=== PATIENT | female | born 1950 | race Caucasian/White ===

== ENCOUNTER 2016-08-09 12:10 | Inpatient (IN) | payer OTHER ==
[~2016-08-09] VITALS: Ht 165.1 cm; Wt 92.5 kg
[~2016-08-09 12:10] MED LIST: ACET-461 PO; GLIP5TAB13 PO; HYDR-3816 PO; LISI10TA2 PO; LISI20TA PO; LOVA10TA PO; METF-380 PO; Rivaroxaban PO; TRZ100T PO
[2016-08-09] MEDS ORDERED: ENOXAPARIN 40 MG/0.4 ML (LOVENOX) SYR SC SCH (13:30)
[2016-08-09 14:00] VITALS: BP 120/76
[2016-08-09] MEDS ORDERED: GLIP10TA13 PO (14:49)
[2016-08-09] MEDS ORDERED: LISI1TAB8 PO (14:49)
[2016-08-09 16:03] VITALS: BP 121/76
[2016-08-09] MEDS: inSUlin (REGULAR) HUMAN 1 UNIT/0.01 ML (CHARGE PER UNIT) SC SCH ×2 (16:27→21:09)
[2016-08-09] MEDS ORDERED: NS IV 1000 ML 1,000 ML IV SCH (16:30)
[2016-08-09] MEDS ORDERED: ASPIRIN E.C. 325 MG (ECOTRIN) TABLET PO NR (16:30)
--- NOTE | 2016-08-09 16:40 | Consultation-Cardiology ---
HPI-Cardiology Cardiology Consultation Date of Consultation 08/09/16 Date of Admission Indication: elevated troponin HPI 66 years old lady with history of hypertension, diabetes mellitus, patient had history of DVT 2 years ago, has been off Xarelto, was traveling with her son to the [place], drove for about 5 hours yesterday, had diarrhea, while she was walking she felt weak and fell and bumped the side of her eye. Did not have any bruising or bleeding. Patient was admitted to [facility] monitored and noted to have mildly elevated troponin, she was noted to have sinus tachycardia, she denied any chest pain or shortness of breath, no palpitation, no lower extremity edema or pain. Home Medications & Allergies Allergies: Coded Allergies: No Known Drug Allergies (Unverified , 05/16/14) Home Medication List Reviewed: Yes MWK-Uhtxyn-Hhjypr Hx Patient Social History Alcohol Use: Denies Use Recreational Drug Use: No Smoking Status: Former Smoker Recent Foreign Travel: No Recent Infectious Disease Expo: No Physical Abuse Screen: No Sexual Abuse: No Immunizations Up To Date Tetanus Booster (TDap): Unknown Past Medical History past medical history as discussed below Family Medical History Family History: 19 FATHER Respiratory disorder 19 MOTHER Cardiovascular disease Diabetes mellitus Myocardial infarction G8 BROTHER FH: COPD (chronic obstructive pulmonary disease) Hypertension G8 SISTER FH: COPD (chronic obstructive pulmonary disease) Hypertension Stroke or transient ischemic attack in sister Constitutional: see HPI, No chills, No diaphoresis, dizziness, No fever, No malaise, weakness, No weight gain, No weight loss, No other EENTM: no symptoms reported, see HPI Respiratory: see HPI, No cough, No dyspnea on exertion, No hemoptysis, No orthopnea, No phlegm, No short of breath, No stridor, No wheezing, No other Cardiovascular: no symptoms reported, see HPI, No chest pain, No edema, No Hx of Intervention, No palpitations, syncope ( as described above), No vascular heart diseas, No other Gastrointestinal: no symptoms reported, see HPI Genitourinary: no symptoms reported, see HPI Musculoskeletal: no symptoms reported, see HPI Skin: no symptoms reported, see HPI Psychiatric/Neurological: No Symptoms Reported, See HPI Reviewed Test Results Reviewed Test Results Lab Laboratory Tests Test 08/09/16 14:40 08/09/16 16:01 Range/Units Troponin I 0.35 *H <0.30 NG/ML Glucometer 287 H 70-110 MG/DL Physical Exam Vital Signs Vital Sign - Last 12Hours 08/09/16 14:00 Temp 97.8 Pulse 107 Resp 20 B/P (MAP) 120/76 Pulse Ox 96 O2 Delivery Nasal Cannula O2 Flow Rate 2.00 Capillary Refill : General Appearance: No Apparent Distress, WD/WN Eyes: Bilateral Eye EOMI, Bilateral Eye Normal Inspection, Bilateral Eye PERRL HEENT: PERRL/EOMI, TMs Normal, Normal ENT Inspection, Pharynx Normal Neck: Full Range of Motion, Normal Inspection, Non Tender, Supple, Carotid Bruit Respiratory: Chest Non Tender, Lungs Clear, Normal Breath Sounds, No Accessory Muscle Use, No Respiratory Distress Cardiovascular: Regular Rate, Rhythm, No Edema, No Gallop, No JVD, No Murmur, Normal Peripheral Pulses Gastrointestinal: Normal Bowel Sounds, No Organomegaly, No Pulsatile Mass, Non Tender, Soft Back: Normal Inspection, No CVA Tenderness, No Vertebral Tenderness Extremity: Normal Capillary Refill, Normal Inspection, Normal Range of Motion, Non Tender, No Calf Tenderness, No Pedal Edema Neurologic/Psychiatric: Alert, Oriented x3, No Motor/Sensory Deficits, Normal Mood/Affect Skin: Normal Color, Warm/Dry Lymphatic: No Adenopathy A/P-Cardiology Admission Diagnosis Near syncope Hypertension Diabetes mellitus DVT Assessment/Plan Near syncope, status post fall and generalized weakness, reporting improvement at this time, continue on IV fluid and monitor, I will evaluate 2-D echocardiogram. Mildly elevated troponin level, could be secondary to sinus tachycardia, continue to monitor trend, meanwhile I will start the patient on Lovenox and aspirin, monitor EKG closely, evaluate 2-D echocardiogram History of DVT in 2014 unprovoked, recent travel in the car for about 5 hours. Patient is started on Lovenox, I will evaluate venous Doppler study Sinus tachycardia, could be secondary to dehydration and/or pulmonary embolism, planning to evaluate venous Doppler study. Hypertension, monitor blood pressure and restart medication Diabetes mellitus, followed and managed by primary care physician Questionable hyperlipidemia, I will evaluate lipid profile Clinical Quality Measures DVT/VTE Risk/Contraindication: Risk Factor Score Per Nursin RFS Level Per Nursing on Admit: 4+=Very High THUY MATTHEWS MD Aug 09, 2016 16:40
[2016-08-09] MEDS: NS IV 1000 ML 1,000 ML IV SCH (17:10)
--- NOTE | 2016-08-09 17:21 | Diagnostic Imaging Report ---
INDICATION: Leg pain. FINDINGS: Bilateral lower extremity venous Doppler study performed in routine fashion with color Doppler and waveform analysis. On the right side, there is nonocclusive thrombus in the common femoral vein as well as in the popliteal vein. The SFV and visualized portions of tibial veins are patent On the left side, there is occlusive thrombus in the popliteal vein. The common femoral vein, SFV and profunda are patent. The visualized portions of the tibial veins are patent. IMPRESSION: Occlusive thrombus in the left popliteal vein. There is nonocclusive thrombus in the right common femoral vein and popliteal vein. Dictated by: Dictated on workstation # [id number]
[2016-08-09 17:47] LABS: CALCIUM 8.8 MG/DL (8.5-10.1); CREATININE SERUM 0.96 MG/DL (0.60-1.30); POTASSIUM 3.6 MMOL/L (3.6-5.0)
[2016-08-09] MEDS ORDERED: IOHEXOL 350 MG/ML 100 ML (OMNIPAQUE 350) VIAL IV ONE (18:00)
[2016-08-09] MEDS ORDERED: NS 100 ML (IVPB) BAG IV ONE (18:00)
--- NOTE | 2016-08-09 18:48 | Diagnostic Imaging Report ---
PROCEDURE: CT angiography of the chest with contrast. TECHNIQUE: Multiple contiguous axial images were obtained through the chest after uneventful bolus administration of intravenous contrast. Reconstructed CTA MIP acquisitions were also performed. INDICATION: Known DVT with syncope and shortness of breath. COMPARISON: None available. FINDINGS: Vasculature: There is a large volume of central pulmonary emboli, which includes a nonocclusive saddle type embolus within the right and left main pulmonary arteries. The most confluent thrombus burden is within the right interlobar pulmonary artery which is near occlusive. On the left, thrombus extends into the segmental arteries of the upper lobe, lingula and lower lobe. No evidence of pulmonary hypertension or right ventricular strain by CT. Thoracic aorta is normal in caliber. No aortic dissection or pseudoaneurysm. Heart and mediastinum: Visualized thyroid is normal. No supraclavicular, axillary, or intra-thoracic lymphadenopathy. The heart is normal in size without pericardial effusion. Pleura: No pleural effusion or pneumothorax. Lungs and airway: No endoluminal lesion in the trachea or central bronchi. Groundglass attenuation in the superior and lateral basilar segments of the right lower lobe could relate to early pulmonary infarcts. No suspicious pulmonary mass or nodule. Upper abdomen: Cholecystectomy. No acute abnormality upper abdomen. Musculoskeletal: No concerning osseous lesion. IMPRESSION: 1. Large volume of central pulmonary emboli, which includes a nonocclusive saddle embolus involving the right and left main pulmonary arteries. The most confluent focus of clot burden is in the right interlobar pulmonary artery. 2. No CT findings of pulmonary hypertension or right ventricular strain. 3. Groundglass opacities in the periphery of the right lower lobe may relate to early foci of pulmonary infarct. The findings of acute pulmonary emboli were called by Dr. Alban Palma to patient's nurse Oxana at 6:44 PM on 08/09/2016. Dictated by: Dictated on workstation # [id number]
[2016-08-09 20:00] VITALS: BP 112/63
[2016-08-09] MEDS: ENOXAPARIN 100 MG/1 ML (LOVENOX) SYR SC SCH (20:18)
[2016-08-10 00:37] VITALS: BP 111/71
[2016-08-10] MEDS: NS IV 1000 ML 1,000 ML IV SCH ×2 (03:00→03:10)
[2016-08-10 04:00] LABS: MEAN PLATELET VOLUME 10.7 FL (7.4-10.4); RED BLOOD COUNT 4.52 10^6/uL (4.35-5.85); RED CELL DISTRIBUTION WIDTH 12.5 % (10.0-14.5); WHITE BLOOD COUNT 11.6 10^3/uL (4.3-11.0)
[2016-08-10 04:20] VITALS: BP 111/60
[2016-08-10 04:27] LABS: ALANINE AMINOTRANSFERASE 21 U/L (0-55); ALBUMIN 2.7 G/DL (3.2-4.5); ANION GAP 9 MMOL/L (5-14); ASPARTATE AMINO TRANSFERASE 23 U/L (5-34); BILIRUBIN,TOTAL 0.4 MG/DL (0.1-1.0); BLOOD UREA NITROGEN 18 MG/DL (7-18); BUN/CREATININE RATIO 24; CARBON DIOXIDE 25 MMOL/L (21-32); CHLORIDE 106 MMOL/L (98-107); CHOLESTEROL 193 MG/DL (< 200); CREATININE SERUM 0.76 MG/DL (0.60-1.30); DIRECT LDL 137 MG/DL (1-129); GFR ESTIMATED > 60; GLUCOSE 163 MG/DL (70-105); POTASSIUM 3.2 MMOL/L (3.6-5.0); SODIUM 140 MMOL/L (135-145); TOTAL PROTEIN 5.4 G/DL (6.4-8.2); TRIGLYCERIDES 137 MG/DL (<150); VLDL CHOLESTEROL 27 MG/DL (5-40)
[2016-08-10 04:46] LABS: TROPONIN I < 0.30 NG/ML (<0.30)
[2016-08-10] MEDS: inSUlin (REGULAR) HUMAN 1 UNIT/0.01 ML (CHARGE PER UNIT) SC SCH ×4 (06:24→22:06)
[2016-08-10 07:36] VITALS: BP 101/57
[2016-08-10] MEDS: ASPIRIN E.C. 81 MG (ECOTRIN) TAB PO SCH (07:41)
[2016-08-10] MEDS: ENOXAPARIN 100 MG/1 ML (LOVENOX) SYR SC SCH (07:41)
[2016-08-10] MEDS: PANTOPRAZOLE 40 MG (PROTONIX) TAB PO SCH (07:41)
[2016-08-10] MEDS ORDERED: ENOXAPARIN 40 MG/0.4 ML (LOVENOX) SYR SC SCH (09:00)
--- NOTE | 2016-08-10 09:43 | Cardiology Progress Note ---
Subjective Subjective/Events-last exam patient is laying down in bed, comfortable, denied any chest pain or shortness of breath. No palpitation. Review of Systems General: No Chills, No Night Sweats, No Fatigue, No Malaise, No Appetite, No Other HEENT: No Head Aches, No Visual Changes, No Eye Pain, No Ear Pain, No Dysphasia , No Sinus Congestion, No Post Nasal Drip, No Sore Throat, No Other Pulmonary: Dyspnea, No Cough, No Pleuritic Chest Pain, No Other Cardiovascular: No: Chest Pain, Edema, Lt Headedness, Orthopnea, Other, Palpitations, Paroxysmal Noc. Dyspnea Objective-Cardiology Exam Last Set of Vital Signs Vital Signs 08/10/16 08/10/16 07:36 08:41 Temp 98.8 Pulse 83 Resp 20 B/P (MAP) 101/57 Pulse Ox 100 O2 Delivery Room Air O2 Flow Rate 2.00 Capillary Refill : I&O Bad tableGeneral: Alert, Oriented X3, Cooperative HEENT: Atraumatic, PERRLA Neck: Supple, No JVD, No Thyromegaly Lungs: Clear to Auscultation, Normal Air Movement Heart: Regular Rate, Normal S1, Normal S2, No Murmurs Abdomen: Normal Bowel Sounds, Soft, No Tenderness, No Hepatosplenomegaly, No Masses Extremities: No Clubbing, No Cyanosis, No Edema, Normal Pulses, No Tenderness/ Swelling Skin: No Rashes, No Breakdown, No Significant Lesion Neuro: Normal Gait, Normal Speech, Strength at 5/5 X4 Ext, Normal Tone, Sensation Intact Psych/Mental Status: Mental Status NL, Mood NL Results Lab Laboratory Tests 08/09/16 17:03 08/10/16 03:15 A/P-Cardiology Admission Diagnosis Near syncope Hypertension Diabetes mellitus DVT Assessment/Plan Massive pulmonary embolism, multiple PE, saddle embolus in the right and left main pulmonary artery, hemodynamically stable, occlusive DVT in the left popliteal artery, nonocclusive DVT in the right popliteal and femoral artery, status post recent travel. This is the second event of DVT, patient will to be on oral anticoagulation indefinitely, evaluate hypercoagulable state. Near syncope, status post fall and generalized weakness, reporting improvement at this time, continue to monitor, continue IV fluid Mildly elevated troponin level, probably secondary to right ventricular strain pattern from her massive pulmonary embolism Hypertension, currently borderline hypotensive, continue to monitor Diabetes mellitus, followed and managed by primary care physician Clinical Quality Measures DVT/VTE Risk/Contraindication: Risk Factor Score Per Nursin RFS Level Per Nursing on Admit: 4+=Very High THUY MATTHEWS MD Aug 10, 2016 09:43
--- NOTE | 2016-08-10 10:16 | History & Physicial (CHS) ---
HPI History of Present Illness: Patient transferred to [facility] hospitalist from [facility] due to elevated troponin, found to be a [facility] patient (Dr. Watson). Overnight was managed by hospitalist. Per patient, she drove with her son to the [facility] on Monday night about 2 hours at a time with stopping to eat around 9:30 pm. When they arrived home around midnight, she tried to walk into the house and fell. She denies palpitations, chest pain, shortness of breath, but felt unable to get up and asked her son to bring her walker that she has due to a previous episode of blood clot in her right leg. He brought her the walker and she again tried to walk, but fell flat on her face and was unable to get up, so the called the ambulance. She was found at [facility] to have possible UTI and given rocephin x 1 and also had elevated troponin and they recommended transfer, which she initially declined, but eventually agreed to when troponin apparently continued to climb. Dr. Sequeira was consulted and ordered lower extremity dopplers due to her history and she was found to have new occlusive DVT in left leg as well as the old non-occlusive DVT in right leg. Given this along with the fall, a CTA was done which showed large volume central pulmonary embolism including non-occlusive saddle pulmonary embolism. Dr. Sequeira discussed with [facility] last night who stated they would not intervene at this time as it is stable, so she remained here. She was placed on therapeutic lovenox. She is refusing to have an ABG this morning. Date seen by provider: Aug 10, 2016 Time seen by provider: 09:30 Attending Physician John Soares MD PCP Sam Watson MD Consult Date of Admission Aug 09, 2016 at 8:06 pm Home Medications Home Medications Reviewed patient Home Medication Reconciliation Form Allergies Coded Allergies: No Known Drug Allergies (Unverified , 05/16/14) OKM-Gtfjmd-Ccbqvh Hx Patient Social History Alcohol Use: Denies Use Recreational Drug Use: No Smoking Status: Former Smoker Recent Foreign Travel: No Contact w/other who traveled: No Recent Infectious Disease Expo: No Physical Abuse Screen: No Sexual Abuse: No Immunizations Up To Date Tetanus Booster (TDap): Unknown Past Medical History PMHx: Diabetes mellitus II HTN PSurgHx: Cholecystectomy, tubal ligation, bunionectomy, right knee surgery Family Medical History Significant Family History: COPD, CVA, Diabetes, Vascular Disease Review of Systems (CHC) Constitutional: No dizziness, No fever EENTM: No nose congestion, No throat pain Respiratory: No cough, No short of breath Cardiovascular: No chest pain Gastrointestinal: No abdominal pain, No constipation, No diarrhea, No nausea, No vomiting Genitourinary: no symptoms reported Musculoskeletal: joint pain Skin: No rash Psychiatric/Neurological: Denies Anxiety, Denies Depressed Reviewed Test Results Reviewed Test Results Lab Laboratory Tests Test 08/09/16 14:40 08/09/16 16:01 08/09/16 17:03 08/09/16 20:17 Range/Units Troponin I 0.35 *H <0.30 NG/ML Glucometer 287 H 298 H 70-110 MG/DL Sodium Level 138 135-145 MMOL/L Potassium Level 3.6 3.6-5.0 MMOL/L Chloride Level 100 98-107 MMOL/L Carbon Dioxide Level 25 21-32 MMOL/L Anion Gap 13 5-14 MMOL/L Blood Urea Nitrogen 20 H 7-18 MG/DL Creatinine 0.96 0.60-1.30 MG/DL Estimat Glomerular Filtration Rate 59 BUN/Creatinine Ratio 21 Glucose Level 280 H 70-105 MG/DL Calcium Level 8.8 8.5-10.1 MG/DL Test 08/10/16 03:15 Range/Units White Blood Count 11.6 H 4.3-11.0 10^3/uL Red Blood Count 4.52 4.35-5.85 10^6/uL Hemoglobin 13.0 11.5-16.0 G/DL Hematocrit 38 35-52 % Mean Corpuscular Volume 83 80-99 FL Mean Corpuscular Hemoglobin 29 25-34 PG Mean Corpuscular Hemoglobin Concent 35 32-36 G/DL Red Cell Distribution Width 12.5 10.0-14.5 % Platelet Count 157 130-400 10^3/uL Mean Platelet Volume 10.7 H 7.4-10.4 FL Sodium Level 140 135-145 MMOL/L Potassium Level 3.2 L 3.6-5.0 MMOL/L Chloride Level 106 98-107 MMOL/L Carbon Dioxide Level 25 21-32 MMOL/L Anion Gap 9 5-14 MMOL/L Blood Urea Nitrogen 18 7-18 MG/DL Creatinine 0.76 0.60-1.30 MG/DL Estimat Glomerular Filtration Rate > 60 BUN/Creatinine Ratio 24 Glucose Level 163 H 70-105 MG/DL Calcium Level 8.0 L 8.5-10.1 MG/DL Total Bilirubin 0.4 0.1-1.0 MG/DL Aspartate Amino Transf (AST/SGOT) 23 5-34 U/L Alanine Aminotransferase (ALT/SGPT) 21 0-55 U/L Alkaline Phosphatase 81 40-136 U/L Troponin I < 0.30 <0.30 NG/ML Total Protein 5.4 L 6.4-8.2 G/DL Albumin 2.7 L 3.2-4.5 G/DL Triglycerides Level 137 <150 MG/DL Cholesterol Level 193 < 200 MG/DL LDL Cholesterol Direct 137 H 1-129 MG/DL VLDL Cholesterol 27 5-40 MG/DL HDL Cholesterol 37 L 40-60 MG/DL Thyroid Stimulating Hormone (TSH) 0.30 L 0.35-4.94 UIU/ML Radiology CTA chest 08/09/16: IMPRESSION: 1. Large volume of central pulmonary emboli, which includes a nonocclusive saddle embolus involving the right and left main pulmonary arteries. The most confluent focus of clot burden is in the right interlobar pulmonary artery. 2. No CT findings of pulmonary hypertension or right ventricular strain. 3. Groundglass opacities in the periphery of the right lower lobe may relate to early foci of pulmonary infarct. Venous doppler bilateral LE: IMPRESSION: Occlusive thrombus in the left popliteal vein. There is nonocclusive thrombus in the right common femoral vein and popliteal vein. Physical Exam-(CHC) Physical Exam Vital Signs VS - Last 72 Hours, by Label 08/09/16 08/09/16 08/09/16 08/09/16 14:00 14:00 16:00 16:03 Temp 97.8 96.7 Pulse 107 102 Resp 20 20 B/P (MAP) 120/76 121/76 Pulse Ox 95 96 96 95 O2 Delivery Nasal Cannula Nasal Cannula O2 Flow Rate 2.00 2.00 2.00 2.00 08/09/16 08/09/16 08/09/16 08/09/16 19:00 20:00 20:00 21:00 Temp 99.8 Pulse 105 84 Resp 20 B/P (MAP) 112/63 Pulse Ox 96 O2 Delivery Nasal Cannula Nasal Cannula O2 Flow Rate 2.00 2.00 2.00 08/10/16 08/10/16 08/10/16 08/10/16 00:37 00:46 01:00 04:20 Temp 97.1 97.5 Pulse 82 78 80 Resp 22 22 B/P (MAP) 111/71 111/60 Pulse Ox 98 97 O2 Delivery Nasal Cannula Nasal Cannula O2 Flow Rate 2.00 2.00 2.00 08/10/16 08/10/16 08/10/16 08/10/16 04:21 07:00 07:35 07:36 Temp 98.8 Pulse 76 83 Resp 20 B/P (MAP) 101/57 Pulse Ox 100 100 O2 Delivery Room Air O2 Flow Rate 2.00 08/10/16 08:41 O2 Flow Rate 2.00 Capillary Refill : General Appearance: no apparent distress Respiratory: lungs clear, normal breath sounds, no respiratory distress Cardiovascular: regular rate, rhythm, no murmur Gastrointestinal: normal bowel sounds, non tender, soft Extremities: no pedal edema Neurologic/Psychiatric: alert, normal mood/affect Skin: normal color, warm/dry Assessment/Plan Assessment/Plan Admission Dx 1. Elevated troponin 2. Bilateral DVT and large central PE with non-occlusive saddle embolism 3. DMII 4. HTN 5. Possible UTI Plan 1. Elevated troponin- Cardiology consulted -Likely secondary to strain from PE, normalized this am -Echo per Cardiology recommendations 2. Bilateral DVT and large central PE with non-occlusive saddle embolism, no hypoxia currently, she refuses ABG, echo pending -No intervention at that time per [facility] -Enoxaparin 1 mg/kg BID, start Eliquis for long-term, discussed with her that she will need to be on lifelong anticoagulation and it is critical that she never miss doses or stop the medication -Unclear etiology- h/o DVT 2 years ago and she did have relatively long car ride Monday, but would also consider hypercoagulability, consider Hematology referral 3. DMII- resume home medications -Diabetic diet 4. HTN- hold home lisinopril/HCTZ with low BP this am 5. Possible UTI- obtain culture from [facility] DVT ppx- DVT/PE present on admission, on therapeutic enoxaparin Diagnosis/Problems: Clinical Quality Measures DVT/VTE Risk/Contraindication: Risk Factor Score Per Nursin RFS Level Per Nursing on Admit: 4+=Very High Copy Copies To 1: SAM WATSON MD, BETHANY N MD Aug 10, 2016 10:16 am
[2016-08-10] MEDS ORDERED: KCL 20 MEQ TAB (K-DUR) PO NR (10:45)
[2016-08-10] MEDS: APIXABAN 5 MG (ELIQUIS) TABLET PO SCH ×2 (11:05→22:05)
[2016-08-10 11:17] VITALS: BP 115/72
[2016-08-10 16:47] VITALS: BP 129/91
[2016-08-10 20:00] VITALS: BP 104/91
[2016-08-10] MEDS ORDERED: ATORVASTATIN 40 MG (LIPITOR) TABLET PO SCH (21:00)
[2016-08-11] VITALS: BP 140/80
[2016-08-11 04:00] VITALS: BP 135/77
[2016-08-11 04:11] LABS: MEAN PLATELET VOLUME 10.6 FL (7.4-10.4); RED BLOOD COUNT 4.42 10^6/uL (4.35-5.85); RED CELL DISTRIBUTION WIDTH 12.6 % (10.0-14.5); WHITE BLOOD COUNT 7.9 10^3/uL (4.3-11.0)
[2016-08-11 04:35] LABS: ANION GAP 10 MMOL/L (5-14); BLOOD UREA NITROGEN 14 MG/DL (7-18); BUN/CREATININE RATIO 19; CARBON DIOXIDE 23 MMOL/L (21-32); CHLORIDE 109 MMOL/L (98-107); CREATININE SERUM 0.74 MG/DL (0.60-1.30); GFR ESTIMATED > 60; GLUCOSE 115 MG/DL (70-105); POTASSIUM 3.7 MMOL/L (3.6-5.0); SODIUM 142 MMOL/L (135-145)
[2016-08-11] MEDS: inSUlin (REGULAR) HUMAN 1 UNIT/0.01 ML (CHARGE PER UNIT) SC SCH ×2 (06:00→12:12)
[2016-08-11] MEDS: PANTOPRAZOLE 40 MG (PROTONIX) TAB PO SCH (06:11)
[2016-08-11 08:15] VITALS: BP 146/87
--- NOTE | 2016-08-11 08:27 | Cardiology Progress Note ---
Subjective Subjective/Events-last exam patient is sitting in a chair, having mild pedal edema, denied any chest pain or shortness of breath. Denied any palpitation. Was concerned about the use of oral anticoagulation due to the cost and her having no insurance, we discussed the possibility of using Coumadin versus NOAC, will try to get the patient in an assistance program Review of Systems General: No Chills, No Night Sweats, No Fatigue, No Malaise, No Appetite, No Other HEENT: No Head Aches, No Visual Changes, No Eye Pain, No Ear Pain, No Dysphasia , No Sinus Congestion, No Post Nasal Drip, No Sore Throat, No Other Pulmonary: No Dyspnea, No Cough, No Pleuritic Chest Pain, No Other Cardiovascular: No: Chest Pain, Edema, Lt Headedness, Orthopnea, Other, Palpitations, Paroxysmal Noc. Dyspnea Objective-Cardiology Exam Last Set of Vital Signs Vital Signs 08/10/16 08/11/16 08:41 04:00 Temp 96.5 Pulse 74 Resp 17 B/P (MAP) 135/77 Pulse Ox 94 O2 Delivery Room Air O2 Flow Rate 2.00 Capillary Refill : I&O Intake and Output 08/11/16 00:00 Intake Total 2800 ml Output Total 1050 ml Balance 1750 ml Intake Oral 800 ml IV Total 2000 ml Output Urine Total 1050 ml General: Alert, Oriented X3, Cooperative HEENT: Atraumatic, PERRLA Neck: Supple, No JVD, No Thyromegaly Lungs: Clear to Auscultation, Normal Air Movement Heart: Regular Rate, Normal S1, Normal S2, No Murmurs Abdomen: Normal Bowel Sounds, Soft, No Tenderness, No Hepatosplenomegaly, No Masses Extremities: No Clubbing, No Cyanosis, No Edema, Normal Pulses, No Tenderness/ Swelling Skin: No Rashes, No Breakdown, No Significant Lesion Neuro: Normal Gait, Normal Speech, Strength at 5/5 X4 Ext, Normal Tone, Sensation Intact Psych/Mental Status: Mental Status NL, Mood NL Results Lab Laboratory Tests 08/11/16 03:53 A/P-Cardiology Admission Diagnosis Near syncope Hypertension Diabetes mellitus DVT Assessment/Plan Massive pulmonary embolism, multiple PE, saddle embolus in the right and left main pulmonary artery, hemodynamically stable, occlusive DVT in the left popliteal artery, nonocclusive DVT in the right popliteal and femoral artery, status post recent travel. This is the second event of DVT, patient will to be on oral anticoagulation indefinitely, I'll start by evaluating factor V Leiden. We had a long discussion regarding the use of Eliquis and the cost of the medication versus Coumadin, we discussed all pros and cons for both medications , patient was on Xarelto in the past for about a year and she received it as part of assistance program, it was stopped by her primary care physician. 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 Echocardiogram showed normal left ventricular size and systolic function ejection fraction 60 percent, slightly prominent right ventricle. Near syncope, status post fall and generalized weakness, reporting improvement at this time, continue to monitor Mildly elevated troponin level, probably secondary to right ventricular strain pattern from her massive pulmonary embolism Hypertension, currently borderline hypotensive, continue to monitor Diabetes mellitus, followed and managed by primary care physician Clinical Quality Measures DVT/VTE Risk/Contraindication: Risk Factor Score Per Nursin RFS Level Per Nursing on Admit: 4+=Very High THUY MATTHEWS MD Aug 11, 2016 08:27
[2016-08-11] MEDS: APIXABAN 5 MG (ELIQUIS) TABLET PO SCH (08:41)
[2016-08-11] MEDS: ASPIRIN E.C. 81 MG (ECOTRIN) TAB PO SCH (08:41)
[2016-08-11] MEDS ORDERED: glipiZIDE 5 MG (GLUCOTROL) TAB PO SCH (09:00)
--- NOTE | 2016-08-11 09:19 | ECHOCARDIOGRAPHY REPORT ---
PROCEDURE PHYSICIAN: VICENTA ZHU DATE OF PROCEDURE: 08/09/2016 TWO DIMENSIONAL ECHOCARDIOGRAM REPORT PRIMARY PHYSICIAN: OTHER PHYSICIAN: REFERRING PHYSICIAN: ORDERING PHYSICIAN: Dr. Sequeira ATTENDING PHYSICIAN: Dr. Soares FAMILY PHYSICIAN: READING PHYSICIAN: Dr. Celi Zhu INDICATION FOR THE PROCEDURE: 1. Pulmonary embolism. 2. Elevated troponin. MEASUREMENTS DERIVED VALUES LV DIAMETER (LAX) NORMALS NORMALS Diastolic (3.6-5.2) Eject. Fract. (60%+/-6%) Systolic (2.3-3.9) Diastolic Vol. % Shortening (0.22-0.42) Systolic Vol. Aortic Root IVS THICKNESS Diastolic (0.6-1.1) LVPW THICKNESS Diastolic (0.6-1.1) LA DIAMETER Systolic (2.1-3.7) FINDINGS: 1. Sinus rhythm. 2. Left atrial dimensions are normal. 3. Aortic root dimensions are normal. 4. Left ventricular systolic function is hyperdynamic. Left ventricular ejection fraction is 75%. Mild concentric LVH is present with diastolic intraventricular septal diameter of 1.3 cm. 5. There is a mild inferior hypokinesis. 6. Right heart function is normal; however, there is mild right ventricular enlargement. 7. There is no evidence of pericardial effusion. 8. There is mild diastolic dysfunction. 9. IVC is dilated with a diameter of 2 cm which suggest increased right atrial pressure. VALVULAR STRUCTURE OF THE HEART: There is mild tricuspid regurgitation and mild mitral regurgitation. RVSP is 17 mmHg. There is no significant aortic valve or pulmonic valve pathology. CONCLUSION: 1. LVEF is hyperdynamic with EF of 75%. This may suggest height hypovolemia. 2. Mild RV enlargement is noted with normal RV function. 3. There is mild inferior hypokinesis. 4. The PA pressure is normal and with RVSP of 17 mmHg. There is no significant valvular heart disease. 5. IVC is dilated with a diameter of 2 cm, which may suggest increased right atrial pressure. Job ID: [id number] Dictated Date: 08/10/2016 17:28:35 [employer] Sales Consultant Date: 08/11/2016 09:13:51 / keaton
[2016-08-11] MEDS ORDERED: APIX5TAB PO (10:37)
[2016-08-11] MEDS ORDERED: METF1000 PO (10:37)
[2016-08-11] MEDS ORDERED: ATOR40TA PO (10:38)
--- NOTE | 2016-08-11 10:42 | Discharge Instructions ---
Discharge Inst-[facility] Discharge Medications New, Converted or Re-Newed RX: Transmitted to Pharmacy New Medications: Metformin HCl (Metformin HCl) 1,000 Mg Tablet 1000 MG PO BID, #60 TAB 0 Refills Apixaban (Eliquis) 5 Mg Tablet 10 MG PO BID, #90 TAB 1 Refill Take 2 tabs twice daily for 5 days, then change to 1 tab twice daily. Atorvastatin Calcium (Lipitor) 40 Mg Tablet 40 MG PO HS, #30 TAB 0 Refills Continued Medications: Glipizide (Glipizide) 10 Mg Tablet 10 MG PO DAILY, TAB Lisinopril/Hydrochlorothiazide (Lisinopril-Hctz 20-12.5 mg Tab) 1 Each Tablet 1 TAB PO DAILY, TAB Trazodone Hcl (Desyrel) 100 Mg Tablet 100 MG PO HS PRN for SLEEP, TAB Patient Instructions Goal/Follow Up Appt: Follow up with Dr. Watson on August 15 at 10:40 am. Follow up with Dr. Sequeira as instructed. Patient Instructions: Your cholesterol medicine (atorvastatin) and your new diabetes medicine (metformin) will be at the [facility] pharmacy to pick pack worker, but your blood thinner (apixaban) will be at the nurse's station for you to pick pack worker because we have arranged free medication. Return to The Hospital For: Shortness of breath, chest pain, dizziness Activity & Diet Discharge Diet: ADA Diet Activity as Tolerated: Yes Orders-Post D/C & Referrals Pneu Vac Indicated: Yes Copy Copies To 1: MATHEUS WATSON MD,KINJAL Hannon MD Aug 11, 2016 10:42 am
--- NOTE | 2016-08-11 10:43 | Discharge Summary ---
Diagnosis/Chief Complaint Date of Admission Aug 09, 2016 at 8:06 pm Date of Discharge August 11, 2016 Admission Diagnosis Admission Diagnosis 1. Elevated troponin 2. Bilateral DVT and large central PE with non-occlusive saddle embolism 3. DMII 4. HTN 5. Possible UTI Discharge Diagnosis 1. Elevated troponin- Cardiology consulted -Likely secondary to strain from PE, normalized after arrival -Echo showed EF 60% and mild right ventricular enlargement 2. Bilateral DVT and large central PE with non-occlusive saddle embolism, no hypoxia currently, she refuses ABG, echo pending -No intervention at that time per [facility] -Enoxaparin 1 mg/kg BID, start Eliquis for long-term, discussed with her that she will need to be on lifelong anticoagulation and it is critical that she never miss doses or stop the medication -Unclear etiology- h/o DVT 2 years ago and she did have relatively long car ride Monday, but would also consider hypercoagulability, consider Hematology referral -Factor V Leiden mutation lab pending on d/, will need followed up, given Eliquis from repository at [facility] on discharge 3. DMII- resume home medications -Diabetic diet -Sent new script for metformin which she had stopped due to cost, discussed importance of taking and that she will likely need to get assistance program to get on insulin and assistance with obtaining a glucometer, will address at hospital follow-up visit on Monday. 4. HTN- hold home lisinopril/HCTZ with low BP this am -Resumed on d/c with normal to high BP 5. Possible UTI- obtain culture from [facility] -Showed multiple bacteria, no clear infection 6. Low TSH- will need recheck along with free T4 to determine if significant Chief Complaint/HPI Chief Complaint/HPI Patient transferred to [facility] hospitalist from [facility] due to elevated troponin, found to be a [facility] patient (Dr. Watson). Overnight was managed by hospitalist. Per patient, she drove with her son to the [employer] on Monday night about 2 hours at a time with stopping to eat around 9:30 pm. When they arrived home around midnight, she tried to walk into the house and fell. She denies palpitations, chest pain, shortness of breath, but felt unable to get up and asked her son to bring her walker that she has due to a previous episode of blood clot in her right leg. He brought her the walker and she again tried to walk, but fell flat on her face and was unable to get up, so the called the ambulance. She was found at [facility] to have possible UTI and given rocephin x 1 and also had elevated troponin and they recommended transfer, which she initially declined, but eventually agreed to when troponin apparently continued to climb. Dr. Sequeira was consulted and ordered lower extremity dopplers due to her history and she was found to have new occlusive DVT in left leg as well as the old non-occlusive DVT in right leg. Given this along with the fall, a CTA was done which showed large volume central pulmonary embolism including non-occlusive saddle pulmonary embolism. Dr. Sequeira discussed with [facility] last night who stated they would not intervene at this time as it is stable, so she remained here. She was placed on therapeutic lovenox. She is refusing to have an ABG this morning. Discharge Summary-Simple/Stand Consultations Discharge Physical Examination Allergies: Coded Allergies: No Known Drug Allergies (Unverified , 05/16/14) Vitals & I&Os Vital Sign - Last 12Hours Date Time Temp Pulse Resp B/P (MAP) Pulse Ox O2 Delivery O2 Flow Rate FiO2 08/11/16 04:00 96.5 74 17 135/77 94 Room Air 08/10/16 08:41 2.00 Intake and Output 08/11/16 00:00 Intake Total 1800 ml Output Total 900 ml Balance 900 ml General Appearance: Alert, No Acute Distress Respiratory: Clear to Auscultation, Normal Air Movement Cardiovascular: Regular Rate, No Murmurs Abdominal: Normal Bowel Sounds, Soft Extremities: Other (non-pitting edema in both legs) Neuro: Normal Speech Psych/Mental Status: Mental Status NL Hospital Course See final discharge diagnosis. Labs Laboratory Tests Test 08/09/16 14:40 08/09/16 16:01 08/09/16 17:03 08/09/16 20:17 Range/Units Troponin I 0.35 *H <0.30 NG/ML Glucometer 287 H 298 H 70-110 MG/DL Sodium Level 138 135-145 MMOL/L Potassium Level 3.6 3.6-5.0 MMOL/L Chloride Level 100 98-107 MMOL/L Carbon Dioxide Level 25 21-32 MMOL/L Anion Gap 13 5-14 MMOL/L Blood Urea Nitrogen 20 H 7-18 MG/DL Creatinine 0.96 0.60-1.30 MG/DL Estimat Glomerular Filtration Rate 59 BUN/Creatinine Ratio 21 Glucose Level 280 H 70-105 MG/DL Calcium Level 8.8 8.5-10.1 MG/DL Test 08/10/16 03:15 08/10/16 11:07 08/10/16 16:46 08/10/16 22:00 Range/Units White Blood Count 11.6 H 4.3-11.0 10^3/uL Red Blood Count 4.52 4.35-5.85 10^6/uL Hemoglobin 13.0 11.5-16.0 G/DL Hematocrit 38 35-52 % Mean Corpuscular Volume 83 80-99 FL Mean Corpuscular Hemoglobin 29 25-34 PG Mean Corpuscular Hemoglobin Concent 35 32-36 G/DL Red Cell Distribution Width 12.5 10.0-14.5 % Platelet Count 157 130-400 10^3/uL Mean Platelet Volume 10.7 H 7.4-10.4 FL Sodium Level 140 135-145 MMOL/L Potassium Level 3.2 L 3.6-5.0 MMOL/L Chloride Level 106 98-107 MMOL/L Carbon Dioxide Level 25 21-32 MMOL/L Anion Gap 9 5-14 MMOL/L Blood Urea Nitrogen 18 7-18 MG/DL Creatinine 0.76 0.60-1.30 MG/DL Estimat Glomerular Filtration Rate > 60 BUN/Creatinine Ratio 24 Glucose Level 163 H 70-105 MG/DL Calcium Level 8.0 L 8.5-10.1 MG/DL Total Bilirubin 0.4 0.1-1.0 MG/DL Aspartate Amino Transf (AST/SGOT) 23 5-34 U/L Alanine Aminotransferase (ALT/SGPT) 21 0-55 U/L Alkaline Phosphatase 81 40-136 U/L Troponin I < 0.30 <0.30 NG/ML Total Protein 5.4 L 6.4-8.2 G/DL Albumin 2.7 L 3.2-4.5 G/DL Triglycerides Level 137 <150 MG/DL Cholesterol Level 193 < 200 MG/DL LDL Cholesterol Direct 137 H 1-129 MG/DL VLDL Cholesterol 27 5-40 MG/DL HDL Cholesterol 37 L 40-60 MG/DL Thyroid Stimulating Hormone (TSH) 0.30 L 0.35-4.94 UIU/ML Glucometer 208 H 308 H 222 H 70-110 MG/DL Test 08/11/16 03:53 08/11/16 08:42 Range/Units White Blood Count 7.9 4.3-11.0 10^3/uL Red Blood Count 4.42 4.35-5.85 10^6/uL Hemoglobin 12.8 11.5-16.0 G/DL Hematocrit 37 35-52 % Mean Corpuscular Volume 84 80-99 FL Mean Corpuscular Hemoglobin 29 25-34 PG Mean Corpuscular Hemoglobin Concent 35 32-36 G/DL Red Cell Distribution Width 12.6 10.0-14.5 % Platelet Count 171 130-400 10^3/uL Mean Platelet Volume 10.6 H 7.4-10.4 FL Sodium Level 142 135-145 MMOL/L Potassium Level 3.7 3.6-5.0 MMOL/L Chloride Level 109 H 98-107 MMOL/L Carbon Dioxide Level 23 21-32 MMOL/L Anion Gap 10 5-14 MMOL/L Blood Urea Nitrogen 14 7-18 MG/DL Creatinine 0.74 0.60-1.30 MG/DL Estimat Glomerular Filtration Rate > 60 BUN/Creatinine Ratio 19 Glucose Level 115 H 70-105 MG/DL Calcium Level 8.0 L 8.5-10.1 MG/DL Radiology Reviewed CTA chest 08/09/16: IMPRESSION: 1. Large volume of central pulmonary emboli, which includes a nonocclusive saddle embolus involving the right and left main pulmonary arteries. The most confluent focus of clot burden is in the right interlobar pulmonary artery. 2. No CT findings of pulmonary hypertension or right ventricular strain. 3. Groundglass opacities in the periphery of the right lower lobe may relate to early foci of pulmonary infarct. Venous doppler bilateral LE: IMPRESSION: Occlusive thrombus in the left popliteal vein. There is nonocclusive thrombus in the right common femoral vein and popliteal vein. Discharge Instructions to patient/family Please see electonic discharge instructions given to patient. Discharge Medications Reviewed and agree with Discharge Medication list on patient's Discharge Instruction sheet Clinical Quality Measures DVT/VTE Risk/Contraindication: Risk Factor Score Per Nursin RFS Level Per Nursing on Admit: 4+=Very High Copy Copies To 1: MATHEUS WATSON MD, BETHANY N MD Aug 11, 2016 10:43 am
[2016-08-11 11:59] VITALS: BP 146/92
[2016-08-11 13:10] VITALS: BP 146/92
[2016-08-12 14:09] LABS: FACTOR 5 (LEIDEN) MUTATION Negative (Negative)
[2016-08-12 15:51] LABS: FACTOR 5 LEIDEN INTERP See Footnote
== END 2016-08-11 13:10 | disposition home or self-care (01) | DRG 299 ==
LOC: ICU 14:00 → UNDOADMOB 14:11 → ICU 14:11 → INTOOBSV 20:06 → OBSVTOIN 20:06 → UNDODISIN 08-11 13:10
PROVIDERS: ADMIT Internal Medicine; ATTEND Internal Medicine
DX: I82.433 Acute embolism and thrombosis of popliteal vein, bilateral (principal); I82.411 Acute embolism and thrombosis of right femoral vein; I26.92 Saddle embolus of pulmonary artery without acute cor pulmonale; E11.9 Type 2 diabetes mellitus without complications; I10 Essential (primary) hypertension; E78.5 Hyperlipidemia, unspecified; Z87.891 Personal history of nicotine dependence; R00.0 Tachycardia, unspecified; R55 Syncope and collapse; R53.1 Weakness; R94.6 Abnormal results of thyroid function studies; Z79.01 Long term (current) use of anticoagulants; Z91.81 History of falling
CPT/HCPCS: 36415; 71275; 80048; 80053; 80061; 81241; 82962; 84443; 84484; 85027; 93005; 93306; 93970; G0378

== ENCOUNTER → 2016-09-07 | Outpatient (CLI) | payer OTHER ==
[~2016-09-07] MED LIST changes: +APIX5TAB PO; +ATOR40TA PO; +CATHETER FLUSH 10 ML SYR IV PRN; +GLIP10TA13 PO; +LISI1TAB8 PO; +METF1000 PO; +REGADENOSON 0.4 MG/5 ML SYR (LEXISCAN) IV ONE
[2016-09-07 09:17] VITALS: BP 130/82
--- NOTE | 2016-09-08 06:38 | STRESS TEST ---
DATE OF SERVICE: 09/07/2016 LEXISCAN MYOVIEW STRESS TEST REFERRING PHYSICIAN: Dr. Sousa. Baseline heart rate is 90, baseline blood pressure 130/82. Baseline EKG is sinus rhythm with no ischemic changes. SUMMARY: The patient was injected with 10.92 mCi of technetium-99 Myoview and the resting images were obtained. Then the patient received 0.4 mg of Lexiscan followed by 32.2 mCi of technetium-99 Myoview. Throughout the test, there were no EKG changes. The resting and stress images were reviewed and compared in the short axis, horizontal long axis and vertical long axis views. Review of the images showed good radiotracer uptake with small left ventricle. No significant ischemia or infarction were seen. SSS is 2, SDS 2, TID value is 0.98. On the gated images, the left ventricle appeared to be normal size with normal contractility, calculated ejection fraction 89%. CONCLUSION: 1. The patient tolerated Lexiscan well. 2. Extracardiac attenuation with no significant ischemia or infarction on SPECT images. 3. Normal left ventricular size with normal contractility, calculated ejection fraction 89%. I believe it is an overestimation. Job ID: [id number] DocumentID: [id number] Dictated Date: 09/07/2016 15:53:02 Physical Damage Appraiser Date: 09/07/2016 18:25:45 Dictated By: THUY MATTHEWS MD
== END ==
LOC: CARD 07:22
PROVIDERS: ATTEND Internal Medicine Cardiovascular Disease
DX: E78.2 Mixed hyperlipidemia (principal); E11.9 Type 2 diabetes mellitus without complications
CPT/HCPCS: 78452; 93017

== ENCOUNTER → 2016-10-11 | Outpatient (CLI) | payer OTHER ==
[~2016-10-11] MED LIST changes: +BARIUM SUSPENSION 2.1% (VANILLA SILQ) 450 ML PO ONE; +IOHEXOL 350 MG/ML 100 ML (OMNIPAQUE 350) VIAL IV ONE; +NS 100 ML (IVPB) BAG IV ONE; -REGADENOSON 0.4 MG/5 ML SYR (LEXISCAN) IV ONE
--- NOTE | 2016-10-11 17:09 | Diagnostic Imaging Report ---
PROCEDURE: CT abdomen and pelvis with contrast. TECHNIQUE: Multiple contiguous axial images were obtained through the abdomen and pelvis after administration of intravenous contrast. INDICATION: Left-sided abdominal pain. 100 mL of Omnipaque 350 is administered intravenously. FINDINGS: The lung bases demonstrate no significant consolidation. Cholecystectomy clips are seen. The liver, the spleen, the adrenal glands, and the pancreas appear unremarkable. A 1.2 cm peripancreatic lymph node along the common hepatic artery is seen with no other prominent lymph nodes, of questionable clinical significance. The kidneys have symmetric enhancement and contrast excretion. A simple-appearing cyst measuring 1 cm in the mid right kidney posteriorly is seen. No hydronephrosis. The abdominal aorta is normal in caliber. No para-aortic significantly enlarged lymph node is seen. There is diverticulosis in the sigmoid colon. No diverticulitis. The uterus and adnexa appear grossly unremarkable. The osseous structures demonstrate mild degenerative changes in the lower lumbar spine. IMPRESSION: Diverticulosis. No diverticulitis. Dictated by: Dictated on workstation # [id number]
== END ==
LOC: RAD 12:42
PROVIDERS: ATTEND Internal Medicine Hematology & Oncology
DX: I26.99 Other pulmonary embolism without acute cor pulmonale (principal); I82.409 Acute embolism and thrombosis of unspecified deep veins of unspecified lower extremity; R10.32 Left lower quadrant pain; K57.30 Diverticulosis of large intestine without perforation or abscess without bleeding
CPT/HCPCS: 74177

== ENCOUNTER 2016-10-24 08:42 | Outpatient (RCR) | payer OTHER ==
[2016-09-19 15:28] LABS: BASOPHILS % (AUTO) 0 % (0-10); EOSINOPHILS # (AUTO) 0.1 10^3/uL (0.0-0.3); EOSINOPHILS % (AUTO) 1 % (0-10); LYMPHOCYTES # (AUTO) 2.8 X 10^3 (1.0-4.0); LYMPHOCYTES % (AUTO) 29 % (12-44); MEAN CORPUSCULAR HEMOGLOBIN 29 PG (25-34); MEAN CORPUSCULAR HGB CONC 35 G/DL (32-36); MEAN CORPUSCULAR VOLUME 83 FL (80-99); MONOCYTES # (AUTO) 0.6 X 10^3 (0.0-1.0); MONOCYTES % (AUTO) 6 % (0-12); NEUTROPHILS # (AUTO) 6.2 X 10^3 (1.8-7.8); NEUTROPHILS % (AUTO) 64 % (42-75); PLATELET COUNT 291 10^3/uL (130-400); RED BLOOD COUNT 5.53 10^6/uL (4.35-5.85); RED CELL DISTRIBUTION WIDTH 12.9 % (10.0-14.5); WHITE BLOOD COUNT 9.8 10^3/uL (4.3-11.0)
[2016-09-19 15:46] LABS: ALBUMIN 3.7 G/DL (3.2-4.5); BILIRUBIN,TOTAL 0.7 MG/DL (0.1-1.0); CALCIUM 9.6 MG/DL (8.5-10.1); CREATININE SERUM 1.09 MG/DL (0.60-1.30); POTASSIUM 4.1 MMOL/L (3.6-5.0)
[2016-09-20 07:59] LABS: HOMOCYSTEINE 15.9 umol/L (<=10.3)
[2016-09-21 07:54] LABS: FACTOR II 20210 MUTATIONC Negative (NEG)
[~2016-10-24 08:42] MED LIST changes: -BARIUM SUSPENSION 2.1% (VANILLA SILQ) 450 ML PO ONE; -CATHETER FLUSH 10 ML SYR IV PRN; -IOHEXOL 350 MG/ML 100 ML (OMNIPAQUE 350) VIAL IV ONE; -NS 100 ML (IVPB) BAG IV ONE
== END 2016-12-18 | disposition home or self-care (01) ==
LOC: ONC 08:42
PROVIDERS: ATTEND Internal Medicine Hematology & Oncology
DX: I82.433 Acute embolism and thrombosis of popliteal vein, bilateral (principal); I82.411 Acute embolism and thrombosis of right femoral vein
CPT/HCPCS: 80053; 81240; 83090; 85025; 99213; 99214

== ENCOUNTER 2017-06-07 18:42 | Emergency (ER) | payer MEDICARE, OTHER ==
[~2017-06-07] VITALS: Ht 165.1 cm; Wt 66.2 kg
[2017-06-07] MEDS ORDERED: NS IV 1000 ML 1,000 ML IV ONE (19:06)
[2017-06-07 19:14] LABS: BASOPHILS % (AUTO) 0 % (0-10); EOSINOPHILS % (AUTO) 0 % (0-10); HEMATOCRIT 44 % (35-52); HEMOGLOBIN 16.4 G/DL (11.5-16.0); LYMPHOCYTES # (AUTO) 2.1 X 10^3 (1.0-4.0); LYMPHOCYTES % (AUTO) 29 % (12-44); MEAN CORPUSCULAR HEMOGLOBIN 29 PG (25-34); MEAN CORPUSCULAR HGB CONC 37 G/DL (32-36); MEAN CORPUSCULAR VOLUME 79 FL (80-99); MEAN PLATELET VOLUME 10.6 FL (7.4-10.4); MONOCYTES # (AUTO) 0.6 X 10^3 (0.0-1.0); MONOCYTES % (AUTO) 9 % (0-12); NEUTROPHILS # (AUTO) 4.4 X 10^3 (1.8-7.8); NEUTROPHILS % (AUTO) 61 % (42-75); PLATELET COUNT 172 10^3/uL (130-400); RED BLOOD COUNT 5.62 10^6/uL (4.35-5.85); RED CELL DISTRIBUTION WIDTH 12.2 % (10.0-14.5); WHITE BLOOD COUNT 7.1 10^3/uL (4.3-11.0)
--- NOTE | 2017-06-07 19:27 | Diagnostic Imaging Report ---
INDICATION: Severe cough PA and lateral views of the chest are obtained. Heart size and pulmonary vascularity are within normal limits. No pneumothorax or consolidation is identified. There is no evidence of significant pleural fluid. IMPRESSION: No acute abnormality is identified. Dictated by: Dictated on workstation # [id number]
[2017-06-07 19:34] LABS: ALBUMIN 3.4 GM/DL (3.2-4.5); BILIRUBIN,TOTAL 0.6 MG/DL (0.1-1.0); CALCIUM 8.9 MG/DL (8.5-10.1); CREATININE SERUM 0.98 MG/DL (0.60-1.30); TOTAL PROTEIN 7.3 GM/DL (6.4-8.2)
[2017-06-07 19:34] LABS: BILIRUBIN,URINE NEGATIVE (NEGATIVE); CLARITY,URINE CLEAR; COLOR,URINE YELLOW; GLUCOSE, URINE (UA) 4+ (NEGATIVE); KETONES,URINE 3+ (NEGATIVE); LEUKOCYTE ESTERASE ,URINE 1+ (NEGATIVE); NITRITE,URINE NEGATIVE (NEGATIVE); PH,URINE 5 (5-9); PROTEIN,URINE 2+ (NEGATIVE); UROBILINOGEN,URINE NORMAL (NORMAL)
--- NOTE | 2017-06-07 19:36 | ED General ---
General Chief Complaint: Cough/Cold/Flu Symptoms Stated Complaint: FLU LIKE SYMPTOMS Nursing Triage Note: pt reports cough/body aches x 4 days. Nursing Sepsis Screen: No Definite Risk Source of Information: Patient Exam Limitations: No Limitations History of Present Illness Date Seen by Provider: Jun 07, 2017 Time Seen by Provider: 18:51 Initial Comments This 67-year-old woman presents to the emergency room with complaints of cough, incontinence, chest discomfort with cough, sore throat, and diarrhea 1 month. She denies any fever, nausea, or vomiting. She reports household exposures to flulike symptoms. Patient notes that she is a diabetic but has not been taking her metformin due to cost. She is on Eliquis for prior DVT/PE. Allergies and Home Medications Allergies Coded Allergies: No Known Drug Allergies (Unverified , 05/16/14) Home Medications Apixaban 5 Mg Tablet, 10 MG PO BID, #90 Ref 1 Take 2 tabs twice daily for 5 days, then change to 1 tab twice daily. Prescribed by: KINJAL CONWAY on 08/11/16 1037 Atorvastatin Calcium 40 Mg Tablet, 40 MG PO HS, #30 Ref 0 Prescribed by: KINJAL CONWAY on 08/11/16 1038 Glipizide 10 Mg Tablet, 10 MG PO DAILY, (Reported) Lisinopril/Hydrochlorothiazide 1 Each Tablet, 1 TAB PO DAILY, (Reported) Metformin HCl 1,000 Mg Tablet, 1,000 MG PO BID, #60 Ref 0 Prescribed by: KINJAL CONWAY on 08/11/16 1037 Metformin HCl 500 Mg Tablet, 500 MG PO TID, #30 Prescribed by: ROBYN PARKER on 06/07/17 2042 Trazodone Hcl 100 Mg Tablet, 100 MG PO HS PRN for SLEEP, (Reported) Constitutional: no symptoms reported EENTM: see HPI Respiratory: see HPI Cardiovascular: no symptoms reported Gastrointestinal: see HPI Genitourinary: see HPI Musculoskeletal: no symptoms reported Skin: no symptoms reported Psychiatric/Neurological: No Symptoms Reported Hematologic/Lymphatic: No Symptoms Reported Immunological/Allergic: no symptoms reported Past Soilozv-Hjuirl-Uhkifm Hx Patient Social History Alcohol Use: Denies Use Recreational Drug Use: No Smoking Status: Former Smoker Former Smoker, Quit: May 01, 1985 Recent Foreign Travel: No Contact w/Someone Who Travel: No Recent Infectious Disease Expo: No Physical Abuse: No Sexual Abuse: No Mistreated: No Fear: No Immunizations Up To Date Tetanus Booster (TDap): Unknown PED Vaccines UTD: Yes Surgeries History of Surgeries: Yes Surgeries: Gallbladder, Tubal Ligation Respiratory History of Respiratory Disorde: Yes Respiratory Disorders: Pulmonary Embolism Currently Using CPAP: No Currently Using BIPAP: No Cardiovascular History of Cardiac Disorders: Yes (enlarged heart) Cardiac Disorders: Deep Vein Thrombosis, Hypertension, Peripheral Vascular Neurological History of Neurological Disord: No Reproductive System Hx Reproductive Disorders: No Sexually Transmitted Disease: No HIV/AIDS: No Genitourinary History of Genitourinary Disor: No Gastrointestinal History of Gastrointestinal Di: Yes Gastrointestinal Disorders: Gastroesophageal Reflux, Chronic Constipation, Hemorrhoids, Gall Bladder Disease Musculoskeletal History of Musculoskeletal Dis: Yes Musculoskeletal Disorders: Arthritis Endocrine History of Endocrine Disorders: Yes (can't affort insulin) Endocrine Disorders: Diabetes, Non-Insulin dep HEENT History of HEENT Disorders: No Loss of Vision: Denies Hearing Impairment: Hard of Hearing Cancer History of Cancer: No Psychosocial History of Psychiatric Problem: No Suicide Risk Score: 0 Integumentary History of Skin or Integumenta: No Blood Transfusions History of Blood Disorders: No Family Medical History Significant Family History: COPD, CVA, Diabetes, Vascular Disease Family Medial History: Cardiovascular disease 19 MOTHER Diabetes mellitus 19 MOTHER FH: COPD (chronic obstructive pulmonary disease) G8 BROTHER G8 SISTER Hypertension G8 BROTHER G8 SISTER Myocardial infarction 19 MOTHER Respiratory disorder 19 FATHER Stroke or transient ischemic attack in sister G8 SISTER Physical Exam Vital Signs Vital Signs - First Documented 06/07/17 19:10 Temp 98.2 Pulse 111 Resp 20 B/P (MAP) 144/99 (114) Pulse Ox 95 O2 Delivery Room Air Capillary Refill : Less Than 3 Seconds General Appearance: WD/WN, Mild Distress HEENT: PERRL/EOMI, TMs Normal, Normal ENT Inspection, Other (oropharynx somewhat dry) Neck: Normal Inspection Respiratory: Lungs Clear, Normal Breath Sounds, No Accessory Muscle Use, No Respiratory Distress Cardiovascular: Regular Rate, Rhythm, No Edema, No Murmur Gastrointestinal: Normal Bowel Sounds, Non Tender, Soft Extremity: Normal Inspection, No Pedal Edema Neurologic/Psychiatric: Alert, Oriented x3, No Motor/Sensory Deficits, Normal Mood/Affect, analyst microbiology lab II-XII Norm as Tested Skin: Normal Color, Warm/Dry Progress/Results/Core Measures Suspected Sepsis Recent Fever Within 48 Hours: No Infection Criteria Present: Suspected New Infection New/Unexplained Altered Menta: No Sepsis Screen: No Definite Risk Sepsis Diagnosis: SIRS Temperature:98.2 Pulse: 111 Respiratory Rate: 20 Laboratory Tests 06/07/17 19:06: White Blood Count 7.1 Blood Pressure 144 /99 Mean: 114 Laboratory Tests 06/07/17 19:06: Creatinine 0.98, Platelet Count 172, Total Bilirubin 0.6 Results/Orders Lab Results Laboratory Tests Test 06/07/17 19:06 06/07/17 19:25 06/07/17 20:34 Range/Units White Blood Count 7.1 4.3-11.0 10^3/uL Red Blood Count 5.62 4.35-5.85 10^6/uL Hemoglobin 16.4 H 11.5-16.0 G/DL Hematocrit 44 35-52 % Mean Corpuscular Volume 79 L 80-99 FL Mean Corpuscular Hemoglobin 29 25-34 PG Mean Corpuscular Hemoglobin Concent 37 H 32-36 G/DL Red Cell Distribution Width 12.2 10.0-14.5 % Platelet Count 172 130-400 10^3/uL Mean Platelet Volume 10.6 H 7.4-10.4 FL Neutrophils (%) (Auto) 61 42-75 % Lymphocytes (%) (Auto) 29 12-44 % Monocytes (%) (Auto) 9 0-12 % Eosinophils (%) (Auto) 0 0-10 % Basophils (%) (Auto) 0 0-10 % Neutrophils # (Auto) 4.4 1.8-7.8 X 10^3 Lymphocytes # (Auto) 2.1 1.0-4.0 X 10^3 Monocytes # (Auto) 0.6 0.0-1.0 X 10^3 Eosinophils # (Auto) 0.0 0.0-0.3 10^3/uL Basophils # (Auto) 0.0 0.0-0.1 10^3/uL Sodium Level 131 L 135-145 MMOL/L Potassium Level 4.0 3.6-5.0 MMOL/L Chloride Level 95 L 98-107 MMOL/L Carbon Dioxide Level 17 L 21-32 MMOL/L Anion Gap 19 H 5-14 MMOL/L Blood Urea Nitrogen 8 7-18 MG/DL Creatinine 0.98 0.60-1.30 MG/DL Estimat Glomerular Filtration Rate 57 BUN/Creatinine Ratio 8 Glucose Level 473 *H 70-105 MG/DL Calcium Level 8.9 8.5-10.1 MG/DL Total Bilirubin 0.6 0.1-1.0 MG/DL Aspartate Amino Transf (AST/SGOT) 36 H 5-34 U/L Alanine Aminotransferase (ALT/SGPT) 32 0-55 U/L Alkaline Phosphatase 108 40-136 U/L C-Reactive Protein High Sensitivity 1.47 H 0.00-0.50 MG/DL Total Protein 7.3 6.4-8.2 GM/DL Albumin 3.4 3.2-4.5 GM/DL Urine Color YELLOW Urine Clarity CLEAR Urine pH 5 5-9 Urine Specific [place] 1.015 L 1.016-1.022 Urine Protein 2+ H NEGATIVE Urine Glucose (UA) 4+ H NEGATIVE Urine Ketones 3+ H NEGATIVE Urine Nitrite NEGATIVE NEGATIVE Urine Bilirubin NEGATIVE NEGATIVE Urine Urobilinogen NORMAL NORMAL MG/DL Urine Leukocyte Esterase 1+ H NEGATIVE Urine RBC (Auto) NEGATIVE NEGATIVE Urine RBC NONE /HPF Urine WBC 0-2 /HPF Urine Squamous Epithelial Cells 5-10 /HPF Urine Crystals NONE /LPF Urine Bacteria TRACE /HPF Urine Casts NONE /LPF Urine Mucus NEGATIVE /LPF Urine Yeast FEW H /HPF Urine Culture Indicated NO Glucometer 310 H 70-110 MG/DL Micro Results Microbiology 06/07/17 Influenza Types A,B Antigen (ODETTE) - Final, Complete My Orders Orders - ROBYN GREEN MD Cbc With Automated Diff (06/07/17 19:06) Comprehensive Metabolic Panel (06/07/17 19:06) Hs C Reactive Protein (06/07/17 19:06) Ua Culture If Indicated (06/07/17 19:06) Influenza A And B Antigens (06/07/17 19:06) Saline Lock/Iv-Start (06/07/17 19:06) Ns Iv 1000 Ml (Sodium Chloride 0.9%) (06/07/17 19:06) Chest Pa/Lat (2 View) (06/07/17 19:06) Insulin (Regular) Human (Humulin R (Per (06/07/17 19:45) Ns Iv 500 Ml (Sodium Chloride 0.9%) (06/07/17 19:49) Accucheck Stat ONCE (06/07/17 19:56) Metformin Tablet (Glucophage Tablet) (06/07/17 20:45) Medications Given in ED Current Medications Medications Dose Ordered Sig/Mahnaz Route Start Time Stop Time Status Last Admin Dose Admin Insulin Human Regular 5 unit ONCE ONCE IV 06/07/17 19:45 06/07/17 19:46 DC 06/07/17 19:49 5 UNIT Metformin HCl 500 mg ONCE ONCE PO 06/07/17 20:45 06/07/17 20:46 DC 06/07/17 20:59 500 MG Sodium Chloride 500 ml @ 0 mls/hr Q0M ONCE IV 06/07/17 19:49 06/07/17 19:50 DC 06/07/17 20:15 0 MLS/HR Sodium Chloride 1,000 ml @ 0 mls/hr Q0M ONCE IV 06/07/17 19:06 06/07/17 19:08 DC 06/07/17 19:40 0 MLS/HR Vital Signs/I&O Vital Sign - Last 12Hours 06/07/17 06/07/17 06/07/17 19:10 19:10 21:10 Temp 98.2 98.2 Pulse 111 100 Resp 20 20 B/P (MAP) 144/99 (114) Pulse Ox 95 98 O2 Delivery Room Air Room Air Capillary Refill : Less Than 3 Seconds Blood Pressure Mean: 114 Progress Note : Time: 20:36 Progress Note Fingerstick blood sugar is now 310 after 5 units of insulin and 1 L of IV fluids. She is finishing another 500 mL of normal saline. We will get her started on some metformin for outpatient treatment. Diagnostic Imaging Diagonstic Imaging: Xray Plain Films/CT/US/NM/MRI: chest Comments Chest x-ray viewed by me and report reviewed. See report below: NAME: ROLAND COHEN [facility] REC#: [id number] PT STATUS: REG ER : 1950 PHYSICIAN: ROBYN GREEN MD ADMIT DATE: 06/07/17/ER Draft Date of Exam:06/07/17 CHEST PA/LAT (2 VIEW) INDICATION: Severe cough PA and lateral views of the chest are obtained. Heart size and pulmonary vascularity are within normal limits. No pneumothorax or consolidation is identified. There is no evidence of significant pleural fluid. IMPRESSION: No acute abnormality is identified. Dictated on workstation # [id number] Dict: 06/07/171922 Trans: 06/07/171925 COUNTS INCLUDE 234 BEDS AT THE [facility] [id number] Interpreted by: CRISTOPHER GUY MD Departure Impression Impression: Primary Impression: Flu-like symptoms Additional Impressions: Hyperglycemia Diabetes type 2, uncontrolled Qualified Codes: E11.8 - Type 2 diabetes mellitus with unspecified complications; E11.65 - Type 2 diabetes mellitus with hyperglycemia Urinary incontinence Qualified Codes: R32 - Unspecified urinary incontinence Disposition: HOME, SELF-CARE Condition: Improved Departure-Patient Inst. Referrals: MATHEUS WATSON MD (PCP/Family) Primary Care Physician Patient Instructions: Diabetes Diet , Diabetes Type 2 (DC) Add. Discharge Instructions: Drink plenty of clear liquids. Eat a diet extremely low in sugars and carbohydrates. Eat plenty of vegetables and lean meats. Start metformin as prescribed. Check your blood sugar fasting in the morning and 2 hours after each meals. Record these blood sugars and present them to your doctor. Follow-up with your doctor as soon as possible, preferably in the next 48 hours. Return to the emergency room if symptoms worsen. All discharge instructions reviewed with patient and/or family. Voiced understanding. Scripts Metformin HCl (Metformin HCl) 500 Mg Tablet 500 MG PO TID, #30 TAB Prov: ROBYN GREEN MD 06/07/17 Copy Copies To 1: MATHEUS WATSON MD, JOSHUA T MD Jun 07, 2017 19:36
[2017-06-07 19:41] LABS: BACTERIA,URINE TRACE /HPF; WBC,URINE 0-2 /HPF; YEAST,URINE FEW /HPF
[2017-06-07] MEDS ORDERED: inSUlin (REGULAR) HUMAN 1 UNIT/0.01 ML (CHARGE PER UNIT) IV ONE (19:45)
[2017-06-07] MEDS ORDERED: NS IV 500 ML 500 ML IV ONE (19:49)
[2017-06-07] MEDS ORDERED: METF500T4 PO (20:42)
[2017-06-07] MEDS ORDERED: metFORMIN 500 MG (GLUCOPHAGE) TAB PO ONE (20:45)
[2017-06-07 21:10] VITALS: BP 136/98
== END 2017-06-07 21:10 | disposition home or self-care (01) ==
LOC: EDUNIT# 18:42 → ER 18:44
DX: J11.1 Influenza due to unidentified influenza virus with other respiratory manifestations (principal); E11.65 Type 2 diabetes mellitus with hyperglycemia; R32 Unspecified urinary incontinence; I10 Essential (primary) hypertension; I73.9 Peripheral vascular disease, unspecified; K21.9 Gastro-esophageal reflux disease without esophagitis; Z87.19 Personal history of other diseases of the digestive system; Z79.01 Long term (current) use of anticoagulants; Z82.49 Family history of ischemic heart disease and other diseases of the circulatory system; Z79.84 Long term (current) use of oral hypoglycemic drugs; Z87.891 Personal history of nicotine dependence; Z98.51 Tubal ligation status; Z86.718 Personal history of other venous thrombosis and embolism
CPT/HCPCS: 36415; 71046; 80053; 81000; 82962; 85025; 86141; 87804; 96361; 96374

== ENCOUNTER 2017-06-12 07:08 | Inpatient (IN) | payer MEDICARE, OTHER ==
[~2017-06-12] VITALS: Ht 165.1 cm; Wt 80.4 kg
[2017-06-12] VITALS (16 sets, daily range): BP systolic 92–145; BP diastolic 68–90
[~2017-06-12 07:08] MED LIST changes: +METF500T4 PO
[2017-06-12] MEDS ORDERED: NS IV 1000 ML 1,000 ML IV ONE ×3 (07:12→09:26)
[2017-06-12] MEDS ORDERED: ONDANSETRON 4 MG/2 ML (SDV) Z0FRAN IVP PRN ×2 (07:15→15:45)
[2017-06-12] MEDS ORDERED: CEFEPIME INJECTION 2,000 MG in NS (IVPB) 50 ML IV ONE (07:15)
[2017-06-12] MEDS ORDERED: RT-ALBUTEROL/IPRATROPIUM 3 ML (DUONEB) VIAL INH ONE (07:15)
[2017-06-12 07:21] LABS: BASOPHILS # (AUTO) 0.1 10^3/uL (0.0-0.1); BASOPHILS % (AUTO) 1 % (0-10); EOSINOPHILS % (AUTO) 0 % (0-10); HEMATOCRIT 47 % (35-52); LYMPHOCYTES # (AUTO) 1.3 X 10^3 (1.0-4.0); LYMPHOCYTES % (AUTO) 7 % (12-44); MEAN CORPUSCULAR HEMOGLOBIN 29 PG (25-34); MEAN CORPUSCULAR HGB CONC 34 G/DL (32-36); MEAN CORPUSCULAR VOLUME 84 FL (80-99); MEAN PLATELET VOLUME 11.5 FL (7.4-10.4); MONOCYTES # (AUTO) 2.3 X 10^3 (0.0-1.0); MONOCYTES % (AUTO) 13 % (0-12); NEUTROPHILS # (AUTO) 14.1 X 10^3 (1.8-7.8); NEUTROPHILS % (AUTO) 79 % (42-75); PLATELET COUNT 505 10^3/uL (130-400); RED BLOOD COUNT 5.62 10^6/uL (4.35-5.85); RED CELL DISTRIBUTION WIDTH 12.5 % (10.0-14.5); WHITE BLOOD COUNT 17.9 10^3/uL (4.3-11.0)
[2017-06-12 07:25] LABS: INR 1.4 (0.8-1.4)
--- NOTE | 2017-06-12 07:30 | ED GI ---
General Chief Complaint: Glucose Problems Stated Complaint: FLU LIKE SYMPTOMS Source of Information: Patient, EMS Exam Limitations: Physical Impairments (hoarse) History of Present Illness Date Seen by Provider: Jun 12, 2017 Time Seen by Provider: 06:56 Initial Comments Patient presents to ER by EMS with a chief complaint that for the last several days she's had nausea vomiting diarrhea and mild abdominal pain. She has a history of diabetes but says she does not take any insulin. EMS reports that her blood glucose was too high to read. She had a liter of fluids started an IV but has not been given any nausea medicines by EMS yet. Patient is hoarse and unable to speak however she is able to shake her head yes and no and mouth words appropriately. She reports for the past couple days she's been so weak and tired with vomiting that she's not been able to get up and move, eat, drink. She states she has been taking her medications not today. She is on L acquits for history of clots in her legs and lungs. She is not having any chest pain but she does feel short of breath. EMS reports that difficulty hearing any breath sounds left lower lobe. Patient denies any fevers, chills or sweats. The patient denies a history of COPD, asthma or oxygen use. Allergies and Home Medications Allergies Coded Allergies: No Known Drug Allergies (Unverified , 05/16/14) Home Medications Apixaban 5 Mg Tablet, 5 MG PO BID, (Reported) Review of Systems Constitutional: No chills, No diaphoresis, No fever, malaise EENTM: No Blurred Vision, No Double Vision Respiratory: Denies Cough, Shortness of Air, Denies Wheezing Cardiovascular: Denies Chest Pain, Denies Edema, Denies Lightheadedness Gastrointestinal: Denies Abdomen Distended, Abdominal Pain, Diarrhea, Nausea, Vomiting Genitourinary: Denies Burning, Denies Discharge Musculoskeletal: No back pain, No joint pain Skin: No pruritus, No rash Psychiatric/Neurological: Denies Headache, Denies Numbness, Denies Paresthesia Past Qbiigal-[id number]-[id number] Hx Patient Social History Alcohol Use: Denies Use Recreational Drug Use: No Smoking Status: Never a Smoker Former Smoker, Quit: May 01, 1985 Immunizations Up To Date Tetanus Booster (TDap): Unknown PED Vaccines UTD: Yes Surgeries History of Surgeries: Yes Surgeries: Gallbladder, Tubal Ligation Respiratory History of Respiratory Disorde: Yes Respiratory Disorders: Pulmonary Embolism Currently Using CPAP: No Currently Using BIPAP: No Cardiovascular History of Cardiac Disorders: Yes (enlarged heart) Cardiac Disorders: Deep Vein Thrombosis, Hypertension, Peripheral Vascular Neurological History of Neurological Disord: No Reproductive System Hx Reproductive Disorders: No Sexually Transmitted Disease: No HIV/AIDS: No Genitourinary History of Genitourinary Disor: No Gastrointestinal History of Gastrointestinal Di: Yes Gastrointestinal Disorders: Gastroesophageal Reflux, Chronic Constipation, Hemorrhoids, Gall Bladder Disease Musculoskeletal History of Musculoskeletal Dis: Yes Musculoskeletal Disorders: Arthritis Endocrine History of Endocrine Disorders: Yes (can't affort insulin) Endocrine Disorders: Diabetes, Non-Insulin dep HEENT History of HEENT Disorders: No Loss of Vision: Denies Hearing Impairment: Hard of Hearing Cancer History of Cancer: No Psychosocial History of Psychiatric Problem: No Integumentary History of Skin or Integumenta: No Blood Transfusions History of Blood Disorders: No Family Medical History Significant Family History: COPD, CVA, Diabetes, Vascular Disease Family Medial History: Cardiovascular disease 19 MOTHER Diabetes mellitus 19 MOTHER FH: COPD (chronic obstructive pulmonary disease) G8 BROTHER G8 SISTER Hypertension G8 BROTHER G8 SISTER Myocardial infarction 19 MOTHER Respiratory disorder 19 FATHER Stroke or transient ischemic attack in sister G8 SISTER Physical Exam Vital Signs VS - Last 72 Hours, by Label 06/12/17 06/12/17 07:10 08:01 Temp 98.0 Pulse 143 Resp 26 B/P (MAP) 160/81 (107) Pulse Ox 100 99 O2 Delivery Nasal Cannula O2 Flow Rate 3.00 Capillary Refill : General Appearance: moderate distress HEENT: PERRL/EOMI, TMs normal, pharynx normal Neck: non-tender, full range of motion, supple, normal inspection Respiratory: chest non-tender, respiratory distress (mild to moderate), decreased breath sounds, accessory muscle use (Increased work of breathing), wheezing (scattered bibasilar) Cardiovascular: normal peripheral pulses, regular rate, rhythm Peripheral Pulses: 1+ Dorsalis Pedis (R), 1+ Left Dors-Pedis (L), 2+ Radial Pulses (R), 2+ Radial Pulses (L) Gastrointestinal: normal bowel sounds, non tender, soft 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, no motor/sensory deficits, alert, normal mood/affect, oriented x 3 Skin: normal color, warm/dry Focused Exam Evaluation Lactate Level Laboratory Tests 06/12/17 07:41: Lactic Acid Level 3.45*H Time of Focused Exam: 08:30 Respiratory: Chest Non Tender, No Accessory Muscle Use, No Respiratory Distress , Decreased Breath Sounds Cardiovascular: No Edema, Normal Peripheral Pulses, Tachycardia Capillary Refill: Less Than 3 Seconds Peripheral Pulses: 2+ Radial Pulses (R), 2+ Radial Pulses (L) Skin: normal color, warm/dry Lactic Acid Level Laboratory Tests Test 06/12/17 07:41 Lactic Acid Level 3.45 MMOL/L (0.50-2.00) *H Progress/Results/Core Measures Results/Orders Lab Results Laboratory Tests Test 06/12/17 07:07 06/12/17 07:36 06/12/17 07:41 06/12/17 07:57 Range/Units White Blood Count 17.9 H 4.3-11.0 10^3/uL Red Blood Count 5.62 4.35-5.85 10^6/uL Hemoglobin 16.0 11.5-16.0 G/DL Hematocrit 47 35-52 % Mean Corpuscular Volume 84 80-99 FL Mean Corpuscular Hemoglobin 29 25-34 PG Mean Corpuscular Hemoglobin Concent 34 32-36 G/DL Red Cell Distribution Width 12.5 10.0-14.5 % Platelet Count 505 H 130-400 10^3/uL Mean Platelet Volume 11.5 H 7.4-10.4 FL Neutrophils (%) (Auto) 79 H 42-75 % Lymphocytes (%) (Auto) 7 L 12-44 % Monocytes (%) (Auto) 13 H 0-12 % Eosinophils (%) (Auto) 0 0-10 % Basophils (%) (Auto) 1 0-10 % Neutrophils # (Auto) 14.1 H 1.8-7.8 X 10^3 Lymphocytes # (Auto) 1.3 1.0-4.0 X 10^3 Monocytes # (Auto) 2.3 H 0.0-1.0 X 10^3 Eosinophils # (Auto) 0.0 0.0-0.3 10^3/uL Basophils # (Auto) 0.1 0.0-0.1 10^3/uL Neutrophils % (Manual) 71 % Lymphocytes % (Manual) 4 % Monocytes % (Manual) 17 % Eosinophils % (Manual) 0 % Basophils % (Manual) 0 % Band Neutrophils 8 % Blood Morphology Comment NORMAL Prothrombin Time 17.0 H 12.2-14.7 SEC INR Comment 1.4 0.8-1.4 Activated Partial Thromboplast Time 32 24-35 SEC Sodium Level 136 135-145 MMOL/L Potassium Level 3.9 3.6-5.0 MMOL/L Chloride Level 97 L 98-107 MMOL/L Carbon Dioxide Level 6 *L 21-32 MMOL/L Anion Gap 33 H 5-14 MMOL/L Blood Urea Nitrogen 21 H 7-18 MG/DL Creatinine 2.10 H 0.60-1.30 MG/DL Estimat Glomerular Filtration Rate 24 BUN/Creatinine Ratio 10 Glucose Level 739 *H 70-105 MG/DL Calcium Level 11.0 H 8.5-10.1 MG/DL Phosphorus Level 5.6 H 2.3-4.7 MG/DL Magnesium Level 2.3 1.8-2.4 MG/DL Total Bilirubin 0.4 0.1-1.0 MG/DL Aspartate Amino Transf (AST/SGOT) 18 5-34 U/L Alanine Aminotransferase (ALT/SGPT) 20 0-55 U/L Alkaline Phosphatase 150 H 40-136 U/L Troponin I < 0.30 <0.30 NG/ML C-Reactive Protein High Sensitivity 33.88 H 0.00-0.50 MG/DL Total Protein 8.9 H 6.4-8.2 GM/DL Albumin 3.4 3.2-4.5 GM/DL Glucometer > 600 *H 70-110 MG/DL Lactic Acid Level 3.45 *H 0.50-2.00 MMOL/L Blood Gas Puncture Site LEFT BRACHIAL Blood Gas Patient Temperature 98.2 Arterial Blood pH 6.98 *L 7.37-7.43 Arterial Blood Partial Pressure CO2 16 *L 35-45 MMHG Arterial Blood Partial Pressure O2 106 H 79-93 MMHG Arterial Blood HCO3 4 *L 23-27 MMOL/L Arterial Blood Total CO2 4.0 L 21.0-31.0 MMOL/L Arterial Blood Oxygen Saturation 97 94-100 % Arterial Blood Base Excess -25.9 L -2.5-2.5 MMOL/L Shadi Test YES-POS Blood Gas Ventilator Setting NO Blood Gas Inspired Oxygen ROOM AIR Micro Results Microbiology 06/12/17 Influenza Types A,B Antigen (ODETTE) - Final, Complete My Orders Orders - EVETTEJOHN Phyllis Cbc With Automated Diff (06/12/17 07:12) Comprehensive Metabolic Panel (06/12/17 07:12) Hs C Reactive Protein (06/12/17 07:12) Magnesium (06/12/17 07:12) Troponin I (06/12/17 07:12) Ua Culture If Indicated (06/12/17 07:12) Blood Culture (06/12/17 07:12) Influenza A And B Antigens (06/12/17 07:12) Sputum Culture (06/12/17 07:12) Phosphorus (06/12/17 07:12) Chest 1 View, Ap/Pa Only (06/12/17 07:12) Albuterol/Ipra Inhalation Soln (Duoneb I (06/12/17 07:15) Saline Lock/Iv-Start (06/12/17 07:12) Ns Iv 1000 Ml (Sodium Chloride 0.9%) (06/12/17 07:12) Protime With Inr (06/12/17 07:12) Partial Thromboplastin Time (06/12/17 07:12) O2 (06/12/17 07:12) Ondansetron Injection (Zofran Injectio (06/12/17 07:15) Cefepime Injection (Maxipime Injection) (06/12/17 07:15) Vital Signs Adult Sepsis Patie Q1H (06/12/17 07:12) Remove Rings In Anticipation O (06/12/17 07:12) Lactic Acid Analyzer (06/12/17 07:12) Svn Sm Volume Nebulizer Rt-Rfs (06/12/17 07:12) Ekg Tracing (06/12/17 07:12) Manual Differential (06/12/17 07:07) Rt Request For Service (06/12/17 07:31) Arterial Blood Gas (06/12/17 07:58) Potassium Cl 10meq/50ml Ivpb (Kcl 10 Meq (06/12/17 08:00) Insulin (Regular) Human (Humulin R (Per (06/12/17 08:15) Medications Given in ED Current Medications Medications Dose Ordered Sig/Mahnaz Route Start Time Stop Time Status Last Admin Dose Admin Albuterol/ Ipratropium 3 ml ONCE ONCE INH 06/12/17 07:15 06/12/17 07:16 DC 06/12/17 08:01 3 ML Cefepime HCl 2000 mg/Sodium Chloride 50 ml @ 100 mls/hr ONCE ONCE IV 06/12/17 07:15 06/12/17 07:44 DC 06/12/17 08:10 100 MLS/HR Ondansetron HCl 4 mg ONCE PRN IVP 06/12/17 07:15 06/12/17 07:36 DC 06/12/17 07:36 4 MG Sodium Chloride 1,000 ml @ 0 mls/hr Q0M ONCE IV 06/12/17 07:12 06/12/17 07:16 DC 06/12/17 07:15 1,000 MLS/HR Vital Signs/I&O Vital Sign - Last 12Hours 06/12/17 06/12/17 07:10 08:01 Temp 98.0 Pulse 143 Resp 26 B/P (MAP) 160/81 (107) Pulse Ox 100 99 O2 Delivery Nasal Cannula O2 Flow Rate 3.00 Progress Note #1: Time: 07:30 Progress Note Concern for DKA given her high sugars and her respiratory rate may be secondary to infection it may also be secondary to metabolic acidosis. We'll give her some CPAP since she's having increased work of breathing well to get this sorted out. Return to start with 2 more liters of fluid in addition to the EMS is 1 L of fluids. We'll get ABG Progress Note #2: Time: 08:12 Progress Note Initial labs and the ABG shows severe metabolic acidosis with very high sugars and this is likely DKA. The rapid respiratory rate is likely Kussmaul more than a respiratory origin process. We are going to give her some insulin and potassium in anticipation she will need more potassium later and start DKA process and get her admitted to the ICU. ECG Initial ECG Impression Date: Jun 12, 2017 Initial ECG Impression Time: 07:40 Initial ECG Rate: 133 Initial ECG Rhythm: S.Tach Initial ECG Intervals: Normal Initial ECG Impression: Normal Initial ECG Comparisson: No Previous ECG Available Comment Sinus tachycardia without T-wave elevation or depression. Diagnostic Imaging Diagonstic Imaging: Xray Plain Films/CT/US/NM/MRI: chest (1v) Reviewed: Reviewed by Me Departure Communication (Admissions) Time/Spoke to Admitting Phy: 08:[address] Rendon: Discussed case lab imaging findings and choice of antibiotics and treatment and she agrees and will see the patient shortly she is wants to make sure that the 9:00 labs are drawn. We will order them here in the ER the patient probably still be down here. Impression Impression: Primary Impression: DKA, type 2 Qualified Codes: E11.10 - Type 2 diabetes mellitus with ketoacidosis without coma Disposition: ADMITTED INPATIENT Condition: Critical Admissions Decision to Admit Reason: Admit from ER (General) Decision to Admit/Date: Jun 12, 2017 Time/Decision to Admit Time: 08:19 Departure-Patient Inst. Referrals: MATHEUS WATSON MD (PCP/Family) Primary Care Physician Copy Copies To 1: SAMPSON GREEN TITUS J Jun 12, 2017 07:30
[2017-06-12 07:36] LABS: ALANINE AMINOTRANSFERASE 20 U/L (0-55); ALBUMIN 3.4 GM/DL (3.2-4.5); ALKALINE PHOSPHATASE 150 U/L (40-136); BILIRUBIN,TOTAL 0.4 MG/DL (0.1-1.0); BUN/CREATININE RATIO 10; CHLORIDE 97 MMOL/L (98-107); GFR ESTIMATED 24; MAGNESIUM 2.3 MG/DL (1.8-2.4); PHOSPHORUS 5.6 MG/DL (2.3-4.7); POTASSIUM 3.9 MMOL/L (3.6-5.0); SODIUM 136 MMOL/L (135-145); TOTAL PROTEIN 8.9 GM/DL (6.4-8.2)
[2017-06-12 07:45] LABS: CARBON DIOXIDE 6 MMOL/L (21-32); GLUCOSE 739 MG/DL (70-105); NEUTROPHILS % (MANUAL) 71 %
[2017-06-12 07:46] LABS: BAND NEUTROPHILS 8 %; BASOPHILS % (MANUAL) 0 %; EOSINOPHILS % (MANUAL) 0 %; LYMPHOCYTES % (MANUAL) 4 %; MONOCYTES % (MANUAL) 17 %; RBC MORPH NORMAL
[2017-06-12 08:05] LABS: ABG BASE EXCESS -25.9 MMOL/L (-2.5-2.5); ABG OXYGEN SATURATION 97 % (94-100); ABG PO2 106 MMHG (79-93)
[2017-06-12 08:10] LABS: ABG PCO2 16 MMHG (35-45); ABG PH 6.98 (7.37-7.43)
[2017-06-12] MEDS: POTASSIUM CL 10MEQ/50ML IVPB 50 ML IV SCH ×4 (08:10→11:42)
[2017-06-12 08:11] LABS: ALLENS TEST YES-POS; INSPIRED O2 ROOM AIR; PATIENT TEMP 98.2; VENTILATOR NO
[2017-06-12] MEDS ORDERED: inSUlin (REGULAR) HUMAN 1 UNIT/0.01 ML (CHARGE PER UNIT) IV ONE (08:15)
--- NOTE | 2017-06-12 08:58 | Diagnostic Imaging Report ---
INDICATION: Shortness of air and weakness. COMPARISON: 06/07/2017. FINDINGS: There is patchy parenchymal opacity in the suprahilar right upper lobe and infrahilar medial left lower lobes suspicious for developing infiltrates. There is some thickening of the central airways bilaterally and reactive airway disease or bronchitis suggested. No effusion or pneumothorax. IMPRESSION: Perihilar infiltrates suspicious for developing pneumonia. There is some thickening of the central airways. Radiographic followup suggested. No pleural pathology. Dictated by: Dictated on workstation # [id number]
[2017-06-12] MEDS ORDERED: 1/2 NS IV SOLUTION 1,000 ML IV SCH (09:26)
[2017-06-12] MEDS ORDERED: D5 1/2 NS 1000 ML IV SOLUTION 1,000 ML IV SCH (09:30)
[2017-06-12] MEDS ORDERED: ONDANSETRON 4 MG/2 ML (SDV) Z0FRAN IV PRN (09:30)
[2017-06-12] MEDS ORDERED: CATHETER FLUSH 10 ML SYR IV PRN (09:45)
[2017-06-12] MEDS: inSUlin REGULAR TPN/DRIP ONLY 250 UNITS in NORMAL SALINE 250 ML IV SCH (09:54)
[2017-06-12] MEDS ORDERED: VANCOMYCIN 1,750 MG/NS 500 ML IVPB IV NR ×2 (10:00)
[2017-06-12] MEDS ORDERED: APIX5TAB PO (10:12)
[2017-06-12 10:15] LABS: CALCIUM 9.7 MG/DL (8.5-10.1); CREATININE SERUM 1.61 MG/DL (0.60-1.30); POTASSIUM 3.2 MMOL/L (3.6-5.0)
[2017-06-12 10:16] LABS: BILIRUBIN,URINE NEGATIVE (NEGATIVE); CLARITY,URINE SLIGHTLY CLOUDY; COLOR,URINE YELLOW; GLUCOSE, URINE (UA) 4+ (NEGATIVE); KETONES,URINE 4+ (NEGATIVE); LEUKOCYTE ESTERASE ,URINE NEGATIVE (NEGATIVE); NITRITE,URINE NEGATIVE (NEGATIVE); PH,URINE 5 (5-9); PROTEIN,URINE 2+ (NEGATIVE); UROBILINOGEN,URINE NORMAL (NORMAL)
[2017-06-12] MEDS: DEXTROSE 10% IV SOLUTION 1,000 ML IV SCH ×3 (10:27→23:30)
[2017-06-12] MEDS: 1/2 NS W/KCL 20 MEQ/L 1,000 ML IV SCH ×3 (10:36→18:38)
[2017-06-12] MEDS: D5 1/2 NS W/KCL 20 MEQ/L 1,000 ML IV SCH ×4 (10:36→21:33)
[2017-06-12 10:38] LABS: AMORPHOUS SEDIMENT,UR LARGE AMOR URATES /LPF; BACTERIA,URINE TRACE /HPF; GRANULAR CASTS,URINE RARE /LPF; SQUAMOUS EPITHELIAL CELL,UR 0-2 /HPF
[2017-06-12 10:57] LABS: ABG BASE EXCESS -23.9 MMOL/L (-2.5-2.5); ABG OXYGEN SATURATION 95 % (94-100); ABG PO2 71 MMHG (79-93); ABG TCO2 5.2 MMOL/L (21.0-31.0)
[2017-06-12 10:59] LABS: ABG PCO2 17 MMHG (35-45); ABG PH 7.06 (7.37-7.43); ALLENS TEST YES-POS
[2017-06-12 11:00] LABS: INSPIRED O2 ROOM AIR; PATIENT TEMP 96.5; VENTILATOR NO
[2017-06-12] MEDS ORDERED: PIPERACILLIN SODIUM/TAZOBACTAM 4.5 GM in NS (IVPB) 100 ML IV NR (11:00)
[2017-06-12] MEDS ORDERED: INFLUENZA TRIvalent 2017-2018 0.5 ML/45 MCG SYR IM ONE (15:00)
--- NOTE | 2017-06-12 15:39 | History & Physicial ([facility]) ---
HPI History of Present Illness: 67 yo F with known DM that presented to ER with altered mental status. Patient was brought in by family. Family states that there have been several people in her family that have been sick with the flu. Bushra started complaining of cough 2 days ago. In ICU bushra states that her sister gave her the flu. She is unable to tell me if she has taken her medications. Denies any pain at this time. + cough. No fever or chills. Source: patient, family, RN/MD Exam Limitations: clinical condition (altered) Date seen by provider: Jun 12, 2017 Time Seen by Provider: 09:15 Attending Physician Dixie Rendon MD PCP Matheus Watson MD Consult Date of Admission Jun 12, 2017 at 08:05 Home Medications Home Medications Reviewed patient Home Medication Reconciliation Form Allergies Coded Allergies: No Known Drug Allergies (Unverified , 05/16/14) [id number]-[id number] Hx Patient Social History Alcohol Use: Denies Use Recreational Drug Use: No Smoking Status: Never a Smoker Recent Foreign Travel: No Contact w/other who traveled: No Recent Hopitalizations: No Recent Infectious Disease Expo: No Physical Abuse Screen: No Sexual Abuse: No Immunizations Up To Date Tetanus Booster (TDap): Unknown Past Medical History PMHx: Diabetes mellitus II HTN PSurgHx: Cholecystectomy, tubal ligation, bunionectomy, right knee surgery Family Medical History Significant Family History: COPD, CVA, Diabetes, Vascular Disease Family History: Cardiovascular disease 19 MOTHER Diabetes mellitus 19 MOTHER FH: COPD (chronic obstructive pulmonary disease) G8 BROTHER G8 SISTER Hypertension G8 BROTHER G8 SISTER Myocardial infarction 19 MOTHER Respiratory disorder 19 FATHER Stroke or transient ischemic attack in sister G8 SISTER Review of Systems ([facility]) Constitutional: malaise EENTM: nose congestion Respiratory: cough, dyspnea on exertion, short of breath Cardiovascular: no symptoms reported, No chest pain, No edema Gastrointestinal: No abdominal pain, No constipation, No diarrhea, loss of appetite, nausea Genitourinary: No dysuria, frequency, No hematuria Musculoskeletal: no symptoms reported, No back pain, No joint pain, No muscle pain Skin: no symptoms reported, No lesions, No rash Psychiatric/Neurological: No Symptoms Reported Reviewed Test Results Reviewed Test Results Lab Laboratory Tests Test 06/12/17 07:07 06/12/17 07:36 06/12/17 07:41 06/12/17 07:57 Range/Units White Blood Count 17.9 H 4.3-11.0 10^3/uL Red Blood Count 5.62 4.35-5.85 10^6/uL Hemoglobin 16.0 11.5-16.0 G/DL Hematocrit 47 35-52 % Mean Corpuscular Volume 84 80-99 FL Mean Corpuscular Hemoglobin 29 25-34 PG Mean Corpuscular Hemoglobin Concent 34 32-36 G/DL Red Cell Distribution Width 12.5 10.0-14.5 % Platelet Count 505 H 130-400 10^3/uL Mean Platelet Volume 11.5 H 7.4-10.4 FL Neutrophils (%) (Auto) 79 H 42-75 % Lymphocytes (%) (Auto) 7 L 12-44 % Monocytes (%) (Auto) 13 H 0-12 % Eosinophils (%) (Auto) 0 0-10 % Basophils (%) (Auto) 1 0-10 % Neutrophils # (Auto) 14.1 H 1.8-7.8 X 10^3 Lymphocytes # (Auto) 1.3 1.0-4.0 X 10^3 Monocytes # (Auto) 2.3 H 0.0-1.0 X 10^3 Eosinophils # (Auto) 0.0 0.0-0.3 10^3/uL Basophils # (Auto) 0.1 0.0-0.1 10^3/uL Neutrophils % (Manual) 71 % Lymphocytes % (Manual) 4 % Monocytes % (Manual) 17 % Eosinophils % (Manual) 0 % Basophils % (Manual) 0 % Band Neutrophils 8 % Blood Morphology Comment NORMAL Prothrombin Time 17.0 H 12.2-14.7 SEC INR Comment 1.4 0.8-1.4 Activated Partial Thromboplast Time 32 24-35 SEC Sodium Level 136 135-145 MMOL/L Potassium Level 3.9 3.6-5.0 MMOL/L Chloride Level 97 L 98-107 MMOL/L Carbon Dioxide Level 6 *L 21-32 MMOL/L Anion Gap 33 H 5-14 MMOL/L Blood Urea Nitrogen 21 H 7-18 MG/DL Creatinine 2.10 H 0.60-1.30 MG/DL Estimat Glomerular Filtration Rate 24 BUN/Creatinine Ratio 10 Glucose Level 739 *H 70-105 MG/DL Calcium Level 11.0 H 8.5-10.1 MG/DL Phosphorus Level 5.6 H 2.3-4.7 MG/DL Magnesium Level 2.3 1.8-2.4 MG/DL Total Bilirubin 0.4 0.1-1.0 MG/DL Aspartate Amino Transf (AST/SGOT) 18 5-34 U/L Alanine Aminotransferase (ALT/SGPT) 20 0-55 U/L Alkaline Phosphatase 150 H 40-136 U/L Troponin I < 0.30 <0.30 NG/ML C-Reactive Protein High Sensitivity 33.88 H 0.00-0.50 MG/DL Total Protein 8.9 H 6.4-8.2 GM/DL Albumin 3.4 3.2-4.5 GM/DL Glucometer > 600 *H 70-110 MG/DL Lactic Acid Level 3.45 *H 0.50-2.00 MMOL/L Blood Gas Puncture Site LEFT BRACHIAL Blood Gas Patient Temperature 98.2 Arterial Blood pH 6.98 *L 7.37-7.43 Arterial Blood Partial Pressure CO2 16 *L 35-45 MMHG Arterial Blood Partial Pressure O2 106 H 79-93 MMHG Arterial Blood HCO3 4 *L 23-27 MMOL/L Arterial Blood Total CO2 4.0 L 21.0-31.0 MMOL/L Arterial Blood Oxygen Saturation 97 94-100 % Arterial Blood Base Excess -25.9 L -2.5-2.5 MMOL/L Shadi Test YES-POS Blood Gas Ventilator Setting NO Blood Gas Inspired Oxygen ROOM AIR Test 06/12/17 08:53 06/12/17 09:02 06/12/17 09:35 06/12/17 10:06 Range/Units Glucometer 589 *H 70-110 MG/DL Lactic Acid Level 1.62 0.50-2.00 MMOL/L Sodium Level 138 135-145 MMOL/L Potassium Level 3.2 L 3.6-5.0 MMOL/L Chloride Level 106 98-107 MMOL/L Carbon Dioxide Level 5 *L 21-32 MMOL/L Anion Gap 27 H 5-14 MMOL/L Blood Urea Nitrogen 22 H 7-18 MG/DL Creatinine 1.61 H 0.60-1.30 MG/DL Estimat Glomerular Filtration Rate 32 BUN/Creatinine Ratio 14 Glucose Level 523 *H 70-105 MG/DL Calcium Level 9.7 8.5-10.1 MG/DL Magnesium Level 2.0 1.8-2.4 MG/DL Urine Color YELLOW Urine Clarity SLIGHTLY CLOUDY Urine pH 5 5-9 Urine Specific [place] 1.020 1.016-1.022 Urine Protein 2+ H NEGATIVE Urine Glucose (UA) 4+ H NEGATIVE Urine Ketones 4+ H NEGATIVE Urine Nitrite NEGATIVE NEGATIVE Urine Bilirubin NEGATIVE NEGATIVE Urine Urobilinogen NORMAL NORMAL MG/DL Urine Leukocyte Esterase NEGATIVE NEGATIVE Urine RBC (Auto) 5+ H NEGATIVE Urine RBC 2-5 H /HPF Urine WBC NONE /HPF Urine Squamous Epithelial Cells 0-2 /HPF Urine Crystals PRESENT H /LPF Urine Amorphous Sediment LARGE BANG URATES H /LPF Urine Bacteria TRACE /HPF Urine Casts PRESENT /LPF Urine Granular Casts RARE /LPF Urine Mucus NEGATIVE /LPF Urine Culture Indicated NO Test 06/12/17 10:50 06/12/17 11:01 06/12/17 12:09 06/12/17 13:06 Range/Units Blood Gas Puncture Site LT BRACH Blood Gas Patient Temperature 96.5 Arterial Blood pH 7.06 *L 7.37-7.43 Arterial Blood Partial Pressure CO2 17 *L 35-45 MMHG Arterial Blood Partial Pressure O2 71 L 79-93 MMHG Arterial Blood HCO3 5 *L 23-27 MMOL/L Arterial Blood Total CO2 5.2 L 21.0-31.0 MMOL/L Arterial Blood Oxygen Saturation 95 94-100 % Arterial Blood Base Excess -23.9 L -2.5-2.5 MMOL/L Shadi Test YES-POS Blood Gas Ventilator Setting NO Blood Gas Inspired Oxygen ROOM AIR Glucometer 533 *H 429 *H 367 H 70-110 MG/DL Test 06/12/17 14:07 06/12/17 15:13 06/12/17 16:01 06/12/17 17:00 Range/Units Glucometer 351 H 315 H 248 H 70-110 MG/DL Sodium Level 138 135-145 MMOL/L Potassium Level 3.8 3.6-5.0 MMOL/L Chloride Level 113 H 98-107 MMOL/L Carbon Dioxide Level 10 L 21-32 MMOL/L Anion Gap 15 H 5-14 MMOL/L Blood Urea Nitrogen 20 H 7-18 MG/DL Creatinine 1.12 0.60-1.30 MG/DL Estimat Glomerular Filtration Rate 49 BUN/Creatinine Ratio 18 Glucose Level 210 H 70-105 MG/DL Calcium Level 9.3 8.5-10.1 MG/DL Test 06/12/17 17:03 06/12/17 18:01 06/12/17 18:58 06/12/17 19:31 Range/Units Glucometer 240 H 246 H 220 H 223 H 70-110 MG/DL Test 06/12/17 20:57 Range/Units Glucometer 184 H 70-110 MG/DL Radiology Date of Exam: 06/12/17 CHEST 1 VIEW, AP/PA ONLY INDICATION: Shortness of air and weakness. COMPARISON: 06/07/2017. FINDINGS: There is patchy parenchymal opacity in the suprahilar right upper lobe and infrahilar medial left lower lobes suspicious for developing infiltrates. There is some thickening of the central airways bilaterally and reactive airway disease or bronchitis suggested. No effusion or pneumothorax. IMPRESSION: Perihilar infiltrates suspicious for developing pneumonia. There is some thickening of the central airways. Radiographic followup suggested. No pleural pathology. Physical Exam-([facility]) Physical Exam Vital Signs VS - Last 72 Hours, by Label 06/12/17 06/12/17 06/12/17 06/12/17 07:10 08:01 09:20 09:25 Temp 98.0 96.6 Pulse 143 141 140 Resp 26 24 20 B/P (MAP) 160/81 (107) 145/77 (99) Pulse Ox 100 99 99 6 O2 Delivery Nasal Cannula Room Air Room Air O2 Flow Rate 3.00 06/12/17 06/12/17 06/12/17 06/12/17 09:25 10:00 11:00 12:00 Pulse 137 130 125 Resp 34 34 34 B/P (MAP) 92/80 (84) 122/76 (91) 135/69 (91) Pulse Ox 98 97 97 O2 Delivery Room Air Room Air Room Air Room Air 06/12/17 06/12/17 06/12/17 06/12/17 12:00 12:30 13:00 13:00 Temp 97.4 Pulse 114 114 Resp 37 B/P (MAP) 128/68 (88) Pulse Ox 97 O2 Delivery Room Air Room Air 06/12/17 06/12/17 06/12/17 06/12/17 14:00 15:00 16:00 16:00 Pulse 115 111 Resp 29 39 B/P (MAP) 122/73 (89) 130/79 (96) 128/74 (92) Pulse Ox 96 94 O2 Delivery Room Air Room Air Room Air Room Air 06/12/17 06/12/17 06/12/17 06/12/17 17:00 18:00 19:00 20:00 Temp 98.2 Pulse 109 109 106 Resp 32 25 17 B/P (MAP) 129/71 (90) 127/89 (102) 131/69 (89) Pulse Ox 91 91 93 93 O2 Delivery Room Air Room Air Nasal Cannula Nasal Cannula O2 Flow Rate 2.00 3.00 06/12/17 06/12/17 06/12/17 20:27 20:27 21:03 Pulse 109 Pulse Ox 94 93 O2 Delivery Nasal Cannula Nasal Cannula O2 Flow Rate 3.00 3.00 Capillary Refill : Less Than 3 Seconds General Appearance: mild distress (confused), thin HEENT: PERRL/EOMI, pale conjunctivae (R), pale conjunctivae (L) Respiratory: chest non-tender, no accessory muscle use, crackles, wheezing Cardiovascular: normal peripheral pulses, regular rate, rhythm, no edema, no murmur Gastrointestinal: normal bowel sounds, non tender, soft, no organomegaly, No distended, No guarding, No rebound Extremities: normal range of motion, non-tender, normal inspection, no pedal edema, no calf tenderness Neurologic/Psychiatric: no motor/sensory deficits, alert, other (Oriented to person, follows commands) Skin: cool Lymphatic: no adenopathy Clinical Quality Measures DVT/VTE Risk/Contraindication: Risk Factor Score Per Nursin RFS Level Per Nursing on Admit: 3=High Copy Copies To 1: MATHEUS WATSON MD Assessment/Plan Assessment/Plan (1) DKA, type 2 Status: Acute Assessment & Plan: - BMP q4hrs until gap is closed - Continue insulin drip Qualifiers: Qualified Codes: E11.10 - Type 2 diabetes mellitus with ketoacidosis without coma; Z79.4 - residential (current) use of insulin (2) Altered mental state Status: Acute Assessment & Plan: DKA vs Sepsis vs Hypoxia - continue to monitor, improving (3) Acute renal failure (ARF) Status: Acute Assessment & Plan: - 2/2 to dehydration due to DKA, Cr trending down (4) Acute respiratory distress Status: Acute Assessment & Plan: PNA vs fluid overload - Will give 1 dose of IV lasix and decrease fluids since gap is almost closed - Continue Zosyn and Vanc (5) DVT prophylaxis Status: Acute Assessment & Plan: DIXIE Walker MD Jun 12, 2017 15:39
[2017-06-12] MEDS ORDERED: PROMETHAZINE INJ 25 MG/ML (PHENERGAN) AMP IVP PRN (15:45)
[2017-06-12 17:26] LABS: CALCIUM 9.3 MG/DL (8.5-10.1); CREATININE SERUM 1.12 MG/DL (0.60-1.30); POTASSIUM 3.8 MMOL/L (3.6-5.0)
[2017-06-12] MEDS: PIPERACILLIN SODIUM/TAZOBACTAM 4.5 GM in NS (IVPB) 100 ML IV SCH (17:39)
[2017-06-12] MEDS: MICONAZOLE 2% POWDER (DESENEX AF) 90 GM TOP SCH (20:24)
[2017-06-12] MEDS: APIXABAN 5 MG (ELIQUIS) TABLET PO SCH (20:24)
[2017-06-12] MEDS: BENZONATATE 100 MG (TESSALON) CAPSULE PO SCH (20:24)
[2017-06-12] MEDS ORDERED: RT-ALBUTEROL/IPRATROPIUM 3 ML (DUONEB) VIAL INH PRN (21:00)
[2017-06-12] MEDS: RT-ALBUTEROL/IPRATROPIUM 3 ML (DUONEB) VIAL INH SCH (21:03)
[2017-06-12] MEDS ORDERED: FUROSEMIDE 40 MG/4 ML INJ (LASIX) IVP ONE (21:45)
[2017-06-13] VITALS (19 sets, daily range): BP systolic 101–137; BP diastolic 48–95
[2017-06-13] MEDS: 1/2 NS W/KCL 20 MEQ/L 1,000 ML IV SCH ×3 (00:05→12:51)
[2017-06-13] MEDS: PIPERACILLIN SODIUM/TAZOBACTAM 4.5 GM in NS (IVPB) 100 ML IV SCH ×3 (00:08→17:31)
[2017-06-13 01:28] LABS: POTASSIUM 2.5 MMOL/L (3.6-5.0)
[2017-06-13] MEDS: POTASSIUM CL 10MEQ/50ML IVPB 50 ML IV SCH ×6 (01:42→06:58)
[2017-06-13] MEDS: RT-ALBUTEROL/IPRATROPIUM 3 ML (DUONEB) VIAL INH SCH ×4 (03:01→18:14)
[2017-06-13 04:58] LABS: BASOPHILS % (AUTO) 0 % (0-10); EOSINOPHILS % (AUTO) 0 % (0-10); HEMATOCRIT 37 % (35-52); HEMOGLOBIN 13.5 G/DL (11.5-16.0); LYMPHOCYTES % (AUTO) 11 % (12-44); MEAN CORPUSCULAR HEMOGLOBIN 29 PG (25-34); MEAN CORPUSCULAR HGB CONC 36 G/DL (32-36); MEAN CORPUSCULAR VOLUME 78 FL (80-99); MEAN PLATELET VOLUME 10.5 FL (7.4-10.4); MONOCYTES # (AUTO) 1.2 X 10^3 (0.0-1.0); MONOCYTES % (AUTO) 14 % (0-12); NEUTROPHILS # (AUTO) 6.7 X 10^3 (1.8-7.8); NEUTROPHILS % (AUTO) 75 % (42-75); PLATELET COUNT 297 10^3/uL (130-400); RED BLOOD COUNT 4.73 10^6/uL (4.35-5.85); RED CELL DISTRIBUTION WIDTH 12.2 % (10.0-14.5)
[2017-06-13 05:10] LABS: BUN/CREATININE RATIO 12; CALCIUM 9.1 MG/DL (8.5-10.1); CARBON DIOXIDE 14 MMOL/L (21-32); CHLORIDE 109 MMOL/L (98-107); CREATININE SERUM 0.97 MG/DL (0.60-1.30); GFR ESTIMATED 58; GLUCOSE 166 MG/DL (70-105); MAGNESIUM 1.1 MG/DL (1.8-2.4); SODIUM 136 MMOL/L (135-145)
[2017-06-13 05:12] LABS: PHOSPHORUS < 0.7 MG/DL (2.3-4.7)
[2017-06-13] MEDS: MAGNESIUM 1 GM/100 ML IVPB 100 ML IV SCH ×4 (05:21→08:34)
[2017-06-13] MEDS ORDERED: POTASSIUM CL 10MEQ/50ML IVPB 50 ML IV SCH (06:00)
[2017-06-13] MEDS ORDERED: MAGNESIUM 1 GM/100 ML IVPB 100 ML IV SCH (06:00)
[2017-06-13] MEDS ORDERED: KCL 20 MEQ TAB (K-DUR) PO SCH (06:00)
[2017-06-13] MEDS ORDERED: SODIUM PHOSPHATE INJ 30 MM in NS (IVPB) 250 ML IV NR ×2 (07:15→13:00)
--- NOTE | 2017-06-13 07:34 | Diagnostic Imaging Report ---
INDICATION: Sepsis. Comparison made with prior examination 06/12/2017. FINDINGS: Heart size is normal. There are bilateral perihilar infiltrates. No pleural effusion or pneumothorax. Mediastinum is unremarkable. IMPRESSION: Slightly increasing bilateral perihilar infiltrates, suspect for pneumonia although some degree of underlying Central pulmonary venous congestion cannot be excluded. Dictated by: Dictated on workstation # [id number]
[2017-06-13] MEDS: BENZONATATE 100 MG (TESSALON) CAPSULE PO SCH ×3 (08:09→21:13)
[2017-06-13] MEDS: VANCOMYCIN 1250 MG/NS 250 ML IVPB IV SCH ×4 (08:28→22:13)
[2017-06-13] MEDS ORDERED: inSUlin DETERMIR 1 UNIT/0.01 ML (LEVEMIR) CHARGE PER UNIT SQ NR (09:45)
[2017-06-13] MEDS: inSUlin REGULAR TPN/DRIP ONLY 250 UNITS in NORMAL SALINE 250 ML IV SCH (09:57)
[2017-06-13] MEDS: MICONAZOLE 2% POWDER (DESENEX AF) 90 GM TOP SCH ×2 (09:59→21:13)
[2017-06-13] MEDS: D5 1/2 NS W/KCL 20 MEQ/L 1,000 ML IV SCH (09:59)
[2017-06-13] MEDS: APIXABAN 5 MG (ELIQUIS) TABLET PO SCH ×2 (10:00→21:13)
[2017-06-13] MEDS ORDERED: VANCOMYCIN 1250 MG/NS 250 ML IVPB IV SCH ×2 (10:00)
[2017-06-13 10:39] LABS: BUN/CREATININE RATIO 12; CARBON DIOXIDE 15 MMOL/L (21-32); CHLORIDE 110 MMOL/L (98-107); CREATININE SERUM 0.83 MG/DL (0.60-1.30); GFR ESTIMATED > 60; GLUCOSE 117 MG/DL (70-105); POTASSIUM 2.7 MMOL/L (3.6-5.0); SODIUM 137 MMOL/L (135-145)
[2017-06-13 10:41] LABS: PHOSPHORUS 0.9 MG/DL (2.3-4.7)
[2017-06-13] MEDS: inSUlin (REGULAR) HUMAN 1 UNIT/0.01 ML (CHARGE PER UNIT) SC SCH ×3 (14:40→21:13)
--- NOTE | 2017-06-13 16:36 | Progress Note (SOAP) ---
Subjective Subjective/Events-last exam Patient feels much better this AM. Breathing improved on RA this AM after dose of lasix last night. Denies any pain. Cough improved. Denies any pain. Requesting diet. Review of Systems Date Seen by Provider: Jun 13, 2017 Time Seen by Provider: 09:35 General: No Chills Pulmonary: Dyspnea, Cough Cardiovascular: No: Chest Pain, Palpitations, Edema Gastrointestinal: Nausea, No: Vomiting, Abdominal Pain, Diarrhea, Constipation Genitourinary: No Dysuria Objective Exam Last Set of Vital Signs Vital Signs Date Time Temp Pulse Resp B/P (MAP) Pulse Ox O2 Delivery O2 Flow Rate FiO2 06/13/17 16:00 96 Room Air 06/13/17 12:59 107 06/13/17 12:11 22 06/13/17 12:00 101/95 (97) 06/13/17 07:56 99.4 06/13/17 03:02 3.00 Capillary Refill : Less Than 3 Seconds I&O Intake and Output 06/13/17 00:00 Intake Total 6042.5 ml Output Total 1785 ml Balance 4257.5 ml Intake Oral 75 ml IV Total 5967.5 ml Output Urine Total 1785 ml Daily Weight Change Unsure General: Alert, Oriented X3, Cooperative, No Acute Distress HEENT: Mucous Memb Moist/[place] Lungs: Other (+ wheezing and some occassional crackles, increase work of breathing with talking) Heart: Regular Rate, No Murmurs Abdomen: Normal Bowel Sounds, Soft, No Tenderness, No Hepatosplenomegaly Extremities: No Edema, No Tenderness/Swelling Neuro: Normal Speech, Sensation Intact, Cranial Nerves 3-12 NL Results/Procedures Lab Laboratory Tests 06/12/17 17:00: Sodium Level 138, Potassium Level 3.8, Chloride Level 113H, Carbon Dioxide Level 10L, Anion Gap 15H, Blood Urea Nitrogen 20H, Creatinine 1.12, Estimat Glomerular Filtration Rate 49, BUN/Creatinine Ratio 18, Glucose Level 210H, Calcium Level 9.3 06/12/17 17:03: Glucometer 240H 06/12/17 18:01: Glucometer 246H 06/12/17 18:58: Glucometer 220H 06/12/17 19:31: Glucometer 223H 06/12/17 20:57: Glucometer 184H 06/12/17 22:04: Glucometer 177H 06/12/17 22:59: Glucometer 132H 06/12/17 23:27: Glucometer 135H 06/13/17 00:00: Glucometer 153H 06/13/17 00:55: Sodium Level 137, Potassium Level 2.5#*L, Chloride Level 112H, Carbon Dioxide Level 12L, Anion Gap 13, Blood Urea Nitrogen 14, Creatinine 1.00, Estimat Glomerular Filtration Rate 56, BUN/Creatinine Ratio 14, Glucose Level 166H, Calcium Level 9.0 06/13/17 00:58: Glucometer 153H 06/13/17 02:06: Glucometer 169H 06/13/17 03:21: Glucometer 159H 06/13/17 04:01: Glucometer 147H 06/13/17 04:30: Glucometer 148H, White Blood Count 9.0, Red Blood Count 4.73, Hemoglobin 13.5, Hematocrit 37, Mean Corpuscular Volume 78L, Mean Corpuscular Hemoglobin 29, Mean Corpuscular Hemoglobin Concent 36, Red Cell Distribution Width 12.2, Platelet Count 297, Mean Platelet Volume 10.5H, Neutrophils (%) (Auto) 75, Lymphocytes (%) (Auto) 11L, Monocytes (%) (Auto) 14H, Eosinophils (%) (Auto) 0, Basophils (%) (Auto) 0, Neutrophils # (Auto) 6.7, Lymphocytes # (Auto) 1.0, Monocytes # (Auto) 1.2H, Eosinophils # (Auto) 0.0, Basophils # (Auto) 0.0, Sodium Level 136, Potassium Level 3.0L, Chloride Level 109H, Carbon Dioxide Level 14L, Anion Gap 13, Blood Urea Nitrogen 12, Creatinine 0.97, Estimat Glomerular Filtration Rate 58, BUN/Creatinine Ratio 12, Glucose Level 166H, Calcium Level 9.1, Phosphorus Level < 0.7#*L, Magnesium Level 1.1L 06/13/17 05:06: Glucometer 189H 06/13/17 06:01: Glucometer 203H 06/13/17 06:56: Glucometer 201H 06/13/17 08:05: Glucometer 185H 06/13/17 08:59: Glucometer 167H 06/13/17 10:03: Glucometer 140H 06/13/17 10:05: Sodium Level 137, Potassium Level 2.7L, Chloride Level 110H, Carbon Dioxide Level 15L, Anion Gap 12, Blood Urea Nitrogen 10, Creatinine 0.83, Estimat Glomerular Filtration Rate > 60, BUN/Creatinine Ratio 12, Glucose Level 117H, Calcium Level 9.0, Phosphorus Level 0.9*L 06/13/17 11:05: Glucometer 115H 06/13/17 14:34: Glucometer 241H Microbiology 06/12/17 Blood Culture - Preliminary, Resulted No growth 06/12/17 Influenza Types A,B Antigen (ODETTE) - Final, Complete Radiology Date of Exam: 06/12/17 CHEST 1 VIEW, AP/PA ONLY INDICATION: Shortness of air and weakness. COMPARISON: 06/07/2017. FINDINGS: There is patchy parenchymal opacity in the suprahilar right upper lobe and infrahilar medial left lower lobes suspicious for developing infiltrates. There is some thickening of the central airways bilaterally and reactive airway disease or bronchitis suggested. No effusion or pneumothorax. IMPRESSION: Perihilar infiltrates suspicious for developing pneumonia. There is some thickening of the central airways. Radiographic followup suggested. No pleural pathology. Assessment/Plan Assessment/Plan (1) DKA, type 2 Status: Acute Assessment & Plan: - Subcutaneous insulin given and drip d/c 1 hr after - Start DM diet - SSI A started Qualifiers: Qualified Codes: E11.10 - Type 2 diabetes mellitus with ketoacidosis without coma; Z79.4 - [facility] (current) use of insulin (2) Altered mental state Status: Resolved (3) Acute renal failure (ARF) Status: Resolved (4) Acute respiratory distress Status: Acute Assessment & Plan: PNA vs fluid overload - MAT protocol started - Will d/c Vanc tomorrow if patient improving (5) DVT prophylaxis Status: Acute (6) Hypokalemia Status: Acute Assessment & Plan: - Replaced and repeat BMP (7) Hypophosphatemia Status: Acute Assessment & Plan: - Replaced x2 repeat in AM Clinical Quality Measures DVT/VTE Risk/Contraindication: Risk Factor Score Per Nursin RFS Level Per Nursing on Admit: 3=High DIXIE RUBIO MD Jun 13, 2017 16:36
[2017-06-14] VITALS: BP 138/90
[2017-06-14] MEDS: ZOLPIDEM 5 MG (AMBIEN) TAB PO PRN ×2 (00:54→20:43)
[2017-06-14] MEDS: PIPERACILLIN SODIUM/TAZOBACTAM 4.5 GM in NS (IVPB) 100 ML IV SCH ×3 (00:55→17:11)
[2017-06-14] MEDS: 1/2 NS W/KCL 20 MEQ/L 1,000 ML IV SCH ×3 (01:14→17:13)
[2017-06-14] MEDS: RT-ALBUTEROL/IPRATROPIUM 3 ML (DUONEB) VIAL INH SCH ×4 (02:37→19:57)
[2017-06-14 04:00] VITALS: BP 136/63
[2017-06-14] MEDS: inSUlin (REGULAR) HUMAN 1 UNIT/0.01 ML (CHARGE PER UNIT) SC SCH ×4 (05:54→20:44)
[2017-06-14 08:00] VITALS: BP 138/64
[2017-06-14] MEDS ORDERED: TROUGH ORDER-PHARMACY XX NR (09:00)
[2017-06-14] MEDS: BENZONATATE 100 MG (TESSALON) CAPSULE PO SCH ×3 (09:43→20:43)
[2017-06-14] MEDS: MICONAZOLE 2% POWDER (DESENEX AF) 90 GM TOP SCH ×2 (09:43→20:46)
[2017-06-14] MEDS: APIXABAN 5 MG (ELIQUIS) TABLET PO SCH ×2 (09:43→20:43)
--- NOTE | 2017-06-14 10:02 | Diagnostic Imaging Report ---
INDICATION: Diabetic ketoacidosis, sepsis, cough. TECHNIQUE: Single view chest at 8:34 AM. CORRELATION STUDY: 06/13/2017. FINDINGS: The heart size and mediastinum are generally stable. The vasculature is improved and overall less congested from the prior study. There are continued patchy areas of infiltrate, most noticeable about the left lung base which appears slightly more consolidated from the prior study. An additional more focal area of density about the right mid lung is noted. IMPRESSION: Increasing consolidation about the left lung base likely reflecting pneumonia as well as in the right mid lung field. The vasculature has improved and is near normal on followup. Dictated by: Dictated on workstation # [id number]
[2017-06-14 10:03] LABS: HEMOGLOBIN 11.9 G/DL (11.5-16.0); RED BLOOD COUNT 4.12 10^6/uL (4.35-5.85); WHITE BLOOD COUNT 11.4 10^3/uL (4.3-11.0)
[2017-06-14 10:04] LABS: BASOPHILS % (AUTO) 0 % (0-10); EOSINOPHILS % (AUTO) 0 % (0-10); HEMATOCRIT 33 % (35-52); LYMPHOCYTES # (AUTO) 0.8 X 10^3 (1.0-4.0); LYMPHOCYTES % (AUTO) 7 % (12-44); MEAN CORPUSCULAR HEMOGLOBIN 29 PG (25-34); MEAN CORPUSCULAR HGB CONC 37 G/DL (32-36); MEAN CORPUSCULAR VOLUME 79 FL (80-99); MEAN PLATELET VOLUME 10.7 FL (7.4-10.4); MONOCYTES # (AUTO) 1.1 X 10^3 (0.0-1.0); MONOCYTES % (AUTO) 10 % (0-12); NEUTROPHILS # (AUTO) 9.4 X 10^3 (1.8-7.8); NEUTROPHILS % (AUTO) 83 % (42-75); PLATELET COUNT 316 10^3/uL (130-400); RED CELL DISTRIBUTION WIDTH 12.3 % (10.0-14.5)
[2017-06-14 10:13] LABS: BUN/CREATININE RATIO 13; CALCIUM 8.6 MG/DL (8.5-10.1); CARBON DIOXIDE 17 MMOL/L (21-32); CHLORIDE 110 MMOL/L (98-107); CREATININE SERUM 0.68 MG/DL (0.60-1.30); GFR ESTIMATED > 60; GLUCOSE 214 MG/DL (70-105); POTASSIUM 2.8 MMOL/L (3.6-5.0); SODIUM 136 MMOL/L (135-145)
[2017-06-14] MEDS ORDERED: KCL 20 MEQ TAB (K-DUR) PO NR ×2 (11:15→16:30)
[2017-06-14 12:00] VITALS: BP 128/72
--- NOTE | 2017-06-14 12:07 | Physical Therapy Evaluation ---
PT Evaluation-General Medical Diagnosis Admission Date Jun 12, 2017 at 08:05 Medical Diagnosis: Altered mental status Onset Date: Jun 12, 2017 Therapy Diagnosis Therapy Diagnosis: Impaired balance, poor activity tolerance and strength Height/Weight Height (Feet): 5 Height (Inches): 5.00 Weight (Pounds): 174 Weight (Ounces): 8.0 Precautions Precautions/Isolations: Fall Prevention, Standard Precautions Weight Bear Status Right Lower Extremity: Right Weight Bearing/Tolerated Left Lower Extremity: Left Weight Bearing/Tolerated Referral Physician: Isabel Rendon MD Reason for Referral: Evaluation/Treatment Medical History Pertinent Medical History: DM, HTN Additional Medical History Surgical: cholecystectomy, tubal ligation, bunionectomy, R knee surgery Current History Pt presented to ER with altered mental status and cough lasting two days and is scared that she got the flu from her sister. Reviewed History: Yes Social History Home: Single Level Current Living Status: Children (2) Entry Into Home: Stairs With Railing PT Steps Into Home: 5 PT Steps Inside Home: 0 Large threshold into shower Prior/Core FIM Prior Level of Function Functional Burt Measure 0=Not Assessed/NA 4=Minimal Assistance 1=Total Assistance 5=Supervision or Setup 2=Maximal Assistance 6=Modified Burt 3=Moderate Assistance 7=Complete Burt Bed Mobility: 7 Transfers (B,C,W/C) (FIM): 7 Gait: 7 Locomotion: 7 Pt has FWW and cane at home but does not use them. PT Evaluation-Current Subjective Pt is laying in bed in room pre eval and agrees to PT. Pt has dry cough every few minutes. Pain Numeric Pain Scale: 0-No Pain Location: No Pain Reported Pt/Family Goals Burt at home Objective Patient Orientation: Normal For Age Attachments: IV ROM/Strength ROM Lower Extremities WFL chiqui Strength Lower Extremities Grossly 4/5 chiqui Neuromuscular (Tone, Coordination, Reflexes) NT Sensory Vision: Functional Hearing: Functional Sensation Right Lower Extremit: Intact Sensation Left Lower Extremity: Intact Transfers Functional Burt Measure 0=Not Assessed/NA 4=Minimal Assistance 1=Total Assistance 5=Supervision or Setup 2=Maximal Assistance 6=Modified Burt 3=Moderate Assistance 7=Complete Burt Transfers (B, C, W/C) (FIM): 4 Scootin Rollin Supine to/from Sit: 5 Sit to/from Stand: 4 SBA needed for bed mobility and CGA needed for sit to stand. Gait Mode of Locomotion: Walk Anticipated Mode of Locomotion: Walk Gait (FIM): 2 Distance (FIM): 1=794-22 ft Distance: 100 feet Gait Level of Assist: 4 Gait Persons Needed: 1 Gait Assistive Device: FWW Comments/Gait Description Pt required standing breaks frequently and reported feeling off-balance during turning. Balance Sitting Static: Normal Sitting Dynamic: Normal Standing Static: Good Standing Dynamic: Good Treatment Patient was toileted once with SBA. Assessment/Needs Pt demonstrates weakness in MMT chiqui, which has the potential to impact activity tolerance during ambulation in the home independently. Pt would benefit from PT services to improve strength, activity tolerance, and balance. Rehab Potential: Fair PT Short Term Goals Short Term Goals Time Frame: Jun 21, 2017 Transfers (B,C,W/C) (FIM): 7 Gait (FIM): 6 Gait Distance Comment: 200 feet Gait Assistive Device: FWW Stairs (FIM): 2 # of Steps: 5 Stairs Level of Assist: 6 PT Plan Problem List Problem List: Activity Tolerance, Functional Strength, Safety, Balance, Gait, Transfer, Bed Mobility Treatment/Plan Treatment Plan: Continue Plan of Care Treatment Plan: Bed Mobility, Education, Functional Activity Bimal, Functional Strength, Gait, Safety, Therapeutic Exercise, Transfers Treatment Duration: Jun 21, 2017 Frequency: 6 times per week Estimated Hrs Per Day: .25 hour per day (15-30') Patient and/or Family Agrees t: Yes Safety Risks/Education Patient Education: Gait Training, Transfer Techniques, Correct Positioning, Safety Issues Teaching Recipient: Patient Teaching Methods: Demonstration, Discussion Response to Teaching: Reinforcement Needed Discharge Recommendations Plan Pt will perform bed mobility and transfer training, gait training and activity tolerance training, as well as balance training and education to promote independence at home. Therapy D/C Recommendations: Home w/ Family Support Equpiment Recommendations-D/C: Front Wheeled Walker Time/GCodes Time In: 1120 Time Out: 1140 Total Billed Treatment Time: 20 Total Billed Treatment 1 visit 20 min GRIFFIN MCFADDEN PT Jun 14, 2017 12:07
[2017-06-14 15:52] VITALS: BP 144/70
[2017-06-14 16:11] LABS: MAGNESIUM 1.6 MG/DL (1.8-2.4); POTASSIUM 3.2 MMOL/L (3.6-5.0)
[2017-06-14 19:39] VITALS: BP 120/56
[2017-06-14] MEDS ORDERED: inSUlin DETERMIR 1 UNIT/0.01 ML (LEVEMIR) CHARGE PER UNIT SQ SCH (21:00)
--- NOTE | 2017-06-14 21:26 | Progress Note (SOAP) ---
Subjective Subjective/Events-last exam Patient states that she is feeling almost at her baseline. Tolerating PO diet. Denies any pain, shortness of breath, N/V Review of Systems Date Seen by Provider: Jun 14, 2017 Time Seen by Provider: 13:30 Pulmonary: Cough Cardiovascular: No: Chest Pain, Palpitations Gastrointestinal: No: Nausea, Vomiting Objective Exam Last Set of Vital Signs Vital Signs Date Time Temp Pulse Resp B/P (MAP) Pulse Ox O2 Delivery O2 Flow Rate FiO2 06/14/17 19:57 93 Room Air 06/14/17 19:39 100.6 103 16 120/56 (77) 06/13/17 03:02 3.00 Capillary Refill : Less Than 3 Seconds I&O Intake and Output 06/14/17 00:00 Intake Total 1650 ml Output Total 4200 ml Balance -2550 ml Intake Oral 1000 ml IV Total 650 ml Output Urine Total 4200 ml # Voids 1 General: Alert, Oriented X3, Cooperative, No Acute Distress HEENT: Mucous Memb Moist/[place] Lungs: Clear to Auscultation, Normal Air Movement Heart: Regular Rate, No Murmurs Abdomen: Normal Bowel Sounds, Soft, No Tenderness, No Hepatosplenomegaly Extremities: Other (+ swelling RLE>LLE, 1+ pitting edema in RLE) Results/Procedures Lab Laboratory Tests 06/14/17 05:10: Glucometer 242H 06/14/17 05:40: White Blood Count 11.4H, Red Blood Count 4.12L, Hemoglobin 11.9, Hematocrit 33L , Mean Corpuscular Volume 79L, Mean Corpuscular Hemoglobin 29, Mean Corpuscular Hemoglobin Concent 37H, Red Cell Distribution Width 12.3, Platelet Count 316, Mean Platelet Volume 10.7H, Neutrophils (%) (Auto) 83H, Lymphocytes (%) (Auto) 7L, Monocytes (%) (Auto) 10, Eosinophils (%) (Auto) 0, Basophils (%) (Auto) 0, Neutrophils # (Auto) 9.4H, Lymphocytes # (Auto) 0.8L, Monocytes # (Auto) 1.1H, Eosinophils # (Auto) 0.0, Basophils # (Auto) 0.0, Sodium Level 136, Potassium Level 2.8L, Chloride Level 110H, Carbon Dioxide Level 17L, Anion Gap 9, Blood Urea Nitrogen 9, Creatinine 0.68, Estimat Glomerular Filtration Rate > 60, BUN/ Creatinine Ratio 13, Glucose Level 214H, Calcium Level 8.6, Phosphorus Level 1.6L 06/14/17 09:10: Vancomycin Level Trough 15.7 06/14/17 11:07: Glucometer 270H 06/14/17 15:33: Glucometer 248H 06/14/17 15:50: Potassium Level 3.2L, Magnesium Level 1.6L 06/14/17 20:38: Glucometer 326H Microbiology 06/12/17 Blood Culture - Preliminary, Resulted No growth 06/12/17 MRSA Screen - Final, Complete MRSA not isolated Radiology Date of Exam: 06/12/17 CHEST 1 VIEW, AP/PA ONLY INDICATION: Shortness of air and weakness. COMPARISON: 06/07/2017. FINDINGS: There is patchy parenchymal opacity in the suprahilar right upper lobe and infrahilar medial left lower lobes suspicious for developing infiltrates. There is some thickening of the central airways bilaterally and reactive airway disease or bronchitis suggested. No effusion or pneumothorax. IMPRESSION: Perihilar infiltrates suspicious for developing pneumonia. There is some thickening of the central airways. Radiographic followup suggested. No pleural pathology. 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
[2017-06-15] VITALS: BP 139/82
[2017-06-15] MEDS: PIPERACILLIN SODIUM/TAZOBACTAM 4.5 GM in NS (IVPB) 100 ML IV SCH ×3 (00:11→16:56)
[2017-06-15] MEDS: RT-ALBUTEROL/IPRATROPIUM 3 ML (DUONEB) VIAL INH SCH ×4 (02:22→20:10)
[2017-06-15] MEDS: inSUlin (REGULAR) HUMAN 1 UNIT/0.01 ML (CHARGE PER UNIT) SC SCH ×4 (05:53→20:55)
[2017-06-15 06:25] LABS: BASOPHILS % (AUTO) 0 % (0-10); EOSINOPHILS % (AUTO) 0 % (0-10); HEMATOCRIT 31 % (35-52); HEMOGLOBIN 11.4 G/DL (11.5-16.0); LYMPHOCYTES # (AUTO) 1.1 X 10^3 (1.0-4.0); LYMPHOCYTES % (AUTO) 7 % (12-44); MEAN CORPUSCULAR HEMOGLOBIN 29 PG (25-34); MEAN CORPUSCULAR HGB CONC 37 G/DL (32-36); MEAN CORPUSCULAR VOLUME 79 FL (80-99); MEAN PLATELET VOLUME 10.3 FL (7.4-10.4); MONOCYTES # (AUTO) 1.5 X 10^3 (0.0-1.0); MONOCYTES % (AUTO) 9 % (0-12); NEUTROPHILS # (AUTO) 13.5 X 10^3 (1.8-7.8); NEUTROPHILS % (AUTO) 84 % (42-75); PLATELET COUNT 302 10^3/uL (130-400); RED BLOOD COUNT 3.95 10^6/uL (4.35-5.85); RED CELL DISTRIBUTION WIDTH 12.2 % (10.0-14.5); WHITE BLOOD COUNT 16.1 10^3/uL (4.3-11.0)
[2017-06-15 06:40] LABS: BAND NEUTROPHILS 0 %; BASOPHILS % (MANUAL) 0 %; EOSINOPHILS % (MANUAL) 0 %; LYMPHOCYTES % (MANUAL) 8 %; MONOCYTES % (MANUAL) 5 %; NEUTROPHILS % (MANUAL) 87 %; RBC MORPH NORMAL
[2017-06-15 07:05] LABS: BUN/CREATININE RATIO 10; CALCIUM 8.5 MG/DL (8.5-10.1); CARBON DIOXIDE 19 MMOL/L (21-32); CHLORIDE 108 MMOL/L (98-107); CREATININE SERUM 0.68 MG/DL (0.60-1.30); GFR ESTIMATED > 60; GLUCOSE 330 MG/DL (70-105); MAGNESIUM 1.5 MG/DL (1.8-2.4); POTASSIUM 3.4 MMOL/L (3.6-5.0); SODIUM 138 MMOL/L (135-145)
[2017-06-15] MEDS ORDERED: SODIUM PHOSPHATE INJ 30 MM in NS (IVPB) 250 ML IV NR ×2 (07:15→11:15)
[2017-06-15] MEDS ORDERED: KCL 20 MEQ TAB (K-DUR) PO NR (07:15)
[2017-06-15] MEDS: BENZONATATE 100 MG (TESSALON) CAPSULE PO SCH ×3 (07:59→20:54)
[2017-06-15] MEDS: APIXABAN 5 MG (ELIQUIS) TABLET PO SCH ×2 (07:59→20:54)
[2017-06-15 08:00] VITALS: BP 128/57
[2017-06-15] MEDS: MICONAZOLE 2% POWDER (DESENEX AF) 90 GM TOP SCH ×2 (08:00→20:55)
[2017-06-15] MEDS: inSUlin DETERMIR 1 UNIT/0.01 ML (LEVEMIR) CHARGE PER UNIT SQ SCH ×2 (08:00→20:55)
--- NOTE | 2017-06-15 08:14 | Diagnostic Imaging Report ---
PROCEDURE: US right lower extremity venous. TECHNIQUE: Multiple real-time grayscale images were obtained over the right lower extremity in various projections. Additional duplex Doppler and color Doppler images were also obtained. INDICATION: Increased swelling in the right lower extremity. COMPARISON STUDY: Bilateral lower extremity venous Doppler for 08/09/2016. FINDINGS: Exam demonstrates some nonocclusive thrombus in the right common femoral and superficial femoral vein. This appears to be old. The previous ultrasound demonstrated previous nonocclusive thrombus in the common femoral and superficial femoral vein. IMPRESSION: There is chronic nonocclusive thrombus in the right common femoral and superficial femoral vein. Dictated by: Dictated on workstation # [id number]
--- NOTE | 2017-06-15 09:50 | Diagnostic Imaging Report ---
INDICATION: Diabetic ketoacidosis Portable chest 3:23 AM Heart size and pulmonary vascularity are normal. There is some faint infiltrate at the left lung base. There is no effusion or pneumothorax. IMPRESSION: Left basilar infiltrate has shown some interval improvement since the previous day. Dictated by: Dictated on workstation # [id number]
--- NOTE | 2017-06-15 10:52 | Progress Note (SOAP) ---
Subjective Subjective/Events-last exam Patient sleeping comfortably. Tolerating PO diet. Has not had BM for the last 5 days. Fever overnight. Review of Systems Date Seen by Provider: Jun 15, 2017 Time Seen by Provider: 10:35 Pulmonary: No Dyspnea, Cough Cardiovascular: Palpitations, No: Chest Pain Gastrointestinal: Constipation, No: Nausea, Vomiting Objective Exam Last Set of Vital Signs Vital Signs Date Time Temp Pulse Resp B/P (MAP) Pulse Ox O2 Delivery O2 Flow Rate FiO2 06/15/17 08:00 Room Air 06/15/17 08:00 99.4 103 18 128/57 (80) 91 06/13/17 03:02 3.00 Capillary Refill : Less Than 3 Seconds I&O Intake and Output 06/15/17 00:00 Intake Total 5912.5 ml Output Total 1150 ml Balance 4762.5 ml Intake Oral 1450 ml IV Total 4462.5 ml Output Urine Total 1150 ml # Voids 2 General: Alert, Oriented X3, Cooperative, No Acute Distress HEENT: Mucous Memb Moist/[place] Neck: No Thyromegaly Lungs: Clear to Auscultation, Normal Air Movement Heart: No Murmurs, Other (tachycardic rate) Abdomen: Normal Bowel Sounds, Soft, No Tenderness, No Hepatosplenomegaly, No Masses Extremities: Other (RLE swelling) Results/Procedures Lab Laboratory Tests 06/14/17 11:07: Glucometer 270H 06/14/17 15:33: Glucometer 248H 06/14/17 15:50: Potassium Level 3.2L, Magnesium Level 1.6L 06/14/17 20:38: Glucometer 326H 06/15/17 05:38: Glucometer 339H 06/15/17 06:15: White Blood Count 16.1H, Red Blood Count 3.95L, Hemoglobin 11.4L, Hematocrit 31L , Mean Corpuscular Volume 79L, Mean Corpuscular Hemoglobin 29, Mean Corpuscular Hemoglobin Concent 37H, Red Cell Distribution Width 12.2, Platelet Count 302, Mean Platelet Volume 10.3, Neutrophils (%) (Auto) 84H, Lymphocytes (%) (Auto) 7L , Monocytes (%) (Auto) 9, Eosinophils (%) (Auto) 0, Basophils (%) (Auto) 0, Neutrophils # (Auto) 13.5H, Lymphocytes # (Auto) 1.1, Monocytes # (Auto) 1.5H, Eosinophils # (Auto) 0.0, Basophils # (Auto) 0.0, Neutrophils % (Manual) 87, Lymphocytes % (Manual) 8, Monocytes % (Manual) 5, Eosinophils % (Manual) 0, Basophils % (Manual) 0, Band Neutrophils 0, Blood Morphology Comment NORMAL, Sodium Level 138, Potassium Level 3.4L, Chloride Level 108H, Carbon Dioxide Level 19L, Anion Gap 11, Blood Urea Nitrogen 7, Creatinine 0.68, Estimat Glomerular Filtration Rate > 60, BUN/Creatinine Ratio 10, Glucose Level 330H, Calcium Level 8.5, Phosphorus Level 1.0*L, Magnesium Level 1.5L, Thyroid Stimulating Hormone (TSH) 0.14L Microbiology 06/12/17 Blood Culture - Preliminary, Resulted No growth 06/12/17 MRSA Screen - Final, Complete MRSA not isolated Radiology Date of Exam: 06/12/17 CHEST 1 VIEW, AP/PA ONLY INDICATION: Shortness of air and weakness. COMPARISON: 06/07/2017. FINDINGS: There is patchy parenchymal opacity in the suprahilar right upper lobe and infrahilar medial left lower lobes suspicious for developing infiltrates. There is some thickening of the central airways bilaterally and reactive airway disease or bronchitis suggested. No effusion or pneumothorax. IMPRESSION: Perihilar infiltrates suspicious for developing pneumonia. There is some thickening of the central airways. Radiographic followup suggested. No pleural pathology. Assessment/Plan Assessment/Plan (1) DKA, type 2 Status: Resolved Qualifiers: Qualified Codes: E11.10 - Type 2 diabetes mellitus with ketoacidosis without coma; Z79.4 - [facility] (current) use of insulin (2) Altered mental state Status: Resolved (3) Acute renal failure (ARF) Status: Resolved (4) Acute respiratory distress Status: Resolved (5) DVT prophylaxis Status: Acute (6) Hypokalemia Status: Acute Assessment & Plan: Replaced and repeat BMP in am (7) Hypophosphatemia Status: Acute Assessment & Plan: Replaced and repeat BMP (8) Right leg swelling Status: Acute Assessment & Plan: - Doppler show chronic DVT no acute findings - Continue anticoagulation and ambulation (9) Tachycardia Status: Acute Assessment & Plan: - TSH low, T3 and T4 levels pending (10) Low TSH level Status: Acute Assessment & Plan: - T3/T4 levels pending (11) Insulin dependent diabetes mellitus Status: Chronic Assessment & Plan: - Started on insulin during this admission, levemir 15 BID - Will need appt with DM nurse at [facility] - Needs Glucometer at D/c Clinical Quality Measures DVT/VTE Risk/Contraindication: Risk Factor Score Per Nursin RFS Level Per Nursing on Admit: 3=High DIXIE RUBIO MD Jun 15, 2017 10:52
--- OUTSIDE RECORDS SUMMARY | 2017-06-15 11:57 | XMS REPORT ---
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 Role Phone MATHEUS WATSON Unavailable PROBLEMS Type Condition ICD9-CM Code [id number] Code Onset Dates Condition Status SNOMED Code Problem Mixed hyperlipidemia E78.2 Active 445649254 Problem Hypertension I10 Active 44766492 Problem Diabetes mellitus E11.9 Active 15320443 Problem Major depressive disorder, recurrent episode, moderate 296.32 Active 12273001 ALLERGIES No Known Allergies SOCIAL HISTORY Never Assessed PLAN OF CARE Activity Details Follow Up 3 Months Reason: VITAL SIGNS Height 64 in 2016-06-09 Weight 197 lbs 2016-06-09 Temperature 98.9 degrees Fahrenheit 2016-06-09 Heart Rate 88 bpm 2016-06-09 Respiratory Rate 20 2016-06-09 BMI 33.81 kg/m2 2016-06-09 Blood pressure systolic 90 mmHg 2016-06-09 Blood pressure diastolic 60 mmHg 2016-06-09 MEDICATIONS Medication Instructions Dosage Frequency Start Date End Date Duration Status Trazodone HCl 100 MG TAKE ONE TABLET BY MOUTH AT BEDTIME 30 Active Lisinopril-Hydrochlorothiazide 20-12.5 MG Orally Once a day 1 tablet 24h Jan, 90 Active Metformin HCl 1000 MG Orally Twice a day 1 tablet with meals 12h Active RESULTS Name Result Date Reference Range A1C (IN HOUSE) 2016-06-09 A1C IN HOUSE 13.1 4.3 - 5.6 % Previous A1c 14.0 Lot [id number] Exp date 03/2018 PROCEDURES Procedure Date Ordered Result Body Site GLYCATED HEMOGLOBIN TEST Jun 09, 2016 IMMUNIZATIONS No Known Immunizations MEDICAL (GENERAL) HISTORY Type Description Date Medical History hypertension Medical History hyperlipidemia Medical History type II diabetes Medical History chronic pain-back fracture (coccyx) Medical History depression Medical History blood clot right leg Surgical History tubal ligation 1976 Surgical History gallbladder removed 2005 Hospitalization History Hospitalization for surgery only Hospitalization History blood clot right leg 09/2014 Hospitalization History Elevated troponin, Bilateral DVT and large central PE with non-occlusive saddle embolism-[facility] 08/09/16
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
[2017-06-15] MEDS: POLYETHYLENE GLYCOL 17 GM (MIRALAX) PACK PO SCH ×2 (12:05→20:55)
[2017-06-15 12:24] LABS: BILIRUBIN,URINE NEGATIVE (NEGATIVE); CLARITY,URINE CLEAR; COLOR,URINE YELLOW; GLUCOSE, URINE (UA) 4+ (NEGATIVE); KETONES,URINE 1+ (NEGATIVE); LEUKOCYTE ESTERASE ,URINE NEGATIVE (NEGATIVE); NITRITE,URINE NEGATIVE (NEGATIVE); PH,URINE 5 (5-9); PROTEIN,URINE 2+ (NEGATIVE); UROBILINOGEN,URINE 4 MG/DL (NORMAL)
[2017-06-15 12:32] LABS: BACTERIA,URINE NEGATIVE /HPF; RBC,URINE 0-2 /HPF; YEAST,URINE LARGE /HPF
[2017-06-15] MEDS ORDERED: POLYETHYLENE GLYCOL 17 GM (MIRALAX) PACK PO ONE (13:00)
[2017-06-15] MEDS ORDERED: MAGNESIUM 1 GM/100 ML IVPB 200 ML IV ONE (13:26)
[2017-06-15] MEDS: MAGNESIUM 1 GM/100 ML IVPB 100 ML IV SCH ×2 (14:28→16:26)
--- NOTE | 2017-06-15 14:45 | Physical Therapy Progress Note ---
Therapy Progress Note Pt is sitting on BSC upon arrival with Nurse present. Pt wants AUTOMOTIVE VEHICLE INSPECTOR to wait outside of room. After a couple of minutes & Nurse has left elza, AUTOMOTIVE VEHICLE INSPECTOR hears pt coughing and reenters pt's room. Pt has put herself back to bed after having BM. Pt is L sidelying and refuses both Exercises and ambulation with AUTOMOTIVE VEHICLE INSPECTOR. AUTOMOTIVE VEHICLE INSPECTOR gives pt ed over therapy benefits and what will help improve pt's condition, pt again refuses. Nurse notified. PT will attempt again tomorrow. 1, FA (8m) [phone] RODRIGO BLACK AUTOMOTIVE VEHICLE INSPECTOR Jun 15, 2017 14:45
[2017-06-15 15:48] VITALS: BP 130/70
[2017-06-15] MEDS ORDERED: ACETAMINOPHEN 325 MG TABLET/CAPLET (TYLENOL) PO PRN (16:30)
[2017-06-16 00:44] VITALS: BP 127/59
[2017-06-16] MEDS: PIPERACILLIN SODIUM/TAZOBACTAM 4.5 GM in NS (IVPB) 100 ML IV SCH ×2 (01:25→08:47)
[2017-06-16] MEDS: RT-ALBUTEROL/IPRATROPIUM 3 ML (DUONEB) VIAL INH SCH ×2 (01:43→07:15)
[2017-06-16] MEDS: inSUlin (REGULAR) HUMAN 1 UNIT/0.01 ML (CHARGE PER UNIT) SC SCH ×2 (05:21→11:14)
[2017-06-16 06:52] LABS: BASOPHILS % (AUTO) 0 % (0-10); EOSINOPHILS % (AUTO) 0 % (0-10); HEMATOCRIT 32 % (35-52); HEMOGLOBIN 11.6 G/DL (11.5-16.0); LYMPHOCYTES # (AUTO) 1.4 X 10^3 (1.0-4.0); LYMPHOCYTES % (AUTO) 10 % (12-44); MEAN CORPUSCULAR HEMOGLOBIN 29 PG (25-34); MEAN CORPUSCULAR HGB CONC 36 G/DL (32-36); MEAN CORPUSCULAR VOLUME 80 FL (80-99); MEAN PLATELET VOLUME 10.1 FL (7.4-10.4); MONOCYTES # (AUTO) 1.9 X 10^3 (0.0-1.0); MONOCYTES % (AUTO) 13 % (0-12); NEUTROPHILS # (AUTO) 11.1 X 10^3 (1.8-7.8); NEUTROPHILS % (AUTO) 77 % (42-75); PLATELET COUNT 309 10^3/uL (130-400); RED BLOOD COUNT 4.01 10^6/uL (4.35-5.85); RED CELL DISTRIBUTION WIDTH 12.5 % (10.0-14.5); WHITE BLOOD COUNT 14.5 10^3/uL (4.3-11.0)
[2017-06-16 07:17] LABS: ALANINE AMINOTRANSFERASE 13 U/L (0-55); ALBUMIN 2.1 GM/DL (3.2-4.5); ALKALINE PHOSPHATASE 142 U/L (40-136); BILIRUBIN,TOTAL 0.9 MG/DL (0.1-1.0); BUN/CREATININE RATIO 8; CALCIUM 8.5 MG/DL (8.5-10.1); CARBON DIOXIDE 24 MMOL/L (21-32); CHLORIDE 106 MMOL/L (98-107); CREATININE SERUM 0.63 MG/DL (0.60-1.30); GFR ESTIMATED > 60; GLUCOSE 178 MG/DL (70-105); MAGNESIUM 1.6 MG/DL (1.8-2.4); PHOSPHORUS 1.9 MG/DL (2.3-4.7); SODIUM 140 MMOL/L (135-145); TOTAL PROTEIN 5.6 GM/DL (6.4-8.2)
[2017-06-16 07:28] VITALS: BP 115/56
[2017-06-16 07:36] LABS: SMEAR SCAN COMMENT YES
[2017-06-16 07:37] LABS: POTASSIUM 2.5 MMOL/L (3.6-5.0)
[2017-06-16] MEDS: APIXABAN 5 MG (ELIQUIS) TABLET PO SCH (08:43)
[2017-06-16] MEDS: BENZONATATE 100 MG (TESSALON) CAPSULE PO SCH ×2 (08:43→14:06)
[2017-06-16] MEDS: POLYETHYLENE GLYCOL 17 GM (MIRALAX) PACK PO SCH ×2 (08:47→11:15)
[2017-06-16] MEDS: MICONAZOLE 2% POWDER (DESENEX AF) 90 GM TOP SCH (08:47)
[2017-06-16] MEDS ORDERED: KCL 20 MEQ TAB (K-DUR) PO SCH (09:15)
[2017-06-16] MEDS ORDERED: fluCOnazole (DIFLUCAN) 100 MG TAB PO NR (09:15)
--- NOTE | 2017-06-16 09:31 | Physical Therapy Daily Note ---
PT Daily Note-Current Subjective Pt laying Supine in bed upon arrival. Pt agrees to short walk for PT. Mental Status Patient Orientation: Person, Place, Time, Situation Attachments: IV Transfers Functional Exchange Measure 0=Not Assessed/NA 4=Minimal Assistance 1=Total Assistance 5=Supervision or Setup 2=Maximal Assistance 6=Modified Exchange 3=Moderate Assistance 7=Complete IndependenceIRFPAI Quality Coding Scale 6 Independent with activity with or without an assistive device 5 Patient requires set up or clean up by helper. Patient completes activity by themselves 4 Supervision or touching assist (CGA). Fisher provide cues , steadying assist 3 The helper provides less than half the effort to complete the activity 2 The helper provides more than half the effort to complete the activity 1 Dependent. The helper does all the effort to complete an activity 7 Patient refused to complete or attempt activity 9 The patient did not perform the activity before the current illness or injury 88 Not attempted due to Medical conditions or safety concerns Scootin Rollin Supine to/from Sit: 5 Sit to/from Stand: 5 Weight Bearing Right Lower Extremity: Right Weight Bearing/Tolerated Left Lower Extremity: Left Weight Bearing/Tolerated Gait Training Distance (FIM): 3=150 ft Distance: 150' Gait Level of Assist: 5 Gait Persons Needed: 1 Gait Assistive Device: FWW Pt has slow adams but steady and normalized gait pattern. Treatments Pt transfers from Supine to standing using FWW at A. Pt ambulates in hallway using FWW at SBA. Pt returns to room to rest at end of walk. Pt lays Supine in bed at end of tx with all needs met. Assessment Current Status: Good Progress Pt has increased walking distance but continues to fatigue easy. PT Short Term Goals Short Term Goals Time Frame: Jun 21, 2017 Transfers (B,C,W/C) (FIM): 7 Gait (FIM): 6 Gait Distance Comment: 200 feet Gait Assistive Device: FWW Stairs (FIM): 2 # of Steps: 5 Stairs Level of Assist: 6 PT Plan Problem List Problem List: Activity Tolerance, Functional Strength Treatment/Plan Treatment Plan: Continue Plan of Care Treatment Plan: Bed Mobility, Education, Functional Activity Bimal, Functional Strength, Gait, Safety, Therapeutic Exercise, Transfers Treatment Duration: Jun 21, 2017 Frequency: 6 times per week Estimated Hrs Per Day: .25 hour per day (15-30') Patient and/or Family Agrees t: Yes Safety Risks/Education Patient Education: Gait Training, Correct Positioning, Safety Issues Teaching Recipient: Patient Teaching Methods: Discussion Response to Teaching: Verbalize Understanding Time/GCodes Time In: 850 Time Out: 902 Total Billed Treatment Time: 12 Total Billed Treatment 1, GT (12m) RODRIGO BLACK PTA Jun 16, 2017 09:31
[2017-06-16] MEDS: MAGNESIUM 1 GM/100 ML IVPB 100 ML IV SCH ×2 (11:14→12:20)
[2017-06-16] MEDS: inSUlin DETERMIR 1 UNIT/0.01 ML (LEVEMIR) CHARGE PER UNIT SQ SCH (11:15)
--- NOTE | 2017-06-16 11:18 | Discharge Summary ---
Diagnosis/Chief Complaint Date of Admission Jun 12, 2017 at 08:05 Date of Discharge Jun 16, 2017 Admission Diagnosis Admission Diagnosis DKA in Type II DM Insulin Dependent DM II Altered Mental status: resolved at D/c Acute Renal Failure: Resolved Hypokalemia Hypomagnesemia Hypophosphatemia Right leg Swelling with Chronic DVT Tachycardia Subacute Hyperthyroidism Discharge Diagnosis See Above Chief Complaint/HPI Chief Complaint/HPI 67 yo F with known DM that presented to ER with altered mental status. Patient was brought in by family. Family states that there have been several people in her family that have been sick with the flu. Analisa started complaining of cough 2 days ago. In ICU analisa states that her sister gave her the flu. She is unable to tell me if she has taken her medications. Denies any pain at this time. + cough. No fever or chills. Discharge Summary-Simple/Stand Consultations None Discharge Physical Examination Allergies: Coded Allergies: No Known Drug Allergies (Unverified , 05/16/14) Vitals & I&Os Vital Sign - Last 12Hours Date Time Temp Pulse Resp B/P (MAP) Pulse Ox O2 Delivery O2 Flow Rate FiO2 06/16/17 07:28 99.4 95 22 115/56 (75) 92 Room Air 06/13/17 03:02 3.00 Intake and Output 06/16/17 00:00 Intake Total 1660 ml Output Total 500 ml Balance 1160 ml General Appearance: Alert, Oriented X3, Cooperative, No Acute Distress HEENT: Mucous Memb Moist/Herron Respiratory: Clear to Auscultation, Normal Air Movement Cardiovascular: Regular Rate, No Murmurs Abdominal: Normal Bowel Sounds, Soft, No Tenderness, No Hepatosplenomegaly, No Masses Extremities: Other (Right Lower extremity swelling (baseline)) Skin: No Rashes, No Breakdown Neuro: Normal Gait, Normal Speech, Strength at 5/5 X4 Ext, Sensation Intact, Cranial Nerves 3-12 NL Psych/Mental Status: Mental Status NL, Mood NL Hospital Course See final discharge diagnosis. Pending Labs None pending Radiology Reviewed Date of Exam: 06/12/17 CHEST 1 VIEW, AP/PA ONLY INDICATION: Shortness of air and weakness. COMPARISON: 06/07/2017. FINDINGS: There is patchy parenchymal opacity in the suprahilar right upper lobe and infrahilar medial left lower lobes suspicious for developing infiltrates. There is some thickening of the central airways bilaterally and reactive airway disease or bronchitis suggested. No effusion or pneumothorax. IMPRESSION: Perihilar infiltrates suspicious for developing pneumonia. There is some thickening of the central airways. Radiographic followup suggested. No pleural pathology. Discussion & Recommendations DKA in Type II DM: Resolved with insulin drip and aggressive fluid hydration. Required ICU admission for drip. Insulin Dependent DM II: A1c in hospital was 16.4. Started patient on BID insulin at 18 units and restart metformin. Discussed the importance of checking blood sugars and keeping log to bring to clinic. Will get patient scheduled with Charline. Altered Mental status: resolved at D/c Acute Renal Failure: Resolved Hypokalemia: Replaced IV and PO. Likely nutritional will start low dose daily replacement Hypomagnesemia Hypophosphatemia Right leg Swelling with Chronic DVT: No acute findings on US. Tachycardia Subacute Hyperthyroidism: Will continue to follow. Discharge Condition at discharge Stable Instructions to patient/family Please see electronic discharge instructions given to patient. Discharge Medications Reviewed and agree with Discharge Medication list on patient's Discharge Instruction sheet Clinical Quality Measures DVT/VTE Risk/Contraindication: Risk Factor Score Per Nursin RFS Level Per Nursing on Admit: 3=High Copy Copies To 1: MATHEUS WATSON MD, HOLLY R MD Jun 16, 2017 11:18
[2017-06-16] MEDS ORDERED: POTA20TA8 PO (11:22)
[2017-06-16] MEDS ORDERED: METF500T4 PO (11:22)
[2017-06-16] MEDS ORDERED: INSU100V5 SQ (11:22)
--- NOTE | 2017-06-16 11:27 | Discharge Instructions ---
Discharge Inst-[facility] Discharge Medications New, Converted or Re-Newed RX: Transmitted to Pharmacy New Medications: Metformin HCl (Metformin HCl) 500 Mg Tablet 500 MG PO BID, #60 TAB Take 1 tab daily x 1 week then increase to BID Insulin Determir (Levemir) 1,000 Units/10 Ml Soln 18 UNIT SQ BID for 30 Days, EA Potassium Chloride (Klor-Con M20) 20 Meq Tab.er.prt 20 MEQ PO DAILY for 30 Days, #30 Continued Medications: Apixaban (Eliquis) 5 Mg Tablet 5 MG PO BID, TAB Patient Instructions Goal/Follow Up Appt: You have a follow up appt with Dr Watson on Jun 22 @ 0420 PM Patient Instructions: - You will need to lemon picker your insulin at the clinic. Go to internal medicine and ask for Dr Watson's nurse. - Make sure you review you medications as there have been some that have been added - You will get a call from Charline Saenz our diabetic nurse educator to set up an appt Return to [facility] For: - Chest pain - Shortness of breath - Unable to tolerate medications Activity & Diet Discharge Diet: ADA Diet Activity as Tolerated: Yes Orders-Post D/C & Referrals Pneu Vac Indicated: Yes Copy Copies To 1: MATHEUS WATSON MD, HOLLY R MD Jun 16, 2017 11:27
[2017-06-16 14:40] VITALS: BP 115/56
== END 2017-06-16 14:48 | disposition home or self-care (01) | DRG 638 ==
LOC: EDUNIT# 07:08 → ER 07:09 → ICU 08:05 → 4TH 06-13 19:31
PROVIDERS: ADMIT Family Medicine; ATTEND Family Medicine
DX: E11.10 Type 2 diabetes mellitus with ketoacidosis without coma (principal); R41.82 Altered mental status, unspecified; N17.9 Acute kidney failure, unspecified; R06.03 Acute respiratory distress; I10 Essential (primary) hypertension; E87.6 Hypokalemia; E83.39 Other disorders of phosphorus metabolism; M79.89 Other specified soft tissue disorders; R00.0 Tachycardia, unspecified; E05.90 Thyrotoxicosis, unspecified without thyrotoxic crisis or storm; E83.42 Hypomagnesemia; Z79.4 Long term (current) use of insulin; Z86.718 Personal history of other venous thrombosis and embolism; Z23 Encounter for immunization
CPT/HCPCS: 36415; 71045; 80048; 80053; 80202; 81000; 82805; 82962; 83036; 83605; 83735; 84100; 84132; 84439; 84443; 84481; 84484; 85007; 85025; 85027; 85610; 85730; 86141; 87040; 87081; 87088; 87804; 93005; 94640; 94760; 96361; 96365; 96367; 96375

== ENCOUNTER 2017-06-21 21:50 | Inpatient (IN) | payer MEDICARE, OTHER ==
[~2017-06-21] VITALS: Ht 162.6 cm; Wt 82.6 kg
[~2017-06-21 21:50] MED LIST changes: +INSU100V5 SQ; +POTA20TA8 PO
[2017-06-21] MEDS ORDERED: NS IV 1000 ML 1,000 ML IV ONE (21:57)
[2017-06-21] MEDS ORDERED: inSUlin (REGULAR) HUMAN 1 UNIT/0.01 ML (CHARGE PER UNIT) IV ONE (22:00)
[2017-06-21] MEDS ORDERED: RT-ALBUTEROL/IPRATROPIUM 3 ML (DUONEB) VIAL INH ONE (22:45)
[2017-06-21 22:59] LABS: BASOPHILS # (AUTO) 0.1 10^3/uL (0.0-0.1); BASOPHILS % (AUTO) 0 % (0-10); EOSINOPHILS % (AUTO) 0 % (0-10); HEMATOCRIT 35 % (35-52); HEMOGLOBIN 11.9 G/DL (11.5-16.0); LYMPHOCYTES # (AUTO) 1.4 X 10^3 (1.0-4.0); LYMPHOCYTES % (AUTO) 4 % (12-44); MEAN CORPUSCULAR HEMOGLOBIN 29 PG (25-34); MEAN CORPUSCULAR HGB CONC 34 G/DL (32-36); MEAN CORPUSCULAR VOLUME 86 FL (80-99); MEAN PLATELET VOLUME 9.9 FL (7.4-10.4); MONOCYTES # (AUTO) 0.6 X 10^3 (0.0-1.0); MONOCYTES % (AUTO) 2 % (0-12); NEUTROPHILS # (AUTO) 35.7 X 10^3 (1.8-7.8); NEUTROPHILS % (AUTO) 95 % (42-75); PLATELET COUNT 579 10^3/uL (130-400); RED BLOOD COUNT 4.09 10^6/uL (4.35-5.85); RED CELL DISTRIBUTION WIDTH 13.2 % (10.0-14.5)
[2017-06-21 23:06] LABS: WHITE BLOOD COUNT 37.7 10^3/uL (4.3-11.0)
[2017-06-21 23:08] LABS: INR 1.5 (0.8-1.4); PROTHROMBIN TIME PATIENT 18.5 SEC (12.2-14.7)
[2017-06-21 23:15] LABS: BAND NEUTROPHILS 1 %; BASOPHILS % (MANUAL) 0 %; EOSINOPHILS % (MANUAL) 0 %; LYMPHOCYTES % (MANUAL) 5 %; METAMYELOCYTES % 1 %; MONOCYTES % (MANUAL) 1 %; NEUTROPHILS % (MANUAL) 92 %; RBC MORPH NORMAL
[2017-06-21] MEDS ORDERED: CEFEPIME INJECTION 2,000 MG in NS (IVPB) 50 ML IV ONE (23:15)
[2017-06-21 23:19] LABS: ALANINE AMINOTRANSFERASE 9 U/L (0-55); ALBUMIN 2.1 GM/DL (3.2-4.5); ALKALINE PHOSPHATASE 121 U/L (40-136); AMYLASE 48 U/L (25-125); BILIRUBIN,TOTAL 0.3 MG/DL (0.1-1.0); BUN/CREATININE RATIO 17; CALCIUM 8.2 MG/DL (8.5-10.1); CHLORIDE 106 MMOL/L (98-107); CREATININE SERUM 1.51 MG/DL (0.60-1.30); GFR ESTIMATED 35; LIPASE 29 U/L (8-78); MAGNESIUM 2.1 MG/DL (1.8-2.4); SODIUM 141 MMOL/L (135-145)
[2017-06-21 23:22] LABS: CARBON DIOXIDE < 5 MMOL/L (21-32); POTASSIUM 2.4 MMOL/L (3.6-5.0)
[2017-06-21 23:23] LABS: GLUCOSE 538 MG/DL (70-105)
[2017-06-21] MEDS ORDERED: POTASSIUM CHLORIDE INJ 40 MEQ in NS IV 1000 ML 1,000 ML IV SCH (23:30)
[2017-06-21] MEDS ORDERED: SODIUM BICARB 8.4% 50 MEQ/50 ML (ABBOTT) SYR IV ONE (23:30)
[2017-06-21] MEDS ORDERED: POTASSIUM CL 10MEQ/50ML IVPB 0 ML IV ONE (23:36)
[2017-06-21 23:39] LABS: TSH (THYROID ANALYZER) 0.26 UIU/ML (0.35-4.94)
[2017-06-21 23:46] LABS: BILIRUBIN,URINE NEGATIVE (NEGATIVE); CLARITY,URINE CLEAR; COLOR,URINE YELLOW; GLUCOSE, URINE (UA) 4+ (NEGATIVE); KETONES,URINE 4+ (NEGATIVE); LEUKOCYTE ESTERASE ,URINE NEGATIVE (NEGATIVE); NITRITE,URINE NEGATIVE (NEGATIVE); PH,URINE 5 (5-9); PROTEIN,URINE 3+ (NEGATIVE); UROBILINOGEN,URINE NORMAL (NORMAL)
[2017-06-21] MEDS ORDERED: NS W/KCL 40 MEQ/L 1,000 ML IV ONE (23:51)
[2017-06-21 23:54] LABS: BACTERIA,URINE TRACE /HPF; RBC,URINE RARE /HPF; SQUAMOUS EPITHELIAL CELL,UR RARE /HPF
[2017-06-21 23:55] LABS: AMORPHOUS SEDIMENT,UR FEW AMOR URATES /LPF; GRANULAR CASTS,URINE 0-2 /LPF; HYALINE CASTS, URINE 0-2 /LPF; YEAST,URINE FEW /HPF
[2017-06-21 23:57] LABS: AMPHETAMINE SCREEN, URINE NEGATIVE (NEGATIVE); BARBITURATE SCREEN URINE NEGATIVE (NEGATIVE); BENZODIAZEPINES SCREEN URINE NEGATIVE (NEGATIVE); CANNABINOID SCREEN, URINE NEGATIVE (NEGATIVE); COCAINE SCREEN URINE NEGATIVE (NEGATIVE); METHADONE STAT NEGATIVE (NEGATIVE); METHAMPHETAMINE SCREEN URINE S NEGATIVE (NEGATIVE); OPIATE SCREEN URINE NEGATIVE (NEGATIVE); OXYCODONE STAT NEGATIVE (NEGATIVE); PROPOXYPHENE STAT NEGATIVE (NEGATIVE); TRICYCLIC ANTIDEPRESSANTS SCRE NEGATIVE (NEGATIVE)
[2017-06-22] VITALS (24 sets, daily range): BP systolic 92–138; BP diastolic 49–107
[2017-06-22] MEDS ORDERED: NS IV 1000 ML 1,000 ML IV ONE (00:20)
[2017-06-22] MEDS ORDERED: NS IV 1000 ML 1,000 ML ONE (00:21)
[2017-06-22] MEDS ORDERED: inSUlin (REGULAR) HUMAN 1 UNIT/0.01 ML (CHARGE PER UNIT) ONE ×2 (00:22→09:20)
[2017-06-22] MEDS ORDERED: inSUlin (REGULAR) HUMAN 1 UNIT/0.01 ML (CHARGE PER UNIT) IV ONE (00:30)
[2017-06-22] MEDS: NOREPINEPHRINE 4 MG in NS (IVPB) 250 ML IV SCH ×2 (01:05→15:31)
[2017-06-22] MEDS: PHENYLEPHRINE INJECTION 10 MG in NS (IVPB) 250 ML IV SCH ×6 (01:05→20:47)
[2017-06-22] MEDS: REGULAR inSUlin DRIP 250 UNITS/NS 250 ML IV SCH ×4 (01:15→09:40)
[2017-06-22] MEDS: DEXTROSE 10% IV SOLUTION 1,000 ML IV SCH ×3 (01:15→20:41)
[2017-06-22] MEDS: D5 1/2 NS IV 1,000 ML IV SCH ×6 (01:15→20:47)
[2017-06-22] MEDS ORDERED: NS IV 1000 ML X 1 WIDE OPEN IV ONE (01:15)
[2017-06-22] MEDS ORDERED: NS IV 1000 ML 2,041.17 ML IV PRN (01:15)
[2017-06-22] MEDS: 1/2 NS IV SOLUTION 1,000 ML IV SCH ×6 (01:15→20:47)
[2017-06-22] MEDS ORDERED: POTASSIUM CL 10MEQ/50ML IVPB 200 ML IV ONE (01:35)
[2017-06-22] MEDS: NS IV 1000 ML 1,000 ML IV SCH ×6 (01:44→20:47)
[2017-06-22] MEDS: POTASSIUM CL 10MEQ/50ML IVPB 50 ML IV SCH ×13 (01:44→15:33)
[2017-06-22] MEDS: AZITHROMYCIN 500 MG/NS 250 ML IVPB IV SCH ×2 (02:07)
--- NOTE | 2017-06-22 03:24 | Consultation ---
History of Present Illness History of Present Illness Patient Consulted On(shira/time) 06/22/17 03:18 Time Seen by Provider: 02:23 History of Present Illness Surgery asked to consult regarding hypotension, sepsis and venous insufficiency (pt needs central line). HPI: per nurse and ER reporting; pt does not really answer questions, seems to know name and complains of coughing. Cannot really describe pain, is having trouble breathing but pulse Ox 98% on room air. According to nurse: family states she had altered mental status, possible coughing up blood and they thought "peeing blood". Pt was recently in the hospital for DKA and flu like symptoms. Unable to find out any other history. Allergies and Home Medications Allergies Coded Allergies: No Known Drug Allergies (Unverified , 05/16/14) Home Medications Apixaban 5 Mg Tablet, 5 MG PO BID, (Reported) Insulin Determir 1,000 Units/10 Ml Soln, 18 UNIT SQ BID for 30 Days Prescribed by: DIXIE RUBIO on 06/16/17 1122 Metformin HCl 500 Mg Tablet, 500 MG PO BID, #60 Take 1 tab daily x 1 week then increase to BID Prescribed by: DIXIE RUBIO on 06/16/17 1122 Potassium Chloride 20 Meq Tab.er.prt, 20 MEQ PO DAILY for 30 Days, #30 Prescribed by: DIXIE RUBIO on 06/16/17 1122 Past Iotaxze-Ktcxxp-Yzbnry Hx Patient Social History Alcohol Use: Denies Use Recreational Drug Use: No Smoking Status: Unknown if Ever Smoked Former Smoker, Quit: May 01, 1985 Recent Foreign Travel: No Contact w/Someone Who Travel: No Recent Infectious Disease Expo: No Recent Hopitalizations: No Immunizations Up To Date Tetanus Booster (TDap): Unknown PED Vaccines UTD: Yes Date of Influenza Vaccine: Jun 13, 2017 Seasonal Allergies Seasonal Allergies: No Surgeries History of Surgeries: Yes Surgeries: Gallbladder, Tubal Ligation Respiratory History of Respiratory Disorde: Yes Respiratory Disorders: Pulmonary Embolism Cardiovascular History of Cardiac Disorders: Yes (enlarged heart) Cardiac Disorders: Deep Vein Thrombosis, Hypertension, Peripheral Vascular Neurological History of Neurological Disord: No Reproductive System Hx Reproductive Disorders: No Sexually Transmitted Disease: No HIV/AIDS: No Genitourinary History of Genitourinary Disor: No Gastrointestinal History of Gastrointestinal Di: Yes Gastrointestinal Disorders: Gastroesophageal Reflux, Chronic Constipation, Hemorrhoids, Gall Bladder Disease Musculoskeletal History of Musculoskeletal Dis: Yes Musculoskeletal Disorders: Arthritis Endocrine History of Endocrine Disorders: Yes Endocrine Disorders: Diabetes, Non-Insulin dep HEENT History of HEENT Disorders: No Loss of Vision: Denies Hearing Impairment: Hard of Hearing Cancer History of Cancer: No Psychosocial History of Psychiatric Problem: No Integumentary History of Skin or Integumenta: No Blood Transfusions History of Blood Disorders: No Family Medical History Significant Family History: COPD, CVA, Diabetes, Vascular Disease Family Medial History: Cardiovascular disease 19 MOTHER Diabetes mellitus 19 MOTHER FH: COPD (chronic obstructive pulmonary disease) G8 BROTHER G8 SISTER Hypertension G8 BROTHER G8 SISTER Myocardial infarction 19 MOTHER Respiratory disorder 19 FATHER Stroke or transient ischemic attack in sister G8 SISTER Review of Systems-General ROS-Unable to Obtain: pt does not really answer Physical Exam-General Problems Physical Exam Vital Signs Vital Signs - First Documented 06/21/17 21:50 Temp 96.2 Pulse 101 Resp 27 B/P (MAP) 118/62 (80) Pulse Ox 100 O2 Delivery Non Rebreather O2 Flow Rate 10.00 Capillary Refill : Less Than 3 Seconds General Appearance: moderate distress, thin Eyes: Bilateral Eye PERRL, Bilateral Eye EOMI HEENT: pharynx normal, No scleral icterus (R), No scleral icterus (L), other ( pt is edentulous) Neck: full range of motion, normal inspection, No thyromegaly Respiratory: chest non-tender, decreased breath sounds, accessory muscle use, crackles, rhonchi, wheezing Cardiovascular: no edema, no murmur, tachycardia Gastrointestinal: normal bowel sounds, non tender, soft, no organomegaly, no pulsatile mass Back: no CVA tenderness, no vertebral tenderness Extremities: non-tender, normal inspection, no pedal edema, no calf tenderness Neurologic/Psychiatric: No facial droop, No motor weakness, No sensory deficit , disoriented x 3 Skin: damp, pallor Lymphatic: no adenopathy (neck, axilla or groin) Data Review Labs Laboratory Tests 06/21/17 21:55: Glucometer 493*H 06/21/17 22:40: White Blood Count 37.7*H, Red Blood Count 4.09L, Hemoglobin 11.9, Hematocrit 35 , Mean Corpuscular Volume 86, Mean Corpuscular Hemoglobin 29, Mean Corpuscular Hemoglobin Concent 34, Red Cell Distribution Width 13.2, Platelet Count 579H, Mean Platelet Volume 9.9, Neutrophils (%) (Auto) 95H, Lymphocytes (%) (Auto) 4L , Monocytes (%) (Auto) 2, Eosinophils (%) (Auto) 0, Basophils (%) (Auto) 0, Neutrophils # (Auto) 35.7H, Lymphocytes # (Auto) 1.4, Monocytes # (Auto) 0.6, Eosinophils # (Auto) 0.0, Basophils # (Auto) 0.1, Neutrophils % (Manual) 92, Lymphocytes % (Manual) 5, Monocytes % (Manual) 1, Eosinophils % (Manual) 0, Basophils % (Manual) 0, Metamyelocytes % 1, Band Neutrophils 1, Blood Morphology Comment NORMAL, Prothrombin Time 18.5H, INR Comment 1.5H, Activated Partial Thromboplast Time 30, Sodium Level 141, Potassium Level 2.4*L, Chloride Level 106, Carbon Dioxide Level < 5*L, Anion Gap 30H, Blood Urea Nitrogen 25H, Creatinine 1.51H, Estimat Glomerular Filtration Rate 35, BUN/Creatinine Ratio 17 , Glucose Level 538*H, Calcium Level 8.2L, Magnesium Level 2.1, Total Bilirubin 0.3, Aspartate Amino Transf (AST/SGOT) 15, Alanine Aminotransferase (ALT/SGPT) 9 , Alkaline Phosphatase 121, Troponin I < 0.30, B-Type Natriuretic Peptide 108.6H , Total Protein 6.0L, Albumin 2.1L, Amylase Level 48, Lipase 29, Free Thyroxine 0.60L, TSH [place] Testing 0.26L, Serum Alcohol < 10 06/21/17 22:50: Lactic Acid Level 2.60*H 06/21/17 23:23: Urine Color YELLOW, Urine Clarity CLEAR, Urine pH 5, Urine Specific [place] 1.025H, Urine Protein 3+H, Urine Glucose (UA) 4+H, Urine Ketones 4+H, Urine Nitrite NEGATIVE, Urine Bilirubin NEGATIVE, Urine Urobilinogen NORMAL, Urine Leukocyte Esterase NEGATIVE, Urine RBC (Auto) 4+H, Urine RBC RARE, Urine WBC NONE, Urine Squamous Epithelial Cells RARE, Urine Crystals PRESENTH, Urine Amorphous Sediment FEW BANG URATESH, Urine Bacteria TRACE, Urine Casts PRESENT, Urine Hyaline Casts 0-2H, Urine Granular Casts 0-2H, Urine Mucus NEGATIVE, Urine Yeast FEWH, Urine Culture Indicated NO, Urine Opiates Screen NEGATIVE, Urine Oxycodone Screen NEGATIVE, Urine Methadone Screen NEGATIVE, Urine Propoxyphene Screen NEGATIVE, Urine Barbiturates Screen NEGATIVE, Ur Tricyclic Antidepressants Screen NEGATIVE, Urine Phencyclidine Screen NEGATIVE, Urine Amphetamines Screen NEGATIVE, Urine Methamphetamines Screen NEGATIVE, Urine Benzodiazepines Screen NEGATIVE, Urine Cocaine Screen NEGATIVE, Urine Cannabinoids Screen NEGATIVE 06/21/17 23:43: Glucometer 427*H 06/22/17 00:48: Lactic Acid Level 3.78*H 06/22/17 01:37: Glucometer 289H Assessment/Plan Assessment/Plan Assessment/Plan 1. Hypotension r/o sepsis 2. Venous Insufficiency 3. Hypokalemia 4. DKA 5. Leukocytosis 6. Possible pneumonia Pt has multiple medical problems, but of most importance right now is getting Central line in to start fluids and replace potassium. Most of her problems may be DKA, but cannot rule out infection from pneumonia. Central line placed in right IJ with US guidance without difficulty. Thank you for this consult. [facility] for all other problems. SARA STEIN DO Jun 22, 2017 03:24
--- NOTE | 2017-06-22 04:31 | ED General ---
General Chief Complaint: Glucose Problems Stated Complaint: DKA W/ AMS,PNEUMONIA;ACUTE RENAL FAILURE; Nursing Triage Note: pt brought to er via ems from home with complaint of spitting up and urinating blood per sons report. ems stated that pts blood sugar was "high with ketones" on their glucometer. pts son stated that pt was recently in the hospital for the flu. states they did not check her sugar at home because she did not want to be stuck. Nursing Sepsis Screen: No Definite Risk Source of Information: EMS, Old Records (ALL PMH IS FROM OLD RECORD) Exam Limitations: Other (PT UNABLE TO GIVE ANY HISTORY--IS NOT ANSWERING QUESTIONS. SON ARRIVES LATER/BRIEFLY AND IS VERY POOR HISTORIAN WELL, EVEN THOUGH HE LIVES WITH PT. ) History of Present Illness Date Seen by Provider: Jun 21, 2017 Time Seen by Provider: 21:49 Initial Comments PT ARRIVES VIA EMS FROM HOME--PT AND SON LIVE TOGETHER PER EMS, THEY WERE CALLED BY SON FOR PT COUGHING UP BLOOD AND HAVING BLOOD IN URINE EMS REPORT THAT PT WAS FOUND TO BE VERY LETHARGIC WITH ALTERED MENTAL STATUS ACCUCHECK BY EMS READ "HIGH WITH KETONES" FAMILY AND PT DO NOT CHECK BLOOD SUGAR, EVEN THOUGH PT IS DIABETIC. PT IS SUPPOSED TO BE ON METFORMIN, BUT HAS NOT BEEN TAKING IT. PT WAS HOSPITALIZED 06/12-06/16 FOR DKA AND "FLU" ( WAS SEEN HERE IN ER FOR FLU-LIKE SYMPTOMS) AND WAS INSTRUCTED TO RESUME METFORMIN AND INSULIN WAS BEING ADDED. SON STATES PT HAS NOT BEEN TAKING EITHER AND DID NOT WATER QUALITY TESTER ANY RX'S. SON TOLD EMS THAT PT "WAS TIRED OF NEEDLES AND GETTING STUCK" REASON SHE IS NOT CHECKING BLOOD SUGAR OR TAKING INSULIN EMS STATE THAT PT HAS VERY POOR MOBILITY AND REQUIRES ASSISTANCE FOR ANY ADL'S O2 SAT 91% ON ROOM AIR BY EMS--PLACED ON SIMPLE MASK PT IS MOUTH BREATHING SON SEEMS OBLIVIOUS TO PT'S ALTERED MENTAL STATUS--ON DIRECT QUESTIONING OF SON , HOW LONG PT HAS BEEN IN THIS CURRENT CONDITION OF LETHARGY--HE STATES "A COUPLE OF DAYS" SON IS UNABLE TO GIVE ANY ADDITIONAL INFORMATION ABOUT PT'S CURRENT CONDITION OR PAST MEDICAL HISTORY PCP: [facility] Allergies and Home Medications Allergies Coded Allergies: No Known Drug Allergies (Unverified , 05/16/14) Home Medications Apixaban 5 Mg Tablet, 5 MG PO BID, (Reported) Insulin Determir 1,000 Units/10 Ml Soln, 18 UNIT SQ BID for 30 Days Prescribed by: DIXIE RUBIO on 06/16/17 1122 Metformin HCl 500 Mg Tablet, 500 MG PO BID, #60 Take 1 tab daily x 1 week then increase to BID Prescribed by: DIXIE RUBIO on 06/16/17 1122 Potassium Chloride 20 Meq Tab.er.prt, 20 MEQ PO DAILY for 30 Days, #30 Prescribed by: DIXIE RUBIO on 06/16/17 1122 Constitutional: other (UNABLE TO OBTAIN) Past Jaxixsu-Qtkvfy-Adqpan Hx Patient Social History Alcohol Use: Denies Use Recreational Drug Use: No Smoking Status: Former Smoker Former Smoker, Quit: May 01, 1985 Recent Foreign Travel: No Contact w/Someone Who Travel: No Recent Infectious Disease Expo: No Recent Hopitalizations: No Physical Abuse: No Sexual Abuse: No Immunizations Up To Date Tetanus Booster (TDap): Unknown PED Vaccines UTD: Yes Date of Influenza Vaccine: Jun 13, 2017 Seasonal Allergies Seasonal Allergies: No Surgeries History of Surgeries: Yes Surgeries: Gallbladder, Tubal Ligation Respiratory History of Respiratory Disorde: Yes Respiratory Disorders: Pulmonary Embolism Currently Using CPAP: No Currently Using BIPAP: No Cardiovascular History of Cardiac Disorders: Yes (enlarged heart) Cardiac Disorders: Deep Vein Thrombosis, Hypertension, Peripheral Vascular Neurological History of Neurological Disord: No Reproductive System Hx Reproductive Disorders: No Sexually Transmitted Disease: No HIV/AIDS: No Genitourinary History of Genitourinary Disor: No Gastrointestinal History of Gastrointestinal Di: Yes Gastrointestinal Disorders: Gastroesophageal Reflux, Chronic Constipation, Hemorrhoids, Gall Bladder Disease Musculoskeletal History of Musculoskeletal Dis: Yes Musculoskeletal Disorders: Arthritis Endocrine History of Endocrine Disorders: Yes Endocrine Disorders: Diabetes, Non-Insulin dep HEENT History of HEENT Disorders: No Loss of Vision: Denies Hearing Impairment: Hard of Hearing Cancer History of Cancer: No Psychosocial History of Psychiatric Problem: No Suicide Risk Score: 0 Integumentary History of Skin or Integumenta: No Blood Transfusions History of Blood Disorders: No Family Medical History Significant Family History: COPD, CVA, Diabetes, Vascular Disease Family Medial History: Cardiovascular disease 19 MOTHER Diabetes mellitus 19 MOTHER FH: COPD (chronic obstructive pulmonary disease) G8 BROTHER G8 SISTER Hypertension G8 BROTHER G8 SISTER Myocardial infarction 19 MOTHER Respiratory disorder 19 FATHER Stroke or transient ischemic attack in sister G8 SISTER Physical Exam Vital Signs Vital Signs - First Documented 06/21/17 21:50 Temp 96.2 Pulse 101 Resp 27 B/P (MAP) 118/62 (80) Pulse Ox 100 O2 Delivery Non Rebreather O2 Flow Rate 10.00 Capillary Refill : Less Than 3 Seconds General Appearance: Other (PT VERY LETHARGIC, BUT DOES OPEN EYES AND YELL AND TALK A LITTLE AND FIGHT WITH IV STICKS, CATHETER PLACEMENT. ) HEENT: PERRL/EOMI, Other (EDENTULOUS, EXTREMELY DRY ORAL MUCOSA. FREQUENT TONGUE MOVEMENTS AND LIP LICKING) Neck: Full Range of Motion Respiratory: Normal Breath Sounds, No Accessory Muscle Use, Other (MILD TACHYPNEA) Cardiovascular: Regular Rate, Rhythm (RATE AROUND 100), No Murmur Gastrointestinal: Non Tender, Soft Genital/Rectal: Other (INTROITUS , VULVAR AND BENJI-URETHRAL TISSUE VERY ATROPHIC WITH MILD DIFFUSE OOZING--DOES NOT APPEAR TO BE COMING DIRECTLY FROM URETHRA OR VAGINA, BUT APPEARS TO BE FROM FRIABLE SURROUNDING TISSUE. ) Extremity: Slow Capillary Refill Neurologic/Psychiatric: No Motor/Sensory Deficits (GROSSLY INTACT--MOVES ALL EXTREMITIES), Other (MENTATION NOTED ABOVE. DOES NOT FOLLOW COMMANDS) Skin: Cool, No Diaphoresis, Ecchymosis (MULTIPLE BRUISES), Mottled (LEGS), Pallor Focused Exam Evaluation Lactate Level Laboratory Tests 06/21/17 22:50: Lactic Acid Level 2.60*H 06/22/17 00:48: Lactic Acid Level 3.78*H Lactic Acid Level Laboratory Tests Test 06/22/17 00:48 Lactic Acid Level 3.78 MMOL/L (0.50-2.00) *H Progress/Results/Core Measures Suspected Sepsis Recent Fever Within 48 Hours: No Infection Criteria Present: None New/Unexplained Altered Menta: No Sepsis Screen: No Definite Risk Sepsis Diagnosis: SIRS Temperature:96.2 Pulse: 131 Respiratory Rate: 13 Laboratory Tests 06/21/17 22:40: White Blood Count 37.7*H Blood Pressure 115 /61 Mean: 79 Laboratory Tests 06/21/17 22:50: Lactic Acid Level 2.60*H 06/22/17 00:48: Lactic Acid Level 3.78*H Laboratory Tests 06/21/17 22:40: Creatinine 1.51H, INR Comment 1.5H, Platelet Count 579H, Total Bilirubin 0.3 Results/Orders Lab Results Laboratory Tests Test 06/21/17 21:55 06/21/17 22:40 06/21/17 22:50 06/21/17 23:23 Range/Units Glucometer 493 *H 70-110 MG/DL White Blood Count 37.7 *H 4.3-11.0 10^3/uL Red Blood Count 4.09 L 4.35-5.85 10^6/uL Hemoglobin 11.9 11.5-16.0 G/DL Hematocrit 35 35-52 % Mean Corpuscular Volume 86 80-99 FL Mean Corpuscular Hemoglobin 29 25-34 PG Mean Corpuscular Hemoglobin Concent 34 32-36 G/DL Red Cell Distribution Width 13.2 10.0-14.5 % Platelet Count 579 H 130-400 10^3/uL Mean Platelet Volume 9.9 7.4-10.4 FL Neutrophils (%) (Auto) 95 H 42-75 % Lymphocytes (%) (Auto) 4 L 12-44 % Monocytes (%) (Auto) 2 0-12 % Eosinophils (%) (Auto) 0 0-10 % Basophils (%) (Auto) 0 0-10 % Neutrophils # (Auto) 35.7 H 1.8-7.8 X 10^3 Lymphocytes # (Auto) 1.4 1.0-4.0 X 10^3 Monocytes # (Auto) 0.6 0.0-1.0 X 10^3 Eosinophils # (Auto) 0.0 0.0-0.3 10^3/uL Basophils # (Auto) 0.1 0.0-0.1 10^3/uL Neutrophils % (Manual) 92 % Lymphocytes % (Manual) 5 % Monocytes % (Manual) 1 % Eosinophils % (Manual) 0 % Basophils % (Manual) 0 % Metamyelocytes % 1 % Band Neutrophils 1 % Blood Morphology Comment NORMAL Prothrombin Time 18.5 H 12.2-14.7 SEC INR Comment 1.5 H 0.8-1.4 Activated Partial Thromboplast Time 30 24-35 SEC Sodium Level 141 135-145 MMOL/L Potassium Level 2.4 *L 3.6-5.0 MMOL/L Chloride Level 106 98-107 MMOL/L Carbon Dioxide Level < 5 *L 21-32 MMOL/L Anion Gap 30 H 5-14 MMOL/L Blood Urea Nitrogen 25 H 7-18 MG/DL Creatinine 1.51 H 0.60-1.30 MG/DL Estimat Glomerular Filtration Rate 35 BUN/Creatinine Ratio 17 Glucose Level 538 *H 70-105 MG/DL Calcium Level 8.2 L 8.5-10.1 MG/DL Magnesium Level 2.1 1.8-2.4 MG/DL Total Bilirubin 0.3 0.1-1.0 MG/DL Aspartate Amino Transf (AST/SGOT) 15 5-34 U/L Alanine Aminotransferase (ALT/SGPT) 9 0-55 U/L Alkaline Phosphatase 121 40-136 U/L Troponin I < 0.30 <0.30 NG/ML B-Type Natriuretic Peptide 108.6 H <100.0 PG/ML Total Protein 6.0 L 6.4-8.2 GM/DL Albumin 2.1 L 3.2-4.5 GM/DL Amylase Level 48 25-125 U/L Lipase 29 8-78 U/L Free Thyroxine 0.60 L 0.70-1.48 NG/DL TSH [place] Testing 0.26 L 0.35-4.94 UIU/ML Serum Alcohol < 10 <10 MG/DL Lactic Acid Level 2.60 *H 0.50-2.00 MMOL/L Urine Color YELLOW Urine Clarity CLEAR Urine pH 5 5-9 Urine Specific [place] 1.025 H 1.016-1.022 Urine Protein 3+ H NEGATIVE Urine Glucose (UA) 4+ H NEGATIVE Urine Ketones 4+ H NEGATIVE Urine Nitrite NEGATIVE NEGATIVE Urine Bilirubin NEGATIVE NEGATIVE Urine Urobilinogen NORMAL NORMAL MG/DL Urine Leukocyte Esterase NEGATIVE NEGATIVE Urine RBC (Auto) 4+ H NEGATIVE Urine RBC RARE /HPF Urine WBC NONE /HPF Urine Squamous Epithelial Cells RARE /HPF Urine Crystals PRESENT H /LPF Urine Amorphous Sediment FEW BANG URATES H /LPF Urine Bacteria TRACE /HPF Urine Casts PRESENT /LPF Urine Hyaline Casts 0-2 H /LPF Urine Granular Casts 0-2 H /LPF Urine Mucus NEGATIVE /LPF Urine Yeast FEW H /HPF Urine Culture Indicated NO Urine Opiates Screen NEGATIVE NEGATIVE Urine Oxycodone Screen NEGATIVE NEGATIVE Urine Methadone Screen NEGATIVE NEGATIVE Urine Propoxyphene Screen NEGATIVE NEGATIVE Urine Barbiturates Screen NEGATIVE NEGATIVE Ur Tricyclic Antidepressants Screen NEGATIVE NEGATIVE Urine Phencyclidine Screen NEGATIVE NEGATIVE Urine Amphetamines Screen NEGATIVE NEGATIVE Urine Methamphetamines Screen NEGATIVE NEGATIVE Urine Benzodiazepines Screen NEGATIVE NEGATIVE Urine Cocaine Screen NEGATIVE NEGATIVE Urine Cannabinoids Screen NEGATIVE NEGATIVE Test 06/21/17 23:43 06/22/17 00:48 06/22/17 01:37 Range/Units Glucometer 427 *H 289 H 70-110 MG/DL Lactic Acid Level 3.78 *H 0.50-2.00 MMOL/L My Orders Orders - [place] HO K DO Accucheck Stat ONCE (06/21/17 21:57) Saline Lock/Iv-Start (06/21/17 21:57) Ekg Tracing (06/21/17 21:57) O2 (06/21/17 21:57) Monitor-Rhythm Ecg Trace Only (06/21/17 21:57) Chest 1 View, Ap/Pa Only (06/21/17 21:57) Saline Lock/Iv-Start (06/21/17 21:57) Ns Iv 1000 Ml (Sodium Chloride 0.9%) (06/21/17 21:57) Alcohol (06/21/17 21:57) Amylase (06/21/17 21:57) Arterial Blood Gas (06/21/17 21:57) BNP (06/21/17 21:57) Cbc With Automated Diff (06/21/17 21:57) Comprehensive Metabolic Panel (06/21/17 21:57) Drug Screen Stat (Urine) (06/21/17 21:57) Lactic Acid Analyzer (06/21/17 21:57) Lipase (06/21/17 21:57) Magnesium (06/21/17 21:57) Protime With Inr (06/21/17 21:57) Partial Thromboplastin Time (06/21/17 21:57) Thyroid Analyzer (06/21/17 21:57) Troponin I (06/21/17 21:57) Ua Culture If Indicated (06/21/17 21:57) Blood Culture (06/21/17 21:57) Insulin (Regular) Human (Humulin R (Per (06/21/17 22:00) Albuterol/Ipra Inhalation Soln (Duoneb I (06/21/17 22:45) Rt Request For Service (06/21/17 22:33) Svn Sm Volume Nebulizer Rt-Rfs (06/21/17 22:33) Manual Differential (06/21/17 22:40) Catheter(Urinary) Insert & Ass 03,15 (06/21/17 23:14) Cefepime Injection (Maxipime Injection) (06/21/17 23:15) Arterial Blood Gas (06/21/17 23:22) Sodium Bicarbonate 8.4% Syr (Sodium Bica (06/21/17 23:30) Accucheck Stat ONCE (06/21/17 23:22) Ns Iv 1000 Ml (Sodi... W/Potassium Chlor (06/21/17 23:30) Free T4 (Free Thyroxine) (06/21/17 22:40) Potassium Cl 10meq/50ml Ivpb (Kcl 10 Meq (06/21/17 23:36) Ns W/Kcl 40 Meq/L (Ns Iv W/Kcl 40 Meq/L) (06/21/17 23:51) Saline Lock/Iv-Start (06/22/17 00:20) Ns Iv 1000 Ml (Sodium Chloride 0.9%) (06/22/17 00:20) Insulin (Regular) Human (Humulin R (Per (06/22/17 00:30) Medications Given in ED Current Medications Medications Dose Ordered Sig/Mahnaz Route Start Time Stop Time Status Last Admin Dose Admin Albuterol/ Ipratropium 3 ml ONCE ONCE INH 06/21/17 22:45 06/21/17 22:46 DC 06/21/17 23:30 3 ML Cefepime HCl 2000 mg/Sodium Chloride 50 ml @ 100 mls/hr ONCE ONCE IV 06/21/17 23:15 06/21/17 23:44 DC 06/22/17 00:07 100 MLS/HR Insulin Human Regular 20 unit ONCE ONCE IV 06/21/17 22:00 06/21/17 22:01 DC 06/21/17 22:09 20 UNIT Sodium Bicarbonate 150 meq ONCE ONCE IV 06/21/17 23:30 06/21/17 23:31 DC 06/21/17 23:58 150 MEQ Sodium Chloride 1,000 ml @ 0 mls/hr Q0M ONCE IV 06/21/17 21:57 06/21/17 22:00 DC 06/21/17 22:39 1,000 MLS/HR Vital Signs/I&O Vital Sign - Last 12Hours 06/21/17 06/21/17 06/21/17 06/21/17 21:50 21:50 23:00 23:07 Temp 96.2 Pulse 101 Resp 27 B/P (MAP) 118/62 (80) Pulse Ox 100 100 97 O2 Delivery Non Rebreather Non Rebreather Nasal Cannula Room Air O2 Flow Rate 10.00 2.00 06/22/17 06/22/17 06/22/17 06/22/17 00:55 01:10 01:10 01:30 Temp 95.8 96.2 Pulse 115 139 124 139 Resp 25 20 23 B/P (MAP) 106/88 114/57 (76) 114/57 (76) Pulse Ox 98 100 98 O2 Delivery Nasal Cannula Nasal Cannula Nasal Cannula O2 Flow Rate 2.00 2.00 2.00 06/22/17 06/22/17 02:00 03:00 Pulse 136 131 Resp 27 13 B/P (MAP) 92/66 (75) 115/61 (79) Pulse Ox 98 99 O2 Delivery Nasal Cannula Nasal Cannula O2 Flow Rate 2.00 2.00 Intake and Output 06/22/17 00:00 Intake Total 1000 ml Balance 1000 ml Capillary Refill : Less Than 3 Seconds Blood Pressure Mean: 79 Point of Care Testing Finger Stick Blood Glucose: 289 Blood Glucose Action Taken: dr notified Progress Note : Progress Note BP> 100 SYSTOLIC AND HEART RATE AROUND 100 AT TIME OF ADMIT BLOOD GLUCOSE DOWN TO 427 AFTER FIRST LITER OF FLUIDS AND 20 UNITS OF INSULIN NO DETERIORATION IN PT'S CONDITION DURING ER STAY ECG Initial ECG Impression Date: Jun 21, 2017 Initial ECG Impression Time: 22:13 Initial ECG Rate: 99 Initial ECG Rhythm: Normal Sinus Diagnostic Imaging Comments CXR--PATCHY BILATERAL INFILTRATES, PENDING RADIOLOGIST REVIEW Reviewed: Reviewed by Me Critical Care Note Critical Care Total Time (minutes) 45 Departure Communication (Admissions) Time/Spoke to Admitting Phy: 23:[address] GREEN, [employer] FOR [facility]. ACCEPTS PT FOR ADMIT Impression Impression: Primary Impression: DKA IN TYPE 2 DIABETIC Additional Impressions: Altered mental status Severe sepsis Pneumonia Hypokalemia Acute renal failure Non-compliance Disposition: ADMITTED INPATIENT Condition: Critical Admissions Decision to Admit Reason: Admit from ER (General) Decision to Admit/Date: Jun 21, 2017 Time/Decision to Admit Time: 23:45 Departure-Patient Inst. Referrals: MATHEUS WATSON MD (PCP/Family) Primary Care Physician [place] HO DO Jun 22, 2017 04:31
[2017-06-22 04:59] LABS: BASOPHILS % (AUTO) 0 % (0-10); EOSINOPHILS % (AUTO) 0 % (0-10); HEMATOCRIT 30 % (35-52); HEMOGLOBIN 10.3 G/DL (11.5-16.0); LYMPHOCYTES # (AUTO) 1.5 X 10^3 (1.0-4.0); LYMPHOCYTES % (AUTO) 6 % (12-44); MEAN CORPUSCULAR HEMOGLOBIN 29 PG (25-34); MEAN CORPUSCULAR HGB CONC 35 G/DL (32-36); MEAN CORPUSCULAR VOLUME 84 FL (80-99); MEAN PLATELET VOLUME 9.5 FL (7.4-10.4); MONOCYTES # (AUTO) 1.3 X 10^3 (0.0-1.0); MONOCYTES % (AUTO) 5 % (0-12); NEUTROPHILS # (AUTO) 24.6 X 10^3 (1.8-7.8); NEUTROPHILS % (AUTO) 90 % (42-75); PLATELET COUNT 388 10^3/uL (130-400); RED BLOOD COUNT 3.57 10^6/uL (4.35-5.85); WHITE BLOOD COUNT 27.4 10^3/uL (4.3-11.0)
[2017-06-22 05:19] LABS: ALBUMIN 1.8 GM/DL (3.2-4.5); BILIRUBIN,TOTAL 0.3 MG/DL (0.1-1.0); CALCIUM 7.3 MG/DL (8.5-10.1); CREATININE SERUM 1.24 MG/DL (0.60-1.30); MAGNESIUM 1.5 MG/DL (1.8-2.4); PHOSPHORUS 1.5 MG/DL (2.3-4.7); POTASSIUM 3.2 MMOL/L (3.6-5.0); TOTAL PROTEIN 5.1 GM/DL (6.4-8.2)
[2017-06-22] MEDS: KCL 20 MEQ TAB (K-DUR) PO SCH (05:36)
[2017-06-22] MEDS: MAGNESIUM 1 GM/100 ML IVPB 100 ML IV SCH ×5 (05:45→14:37)
[2017-06-22] MEDS ORDERED: SODIUM PHOSPHATE INJ 30 MM in NS (IVPB) 250 ML INJ ONE (06:00)
[2017-06-22 06:24] LABS: ABG BASE EXCESS -18.5 MMOL/L (-2.5-2.5); ABG OXYGEN SATURATION 96 % (94-100); ABG PCO2 24 MMHG (35-45); ABG PO2 64 MMHG (79-93); ABG TCO2 9.5 MMOL/L (21.0-31.0); ALLENS TEST YES-POS
[2017-06-22 06:25] LABS: INSPIRED O2 2L; PATIENT TEMP 96.2; VENTILATOR NO
--- NOTE | 2017-06-22 06:25 | OPERATIVE REPORT ---
DATE OF SERVICE: PREOPERATIVE DIAGNOSES: 1. Hypertension, rule out sepsis. 2. Venous insufficiency. 3. Diabetic ketoacidosis. 4. Leukocytosis. 5. Hypokalemia. POSTOPERATIVE DIAGNOSES: 1. Hypertension, rule out sepsis. 2. Venous insufficiency. 3. Diabetic ketoacidosis. 4. Leukocytosis. 5. Hypokalemia. PROCEDURE: Insertion of right IJ triple lumen with ultrasound guidance. SURGEON: Attila Black DO. SUPERINTENDENT CONSTRUCTION: None. ANESTHESIA: Local lidocaine. BLOOD LOSS: Less than 5 mL. FLUIDS: None. SPECIMENS: None. INDICATION FOR PROCEDURE: The patient is a 67-year-old female, who may be septic, has venous insufficiency. No had been unable to get good IV access and she will need central line for potassium, replaced as well as for fluids and all meds. FINDINGS: The patient had right IJ placed without any difficulty with ultrasound guidance. PROCEDURE NOTE: After nurses obtained consent, the patient unable to really respond, but I did talk to her about the central line where we are putting and why we are doing this. The patient was then sterilely prepped and draped in the normal fashion. Local lidocaine was used to infiltrate the skin. I then placed the ultrasound and then using an 18 gauge finder needle with negative inspiration and advanced through the skin, watching with the ultrasound and watched it go right into the IJ on the first attempt. Good flash of blood, removed the syringe and I then placed a guidewire down the needle using Seldinger technique, it went in easily, removed the needle, made a stab incision at the guidewire and then placed a dilator over the guidewire using Seldinger technique. Again, it went in easily, then removed the dilator, then placed the catheter over the guidewire using Seldinger technique, it went in easily. I then removed the wire and then I had placed locking ports in all 3 ports and then easily aspirated and flushed with saline. This was then sutured in place with 2-0 silk suture, placed the antibiotic disk, cleaned and dried the area and then took all the drapes down and nourished and sterilely dressed this area. The patient tolerated the procedure. Job ID: [id number] DocumentID: [id number] Dictated Date: 06/22/2017 03:31:49 Therapy Tech Date: 06/22/2017 06:24:11 Dictated By: ATTILA BLACK DO MTDD
[2017-06-22 06:26] LABS: ABG PH 7.17 (7.37-7.43)
--- NOTE | 2017-06-22 07:45 | Diagnostic Imaging Report ---
INDICATION: Cough and congestion COMPARISON: 06/15/2017 FINDINGS: Single view of the chest demonstrates chronic appearing interstitial changes. No acute infiltrate, effusion or pneumothorax is seen. The heart is prominent without pulmonary edema. There is no pneumothorax. IMPRESSION: No acute cardiopulmonary findings. Dictated by: Dictated on workstation # [id number]
[2017-06-22 09:35] LABS: CALCIUM 7.3 MG/DL (8.5-10.1); CREATININE SERUM 1.3 MG/DL (0.60-1.30); POTASSIUM 3.8 MMOL/L (3.6-5.0)
[2017-06-22] MEDS ORDERED: 1/2 NS W/KCL 20 MEQ/L 1,000 ML IV ONE (10:46)
[2017-06-22] MEDS ORDERED: 1/2 NS W/KCL 20 MEQ/L 1,000 ML IV PRN (10:50)
[2017-06-22 12:14] LABS: CALCIUM 7.4 MG/DL (8.5-10.1); CREATININE SERUM 1.35 MG/DL (0.60-1.30); POTASSIUM 2.9 MMOL/L (3.6-5.0)
[2017-06-22] MEDS ORDERED: D5 1/2 NS W/KCL 20 MEQ/L 1,000 ML IV ONE (12:59)
[2017-06-22 14:07] LABS: CALCIUM 7.2 MG/DL (8.5-10.1); CREATININE SERUM 1.3 MG/DL (0.60-1.30)
--- NOTE | 2017-06-22 14:56 | Diagnostic Imaging Report ---
INDICATION: Evaluate central line placement. History of pneumonia. COMPARISON: 06/21/2017. FINDINGS: Single frontal radiographic view of the chest was obtained and demonstrates interval placement of right internal jugular central venous catheter, tip of which terminates at the cavoatrial junction. Lungs show minimal patchy opacities within the left lower lung field. There is no large effusion or pneumothorax on either side. Cardiac silhouette and pulmonary vasculature are within normal limits. Bony structures show no gross acute abnormalities. IMPRESSION: 1. Right internal jugular central venous catheter with tip at the cavoatrial junction. 2. Minimal patchy left basilar atelectasis and/or infiltrate. Dictated by: Dictated on workstation # [id number]
[2017-06-22] MEDS: D5 1/2 NS W/KCL 20 MEQ/L 1,000 ML IV SCH ×2 (17:22→20:47)
[2017-06-22 17:28] LABS: CALCIUM 7.2 MG/DL (8.5-10.1); CREATININE SERUM 1.25 MG/DL (0.60-1.30); POTASSIUM 3.2 MMOL/L (3.6-5.0)
[2017-06-22] MEDS ORDERED: CATHETER FLUSH 10 ML SYR IV PRN (18:15)
[2017-06-22] MEDS: POTASSIUM CL 10 MEQ/50 ML IVPB (PRE-MIX) IV SCH ×4 (18:21→19:54)
[2017-06-22] MEDS ORDERED: CEFEPIME 2 GM/NS 50 ML IVPB IV SCH ×2 (21:00)
[2017-06-23] VITALS (24 sets, daily range): BP systolic 112–151; BP diastolic 58–100
--- NOTE | 2017-06-23 00:44 | History & Physicial ([facility]) ---
HPI History of Present Illness: Patient presented to ED with altered mental status and found to be in DKA and with PNA and profound hypokalemia. Patient remains altered and is unable to provide any information at the time of exam, no family is present, and ED records also contain a similar story. It appears that patient was not taking any of her medication after being discharged from the hospital last week. Patient with long history of hospital admissions for DKA secondary to noncompliance. Source: RN/MD, RN notes reviewed Exam Limitations: clinical condition Date seen by provider: Jun 22, 2017 Time Seen by Provider: 09:30 Attending Physician Lisandra Lambert DO PCP Sam Sousa MD Consult Date of Admission Jun 21, 2017 at 23:30 Home Medications Home Medications Reviewed patient Home Medication Reconciliation Form Allergies Coded Allergies: No Known Drug Allergies (Unverified , 05/16/14) [id number] Hx Patient Social History Living Status: lives with son Employed/Student: unemployed Alcohol Use: Denies Use Recreational Drug Use: No Smoking Status: Former Smoker Recent Foreign Travel: No Contact w/other who traveled: No Recent Hopitalizations: No Recent Infectious Disease Expo: No Physical Abuse Screen: No Sexual Abuse: No Immunizations Up To Date Tetanus Booster (TDap): Unknown Date of Influenza Vaccine: Jun 13, 2017 Past Medical History PMHx: Diabetes mellitus II HTN PSurgHx: Cholecystectomy, tubal ligation, bunionectomy, right knee surgery Family Medical History Significant Family History: COPD, CVA, Diabetes, Vascular Disease Family History: Cardiovascular disease 19 MOTHER Diabetes mellitus 19 MOTHER FH: COPD (chronic obstructive pulmonary disease) G8 BROTHER G8 SISTER Hypertension G8 BROTHER G8 SISTER Myocardial infarction 19 MOTHER Respiratory disorder 19 FATHER Stroke or transient ischemic attack in sister G8 SISTER Review of Systems ([facility]) Constitutional: other (unable to obtain due to altered mental status) EENTM: see HPI Respiratory: see HPI Cardiovascular: see HPI Gastrointestinal: see HPI Genitourinary: see HPI Musculoskeletal: see HPI Skin: see HPI Psychiatric/Neurological: See HPI Reviewed Test Results Reviewed Test Results Lab Microbiology 06/22/17 MRSA Screen - Final, Complete MRSA not isolated Laboratory Tests 06/22/17 00:48: Lactic Acid Level 3.78*H 06/23/17 03:10: Lactic Acid Level 2.57*H 06/23/17 06:02: Lactic Acid Level 2.56*H Laboratory Tests Test 06/21/17 21:55 06/21/17 22:40 06/21/17 22:50 06/21/17 23:23 Range/Units Glucometer 493 *H 70-110 MG/DL White Blood Count 37.7 *H 4.3-11.0 10^3/uL Red Blood Count 4.09 L 4.35-5.85 10^6/uL Hemoglobin 11.9 11.5-16.0 G/DL Hematocrit 35 35-52 % Mean Corpuscular Volume 86 80-99 FL Mean Corpuscular Hemoglobin 29 25-34 PG Mean Corpuscular Hemoglobin Concent 34 32-36 G/DL Red Cell Distribution Width 13.2 10.0-14.5 % Platelet Count 579 H 130-400 10^3/uL Mean Platelet Volume 9.9 7.4-10.4 FL Neutrophils (%) (Auto) 95 H 42-75 % Lymphocytes (%) (Auto) 4 L 12-44 % Monocytes (%) (Auto) 2 0-12 % Eosinophils (%) (Auto) 0 0-10 % Basophils (%) (Auto) 0 0-10 % Neutrophils # (Auto) 35.7 H 1.8-7.8 X 10^3 Lymphocytes # (Auto) 1.4 1.0-4.0 X 10^3 Monocytes # (Auto) 0.6 0.0-1.0 X 10^3 Eosinophils # (Auto) 0.0 0.0-0.3 10^3/uL Basophils # (Auto) 0.1 0.0-0.1 10^3/uL Neutrophils % (Manual) 92 % Lymphocytes % (Manual) 5 % Monocytes % (Manual) 1 % Eosinophils % (Manual) 0 % Basophils % (Manual) 0 % Metamyelocytes % 1 % Band Neutrophils 1 % Blood Morphology Comment NORMAL Prothrombin Time 18.5 H 12.2-14.7 SEC INR Comment 1.5 H 0.8-1.4 Activated Partial Thromboplast Time 30 24-35 SEC Sodium Level 141 135-145 MMOL/L Potassium Level 2.4 *L 3.6-5.0 MMOL/L Chloride Level 106 98-107 MMOL/L Carbon Dioxide Level < 5 *L 21-32 MMOL/L Anion Gap 30 H 5-14 MMOL/L Blood Urea Nitrogen 25 H 7-18 MG/DL Creatinine 1.51 H 0.60-1.30 MG/DL Estimat Glomerular Filtration Rate 35 BUN/Creatinine Ratio 17 Glucose Level 538 *H 70-105 MG/DL Calcium Level 8.2 L 8.5-10.1 MG/DL Magnesium Level 2.1 1.8-2.4 MG/DL Total Bilirubin 0.3 0.1-1.0 MG/DL Aspartate Amino Transf (AST/SGOT) 15 5-34 U/L Alanine Aminotransferase (ALT/SGPT) 9 0-55 U/L Alkaline Phosphatase 121 40-136 U/L Troponin I < 0.30 <0.30 NG/ML B-Type Natriuretic Peptide 108.6 H <100.0 PG/ML Total Protein 6.0 L 6.4-8.2 GM/DL Albumin 2.1 L 3.2-4.5 GM/DL Amylase Level 48 25-125 U/L Lipase 29 8-78 U/L Free Thyroxine 0.60 L 0.70-1.48 NG/DL TSH [place] Testing 0.26 L 0.35-4.94 UIU/ML Serum Alcohol < 10 <10 MG/DL Lactic Acid Level 2.60 *H 0.50-2.00 MMOL/L Urine Color YELLOW Urine Clarity CLEAR Urine pH 5 5-9 Urine Specific [place] 1.025 H 1.016-1.022 Urine Protein 3+ H NEGATIVE Urine Glucose (UA) 4+ H NEGATIVE Urine Ketones 4+ H NEGATIVE Urine Nitrite NEGATIVE NEGATIVE Urine Bilirubin NEGATIVE NEGATIVE Urine Urobilinogen NORMAL NORMAL MG/DL Urine Leukocyte Esterase NEGATIVE NEGATIVE Urine RBC (Auto) 4+ H NEGATIVE Urine RBC RARE /HPF Urine WBC NONE /HPF Urine Squamous Epithelial Cells RARE /HPF Urine Crystals PRESENT H /LPF Urine Amorphous Sediment FEW BANG URATES H /LPF Urine Bacteria TRACE /HPF Urine Casts PRESENT /LPF Urine Hyaline Casts 0-2 H /LPF Urine Granular Casts 0-2 H /LPF Urine Mucus NEGATIVE /LPF Urine Yeast FEW H /HPF Urine Culture Indicated NO Urine Opiates Screen NEGATIVE NEGATIVE Urine Oxycodone Screen NEGATIVE NEGATIVE Urine Methadone Screen NEGATIVE NEGATIVE Urine Propoxyphene Screen NEGATIVE NEGATIVE Urine Barbiturates Screen NEGATIVE NEGATIVE Ur Tricyclic Antidepressants Screen NEGATIVE NEGATIVE Urine Phencyclidine Screen NEGATIVE NEGATIVE Urine Amphetamines Screen NEGATIVE NEGATIVE Urine Methamphetamines Screen NEGATIVE NEGATIVE Urine Benzodiazepines Screen NEGATIVE NEGATIVE Urine Cocaine Screen NEGATIVE NEGATIVE Urine Cannabinoids Screen NEGATIVE NEGATIVE Test 06/21/17 23:43 06/22/17 00:48 06/22/17 01:37 06/22/17 04:49 Range/Units Glucometer 427 *H 289 H 250 H 70-110 MG/DL Lactic Acid Level 3.78 *H 0.50-2.00 MMOL/L Test 06/22/17 04:50 06/22/17 06:10 06/22/17 07:54 06/22/17 09:08 Range/Units White Blood Count 27.4 H 4.3-11.0 10^3/uL Red Blood Count 3.57 L 4.35-5.85 10^6/uL Hemoglobin 10.3 L 11.5-16.0 G/DL Hematocrit 30 L 35-52 % Mean Corpuscular Volume 84 80-99 FL Mean Corpuscular Hemoglobin 29 25-34 PG Mean Corpuscular Hemoglobin Concent 35 32-36 G/DL Red Cell Distribution Width 13.0 10.0-14.5 % Platelet Count 388 130-400 10^3/uL Mean Platelet Volume 9.5 7.4-10.4 FL Neutrophils (%) (Auto) 90 H 42-75 % Lymphocytes (%) (Auto) 6 L 12-44 % Monocytes (%) (Auto) 5 0-12 % Eosinophils (%) (Auto) 0 0-10 % Basophils (%) (Auto) 0 0-10 % Neutrophils # (Auto) 24.6 H 1.8-7.8 X 10^3 Lymphocytes # (Auto) 1.5 1.0-4.0 X 10^3 Monocytes # (Auto) 1.3 H 0.0-1.0 X 10^3 Eosinophils # (Auto) 0.0 0.0-0.3 10^3/uL Basophils # (Auto) 0.0 0.0-0.1 10^3/uL Sodium Level 146 H 146 H 135-145 MMOL/L Potassium Level 3.2 L 3.8 3.6-5.0 MMOL/L Chloride Level 117 #H 117 H 98-107 MMOL/L Carbon Dioxide Level 7 *L 6 *L 21-32 MMOL/L Anion Gap 22 H 23 H 5-14 MMOL/L Blood Urea Nitrogen 32 H 34 H 7-18 MG/DL Creatinine 1.24 1.30 0.60-1.30 MG/DL Estimat Glomerular Filtration Rate 43 41 BUN/Creatinine Ratio 26 26 Glucose Level 270 H 379 H 70-105 MG/DL Calcium Level 7.3 L 7.3 L 8.5-10.1 MG/DL Phosphorus Level 1.5 L 2.3-4.7 MG/DL Magnesium Level 1.5 L 1.8-2.4 MG/DL Total Bilirubin 0.3 0.1-1.0 MG/DL Aspartate Amino Transf (AST/SGOT) 10 5-34 U/L Alanine Aminotransferase (ALT/SGPT) 7 0-55 U/L Alkaline Phosphatase 89 40-136 U/L Total Protein 5.1 L 6.4-8.2 GM/DL Albumin 1.8 L 3.2-4.5 GM/DL Blood Gas Puncture Site L RAD Blood Gas Patient Temperature 96.2 Arterial Blood pH 7.17 *L 7.37-7.43 Arterial Blood Partial Pressure CO2 24 L 35-45 MMHG Arterial Blood Partial Pressure O2 64 L 79-93 MMHG Arterial Blood HCO3 9 *L 23-27 MMOL/L Arterial Blood Total CO2 9.5 L 21.0-31.0 MMOL/L Arterial Blood Oxygen Saturation 96 94-100 % Arterial Blood Base Excess -18.5 L -2.5-2.5 MMOL/L Shadi Test YES-POS Blood Gas Ventilator Setting NO Blood Gas Inspired Oxygen 2L Glucometer 328 H 70-110 MG/DL Test 06/22/17 10:42 06/22/17 11:30 06/22/17 11:49 06/22/17 12:55 Range/Units Glucometer 304 H 317 H 241 H 70-110 MG/DL Sodium Level 148 H 135-145 MMOL/L Potassium Level 2.9 L 3.6-5.0 MMOL/L Chloride Level 119 H 98-107 MMOL/L Carbon Dioxide Level 7 *L 21-32 MMOL/L Anion Gap 22 H 5-14 MMOL/L Blood Urea Nitrogen 35 H 7-18 MG/DL Creatinine 1.35 H 0.60-1.30 MG/DL Estimat Glomerular Filtration Rate 39 BUN/Creatinine Ratio 26 Glucose Level 321 H 70-105 MG/DL Calcium Level 7.4 L 8.5-10.1 MG/DL Test 06/22/17 13:46 06/22/17 15:02 06/22/17 15:52 06/22/17 17:02 Range/Units Sodium Level 148 H 148 H 135-145 MMOL/L Potassium Level 3.0 L 3.2 L 3.6-5.0 MMOL/L Chloride Level 120 H 121 H 98-107 MMOL/L Carbon Dioxide Level 10 L 14 L 21-32 MMOL/L Anion Gap 18 H 13 5-14 MMOL/L Blood Urea Nitrogen 34 H 31 H 7-18 MG/DL Creatinine 1.30 1.25 0.60-1.30 MG/DL Estimat Glomerular Filtration Rate 41 43 BUN/Creatinine Ratio 26 25 Glucose Level 238 H 199 H 70-105 MG/DL Calcium Level 7.2 L 7.2 L 8.5-10.1 MG/DL Glucometer 237 H 244 H 189 H 70-110 MG/DL Test 06/22/17 18:05 06/22/17 18:57 06/22/17 19:57 06/22/17 20:36 Range/Units Glucometer 168 H 155 H 130 H 132 H 70-110 MG/DL Test 06/22/17 21:16 06/22/17 21:47 06/22/17 22:45 06/22/17 23:47 Range/Units Glucometer 144 H 152 H 154 H 150 H 70-110 MG/DL Test 06/23/17 00:50 06/23/17 00:54 06/23/17 01:29 06/23/17 02:26 Range/Units Sodium Level 145 135-145 MMOL/L Potassium Level 2.9 L 3.6-5.0 MMOL/L Chloride Level 119 H 98-107 MMOL/L Carbon Dioxide Level 17 L 21-32 MMOL/L Anion Gap 9 5-14 MMOL/L Blood Urea Nitrogen 25 H 7-18 MG/DL Creatinine 1.08 0.60-1.30 MG/DL Estimat Glomerular Filtration Rate 51 BUN/Creatinine Ratio 23 Glucose Level 118 H 70-105 MG/DL Calcium Level 7.5 L 8.5-10.1 MG/DL Glucometer 112 H 155 H 176 H 70-110 MG/DL Test 06/23/17 03:10 06/23/17 03:24 06/23/17 04:33 06/23/17 05:02 Range/Units White Blood Count 20.1 H 4.3-11.0 10^3/uL Red Blood Count 3.34 L 4.35-5.85 10^6/uL Hemoglobin 9.6 L 11.5-16.0 G/DL Hematocrit 27 L 35-52 % Mean Corpuscular Volume 80 80-99 FL Mean Corpuscular Hemoglobin 29 25-34 PG Mean Corpuscular Hemoglobin Concent 36 32-36 G/DL Red Cell Distribution Width 13.1 10.0-14.5 % Platelet Count 352 130-400 10^3/uL Mean Platelet Volume 9.6 7.4-10.4 FL Neutrophils (%) (Auto) 91 H 42-75 % Lymphocytes (%) (Auto) 5 L 12-44 % Monocytes (%) (Auto) 4 0-12 % Eosinophils (%) (Auto) 0 0-10 % Basophils (%) (Auto) 0 0-10 % Neutrophils # (Auto) 18.2 H 1.8-7.8 X 10^3 Lymphocytes # (Auto) 1.0 1.0-4.0 X 10^3 Monocytes # (Auto) 0.9 0.0-1.0 X 10^3 Eosinophils # (Auto) 0.0 0.0-0.3 10^3/uL Basophils # (Auto) 0.0 0.0-0.1 10^3/uL Sodium Level 144 135-145 MMOL/L Potassium Level 3.2 L 3.6-5.0 MMOL/L Chloride Level 119 H 98-107 MMOL/L Carbon Dioxide Level 16 L 21-32 MMOL/L Anion Gap 9 5-14 MMOL/L Blood Urea Nitrogen 23 H 7-18 MG/DL Creatinine 1.04 0.60-1.30 MG/DL Estimat Glomerular Filtration Rate 53 BUN/Creatinine Ratio 22 Glucose Level 154 H 70-105 MG/DL Lactic Acid Level 2.57 *H 0.50-2.00 MMOL/L Calcium Level 7.6 L 8.5-10.1 MG/DL Phosphorus Level < 0.7 *L 2.3-4.7 MG/DL Magnesium Level 1.9 1.8-2.4 MG/DL Glucometer 159 H 144 H 154 H 70-110 MG/DL Test 06/23/17 05:59 06/23/17 06:02 06/23/17 06:50 06/23/17 07:40 Range/Units Glucometer 171 H 172 H 70-110 MG/DL Lactic Acid Level 2.56 *H 0.50-2.00 MMOL/L Sodium Level 142 135-145 MMOL/L Potassium Level 3.4 L 3.6-5.0 MMOL/L Chloride Level 117 H 98-107 MMOL/L Carbon Dioxide Level 19 L 21-32 MMOL/L Anion Gap 6 5-14 MMOL/L Blood Urea Nitrogen 21 H 7-18 MG/DL Creatinine 0.96 0.60-1.30 MG/DL Estimat Glomerular Filtration Rate 58 BUN/Creatinine Ratio 22 Glucose Level 174 H 70-105 MG/DL Calcium Level 7.6 L 8.5-10.1 MG/DL Phosphorus Level < 0.7 *L 2.3-4.7 MG/DL Magnesium Level 1.8 1.8-2.4 MG/DL Test 06/23/17 08:20 06/23/17 09:06 06/23/17 10:03 06/23/17 10:59 Range/Units B-Type Natriuretic Peptide 264.5 H <100.0 PG/ML Glucometer 174 H 183 H 209 H 70-110 MG/DL Test 06/23/17 12:06 06/23/17 16:53 06/23/17 17:37 06/23/17 20:30 Range/Units Sodium Level 143 141 135-145 MMOL/L Potassium Level 2.5 *L 3.5 L 3.6-5.0 MMOL/L Chloride Level 113 H 109 H 98-107 MMOL/L Carbon Dioxide Level 21 22 21-32 MMOL/L Anion Gap 9 10 5-14 MMOL/L Blood Urea Nitrogen 18 18 7-18 MG/DL Creatinine 0.91 1.08 0.60-1.30 MG/DL Estimat Glomerular Filtration Rate > 60 51 BUN/Creatinine Ratio 20 17 Glucose Level 179 H 385 H 70-105 MG/DL Glucometer 180 H 364 H 260 H 70-110 MG/DL Calcium Level 7.4 L 7.6 L 8.5-10.1 MG/DL Phosphorus Level 2.6 2.3 2.3-4.7 MG/DL Magnesium Level 1.7 L 1.6 L 1.8-2.4 MG/DL Radiology CXR shows PNA R IJ placement by Dr. Black Physical Exam-([facility]) Physical Exam Vital Signs VS - Last 72 Hours, by Label 06/21/17 06/21/17 06/21/17 06/21/17 21:50 21:50 23:00 23:07 Temp 96.2 Pulse 101 Resp 27 B/P (MAP) 118/62 (80) Pulse Ox 100 100 97 O2 Delivery Non Rebreather Non Rebreather Nasal Cannula Room Air O2 Flow Rate 10.00 2.00 06/22/17 06/22/17 06/22/17 06/22/17 00:55 00:55 01:10 01:10 Temp 95.8 96.2 Pulse 115 139 124 Resp 25 20 B/P (MAP) 106/88 114/57 (76) Pulse Ox 98 100 O2 Delivery Nasal Cannula Nasal Cannula Nasal Cannula O2 Flow Rate 2.00 2.00 2.00 06/22/17 06/22/17 06/22/17 06/22/17 01:30 02:00 03:00 04:00 Pulse 139 136 131 109 Resp 23 27 13 31 B/P (MAP) 114/57 (76) 92/66 (75) 115/61 (79) 103/59 (74) Pulse Ox 98 98 99 96 O2 Delivery Nasal Cannula Nasal Cannula Nasal Cannula Nasal Cannula O2 Flow Rate 2.00 2.00 2.00 2.00 06/22/17 06/22/17 06/22/17 06/22/17 04:00 05:00 06:00 07:00 Pulse 104 105 106 Resp 24 B/P (MAP) 102/55 (71) 111/50 (70) Pulse Ox 99 98 99 O2 Delivery Nasal Cannula Nasal Cannula Nasal Cannula O2 Flow Rate 2.00 2.00 2.00 06/22/17 06/22/17 06/22/17 06/22/17 07:00 08:00 08:00 08:00 Temp 98.6 Pulse 106 106 Resp 39 34 B/P (MAP) 130/90 (103) 116/72 (87) Pulse Ox 96 99 96 O2 Delivery Nasal Cannula Nasal Cannula Nasal Cannula O2 Flow Rate 2.00 2.00 2.00 06/22/17 06/22/17 06/22/17 06/22/17 09:00 10:00 11:00 12:00 Pulse 109 111 111 105 Resp 28 34 44 35 B/P (MAP) 108/77 (87) 109/60 (76) 120/66 (84) 103/72 (82) Pulse Ox 98 96 93 93 O2 Delivery Nasal Cannula Nasal Cannula Nasal Cannula Nasal Cannula O2 Flow Rate 2.00 2.00 2.00 2.00 06/22/17 06/22/17 06/22/17 06/22/17 12:00 12:00 13:00 13:00 Temp 98.0 Pulse 102 102 Resp 40 B/P (MAP) 116/76 (89) Pulse Ox 99 94 O2 Delivery Nasal Cannula Nasal Cannula O2 Flow Rate 2.00 2.00 06/22/17 06/22/17 06/22/17 06/22/17 14:00 15:00 15:59 16:00 Temp 99.2 Pulse 98 99 98 Resp 25 26 17 B/P (MAP) 131/107 (115) 112/68 (83) 120/76 (91) Pulse Ox 93 96 93 O2 Delivery Nasal Cannula Nasal Cannula Room Air Room Air O2 Flow Rate 2.00 2.00 06/22/17 06/22/17 06/22/17 06/22/17 16:18 17:00 18:00 19:00 Pulse 103 98 102 Resp 25 17 B/P (MAP) 102/72 (82) 122/81 (95) Pulse Ox 92 91 96 O2 Delivery Room Air Room Air Nasal Cannula O2 Flow Rate 2.00 06/22/17 06/22/17 06/22/17 06/22/17 19:00 19:43 20:00 20:00 Temp 97.6 Pulse 102 100 99 Resp 34 18 13 B/P (MAP) 112/49 (70) 117/59 (78) Pulse Ox 93 96 94 95 O2 Delivery Nasal Cannula Nasal Cannula Nasal Cannula Nasal Cannula O2 Flow Rate 2.00 2.00 2.00 2.00 06/22/17 06/22/17 06/22/17 06/22/17 21:00 22:00 22:07 23:00 Pulse 97 99 106 Resp 16 19 23 B/P (MAP) 122/59 (80) 138/64 (88) 137/74 (95) Pulse Ox 95 95 93 O2 Delivery Nasal Cannula Nasal Cannula Nasal Cannula Nasal Cannula O2 Flow Rate 2.00 2.00 2.00 2.00 06/22/17 06/23/17 06/23/17 06/23/17 23:48 00:00 00:00 01:00 Temp 98.6 Pulse 104 105 Resp 16 B/P (MAP) 130/58 (82) Pulse Ox 94 93 O2 Delivery Nasal Cannula Nasal Cannula O2 Flow Rate 2.00 2.00 06/23/17 06/23/17 06/23/17 06/23/17 01:00 02:00 03:00 04:00 Pulse 105 105 106 Resp 22 28 15 B/P (MAP) 120/66 (84) 123/59 (80) 133/69 (90) Pulse Ox 95 93 94 95 O2 Delivery Nasal Cannula Nasal Cannula Nasal Cannula Nasal Cannula O2 Flow Rate 2.00 2.00 2.00 2.00 06/23/17 06/23/17 06/23/17 06/23/17 04:00 05:00 06:00 07:00 Pulse 105 107 106 103 Resp 12 22 20 B/P (MAP) 130/66 (87) 112/93 (99) 136/66 (89) Pulse Ox 93 91 94 O2 Delivery Nasal Cannula Nasal Cannula Nasal Cannula O2 Flow Rate 2.00 2.00 2.00 06/23/17 06/23/17 06/23/17 06/23/17 07:00 07:36 07:39 08:00 Temp 97.1 Pulse 102 99 Resp 17 25 B/P (MAP) 135/88 (104) 141/100 (114) Pulse Ox 92 95 96 O2 Delivery Nasal Cannula Nasal Cannula Nasal Cannula Nasal Cannula O2 Flow Rate 2.00 2.00 2.00 2.00 06/23/17 06/23/17 06/23/17 06/23/17 09:00 10:00 11:00 12:00 Pulse 103 99 101 99 Resp 16 39 15 23 B/P (MAP) 142/98 (113) 144/91 (108) 148/93 (111) 132/75 (94) Pulse Ox 93 O2 Delivery Nasal Cannula Nasal Cannula Nasal Cannula Nasal Cannula O2 Flow Rate 2.00 2.00 2.00 2.00 06/23/17 06/23/17 06/23/17 06/23/17 12:06 12:06 13:00 13:00 Temp 96.9 Pulse 101 101 Resp 25 B/P (MAP) 138/97 (111) Pulse Ox 95 O2 Delivery Nasal Cannula Room Air Room Air O2 Flow Rate 2.00 06/23/17 06/23/17 06/23/17 06/23/17 14:00 15:00 16:00 16:48 Pulse 100 100 102 Resp 24 29 16 B/P (MAP) 142/88 (106) 127/89 (102) 145/97 (113) Pulse Ox 93 O2 Delivery Room Air Room Air Room Air Room Air 06/23/17 06/23/17 06/23/17 06/23/17 17:00 17:41 18:00 19:00 Temp 99.3 Pulse 105 101 100 Resp 27 38 B/P (MAP) 130/93 (105) 125/85 (98) O2 Delivery Room Air Room Air Room Air 06/23/17 06/23/17 20:00 20:22 Temp 96.9 Pulse Ox 95 O2 Delivery Room Air Room Air Capillary Refill : Less Than 3 Seconds General Appearance: moderate distress Eyes: Bilateral Eye Normal Inspection HEENT: normal ENT inspection Neck: full range of motion, supple, other (right IJ CVL in place and infusing well) Respiratory: chest non-tender, respiratory distress, decreased breath sounds, wheezing, other (coarseness throughout) Cardiovascular: normal peripheral pulses, regular rate, rhythm, no gallop, no murmur Gastrointestinal: normal bowel sounds, non tender, soft, No guarding, No rebound Rectal: deferred Back: normal inspection, no vertebral tenderness Extremities: normal range of motion, non-tender, normal inspection Neurologic/Psychiatric: disoriented x 3 Skin: warm/dry, pallor Lymphatic: no adenopathy Clinical Quality Measures DVT/VTE Risk/Contraindication: Risk Factor Score Per Nursin RFS Level Per Nursing on Admit: 4+=Very High Assessment/Plan Assessment/Plan Admission Dx DKA Sepsis HCAP Hypokalemia Plan DKA 06/22 -patient admitted for DKA, however insulin gtt was held by eICU overnight and therefore there has been no improvement since arrival -insulin gtt immediately started when above was discovered -per ED records patient stopped taking insulin at home -potassium replacement and insulin gtt and repeat labs per protocol Sepsis and HCAP 06/22 -patient was discharged from hospital last week -CXR significant for PNA -Cefepime and Azithromycin started by ED -patient also with lactic acidosis and altered mental status -significant leukocytosis, WBC 37.7 --> 27.4 -blood cultures obtained on admission -central line placement by surgery in ED, Right IJ Hypokalemia 06/22 -continue replacement and BMP checks per protocol 60 minutes of critical care time JOSH ACEVES DO Jun 23, 2017 00:43
[2017-06-23] MEDS: guaiFENesin/DM (ROBITUSSIN DM) 10 ML UDC PO PRN ×2 (00:51→13:55)
[2017-06-23] MEDS: NS IV 1000 ML 1,000 ML IV SCH ×3 (01:06→10:35)
[2017-06-23] MEDS: D5 1/2 NS W/KCL 20 MEQ/L 1,000 ML IV SCH ×3 (01:07→10:35)
[2017-06-23] MEDS: D5 1/2 NS IV 1,000 ML IV SCH ×3 (01:07→10:36)
[2017-06-23] MEDS: NOREPINEPHRINE 4 MG in NS (IVPB) 250 ML IV SCH ×2 (01:07→16:58)
[2017-06-23] MEDS: PHENYLEPHRINE INJECTION 10 MG in NS (IVPB) 250 ML IV SCH ×6 (01:07→20:29)
[2017-06-23] MEDS: 1/2 NS IV SOLUTION 1,000 ML IV SCH ×3 (01:07→10:36)
[2017-06-23 01:13] LABS: CALCIUM 7.5 MG/DL (8.5-10.1); CREATININE SERUM 1.08 MG/DL (0.60-1.30); POTASSIUM 2.9 MMOL/L (3.6-5.0)
[2017-06-23] MEDS: AZITHROMYCIN 500 MG/NS 250 ML IVPB IV SCH ×2 (01:27)
[2017-06-23] MEDS ORDERED: POTASSIUM CL 10MEQ/50ML IVPB 50 ML IV ONE (01:30)
[2017-06-23] MEDS: POTASSIUM CL 10MEQ/50ML IVPB 50 ML IV SCH ×12 (01:48→15:57)
[2017-06-23] MEDS ORDERED: POTASSIUM CL 10MEQ/50ML IVPB 50 ML IV SCH (02:30)
[2017-06-23 03:30] LABS: BASOPHILS % (AUTO) 0 % (0-10); EOSINOPHILS % (AUTO) 0 % (0-10); HEMATOCRIT 27 % (35-52); HEMOGLOBIN 9.6 G/DL (11.5-16.0); LYMPHOCYTES % (AUTO) 5 % (12-44); MEAN CORPUSCULAR HEMOGLOBIN 29 PG (25-34); MEAN CORPUSCULAR HGB CONC 36 G/DL (32-36); MEAN CORPUSCULAR VOLUME 80 FL (80-99); MEAN PLATELET VOLUME 9.6 FL (7.4-10.4); MONOCYTES # (AUTO) 0.9 X 10^3 (0.0-1.0); MONOCYTES % (AUTO) 4 % (0-12); NEUTROPHILS # (AUTO) 18.2 X 10^3 (1.8-7.8); NEUTROPHILS % (AUTO) 91 % (42-75); PLATELET COUNT 352 10^3/uL (130-400); RED BLOOD COUNT 3.34 10^6/uL (4.35-5.85); RED CELL DISTRIBUTION WIDTH 13.1 % (10.0-14.5); WHITE BLOOD COUNT 20.1 10^3/uL (4.3-11.0)
[2017-06-23 03:50] LABS: BUN/CREATININE RATIO 22; CALCIUM 7.6 MG/DL (8.5-10.1); CARBON DIOXIDE 16 MMOL/L (21-32); CHLORIDE 119 MMOL/L (98-107); CREATININE SERUM 1.04 MG/DL (0.60-1.30); GFR ESTIMATED 53; GLUCOSE 154 MG/DL (70-105); MAGNESIUM 1.9 MG/DL (1.8-2.4); POTASSIUM 3.2 MMOL/L (3.6-5.0); SODIUM 144 MMOL/L (135-145)
[2017-06-23 04:02] LABS: PHOSPHORUS < 0.7 MG/DL (2.3-4.7)
[2017-06-23] MEDS: MAGNESIUM 1 GM/100 ML IVPB 100 ML IV SCH (05:28)
[2017-06-23] MEDS: KCL 20 MEQ TAB (K-DUR) PO SCH (05:29)
[2017-06-23] MEDS: DEXTROSE 10% IV SOLUTION 1,000 ML IV SCH ×2 (05:29→07:07)
[2017-06-23] MEDS ORDERED: SODIUM PHOSPHATE MM INJ NR ×2 (07:01)
[2017-06-23] MEDS ORDERED: NS INJ NR ×2 (07:01)
[2017-06-23] MEDS ORDERED: FUROSEMIDE 40 MG/4 ML INJ (LASIX) IVP NR (08:00)
[2017-06-23] MEDS ORDERED: ALBUMIN 25% 25 GM/100 ML 50 ML IV NR (08:00)
[2017-06-23 08:13] LABS: BUN/CREATININE RATIO 22; CALCIUM 7.6 MG/DL (8.5-10.1); CARBON DIOXIDE 19 MMOL/L (21-32); CHLORIDE 117 MMOL/L (98-107); CREATININE SERUM 0.96 MG/DL (0.60-1.30); GFR ESTIMATED 58; GLUCOSE 174 MG/DL (70-105); MAGNESIUM 1.8 MG/DL (1.8-2.4); POTASSIUM 3.4 MMOL/L (3.6-5.0); SODIUM 142 MMOL/L (135-145)
[2017-06-23 08:16] LABS: PHOSPHORUS < 0.7 MG/DL (2.3-4.7)
--- NOTE | 2017-06-23 09:07 | Diagnostic Imaging Report ---
Indication: Pneumonia. Comparison: 06/22/2017 Findings: There is severe 5 lobe airspace disease greater left than right having progressed in severity from prior. An element of edema superimposed could not be excluded in the appropriate scenario. Heart size itself upper limits. Right IJ is in stable position, no pneumothorax. There are bilateral pleural effusions probably increased as well. Impression: Worsened 5 lobe infiltrates greater left, increased pleural fluid, no pneumothorax. Dictated by: Dictated on workstation # [id number]
[2017-06-23] MEDS ORDERED: VANCOMYCIN INJECTION 1,000 MG in NS (IVPB) 250 ML IV SCH (09:45)
[2017-06-23] MEDS ORDERED: VANCOMYCIN 1500 MG/NS 500 ML IVPB IV NR ×2 (10:30)
[2017-06-23] MEDS ORDERED: PIPERACILLIN SODIUM/TAZOBACTAM 4.5 GM in NS (IVPB) 100 ML IV NR (10:30)
--- NOTE | 2017-06-23 12:02 | ST Dysphagia Evaluation ---
Speech Evaluation-General Medical Diagnosis DKA Type 2 DM, AMS, Severe Sepsis, Pneumonia Onset Date: Jun 21, 2017 Therapy Diagnosis Therapy Diagnosis: Mild Oral Dysphagia Precautions Precautions: Aspiration Precautions/Isolations: Fall Prevention, Standard Precautions Referral Referring Physician: Dr. Cooper Reason for Referral: Evaluation/Treatment Clinical Bedside Swallowing Evaluation Medical History Pertinent Medical History: DM, HTN Current History The patient was admitted following AMS on 06/21/2017. Reviewed History: Yes Speech PLF/Current-Dysphagia Prior Level of Function The patient stated she consumes a regular diet (regardless of edentulous state) with thin liquids, at home. The patient denied coughing, choking, or additional signs/symptoms of aspiration with any consistency she currently consumes. Subjective The patient was laying in bed upon entrance. The patient was positioned upright in bed by the clinician for the swallowing evaluation. The patient was not wearing supplemental oxygen via nasal cannula (as was read by the clinician in the chart review). Per patient, she does not require oxygen at this time. The patient's SpO2% was not represented on the monitor, therefore, the clinician could not use this as an aid throughout the swallowing evaluation. The patient has a rigorous, productive cough at baseline. Cognitive Status Patient Orientation: Person, Place, Time Oral Motor Skills Dentition: Edentalous Ability to Follow Directions: Fair The patient is NPO pending the results of the swallowing evaluation. Oral Expression Ability: Mild Impairment Voice Voice Phonatory-Based Quality: Breathy, Weak, Phonation Breaks Voice Pitch: Mildly High Voice Loudness: Severely Soft/Quiet Face Facial Symmetry: Symmetrical Oral-Facial Assessment Oral-Facial Dentition: Normal Labial Seal Description: Normal Smile: Normal Puff Cheeks: Normal Lingual Protrusion: Normal Lingual ROM: Normal Lingual Strength: Normal Pharynx Velopharyngeal Move.: Normal Volitional Dry Swallow: Yes Voluntary Cough: Yes Can Clear Throat Volitionally: Yes Productive Cough: Yes Productive Throat Clear: Yes Dysphagia Evaluation Consistencies Presented: Regular, Thin Liquid, Pureed 1. The patient demonstrated increased mastication time with solid consistencies. 1. No pharyngeal swallow impairments were noted throughout the evaluation. The patient does report mild odynophagia upon the swallow with all consistencies. - No signs/symptoms of aspiration were demonstrated with multiple, consecutive large boluses of thin liquid via straw, single teaspoon or cup sips of thin liquid (10 ounces total), puree (4 ounces total), or two saltine crackers. The patient's vocal quality remained aphonic, however, clear. Dietary Recommendations: Regular Liquid Recommendations: Thin Swallowing Precautions: Small Bites and Sips, Sitting 90 Degrees 30 Post Intake Dysphagia Evaluation Summary The patient demonstrated mild oral dysphagia characterized by increased mastication time with solids due to edentulous state. No signs/symptoms of aspiration were demonstrated with any consistency tested throughout the swallow evaluation. Speech-Plan Treatment Plan Speech Therapy Treatment Plan: Discontinue ST Evaluation, only. Frequency: 1 time per week Estimated Hrs Per Day: Other Rehab Potential: Guarded Safety Risks/Education Teaching Recipient: Patient Teaching Methods: Demonstration, Handout (written on in-room white board.), Discussion Response to Teaching: Verbalize Understanding Education Topics Provided: Signs/Symptoms of Aspiration, Aspiration Precautions, Swallowing Strategies, Recommendations Time Speech Therapy Time In: 11:30 Speech Therapy Time Out: 11:50 Total Billed Time: 20 Billed Treatment Time 1, KAMILLA OSULLIVAN Jun 23, 2017 12:02
[2017-06-23 12:32] LABS: BUN/CREATININE RATIO 20; CALCIUM 7.4 MG/DL (8.5-10.1); CARBON DIOXIDE 21 MMOL/L (21-32); CHLORIDE 113 MMOL/L (98-107); CREATININE SERUM 0.91 MG/DL (0.60-1.30); GFR ESTIMATED > 60; GLUCOSE 179 MG/DL (70-105); MAGNESIUM 1.7 MG/DL (1.8-2.4); PHOSPHORUS 2.6 MG/DL (2.3-4.7); SODIUM 143 MMOL/L (135-145)
[2017-06-23 12:39] LABS: POTASSIUM 2.5 MMOL/L (3.6-5.0)
[2017-06-23] MEDS: PIPERACILLIN SODIUM/TAZOBACTAM 4.5 GM in NS (IVPB) 100 ML IV SCH (16:51)
[2017-06-23] MEDS: inSUlin ASPART (NovoLOG) 1 UNIT/0.01 ML (CHARGE PER UNIT) SC SCH ×2 (16:55→20:41)
[2017-06-23 18:11] LABS: CALCIUM 7.6 MG/DL (8.5-10.1); CREATININE SERUM 1.08 MG/DL (0.60-1.30); MAGNESIUM 1.6 MG/DL (1.8-2.4); PHOSPHORUS 2.3 MG/DL (2.3-4.7); POTASSIUM 3.5 MMOL/L (3.6-5.0)
--- NOTE | 2017-06-23 20:01 | Progress Note (SOAP) ---
Subjective Subjective/Events-last exam Patient appears much more awake and alert this morning. She speaks in a whispered voice and complains of discomfort at her central line site. Evaluated by speech therapy immediately prior to exam due to nursing concerns about swallowing - patient was coughing with PO medications. Passed swallow study by speech therapy easily. Continues to require significant potassium replacement. Review of Systems Date Seen by Provider: Jun 23, 2017 Time Seen by Provider: 11:17 General: No Chills, No Night Sweats HEENT: No Head Aches, No Eye Pain, No Dysphasia Pulmonary: Dyspnea, Cough, No Pleuritic Chest Pain Cardiovascular: No: Chest Pain, Palpitations Gastrointestinal: No: Nausea, Vomiting, Abdominal Pain Genitourinary: No Hematuria, No Retention Musculoskeletal: neck pain (at CVL site), No: back pain Neurological: No: Incoordination, Confusion, Seizures Objective Exam Last Set of Vital Signs Vital Signs Date Time Temp Pulse Resp B/P (MAP) Pulse Ox O2 Delivery O2 Flow Rate FiO2 06/23/17 19:00 100 06/23/17 18:00 38 125/85 (98) Room Air 06/23/17 17:41 99.3 06/23/17 16:48 93 06/23/17 12:06 2.00 Capillary Refill : Less Than 3 Seconds I&O Intake and Output 06/23/17 00:00 Intake Total 6860 ml Output Total 3175 ml Balance 3685 ml Intake Oral 150 ml IV Total 6710 ml Output Urine Total 3175 ml # Bowel Movements 2 Daily Weight Change Unsure General: Alert, Oriented X3, Cooperative, Mild Distress HEENT: Atraumatic, EOMI, Mucous Memb Moist/[place] Neck: Supple, No Thyromegaly Lungs: Other (coarse throughout, diminished ) Heart: Regular Rate, Normal S1, Normal S2 Abdomen: Normal Bowel Sounds, Soft, No Tenderness Extremities: No Clubbing, No Cyanosis, No Edema Skin: No Rashes, No Significant Lesion Neuro: Normal Tone, Sensation Intact, Cranial Nerves 3-12 NL, Other (horse voice) Psych/Mental Status: Mood NL Results/Procedures Lab Laboratory Tests 06/22/17 20:36: Glucometer 132H 06/22/17 21:16: Glucometer 144H 06/22/17 21:47: Glucometer 152H 06/22/17 22:45: Glucometer 154H 06/22/17 23:47: Glucometer 150H 06/23/17 00:50: Sodium Level 145, Potassium Level 2.9L, Chloride Level 119H, Carbon Dioxide Level 17L, Anion Gap 9, Blood Urea Nitrogen 25H, Creatinine 1.08, Estimat Glomerular Filtration Rate 51, BUN/Creatinine Ratio 23, Glucose Level 118H, Calcium Level 7.5L 06/23/17 00:54: Glucometer 112H 06/23/17 01:29: Glucometer 155H 06/23/17 02:26: Glucometer 176H 06/23/17 03:10: White Blood Count 20.1H, Red Blood Count 3.34L, Hemoglobin 9.6L, Hematocrit 27L , Mean Corpuscular Volume 80, Mean Corpuscular Hemoglobin 29, Mean Corpuscular Hemoglobin Concent 36, Red Cell Distribution Width 13.1, Platelet Count 352, Mean Platelet Volume 9.6, Neutrophils (%) (Auto) 91H, Lymphocytes (%) (Auto) 5L , Monocytes (%) (Auto) 4, Eosinophils (%) (Auto) 0, Basophils (%) (Auto) 0, Neutrophils # (Auto) 18.2H, Lymphocytes # (Auto) 1.0, Monocytes # (Auto) 0.9, Eosinophils # (Auto) 0.0, Basophils # (Auto) 0.0, Sodium Level 144, Potassium Level 3.2L, Chloride Level 119H, Carbon Dioxide Level 16L, Anion Gap 9, Blood Urea Nitrogen 23H, Creatinine 1.04, Estimat Glomerular Filtration Rate 53, BUN/ Creatinine Ratio 22, Glucose Level 154H, Lactic Acid Level 2.57*H, Calcium Level 7.6L, Phosphorus Level < 0.7*L, Magnesium Level 1.9 06/23/17 03:24: Glucometer 159H 06/23/17 04:33: Glucometer 144H 06/23/17 05:02: Glucometer 154H 06/23/17 05:59: Glucometer 171H 06/23/17 06:02: Lactic Acid Level 2.56*H 06/23/17 06:50: Glucometer 172H 06/23/17 07:40: Sodium Level 142, Potassium Level 3.4L, Chloride Level 117H, Carbon Dioxide Level 19L, Anion Gap 6, Blood Urea Nitrogen 21H, Creatinine 0.96, Estimat Glomerular Filtration Rate 58, BUN/Creatinine Ratio 22, Glucose Level 174H, Calcium Level 7.6L, Phosphorus Level < 0.7*L, Magnesium Level 1.8 06/23/17 08:20: B-Type Natriuretic Peptide 264.5H 06/23/17 09:06: Glucometer 174H 06/23/17 10:03: Glucometer 183H 06/23/17 10:59: Glucometer 209H 06/23/17 12:06: Glucometer 180H, Sodium Level 143, Potassium Level 2.5*L, Chloride Level 113H, Carbon Dioxide Level 21, Anion Gap 9, Blood Urea Nitrogen 18, Creatinine 0.91, Estimat Glomerular Filtration Rate > 60, BUN/Creatinine Ratio 20, Glucose Level 179H, Calcium Level 7.4L, Phosphorus Level 2.6, Magnesium Level 1.7L 06/23/17 16:53: Glucometer 364H 06/23/17 17:37: Sodium Level 141, Potassium Level 3.5L, Chloride Level 109H, Carbon Dioxide Level 22, Anion Gap 10, Blood Urea Nitrogen 18, Creatinine 1.08, Estimat Glomerular Filtration Rate 51, BUN/Creatinine Ratio 17, Glucose Level 385H, Calcium Level 7.6L, Phosphorus Level 2.3, Magnesium Level 1.6L Microbiology 06/21/17 Blood Culture - Preliminary, Resulted No growth 06/22/17 MRSA Screen - Final, Complete MRSA not isolated Radiology CXR shows worsening 5-lobar PNA with volume overload Procedures s/p R IJ placement per surgery in ED Assessment/Plan Assessment/Plan Admission Dx see below Admission Status: Inpatient Order (span 2 midnights) Reason for Inpatient Admission: DKA Sepsis HCAP Altered Mental Status Hypokalemia Lactic Acidosis Pulmonary Edema Plan DKA 06/22 -patient admitted for DKA, however insulin gtt was held by eICU overnight and therefore there has been no improvement since arrival -insulin gtt immediately started when above was discovered -per ED records patient stopped taking insulin at home -potassium replacement and insulin gtt and repeat labs per protocol 06/23 -patient significantly improved from yesterday -anion gap, CO2 normalized -insulin gtt off this afternoon -continue to hold metformin, concern that lactic acidosis may be drug induced -resume home levemir, start sliding scale, accuchecks AC and HS -altered mental status significantly improved Sepsis and HCAP 06/22 -patient was discharged from hospital last week -CXR significant for PNA -Cefepime and Azithromycin started by ED -patient also with lactic acidosis and altered mental status -significant leukocytosis, WBC 37.7 --> 27.4 -blood cultures obtained on admission -central line placement by surgery in ED, Right IJ 06/23 -CXR shows worsening infiltrates and signs of volume overload -personal view of imaging coupled with I&O net +[id number] find volume overload a significant issue in this patient -abx changed to vanc and zosyn for broad HCAP coverage -WBC 37.7 -> 27.4 -> 20.1 -mental status significantly improved -cultures with no growth to date -repeat CXR in AM Pulmonary Edema 06/23 -I&O noted to be net +[id number] yesterday -BNP ordered off blood in lab -- elevated at 264.5 -CXR shows definite signs consisted with volume overload -albumin and lasix 40 mg IVP -monitor I&O and respiratory status closely, patient at extremely high risk for decompensation Lactic Acidosis 06/23 -initially attributed to sepsis, but should also consider metformin as a potential contributor to lactic acidosis -continue to trend out -2.6 -> 3.78 -> 2.57 -> 2.56 Hypokalemia 06/22 -continue replacement and BMP checks per protocol 06/23 -continue replacement -insulin gtt off this afternoon -recheck in AM DVT Ppx: Lovenox Clinical Quality Measures DVT/VTE Risk/Contraindication: Risk Factor Score Per Nursin RFS Level Per Nursing on Admit: 4+=Very High JOSH ACEVES DO Jun 23, 2017 20:00
[2017-06-23] MEDS: VANCOMYCIN 1250 MG/NS 250 ML IVPB IV SCH ×2 (20:41)
[2017-06-23] MEDS: inSUlin DETERMIR 1 UNIT/0.01 ML (LEVEMIR) CHARGE PER UNIT SQ SCH (20:41)
[2017-06-23] MEDS ORDERED: inSUlin DETERMIR 1000 UNITS/10 ML VIAL (LEVEMIR) SQ SCH (21:00)
[2017-06-24] VITALS (16 sets, daily range): BP systolic 126–141; BP diastolic 59–98
[2017-06-24] MEDS ORDERED: HYDROcodone/APAP 5 MG/325 MG (LORTAB) TAB PO PRN
[2017-06-24] MEDS ORDERED: fentaNYL INJECTION 100 MCG/2 ML AMP IVP PRN
[2017-06-24] MEDS ORDERED: ACETAMINOPHEN 500 MG TAB (TYLENOL) PO PRN
[2017-06-24] MEDS: PIPERACILLIN SODIUM/TAZOBACTAM 4.5 GM in NS (IVPB) 100 ML IV SCH ×3 (00:35→16:19)
[2017-06-24] MEDS: PHENYLEPHRINE INJECTION 10 MG in NS (IVPB) 250 ML IV SCH ×3 (00:43→09:06)
[2017-06-24 03:51] LABS: BASOPHILS % (AUTO) 0 % (0-10); EOSINOPHILS % (AUTO) 0 % (0-10); HEMATOCRIT 26 % (35-52); LYMPHOCYTES # (AUTO) 1.6 X 10^3 (1.0-4.0); LYMPHOCYTES % (AUTO) 12 % (12-44); MEAN CORPUSCULAR HEMOGLOBIN 28 PG (25-34); MEAN CORPUSCULAR HGB CONC 35 G/DL (32-36); MEAN CORPUSCULAR VOLUME 81 FL (80-99); MEAN PLATELET VOLUME 9.8 FL (7.4-10.4); MONOCYTES # (AUTO) 0.7 X 10^3 (0.0-1.0); MONOCYTES % (AUTO) 5 % (0-12); NEUTROPHILS # (AUTO) 10.9 X 10^3 (1.8-7.8); NEUTROPHILS % (AUTO) 82 % (42-75); PLATELET COUNT 328 10^3/uL (130-400); RED BLOOD COUNT 3.17 10^6/uL (4.35-5.85); RED CELL DISTRIBUTION WIDTH 13.4 % (10.0-14.5); WHITE BLOOD COUNT 13.2 10^3/uL (4.3-11.0)
[2017-06-24 04:02] LABS: BUN/CREATININE RATIO 22; CALCIUM 7.6 MG/DL (8.5-10.1); CARBON DIOXIDE 22 MMOL/L (21-32); CHLORIDE 110 MMOL/L (98-107); CREATININE SERUM 0.78 MG/DL (0.60-1.30); GFR ESTIMATED > 60; MAGNESIUM 1.6 MG/DL (1.8-2.4); PHOSPHORUS 1.7 MG/DL (2.3-4.7); SODIUM 145 MMOL/L (135-145)
[2017-06-24 04:04] LABS: GLUCOSE 59 MG/DL (70-105); POTASSIUM 2.4 MMOL/L (3.6-5.0)
[2017-06-24] MEDS: MAGNESIUM 1 GM/100 ML IVPB 100 ML IV SCH ×3 (04:17→06:30)
[2017-06-24] MEDS: inSUlin ASPART (NovoLOG) 1 UNIT/0.01 ML (CHARGE PER UNIT) SC SCH ×4 (04:18→20:50)
[2017-06-24] MEDS: NOREPINEPHRINE 4 MG in NS (IVPB) 250 ML IV SCH (04:28)
[2017-06-24] MEDS: POTASSIUM CL 10MEQ/50ML IVPB 50 ML IV SCH ×7 (06:12→09:31)
[2017-06-24] MEDS: KCL 20 MEQ TAB (K-DUR) PO SCH (06:12)
[2017-06-24] MEDS ORDERED: KCL 20 MEQ TAB (K-DUR) PO ONE (06:30)
--- NOTE | 2017-06-24 08:07 | Progress Note (SOAP) ---
Subjective Subjective/Events-last exam Patient continues to be in ICU. Overall she does not appear to be in any distress. She is answering questions appropriately. Her appetite is slowly returning but not near her usual amount. Review of Systems Date Seen by Provider: Jun 24, 2017 Time Seen by Provider: 07:15 Objective Exam Last Set of Vital Signs Vital Signs Date Time Temp Pulse Resp B/P (MAP) Pulse Ox O2 Delivery O2 Flow Rate FiO2 06/24/17 06:00 88 16 138/81 (100) 100 06/24/17 04:00 Room Air 06/24/17 04:00 96.9 06/23/17 12:06 2.00 Capillary Refill : Less Than 3 Seconds I&O Intake and Output 06/24/17 00:00 Intake Total 2628 ml Output Total 4480 ml Balance -1852 ml Intake Oral 200 ml IV Total 2428 ml Output Urine Total 4480 ml General: No Acute Distress Neck: Supple Lungs: Other (Clear overall however lower lung faint rails) Heart: Regular Rate Abdomen: Soft Skin: No Rashes Results/Procedures Lab Laboratory Tests 06/23/17 08:20: B-Type Natriuretic Peptide 264.5H 06/23/17 09:06: Glucometer 174H 06/23/17 10:03: Glucometer 183H 06/23/17 10:59: Glucometer 209H 06/23/17 12:06: Sodium Level 143, Potassium Level 2.5*L, Chloride Level 113H, Carbon Dioxide Level 21, Anion Gap 9, Blood Urea Nitrogen 18, Creatinine 0.91, Estimat Glomerular Filtration Rate > 60, BUN/Creatinine Ratio 20, Glucose Level 179H, Glucometer 180H, Calcium Level 7.4L, Phosphorus Level 2.6, Magnesium Level 1.7L 06/23/17 16:53: Glucometer 364H 06/23/17 17:37: Sodium Level 141, Potassium Level 3.5L, Chloride Level 109H, Carbon Dioxide Level 22, Anion Gap 10, Blood Urea Nitrogen 18, Creatinine 1.08, Estimat Glomerular Filtration Rate 51, BUN/Creatinine Ratio 17, Glucose Level 385H, Calcium Level 7.6L, Phosphorus Level 2.3, Magnesium Level 1.6L 06/23/17 20:30: Glucometer 260H 06/24/17 03:13: White Blood Count 13.2H, Red Blood Count 3.17L, Hemoglobin 9.0L, Hematocrit 26L , Mean Corpuscular Volume 81, Mean Corpuscular Hemoglobin 28, Mean Corpuscular Hemoglobin Concent 35, Red Cell Distribution Width 13.4, Platelet Count 328, Mean Platelet Volume 9.8, Neutrophils (%) (Auto) 82H, Lymphocytes (%) (Auto) 12 , Monocytes (%) (Auto) 5, Eosinophils (%) (Auto) 0, Basophils (%) (Auto) 0, Neutrophils # (Auto) 10.9H, Lymphocytes # (Auto) 1.6, Monocytes # (Auto) 0.7, Eosinophils # (Auto) 0.0, Basophils # (Auto) 0.0, Sodium Level 145, Potassium Level 2.4#*L, Chloride Level 110H, Carbon Dioxide Level 22, Anion Gap 13, Blood Urea Nitrogen 17, Creatinine 0.78, Estimat Glomerular Filtration Rate > 60, BUN/ Creatinine Ratio 22, Glucose Level 59*L, Lactic Acid Level 2.02*H, Calcium Level 7.6L, Phosphorus Level 1.7L, Magnesium Level 1.6L 06/24/17 05:30: Lactic Acid Level 3.60*H 06/24/17 05:51: Glucometer 114H Microbiology 06/21/17 Blood Culture - Preliminary, Resulted No growth 06/22/17 MRSA Screen - Final, Complete MRSA not isolated Radiology CXR shows PNA Procedures R IJ placement by Dr. Black Assessment/Plan Assessment/Plan Admission Status: Inpatient Order (span 2 midnights) Reason for Inpatient Admission: DKA Sepsis HCAP Altered Mental Status Hypokalemia Lactic Acidosis Pulmonary Edema Plan 1. DKA 06/22 -patient admitted for DKA, however insulin gtt was held by eICU overnight and therefore there has been no improvement since arrival -insulin gtt immediately started when above was discovered -per ED records patient stopped taking insulin at home -potassium replacement and insulin gtt and repeat labs per protocol 06/24 -Patient is on her insulin regimen and off the insulin drip -She has been started on her Levemir but this will be decreased to 10 units in the evening and then as she improves increased to her usual 18 units twice a day. 2. Sepsis and HCAP 06/22 -patient was discharged from hospital last week -CXR significant for PNA -Cefepime and Azithromycin started by ED -patient also with lactic acidosis and altered mental status -significant leukocytosis, WBC 37.7 --> 27.4 -blood cultures obtained on admission -central line placement by surgery in ED, Right IJ 06/24 -Patient currently on vancomycin and Zosyn 3. Hypokalemia 06/22 -continue replacement and BMP checks per protocol 06/24 -Patient has continued potassium replacement -Continue daily potassium monitoring. Clinical Quality Measures DVT/VTE Risk/Contraindication: Risk Factor Score Per Nursin RFS Level Per Nursing on Admit: 4+=Very High NINA ZUNIGA MD Jun 24, 2017 08:07
[2017-06-24] MEDS: inSUlin DETERMIR 1 UNIT/0.01 ML (LEVEMIR) CHARGE PER UNIT SQ SCH ×2 (08:09→20:51)
[2017-06-24] MEDS: BENZONATATE 100 MG (TESSALON) CAPSULE PO SCH ×3 (08:16→20:50)
[2017-06-24] MEDS: ENOXAPARIN 40 MG/0.4 ML (LOVENOX) SYR SC SCH (08:16)
--- NOTE | 2017-06-24 08:30 | Diagnostic Imaging Report ---
INDICATION: Pneumonia. Comparison made with prior examination from 06/23/2017 FINDINGS: Heart size is normal. There is some venous congestion. There is a left basilar infiltrate and left pleural effusion. There is no pneumothorax. The mediastinum is unremarkable. IMPRESSION: Left basilar infiltrate and left pleural effusion. Mild central pulmonary venous congestion. Dictated by: Dictated on workstation # [id number]
[2017-06-24] MEDS ORDERED: TROUGH ORDER-PHARMACY XX ONE (09:00)
[2017-06-24] MEDS: VANCOMYCIN 1250 MG/NS 250 ML IVPB IV SCH ×2 (09:38)
[2017-06-24] MEDS ORDERED: morphine INJ 4 MG/ML 1 ML (VIAL/SYRINGE) ONE (10:06)
[2017-06-24] MEDS: guaiFENesin/DM (ROBITUSSIN DM) 10 ML UDC PO PRN ×2 (13:56→19:04)
[2017-06-25] VITALS: BP 137/63
[2017-06-25] MEDS: guaiFENesin/DM (ROBITUSSIN DM) 10 ML UDC PO PRN (00:01)
[2017-06-25] MEDS: PIPERACILLIN SODIUM/TAZOBACTAM 4.5 GM in NS (IVPB) 100 ML IV SCH ×3 (00:03→17:09)
[2017-06-25 04:00] VITALS: BP 138/69
[2017-06-25] MEDS: inSUlin ASPART (NovoLOG) 1 UNIT/0.01 ML (CHARGE PER UNIT) SC SCH ×4 (06:23→21:08)
[2017-06-25 06:32] LABS: BASOPHILS % (AUTO) 0 % (0-10); EOSINOPHILS % (AUTO) 0 % (0-10); HEMATOCRIT 27 % (35-52); HEMOGLOBIN 9.4 G/DL (11.5-16.0); LYMPHOCYTES % (AUTO) 12 % (12-44); MEAN CORPUSCULAR HEMOGLOBIN 29 PG (25-34); MEAN CORPUSCULAR HGB CONC 35 G/DL (32-36); MEAN CORPUSCULAR VOLUME 83 FL (80-99); MEAN PLATELET VOLUME 9.3 FL (7.4-10.4); MONOCYTES # (AUTO) 0.6 X 10^3 (0.0-1.0); MONOCYTES % (AUTO) 8 % (0-12); NEUTROPHILS # (AUTO) 6.5 X 10^3 (1.8-7.8); NEUTROPHILS % (AUTO) 80 % (42-75); PLATELET COUNT 288 10^3/uL (130-400); RED BLOOD COUNT 3.25 10^6/uL (4.35-5.85); RED CELL DISTRIBUTION WIDTH 13.8 % (10.0-14.5); WHITE BLOOD COUNT 8.2 10^3/uL (4.3-11.0)
[2017-06-25 07:01] LABS: BUN/CREATININE RATIO 16; CALCIUM 7.3 MG/DL (8.5-10.1); CARBON DIOXIDE 27 MMOL/L (21-32); CHLORIDE 105 MMOL/L (98-107); CREATININE SERUM 0.75 MG/DL (0.60-1.30); GFR ESTIMATED > 60; GLUCOSE 241 MG/DL (70-105); MAGNESIUM 1.6 MG/DL (1.8-2.4); POTASSIUM 3.2 MMOL/L (3.6-5.0); SODIUM 141 MMOL/L (135-145)
[2017-06-25 08:00] VITALS: BP 126/68
--- NOTE | 2017-06-25 08:15 | Progress Note (SOAP) ---
Subjective Subjective/Events-last exam Patient in very good spirits this morning. She voices no major concerns. She still is coughing and reports it's productive. She is taking oral well. Review of Systems Date Seen by Provider: Jun 25, 2017 Time Seen by Provider: 07:15 Objective Exam Last Set of Vital Signs Vital Signs Date Time Temp Pulse Resp B/P (MAP) Pulse Ox O2 Delivery O2 Flow Rate FiO2 06/25/17 08:00 98.1 104 18 126/68 (87) 91 Room Air 06/23/17 12:06 2.00 Capillary Refill : Less Than 3 Seconds I&O Intake and Output 06/25/17 00:00 Intake Total 1760 ml Output Total 3275 ml Balance -1515 ml Intake Oral 1160 ml IV Total 600 ml Output Urine Total 3075 ml Post Void Residual 200 ml General: No Acute Distress HEENT: Mucous Memb Moist/[place] Neck: Other (IJ in place on right) Lungs: Clear to Auscultation (Except for a few rales in bases) Heart: Regular Rate Abdomen: Soft Skin: No Rashes, No Significant Lesion Neuro: Normal Speech Results/Procedures Lab Laboratory Tests 06/24/17 09:00: Lactic Acid Level 2.16*H, Vancomycin Level Trough 23.6H 06/24/17 12:19: Glucometer 104 06/24/17 16:09: Glucometer 191H 06/24/17 20:39: Glucometer 80 06/25/17 06:12: Glucometer 237H 06/25/17 06:24: White Blood Count 8.2, Red Blood Count 3.25L, Hemoglobin 9.4L, Hematocrit 27L, Mean Corpuscular Volume 83, Mean Corpuscular Hemoglobin 29, Mean Corpuscular Hemoglobin Concent 35, Red Cell Distribution Width 13.8, Platelet Count 288, Mean Platelet Volume 9.3, Neutrophils (%) (Auto) 80H, Lymphocytes (%) (Auto) 12 , Monocytes (%) (Auto) 8, Eosinophils (%) (Auto) 0, Basophils (%) (Auto) 0, Neutrophils # (Auto) 6.5, Lymphocytes # (Auto) 1.0, Monocytes # (Auto) 0.6, Eosinophils # (Auto) 0.0, Basophils # (Auto) 0.0, Sodium Level 141, Potassium Level 3.2L, Chloride Level 105, Carbon Dioxide Level 27, Anion Gap 9, Blood Urea Nitrogen 12, Creatinine 0.75, Estimat Glomerular Filtration Rate > 60, BUN/ Creatinine Ratio 16, Glucose Level 241H, Calcium Level 7.3L, Phosphorus Level 2.0L, Magnesium Level 1.6L Microbiology 06/21/17 Blood Culture - Preliminary, Resulted No growth 06/22/17 MRSA Screen - Final, Complete MRSA not isolated Radiology CXR shows PNA Procedures R IJ placement by Dr. Black Assessment/Plan Assessment/Plan Admission Status: Inpatient Order (span 2 midnights) Reason for Inpatient Admission: DKA Sepsis HCAP Altered Mental Status Hypokalemia Lactic Acidosis Pulmonary Edema Plan 1. DKA 06/22 -patient admitted for DKA, however insulin gtt was held by eICU overnight and therefore there has been no improvement since arrival -insulin gtt immediately started when above was discovered -per ED records patient stopped taking insulin at home -potassium replacement and insulin gtt and repeat labs per protocol 06/24 -Patient is on her insulin regimen and off the insulin drip -She has been started on her Levemir but this will be decreased to 10 units in the evening and then as she improves increased to her usual 18 units twice a day. 06/25 adjust Levemir as her diet improves 2. Sepsis and HCAP 06/22 -patient was discharged from hospital last week -CXR significant for PNA -Cefepime and Azithromycin started by ED -patient also with lactic acidosis and altered mental status -significant leukocytosis, WBC 37.7 --> 27.4 -blood cultures obtained on admission -central line placement by surgery in ED, Right IJ 06/24 -Patient currently on vancomycin and Zosyn 06/25 -Vancomycin and Zosyn continue. -Will add on albuterol breathing treatments 3. Hypokalemia 06/22 -continue replacement and BMP checks per protocol 06/24 -Patient has continued potassium replacement -Continue daily potassium monitoring. 06/25 potassium this morning is noted to be 3.2 -We'll recheck BMP in the morning -As her DKA is now stabilizing the potassium is improving. Will adjust potassium and intake as necessary. Clinical Quality Measures DVT/VTE Risk/Contraindication: Risk Factor Score Per Nursin RFS Level Per Nursing on Admit: 4+=Very High NINA ZUNIGA MD Jun 25, 2017 08:15
[2017-06-25] MEDS ORDERED: VANCOMYCIN 1250 MG/NS 250 ML IVPB IV SCH ×2 (09:00)
[2017-06-25] MEDS: ENOXAPARIN 40 MG/0.4 ML (LOVENOX) SYR SC SCH (09:38)
[2017-06-25] MEDS: BENZONATATE 100 MG (TESSALON) CAPSULE PO SCH ×3 (09:38→21:08)
--- NOTE | 2017-06-25 09:44 | Diagnostic Imaging Report ---
INDICATION: Pneumonia. COMPARISON: 06/24/2017 FINDINGS: Heart size is normal. There is venous congestion. There are bibasilar infiltrates, left greater than right. There is a left pleural effusion. There is no pneumothorax. The mediastinum is unremarkable. IMPRESSION: Bibasilar infiltrates, left greater than right, with a left pleural effusion. Mild central pulmonary venous congestion. Dictated by: Dictated on workstation # [id number]
[2017-06-25 12:00] VITALS: BP 130/68
[2017-06-25 16:00] VITALS: BP 118/64
[2017-06-25] MEDS ORDERED: RT-ALBUTEROL SULF 2.5 MG/3 ML PRE-MIX VIAL ONE (17:46)
[2017-06-25] MEDS: RT-ALBUTEROL SULF 2.5 MG/3 ML PRE-MIX VIAL INH SCH (18:56)
[2017-06-25 20:00] VITALS: BP 114/57
[2017-06-25] MEDS: inSUlin DETERMIR 1 UNIT/0.01 ML (LEVEMIR) CHARGE PER UNIT SQ SCH (21:09)
[2017-06-26] MEDS: PIPERACILLIN SODIUM/TAZOBACTAM 4.5 GM in NS (IVPB) 100 ML IV SCH ×3 (00:48→16:20)
[2017-06-26 00:58] VITALS: BP 118/60
[2017-06-26] MEDS: inSUlin ASPART (NovoLOG) 1 UNIT/0.01 ML (CHARGE PER UNIT) SC SCH ×4 (05:49→21:11)
[2017-06-26 05:56] LABS: BASOPHILS % (AUTO) 0 % (0-10); EOSINOPHILS # (AUTO) 0.1 10^3/uL (0.0-0.3); EOSINOPHILS % (AUTO) 1 % (0-10); HEMATOCRIT 27 % (35-52); HEMOGLOBIN 9.2 G/DL (11.5-16.0); LYMPHOCYTES # (AUTO) 1.7 X 10^3 (1.0-4.0); LYMPHOCYTES % (AUTO) 19 % (12-44); MEAN CORPUSCULAR HEMOGLOBIN 29 PG (25-34); MEAN CORPUSCULAR HGB CONC 34 G/DL (32-36); MEAN CORPUSCULAR VOLUME 85 FL (80-99); MEAN PLATELET VOLUME 9.7 FL (7.4-10.4); MONOCYTES # (AUTO) 0.9 X 10^3 (0.0-1.0); MONOCYTES % (AUTO) 9 % (0-12); NEUTROPHILS # (AUTO) 6.6 X 10^3 (1.8-7.8); NEUTROPHILS % (AUTO) 71 % (42-75); PLATELET COUNT 319 10^3/uL (130-400); RED BLOOD COUNT 3.21 10^6/uL (4.35-5.85); WHITE BLOOD COUNT 9.2 10^3/uL (4.3-11.0)
[2017-06-26 06:03] LABS: BUN/CREATININE RATIO 17; CALCIUM 7.5 MG/DL (8.5-10.1); CARBON DIOXIDE 28 MMOL/L (21-32); CHLORIDE 104 MMOL/L (98-107); CREATININE SERUM 0.71 MG/DL (0.60-1.30); GFR ESTIMATED > 60; GLUCOSE 122 MG/DL (70-105); SODIUM 143 MMOL/L (135-145)
[2017-06-26 06:05] LABS: POTASSIUM 2.4 MMOL/L (3.6-5.0)
[2017-06-26 08:00] VITALS: BP 125/68
[2017-06-26] MEDS: RT-ALBUTEROL SULF 2.5 MG/3 ML PRE-MIX VIAL INH SCH ×2 (08:32→19:34)
[2017-06-26] MEDS ORDERED: NS (IVPB) 250 ML ONE ×2 (08:51→17:03)
[2017-06-26] MEDS: POTASSIUM CL 10MEQ/50ML IVPB 50 ML IV SCH ×8 (08:56→21:11)
[2017-06-26] MEDS: BENZONATATE 100 MG (TESSALON) CAPSULE PO SCH ×3 (09:02→21:17)
[2017-06-26] MEDS: KCL 10 MEQ TAB (MICRO K) PO SCH ×2 (09:02→21:16)
[2017-06-26] MEDS: ENOXAPARIN 40 MG/0.4 ML (LOVENOX) SYR SC SCH (09:02)
--- NOTE | 2017-06-26 11:23 | Progress Note (SOAP) ---
Subjective Subjective/Events-last exam Tmax 100.3, has been borderline tachycardic. She denies concerns and is hopeful to go home soon. She reports she was not taking metformin at home because she couldn't afford it and states she has never taken insulin, although per clinic report, it had been obtained for her and she had not picked it up. Review of Systems Date Seen by Provider: Jun 26, 2017 Time Seen by Provider: 10:00 Objective Exam Last Set of Vital Signs Vital Signs Date Time Temp Pulse Resp B/P (MAP) Pulse Ox O2 Delivery O2 Flow Rate FiO2 06/26/17 08:32 93 Room Air 06/26/17 08:00 97.3 84 18 125/68 (87) 06/23/17 12:06 2.00 Capillary Refill : Less Than 3 Seconds I&O Intake and Output 06/26/17 00:00 Intake Total 1610 ml Output Total 1650 ml Balance -40 ml Intake Oral 1610 ml Output Urine Total 1650 ml # Voids 2 # Bowel Movements 2 General: Alert, No Acute Distress Lungs: Clear to Auscultation, Normal Air Movement Heart: Regular Rate, No Murmurs Psych/Mental Status: Mental Status NL, Mood NL Results/Procedures Lab Laboratory Tests 06/25/17 11:24: Glucometer 268H 06/25/17 16:11: Glucometer 185H 06/25/17 20:49: Glucometer 132H 06/26/17 05:45: White Blood Count 9.2, Red Blood Count 3.21L, Hemoglobin 9.2L, Hematocrit 27L, Mean Corpuscular Volume 85, Mean Corpuscular Hemoglobin 29, Mean Corpuscular Hemoglobin Concent 34, Red Cell Distribution Width 14.0, Platelet Count 319, Mean Platelet Volume 9.7, Neutrophils (%) (Auto) 71, Lymphocytes (%) (Auto) 19, Monocytes (%) (Auto) 9, Eosinophils (%) (Auto) 1, Basophils (%) (Auto) 0, Neutrophils # (Auto) 6.6, Lymphocytes # (Auto) 1.7, Monocytes # (Auto) 0.9, Eosinophils # (Auto) 0.1, Basophils # (Auto) 0.0, Sodium Level 143, Potassium Level 2.4*L, Chloride Level 104, Carbon Dioxide Level 28, Anion Gap 11, Blood Urea Nitrogen 12, Creatinine 0.71, Estimat Glomerular Filtration Rate > 60, BUN/ Creatinine Ratio 17, Glucose Level 122H, Calcium Level 7.5L 06/26/17 05:46: Glucometer 125H Microbiology 06/21/17 Blood Culture - Preliminary, Resulted No growth 06/22/17 MRSA Screen - Final, Complete MRSA not isolated Radiology CXR shows PNA Procedures R IJ placement by Dr. Black Assessment/Plan Assessment/Plan Assessment & Plan 1. DKA 06/22 -patient admitted for DKA, however insulin gtt was held by eICU overnight and therefore there has been no improvement since arrival -insulin gtt immediately started when above was discovered -per ED records patient stopped taking insulin at home -potassium replacement and insulin gtt and repeat labs per protocol 06/24 -Patient is on her insulin regimen and off the insulin drip -She has been started on her Levemir but this will be decreased to 10 units in the evening and then as she improves increased to her usual 18 units twice a day. 06/25 adjust Levemir as her diet improves 06/25- blood sugar 125-237 last 24 hours with 10 units of Levemir at night and sliding scale doses of 0-8 units, no insulin adjustment today 2. Sepsis and HCAP 06/22 -patient was discharged from hospital last week -CXR significant for PNA -Cefepime and Azithromycin started by ED -patient also with lactic acidosis and altered mental status -significant leukocytosis, WBC 37.7 --> 27.4 -blood cultures obtained on admission -central line placement by surgery in ED, Right IJ 06/24 -Patient currently on vancomycin and Zosyn 06/25 -Vancomycin and Zosyn continue. -Will add on albuterol breathing treatments 06/26- d/c vancomycin, continue Zosyn, consider d/c when 24 hours afebrile 3. Hypokalemia 06/22 -continue replacement and BMP checks per protocol 06/24 -Patient has continued potassium replacement -Continue daily potassium monitoring. 06/25 potassium this morning is noted to be 3.2 -We'll recheck BMP in the morning -As her DKA is now stabilizing the potassium is improving. Will adjust potassium and intake as necessary. 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 DVT ppx- on therapeutic Eliquis Clinical Quality Measures DVT/VTE Risk/Contraindication: Risk Factor Score Per Nursin RFS Level Per Nursing on Admit: 4+=Very High KINJAL CONWAY MD Jun 26, 2017 11:22 am
[2017-06-26 16:00] VITALS: BP 135/74
[2017-06-26] MEDS: APIXABAN 5 MG (ELIQUIS) TABLET PO SCH (21:17)
[2017-06-26] MEDS: inSUlin DETERMIR 1 UNIT/0.01 ML (LEVEMIR) CHARGE PER UNIT SQ SCH (21:17)
[2017-06-27] VITALS (11 sets, daily range): BP systolic 114–186; BP diastolic 1–91
[2017-06-27] MEDS: PIPERACILLIN SODIUM/TAZOBACTAM 4.5 GM in NS (IVPB) 100 ML IV SCH ×3 (01:22→17:28)
[2017-06-27 06:04] LABS: HEMOGLOBIN 8.9 G/DL (11.5-16.0); MEAN PLATELET VOLUME 9.5 FL (7.4-10.4); RED BLOOD COUNT 3.07 10^6/uL (4.35-5.85); RED CELL DISTRIBUTION WIDTH 14.5 % (10.0-14.5); WHITE BLOOD COUNT 8.8 10^3/uL (4.3-11.0)
[2017-06-27 06:17] LABS: BUN/CREATININE RATIO 14; CALCIUM 8.2 MG/DL (8.5-10.1); CARBON DIOXIDE 28 MMOL/L (21-32); CHLORIDE 109 MMOL/L (98-107); CREATININE SERUM 0.74 MG/DL (0.60-1.30); GFR ESTIMATED > 60; GLUCOSE 169 MG/DL (70-105); POTASSIUM 3.7 MMOL/L (3.6-5.0); SODIUM 146 MMOL/L (135-145)
[2017-06-27] MEDS: guaiFENesin/DM (ROBITUSSIN DM) 10 ML UDC PO PRN ×2 (06:18→16:17)
[2017-06-27] MEDS: inSUlin ASPART (NovoLOG) 1 UNIT/0.01 ML (CHARGE PER UNIT) SC SCH ×4 (06:18→21:10)
[2017-06-27] MEDS: RT-ALBUTEROL SULF 2.5 MG/3 ML PRE-MIX VIAL INH SCH ×2 (07:47→20:04)
[2017-06-27] MEDS ORDERED: TROUGH ORDER-PHARMACY XX ONE (08:00)
[2017-06-27] MEDS: APIXABAN 5 MG (ELIQUIS) TABLET PO SCH ×2 (08:48→21:11)
[2017-06-27] MEDS: KCL 10 MEQ TAB (MICRO K) PO SCH ×2 (08:48→21:11)
[2017-06-27] MEDS: BENZONATATE 100 MG (TESSALON) CAPSULE PO SCH ×3 (08:48→21:11)
[2017-06-27] MEDS ORDERED: METF500T4 PO (09:01)
[2017-06-27] MEDS ORDERED: INSU100V5 SQ (09:01)
[2017-06-27] MEDS ORDERED: CEFD300C3 PO (09:01)
--- NOTE | 2017-06-27 09:12 | Discharge Instructions ---
Discharge [facility] Discharge Medications New, Converted or Re-Newed RX: Transmitted to Pharmacy New Medications: Cefdinir (Cefdinir) 300 Mg Capsule 300 MG PO BID for 7 Days, #14 CAP 0 Refills Changed Medications: Insulin Determir (Levemir) 1,000 Units/10 Ml Soln 15 UNIT SQ DAILY for 30 Days, EA (Changed from: 18 UNIT; BID) Metformin HCl (Metformin HCl) 500 Mg Tablet 500 MG PO BID, #60 TAB 0 Refills (Changed from: Refills: ; Removed Instructions) Continued Medications: Apixaban (Eliquis) 5 Mg Tablet 5 MG PO BID, TAB Potassium Chloride (Klor-Con M20) 20 Meq Tab.er.prt 20 MEQ PO DAILY for 30 Days, #30 Patient Instructions Patient Instructions Your insulin is ready at [facility] as a sample, you need to go to Internal Medicine clinic at [facility] and ask for your insulin. Your metformin and Omnicef ( antibiotic) have been sent to the pharmacy at [facility]. If you cannot afford them , please talk to the nurse at Internal Medicine. Goal/Follow Up Appt: Follow up on June [address] Watson. Meet with Charline Saenz, bulk sugar handler at [facility] at 1:30 pm today to get blood sugar meter and insulin teaching. Return to [facility] For: Fever, worsening shortness of breath, high blood sugar. Activity & Diet Discharge Diet: ADA Diet Activity as Tolerated: Yes Orders-Post D/C & Referrals Pneu Vac Indicated: Yes Copy Copies To 1: MATHEUS WATSON MD, BETHANY N MD Jun 27, 2017 09:04
[2017-06-27] MEDS ORDERED: PROPOFOL DRIP (ICU) 0 ML IV ONE (12:36)
[2017-06-27] MEDS ORDERED: NS IV 1000 ML 0 ML ONE (12:36)
[2017-06-27 12:40] LABS: BASOPHILS % (AUTO) 0 % (0-10); EOSINOPHILS % (AUTO) 0 % (0-10); HEMATOCRIT 36 % (35-52); HEMOGLOBIN 11.8 G/DL (11.5-16.0); LYMPHOCYTES % (AUTO) 25 % (12-44); MEAN CORPUSCULAR HEMOGLOBIN 29 PG (25-34); MEAN CORPUSCULAR HGB CONC 33 G/DL (32-36); MEAN CORPUSCULAR VOLUME 89 FL (80-99); MEAN PLATELET VOLUME 9.5 FL (7.4-10.4); MONOCYTES # (AUTO) 1.1 X 10^3 (0.0-1.0); MONOCYTES % (AUTO) 9 % (0-12); NEUTROPHILS % (AUTO) 66 % (42-75); PLATELET COUNT 441 10^3/uL (130-400); RED BLOOD COUNT 4.07 10^6/uL (4.35-5.85); RED CELL DISTRIBUTION WIDTH 15.3 % (10.0-14.5); WHITE BLOOD COUNT 12.2 10^3/uL (4.3-11.0)
[2017-06-27 12:55] LABS: INR 1.3 (0.8-1.4); PROTHROMBIN TIME PATIENT 16.3 SEC (12.2-14.7)
--- NOTE | 2017-06-27 12:59 | Progress Note (SOAP) ---
Subjective Subjective/Events-last exam Uneventful overnight and plan was to send Bushra home today and she was anxious to go. However, shortly after her nurse removed her central line, her sons noted she was acting strange and called the nurse to the room. Bushra became clammy and increasingly unresponsive and code kali was called. On my arrival, code was in process with chest compressions being done and code management per Dr. Bales (hospitalist) and ventilation being provided by Anesthesia. IV access proved difficult to obtain, intubation was done with plan to give epinephrine via ET, however shortly after intubation, patient started moving and monitor showed apparent normal rhythm and bedside nurse and Anesthesia reported normal pulse. She became more agitated and her heart rate and blood pressure were normal as well as her oxygenation, so ET tube was removed and she was initially coughing quite a bit and groaning, but shortly thereafter was alert and oriented to location and asking if she could still go home. She has some chest tenderness and marked cough but denies other complaints. Her blood sugar was noted to be above 200 at time of code. The last thing she recalls was eating lunch and she does admit she gagged and coughed with her food, but did not vomit or cough any up. Review of Systems Date Seen by Provider: Jun 27, 2017 Time Seen by Provider: 12:20 Objective Exam Last Set of Vital Signs Vital Signs Date Time Temp Pulse Resp B/P (MAP) Pulse Ox O2 Delivery O2 Flow Rate FiO2 06/27/17 08:20 Room Air 06/27/17 08:00 98.2 97 20 132/63 (86) 94 06/23/17 12:06 2.00 Capillary Refill : Less Than 3 Seconds I&O Intake and Output 06/27/17 00:00 Intake Total 2622 ml Output Total 1830 ml Balance 792 ml Intake Oral 1360 ml IV Total 1262 ml Output Urine Total 1830 ml # Bowel Movements 3 General: Alert, No Acute Distress Lungs: Other (Diffuse left ronchi) Heart: Other (tachycardic, no murmur, regular) Abdomen: Normal Bowel Sounds, Soft Extremities: Other (mild pedal edema) Neuro: Normal Speech Psych/Mental Status: Mental Status NL Results/Procedures Lab Laboratory Tests 06/26/17 16:09: Glucometer 157H 06/26/17 16:24: Potassium Level 3.2L 06/26/17 20:46: Glucometer 139H 06/27/17 05:04: Glucometer 166H 06/27/17 05:48: White Blood Count 8.8, Red Blood Count 3.07L, Hemoglobin 8.9L, Hematocrit 27L, Mean Corpuscular Volume 87, Mean Corpuscular Hemoglobin 29, Mean Corpuscular Hemoglobin Concent 33, Red Cell Distribution Width 14.5, Platelet Count 313, Mean Platelet Volume 9.5, Sodium Level 146H, Potassium Level 3.7, Chloride Level 109H, Carbon Dioxide Level 28, Anion Gap 9, Blood Urea Nitrogen 10, Creatinine 0.74, Estimat Glomerular Filtration Rate > 60, BUN/Creatinine Ratio 14, Glucose Level 169H, Calcium Level 8.2L 06/27/17 08:50: Vancomycin Level Trough 6.9L 06/27/17 11:05: Glucometer 189H 06/27/17 12:07: Glucometer 238H 06/27/17 12:30: White Blood Count 12.2H, Red Blood Count 4.07L, Hemoglobin 11.8#, Hematocrit 36 , Mean Corpuscular Volume 89, Mean Corpuscular Hemoglobin 29, Mean Corpuscular Hemoglobin Concent 33, Red Cell Distribution Width 15.3H, Platelet Count 441H, Mean Platelet Volume 9.5, Neutrophils (%) (Auto) 66, Lymphocytes (%) (Auto) 25, Monocytes (%) (Auto) 9, Eosinophils (%) (Auto) 0, Basophils (%) (Auto) 0, Neutrophils # (Auto) 8.0H, Lymphocytes # (Auto) 3.0, Monocytes # (Auto) 1.1H, Eosinophils # (Auto) 0.0, Basophils # (Auto) 0.0 Microbiology 06/21/17 Blood Culture - Preliminary, Resulted No growth 06/22/17 MRSA Screen - Final, Complete MRSA not isolated Procedures R IJ placement by Dr. Black Assessment/Plan Assessment/Plan Assessment & Plan 1. DKA 06/22 -patient admitted for DKA, however insulin gtt was held by eICU overnight and therefore there has been no improvement since arrival -insulin gtt immediately started when above was discovered -per ED records patient stopped taking insulin at home -potassium replacement and insulin gtt and repeat labs per protocol 06/24 -Patient is on her insulin regimen and off the insulin drip -She has been started on her Levemir but this will be decreased to 10 units in the evening and then as she improves increased to her usual 18 units twice a day. 06/25 adjust Levemir as her diet improves 06/25- blood sugar 125-237 last 24 hours with 10 units of Levemir at night and sliding scale doses of 0-8 units, no insulin adjustment today 06/27- blood sugar and labs remain unremarkable and plan was for discharge today , however see below for code event plans 2. Sepsis and HCAP 06/22 -patient was discharged from hospital last week -CXR significant for PNA -Cefepime and Azithromycin started by ED -patient also with lactic acidosis and altered mental status -significant leukocytosis, WBC 37.7 --> 27.4 -blood cultures obtained on admission -central line placement by surgery in ED, Right IJ 06/24 -Patient currently on vancomycin and Zosyn 06/25 -Vancomycin and Zosyn continue. -Will add on albuterol breathing treatments 06/26- d/c vancomycin, continue Zosyn, consider d/c when 24 hours afebrile 06/27- after code event noted to have significant ronchi on left, repeat CXR pending but with left sided infiltrate per my read. Continue zosyn, supplemental oxygen via nasal cannula, currently requiring 2 lpm. 3. Hypokalemia 06/22 -continue replacement and BMP checks per protocol 06/24 -Patient has continued potassium replacement -Continue daily potassium monitoring. 06/25 potassium this morning is noted to be 3.2 -We'll recheck BMP in the morning -As her DKA is now stabilizing the potassium is improving. Will adjust potassium and intake as necessary. 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 Code blue- appreciate hospitalist assistance, see code blue documentation 06/27 just after noon, patient had some bleeding from site of IJ removal and noted to become clammy and unresponsive. She recovered pulse, blood pressure and mental status completely after chest compression and a brief period of bag mask and bag to ET tube ventilation. Unclear etiology, possible severe vasovagal reaction to IJ removal versus aspiration versus cardiac event or recurrent PE. EKG with no ST elevation. Troponin, D-dimer, CMP, CBC, PT/INR, PTT pending. Unable to obtain lactic acid due to difficult stick. Will monitor on telemetry and re-evaluate as results return. Will obtain neck US given time proximity of bleeding and code event- no further bleeding noted and bleeding appeared fairly minimal. 6. DVT ppx- on therapeutic Eliqu Clinical Quality Measures DVT/VTE Risk/Contraindication: Risk Factor Score Per Nursin RFS Level Per Nursing on Admit: 4+=Very High KINJAL CONWAY MD Jun 27, 2017 12:59 pm
--- NOTE | 2017-06-27 12:59 | Diagnostic Imaging Report ---
INDICATION: Status post CODE BLUE. COMPARISON: 06/25/2017. FINDINGS: Single frontal radiographic view of the chest was obtained. Cardiac silhouette is within normal limits. There is mild pulmonary vascular congestion and mild diffuse prominence of the pulmonary interstitium. There is persistent dnue-sj-cvjllfey left basilar effusion with associated left basilar airspace disease. No large effusion is seen on the right. There is no pneumothorax on either side. Overall, aeration is stable. Right internal jugular central venous catheter has since been removed. Bony structures show no new acute osseous abnormality. IMPRESSION: 1. Pulmonary vascular congestion with mild interstitial pulmonary edema. 2. Stable micl-jl-ebxeopoh left-sided effusion with associated left basilar atelectasis and/or infiltrate. Dictated by: Dictated on workstation # [id number]
[2017-06-27 13:00] LABS: BUN/CREATININE RATIO 12; CALCIUM 8.5 MG/DL (8.5-10.1); CARBON DIOXIDE 26 MMOL/L (21-32); CHLORIDE 103 MMOL/L (98-107); CREATININE SERUM 0.93 MG/DL (0.60-1.30); GFR ESTIMATED > 60; GLUCOSE 270 MG/DL (70-105); POTASSIUM 3.6 MMOL/L (3.6-5.0); SODIUM 139 MMOL/L (135-145)
[2017-06-27 13:12] LABS: FIBRIN DEGRADATION PRODUCTS 7.6 UG/ML (0.00-0.49)
[2017-06-27] MEDS ORDERED: NS IV 1000 ML 1,000 ML IV ONE (13:34)
--- NOTE | 2017-06-27 13:34 | Progress Note-Standard ---
Standard Progress Note Progress Notes/Assess & Plan Date Seen by Provider: Jun 27, 2017 Time Seen by Provider: 12:05 Progress/Assessment & Plan Anesthesia Note ([id number]) Responded to kulwant bass. Pt laying in chair unresponsive and chest compressions already were started. Dr. Bales was the code leader and we moved patient back to her bed to allow for better compressions. The patient just had her central line D/C'd and was going to be discharged to home so she had no IV access. I assisted with ventilating the patient and she remained unresponsive so Dr Bales asked me to intubate the patient. A 7.5 cuffed ETT was passed easily through the VC using a MAC 3 blade and was secured with BS = B/L at 23 cm at the lips. Shortly after the ETT was placed, the patient became responsive and was breathing well on her own with stable VS so the ETT was removed. Dr Smith was also at the code and agreed with the course of action. Will be available if needed. PATRIA SHARMA DO Jun 27, 2017 13:34
[2017-06-27] MEDS: KETOROLAC 30 MG/ML VIAL IVP PRN (14:44)
[2017-06-27] MEDS ORDERED: CHLORASEPTIC SPRAY 177 ML LIQUID MC PRN (14:45)
--- NOTE | 2017-06-27 15:04 | Diagnostic Imaging Report ---
INDICATION: Bleeding in the right neck at the patient's internal jugular catheter site. TECHNIQUE: Sonographic interrogation of the right neck soft tissues was performed. No fluid collection or hematoma is identified. There is blood flow in the right common carotid artery and internal jugular vein. No thrombus is seen. IMPRESSION: Unremarkable right neck ultrasound. No neck hematoma is identified. Dictated by: Dictated on workstation # [id number]
[2017-06-27] MEDS: inSUlin DETERMIR 1 UNIT/0.01 ML (LEVEMIR) CHARGE PER UNIT SQ SCH (21:10)
[2017-06-28] MEDS: guaiFENesin/DM (ROBITUSSIN DM) 10 ML UDC PO PRN (01:47)
[2017-06-28] MEDS: PIPERACILLIN SODIUM/TAZOBACTAM 4.5 GM in NS (IVPB) 100 ML IV SCH ×3 (01:47→16:32)
[2017-06-28 03:00] VITALS: BP 140/66
[2017-06-28] MEDS: KCL 10 MEQ TAB (MICRO K) PO SCH ×2 (07:59→21:19)
[2017-06-28] MEDS: inSUlin ASPART (NovoLOG) 1 UNIT/0.01 ML (CHARGE PER UNIT) SC SCH ×4 (07:59→21:18)
[2017-06-28] MEDS: APIXABAN 5 MG (ELIQUIS) TABLET PO SCH ×2 (07:59→21:19)
[2017-06-28] MEDS: BENZONATATE 100 MG (TESSALON) CAPSULE PO SCH ×3 (08:00→21:19)
[2017-06-28 08:28] VITALS: BP 152/68
[2017-06-28 09:52] LABS: BASOPHILS % (AUTO) 0 % (0-10); EOSINOPHILS # (AUTO) 0.1 10^3/uL (0.0-0.3); EOSINOPHILS % (AUTO) 0 % (0-10); HEMATOCRIT 31 % (35-52); HEMOGLOBIN 10.1 G/DL (11.5-16.0); LYMPHOCYTES # (AUTO) 1.7 X 10^3 (1.0-4.0); LYMPHOCYTES % (AUTO) 13 % (12-44); MEAN CORPUSCULAR HEMOGLOBIN 29 PG (25-34); MEAN CORPUSCULAR HGB CONC 33 G/DL (32-36); MEAN CORPUSCULAR VOLUME 89 FL (80-99); MEAN PLATELET VOLUME 9.5 FL (7.4-10.4); MONOCYTES % (AUTO) 16 % (0-12); NEUTROPHILS # (AUTO) 8.8 X 10^3 (1.8-7.8); NEUTROPHILS % (AUTO) 70 % (42-75); PLATELET COUNT 340 10^3/uL (130-400); RED BLOOD COUNT 3.46 10^6/uL (4.35-5.85); RED CELL DISTRIBUTION WIDTH 15.2 % (10.0-14.5); WHITE BLOOD COUNT 12.5 10^3/uL (4.3-11.0)
[2017-06-28 10:07] LABS: BUN/CREATININE RATIO 16; CALCIUM 8.3 MG/DL (8.5-10.1); CARBON DIOXIDE 26 MMOL/L (21-32); CHLORIDE 104 MMOL/L (98-107); GFR ESTIMATED > 60; GLUCOSE 168 MG/DL (70-105); POTASSIUM 3.4 MMOL/L (3.6-5.0); SODIUM 140 MMOL/L (135-145)
[2017-06-28] MEDS: RT-ALBUTEROL SULF 2.5 MG/3 ML PRE-MIX VIAL INH SCH ×2 (11:12→19:26)
--- NOTE | 2017-06-28 11:21 | Progress Note (SOAP) ---
Subjective Subjective/Events-last exam Afebrile, has some chest soreness with movement but denies other concerns. She has been mildly tachycardic and required supplemental oxygen up to 2 lpm for a period after her code event yesterday, but is currently stable on room air and hoping to go home soon. Review of Systems Date Seen by Provider: Jun 28, 2017 Time Seen by Provider: 10:57 Objective Exam Last Set of Vital Signs Vital Signs Date Time Temp Pulse Resp B/P (MAP) Pulse Ox O2 Delivery O2 Flow Rate FiO2 06/28/17 11:14 78 Room Air 06/28/17 08:28 97.7 99 20 152/68 (96) 06/28/17 08:00 0.00 Capillary Refill : Less Than 3 Seconds I&O Intake and Output 06/28/17 00:00 Intake Total 2580 ml Output Total 850 ml Balance 1730 ml Intake Oral 1480 ml IV Total 1100 ml Output Urine Total 850 ml # Bowel Movements 2 General: Alert, No Acute Distress Lungs: Other (left lower decreased air movement) Heart: Regular Rate, No Murmurs Neuro: Normal Speech Psych/Mental Status: Mental Status NL Results/Procedures Lab Laboratory Tests 06/27/17 12:07: Glucometer 238H 06/27/17 12:30: White Blood Count 12.2H, Red Blood Count 4.07L, Hemoglobin 11.8#, Hematocrit 36 , Mean Corpuscular Volume 89, Mean Corpuscular Hemoglobin 29, Mean Corpuscular Hemoglobin Concent 33, Red Cell Distribution Width 15.3H, Platelet Count 441H, Mean Platelet Volume 9.5, Neutrophils (%) (Auto) 66, Lymphocytes (%) (Auto) 25, Monocytes (%) (Auto) 9, Eosinophils (%) (Auto) 0, Basophils (%) (Auto) 0, Neutrophils # (Auto) 8.0H, Lymphocytes # (Auto) 3.0, Monocytes # (Auto) 1.1H, Eosinophils # (Auto) 0.0, Basophils # (Auto) 0.0, Prothrombin Time 16.3H, INR Comment 1.3, Activated Partial Thromboplast Time 30, D-Dimer 7.60H, Sodium Level 139, Potassium Level 3.6, Chloride Level 103, Carbon Dioxide Level 26, Anion Gap 10, Blood Urea Nitrogen 11, Creatinine 0.93, Estimat Glomerular Filtration Rate > 60, BUN/Creatinine Ratio 12, Glucose Level 270H, Calcium Level 8.5, Troponin I < 0.30 06/27/17 16:08: Glucometer 265H 06/27/17 20:56: Glucometer 226H 06/28/17 05:07: Glucometer 222H 06/28/17 09:35: White Blood Count 12.5H, Red Blood Count 3.46L, Hemoglobin 10.1L, Hematocrit 31L , Mean Corpuscular Volume 89, Mean Corpuscular Hemoglobin 29, Mean Corpuscular Hemoglobin Concent 33, Red Cell Distribution Width 15.2H, Platelet Count 340, Mean Platelet Volume 9.5, Neutrophils (%) (Auto) 70, Lymphocytes (%) (Auto) 13, Monocytes (%) (Auto) 16H, Eosinophils (%) (Auto) 0, Basophils (%) (Auto) 0, Neutrophils # (Auto) 8.8H, Lymphocytes # (Auto) 1.7, Monocytes # (Auto) 2.0H, Eosinophils # (Auto) 0.1, Basophils # (Auto) 0.0, Sodium Level 140, Potassium Level 3.4L, Chloride Level 104, Carbon Dioxide Level 26, Anion Gap 10, Blood Urea Nitrogen 13, Creatinine 0.80, Estimat Glomerular Filtration Rate > 60, BUN/ Creatinine Ratio 16, Glucose Level 168H, Calcium Level 8.3L Microbiology 06/21/17 Blood Culture - Final, Complete No growth 06/22/17 MRSA Screen - Final, Complete MRSA not isolated Procedures R IJ placement by Dr. Black Assessment/Plan Assessment/Plan Assessment & Plan 1. DKA 06/22 -patient admitted for DKA, however insulin gtt was held by eICU overnight and therefore there has been no improvement since arrival -insulin gtt immediately started when above was discovered -per ED records patient stopped taking insulin at home -potassium replacement and insulin gtt and repeat labs per protocol 06/24 -Patient is on her insulin regimen and off the insulin drip -She has been started on her Levemir but this will be decreased to 10 units in the evening and then as she improves increased to her usual 18 units twice a day. 06/25 adjust Levemir as her diet improves 06/25- blood sugar 125-237 last 24 hours with 10 units of Levemir at night and sliding scale doses of 0-8 units, no insulin adjustment today 06/27- blood sugar and labs remain unremarkable and plan was for discharge today , however see below for code event plans 2. Sepsis and HCAP 06/22 -patient was discharged from hospital last week -CXR significant for PNA -Cefepime and Azithromycin started by ED -patient also with lactic acidosis and altered mental status -significant leukocytosis, WBC 37.7 --> 27.4 -blood cultures obtained on admission -central line placement by surgery in ED, Right IJ 06/24 -Patient currently on vancomycin and Zosyn 06/25 -Vancomycin and Zosyn continue. -Will add on albuterol breathing treatments 06/26- d/c vancomycin, continue Zosyn, consider d/c when 24 hours afebrile 06/27- after code event noted to have significant ronchi on left, repeat CXR pending but with left sided infiltrate per my read. Continue zosyn, supplemental oxygen via nasal cannula, currently requiring 2 lpm. 06/27 Chest x-ray with continued left infiltrate/effusion but stable on room air , continue zosyn and likely d/c tomorrow if ambulating with desaturation 3. Hypokalemia 06/22 -continue replacement and BMP checks per protocol 06/24 -Patient has continued potassium replacement -Continue daily potassium monitoring. 06/25 potassium this morning is noted to be 3.2 -We'll recheck BMP in the morning -As her DKA is now stabilizing the potassium is improving. Will adjust potassium and intake as necessary. 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 Code blue- appreciate hospitalist assistance, see code blue documentation 06/27 just after noon, patient had some bleeding from site of IJ removal and noted to become clammy and unresponsive. She recovered pulse, blood pressure and mental status completely after chest compression and a brief period of bag mask and bag to ET tube ventilation. Unclear etiology, possible severe vasovagal reaction to IJ removal versus aspiration versus cardiac event or recurrent PE. EKG with no ST elevation. Troponin, D-dimer, CMP, CBC, PT/INR, PTT pending. Unable to obtain lactic acid due to difficult stick. Will monitor on telemetry and re-evaluate as results return. Will obtain neck US given time proximity of bleeding and code event- no further bleeding noted and bleeding appeared fairly minimal. 06/28 neck US unremarkable. D-dimer elevated, but given known history of PE and already on treatment and currently stable, it is not clear that CTA chest would chemical cell changer, so will continue to monitor for now. 6. DVT ppx- on therapeutic Eliquis Clinical Quality Measures DVT/VTE Risk/Contraindication: Risk Factor Score Per Nursin RFS Level Per Nursing on Admit: 4+=Very High KINJAL CONWAY MD Jun 28, 2017 11:21 am
[2017-06-28 11:31] VITALS: BP 118/55
[2017-06-28 16:00] VITALS: BP 136/66
[2017-06-28] MEDS ORDERED: KCL 20 MEQ TAB (K-DUR) PO NR (17:00)
[2017-06-28 20:10] VITALS: BP 126/54
[2017-06-28] MEDS: inSUlin DETERMIR 1 UNIT/0.01 ML (LEVEMIR) CHARGE PER UNIT SQ SCH (21:18)
[2017-06-29 00:24] VITALS: BP 116/76
[2017-06-29] MEDS: PIPERACILLIN SODIUM/TAZOBACTAM 4.5 GM in NS (IVPB) 100 ML IV SCH ×3 (00:49→17:43)
[2017-06-29] MEDS: guaiFENesin/DM (ROBITUSSIN DM) 10 ML UDC PO PRN (03:32)
[2017-06-29 04:14] VITALS: BP 129/74
[2017-06-29 05:58] LABS: HEMOGLOBIN 8.8 G/DL (11.5-16.0); MEAN PLATELET VOLUME 9.7 FL (7.4-10.4); RED BLOOD COUNT 3.06 10^6/uL (4.35-5.85); RED CELL DISTRIBUTION WIDTH 15.1 % (10.0-14.5); WHITE BLOOD COUNT 8.8 10^3/uL (4.3-11.0)
[2017-06-29 06:30] LABS: BUN/CREATININE RATIO 15; CALCIUM 8.2 MG/DL (8.5-10.1); CARBON DIOXIDE 22 MMOL/L (21-32); CHLORIDE 103 MMOL/L (98-107); CREATININE SERUM 0.82 MG/DL (0.60-1.30); GFR ESTIMATED > 60; GLUCOSE 213 MG/DL (70-105); SODIUM 137 MMOL/L (135-145)
[2017-06-29 08:00] VITALS: BP 142/82
[2017-06-29] MEDS: APIXABAN 5 MG (ELIQUIS) TABLET PO SCH ×2 (08:19→21:28)
[2017-06-29] MEDS: inSUlin ASPART (NovoLOG) 1 UNIT/0.01 ML (CHARGE PER UNIT) SC SCH ×4 (08:20→21:39)
[2017-06-29] MEDS: KCL 10 MEQ TAB (MICRO K) PO SCH ×2 (08:20→21:28)
[2017-06-29] MEDS: BENZONATATE 100 MG (TESSALON) CAPSULE PO SCH ×3 (08:20→21:28)
[2017-06-29] MEDS: KETOROLAC 30 MG/ML VIAL IVP PRN (08:51)
[2017-06-29] MEDS: RT-ALBUTEROL SULF 2.5 MG/3 ML PRE-MIX VIAL INH SCH ×2 (09:01→19:41)
--- NOTE | 2017-06-29 10:12 | Diagnostic Imaging Report ---
INDICATION: Tachycardia, chest pain. PA and lateral chest. FINDINGS: There is consolidation in left lower lung with an effusion. There is some atelectasis at the right lung base. Heart size is normal. IMPRESSION: Left basilar consolidation with an effusion. This is likely due to pneumonia. Appears similar to comparison study dated 06/27/2017. There is some right basilar atelectasis that appears slightly improved compared to the prior study. Dictated by: Dictated on workstation # [id number]
--- NOTE | 2017-06-29 10:37 | Progress Note (SOAP) ---
Subjective Subjective/Events-last exam Tmax 100.0. Intermittently requiring supplemental oxygen. Pulse mostly elevated or borderline elevated. She does state she is feeling a little better but doesn' t feel ready to go home. Review of Systems Date Seen by Provider: Jun 29, 2017 Time Seen by Provider: 09:57 Objective Exam Last Set of Vital Signs Vital Signs Date Time Temp Pulse Resp B/P (MAP) Pulse Ox O2 Delivery O2 Flow Rate FiO2 06/29/17 09:02 95 Nasal Cannula 3.00 06/29/17 08:00 98.2 98 20 142/82 (102) Capillary Refill : Less Than 3 Seconds I&O Intake and Output 06/29/17 00:00 Intake Total 4640 ml Output Total 1050 ml Balance 3590 ml Intake Oral 1540 ml IV Total 3100 ml Output Urine Total 1050 ml # Voids 1 # Bowel Movements 1 General: Alert, Mild Distress Lungs: Clear to Auscultation, Normal Air Movement Heart: No Murmurs, Other (tachycardia) Extremities: No Edema Psych/Mental Status: Mental Status NL Results/Procedures Lab Laboratory Tests 06/28/17 10:59: Glucometer 134H 06/28/17 16:27: Glucometer 290H 06/28/17 20:04: Glucometer 282H 06/29/17 05:30: White Blood Count 8.8, Red Blood Count 3.06L, Hemoglobin 8.8L, Hematocrit 27L, Mean Corpuscular Volume 90, Mean Corpuscular Hemoglobin 29, Mean Corpuscular Hemoglobin Concent 32, Red Cell Distribution Width 15.1H, Platelet Count 337, Mean Platelet Volume 9.7, Sodium Level 137, Potassium Level 4.0, Chloride Level 103, Carbon Dioxide Level 22, Anion Gap 12, Blood Urea Nitrogen 12, Creatinine 0.82, Estimat Glomerular Filtration Rate > 60, BUN/Creatinine Ratio 15, Glucose Level 213H, Calcium Level 8.2L Microbiology 06/21/17 Blood Culture - Final, Complete No growth 06/22/17 MRSA Screen - Final, Complete MRSA not isolated Procedures R IJ placement by Dr. Black Assessment/Plan Assessment/Plan Assessment & Plan 1. DKA 06/22 -patient admitted for DKA, however insulin gtt was held by eICU overnight and therefore there has been no improvement since arrival -insulin gtt immediately started when above was discovered -per ED records patient stopped taking insulin at home -potassium replacement and insulin gtt and repeat labs per protocol 06/24 -Patient is on her insulin regimen and off the insulin drip -She has been started on her Levemir but this will be decreased to 10 units in the evening and then as she improves increased to her usual 18 units twice a day. 06/25 adjust Levemir as her diet improves 06/25- blood sugar 125-237 last 24 hours with 10 units of Levemir at night and sliding scale doses of 0-8 units, no insulin adjustment today 06/27- blood sugar and labs remain unremarkable and plan was for discharge today , however see below for code event plans 06/29- blood sugar running above 200 last 24 hours, increase Levemir to 15 units nightly 2. Sepsis and HCAP 06/22 -patient was discharged from hospital last week -CXR significant for PNA -Cefepime and Azithromycin started by ED -patient also with lactic acidosis and altered mental status -significant leukocytosis, WBC 37.7 --> 27.4 -blood cultures obtained on admission -central line placement by surgery in ED, Right IJ 06/24 -Patient currently on vancomycin and Zosyn 06/25 -Vancomycin and Zosyn continue. -Will add on albuterol breathing treatments 06/26- d/c vancomycin, continue Zosyn, consider d/c when 24 hours afebrile 06/27- after code event noted to have significant ronchi on left, repeat CXR pending but with left sided infiltrate per my read. Continue zosyn, supplemental oxygen via nasal cannula, currently requiring 2 lpm. 06/28 Chest x-ray with continued left infiltrate/effusion but stable on room air , continue zosyn and likely d/c tomorrow if ambulating without desaturation 06/29- remains short of breath and requiring supplemental oxygen intermittently as well as Tmax of 100.0, will repeat CXR and continue zosyn, IS and encourage ambulation 3. Hypokalemia 06/22 -continue replacement and BMP checks per protocol 06/24 -Patient has continued potassium replacement -Continue daily potassium monitoring. 06/25 potassium this morning is noted to be 3.2 -We'll recheck BMP in the morning -As her DKA is now stabilizing the potassium is improving. Will adjust potassium and intake as necessary. 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 Code blue- appreciate hospitalist assistance, see code blue documentation 06/27 just after noon, patient had some bleeding from site of IJ removal and noted to become clammy and unresponsive. She recovered pulse, blood pressure and mental status completely after chest compression and a brief period of bag mask and bag to ET tube ventilation. Unclear etiology, possible severe vasovagal reaction to IJ removal versus aspiration versus cardiac event or recurrent PE. EKG with no ST elevation. Troponin, D-dimer, CMP, CBC, PT/INR, PTT pending. Unable to obtain lactic acid due to difficult stick. Will monitor on telemetry and re-evaluate as results return. Will obtain neck US given time proximity of bleeding and code event- no further bleeding noted and bleeding appeared fairly minimal. 06/28 neck US unremarkable. D-dimer elevated, but given known history of PE and already on treatment and currently stable, it is not clear that CTA chest would climate change analyst, so will continue to monitor for now. 6. DVT ppx- on therapeutic Eliquis Clinical Quality Measures DVT/VTE Risk/Contraindication: Risk Factor Score Per Nursin RFS Level Per Nursing on Admit: 4+=Very High KINJAL CONWAY MD Jun 29, 2017 10:37 am
[2017-06-29 13:50] VITALS: BP 142/82
[2017-06-29 15:30] VITALS: BP 109/55
[2017-06-29 20:07] VITALS: BP 107/53
[2017-06-29] MEDS ORDERED: inSUlin DETERMIR 1 UNIT/0.01 ML (LEVEMIR) CHARGE PER UNIT SQ SCH (21:00)
[2017-06-30 00:43] VITALS: BP 128/62
[2017-06-30] MEDS: PIPERACILLIN SODIUM/TAZOBACTAM 4.5 GM in NS (IVPB) 100 ML IV SCH (00:44)
[2017-06-30] MEDS: inSUlin ASPART (NovoLOG) 1 UNIT/0.01 ML (CHARGE PER UNIT) SC SCH (05:57)
[2017-06-30 06:05] LABS: HEMOGLOBIN 8.7 G/DL (11.5-16.0); MEAN PLATELET VOLUME 9.6 FL (7.4-10.4); RED BLOOD COUNT 3.01 10^6/uL (4.35-5.85); RED CELL DISTRIBUTION WIDTH 15.5 % (10.0-14.5); WHITE BLOOD COUNT 7.5 10^3/uL (4.3-11.0)
[2017-06-30 06:25] LABS: BUN/CREATININE RATIO 17; CALCIUM 8.1 MG/DL (8.5-10.1); CARBON DIOXIDE 25 MMOL/L (21-32); CHLORIDE 107 MMOL/L (98-107); CREATININE SERUM 0.78 MG/DL (0.60-1.30); GFR ESTIMATED > 60; GLUCOSE 105 MG/DL (70-105); POTASSIUM 4.6 MMOL/L (3.6-5.0); SODIUM 141 MMOL/L (135-145)
[2017-06-30 06:34] VITALS: BP 124/63
[2017-06-30] MEDS: RT-ALBUTEROL SULF 2.5 MG/3 ML PRE-MIX VIAL INH SCH (07:02)
[2017-06-30 08:23] VITALS: BP 118/60
[2017-06-30] MEDS: APIXABAN 5 MG (ELIQUIS) TABLET PO SCH (08:47)
[2017-06-30] MEDS: BENZONATATE 100 MG (TESSALON) CAPSULE PO SCH (08:47)
[2017-06-30] MEDS: KCL 10 MEQ TAB (MICRO K) PO SCH (08:47)
--- NOTE | 2017-06-30 10:47 | Discharge Summary ---
Diagnosis/Chief Complaint Date of Admission Jun 21, 2017 at 11:30 pm Date of Discharge Jul 01, 2017 Admission Diagnosis Admission Diagnosis DKA Sepsis HCAP Hypokalemia Discharge Diagnosis 1. DKA 06/22 -patient admitted for DKA, however insulin gtt was held by eICU overnight and therefore there has been no improvement since arrival -insulin gtt immediately started when above was discovered -per ED records patient stopped taking insulin at home -potassium replacement and insulin gtt and repeat labs per protocol 06/24 -Patient is on her insulin regimen and off the insulin drip -She has been started on her Levemir but this will be decreased to 10 units in the evening and then as she improves increased to her usual 18 units twice a day. 06/25 adjust Levemir as her diet improves 06/25- blood sugar 125-237 last 24 hours with 10 units of Levemir at night and sliding scale doses of 0-8 units, no insulin adjustment today 06/27- blood sugar and labs remain unremarkable and plan was for discharge today , however see below for code event plans 06/29- blood sugar running above 200 last 24 hours, increase Levemir to 15 units nightly 06/30 transferred to swing bed 2. Sepsis and HCAP 06/22 -patient was discharged from hospital last week -CXR significant for PNA -Cefepime and Azithromycin started by ED -patient also with lactic acidosis and altered mental status -significant leukocytosis, WBC 37.7 --> 27.4 -blood cultures obtained on admission -central line placement by surgery in ED, Right IJ 06/24 -Patient currently on vancomycin and Zosyn 06/25 -Vancomycin and Zosyn continue. -Will add on albuterol breathing treatments 06/26- d/c vancomycin, continue Zosyn, consider d/c when 24 hours afebrile 06/27- after code event noted to have significant ronchi on left, repeat CXR pending but with left sided infiltrate per my read. Continue zosyn, supplemental oxygen via nasal cannula, currently requiring 2 lpm. 06/28 Chest x-ray with continued left infiltrate/effusion but stable on room air , continue zosyn and likely d/c tomorrow if ambulating without desaturation 06/29- remains short of breath and requiring supplemental oxygen intermittently as well as Tmax of 100.0, will repeat CXR and continue zosyn, IS and encourage ambulation 06/30 continues to require supplemental oxygen, but afebrile and leukocytosis resolved. Continue zosyn. Will check CTA as noted below. Transfer to swing bed today. 3. Hypokalemia 06/22 -continue replacement and BMP checks per protocol 06/24 -Patient has continued potassium replacement -Continue daily potassium monitoring. 06/25 potassium this morning is noted to be 3.2 -We'll recheck BMP in the morning -As her DKA is now stabilizing the potassium is improving. Will adjust potassium and intake as necessary. 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 Code blue- appreciate hospitalist assistance, see code blue documentation 06/27 just after noon, patient had some bleeding from site of IJ removal and noted to become clammy and unresponsive. She recovered pulse, blood pressure and mental status completely after chest compression and a brief period of bag mask and bag to ET tube ventilation. Unclear etiology, possible severe vasovagal reaction to IJ removal versus aspiration versus cardiac event or recurrent PE. EKG with no ST elevation. Troponin, D-dimer, CMP, CBC, PT/INR, PTT pending. Unable to obtain lactic acid due to difficult stick. Will monitor on telemetry and re-evaluate as results return. Will obtain neck US given time proximity of bleeding and code event- no further bleeding noted and bleeding appeared fairly minimal. 06/28 neck US unremarkable. D-dimer elevated, but given known history of PE and already on treatment and currently stable, it is not clear that CTA chest would change management director, so will continue to monitor for now. 06/30- will obtain CTA chest given continued dependence on supplemental oxygen and high D dimer. Although she is on treatment dose of Eliquis, she has been on it long enough to decrease to prophylactic dosing if she does not have recurrent PE at this time. Chief Complaint/HPI Chief Complaint/HPI Patient presented to ED with altered mental status and found to be in DKA and with PNA and profound hypokalemia. Patient remains altered and is unable to provide any information at the time of exam, no family is present, and ED records also contain a similar story. It appears that patient was not taking any of her medication after being discharged from the hospital last week. Patient with long history of hospital admissions for DKA secondary to noncompliance. Discharge Summary-Simple/Stand Procedures R IJ placement by Dr. Black Consultations Discharge Physical Examination Allergies: Coded Allergies: No Known Drug Allergies (Unverified , 05/16/14) Vitals & I&Os Vital Sign - Last 12Hours Date Time Temp Pulse Resp B/P (MAP) Pulse Ox O2 Delivery O2 Flow Rate FiO2 06/30/17 08:23 97.9 89 18 118/60 (79) 91 Nasal Cannula 2.50 Intake and Output 06/30/17 00:00 Intake Total 2220 ml Output Total 550 ml Balance 1670 ml General Appearance: Alert, No Acute Distress Respiratory: Clear to Auscultation, Normal Air Movement Cardiovascular: Regular Rate, No Murmurs Neuro: Normal Speech Psych/Mental Status: Mental Status NL Hospital Course See final discharge diagnosis. Labs Laboratory Tests 06/30/17 05:40 Discharge Instructions to patient/family Please see electronic discharge instructions given to patient. Discharge Medications Reviewed and agree with Discharge Medication list on patient's Discharge Instruction sheet Clinical Quality Measures DVT/VTE Risk/Contraindication: Risk Factor Score Per Nursin RFS Level Per Nursing on Admit: 4+=Very High Copy Copies To 1: MATHEUS WATSON MD, BETHANY N MD Jun 30, 2017 10:47 am
== END 2017-06-30 10:53 | disposition swing bed (61) | DRG 871 ==
LOC: EDUNIT# 21:50 → ER 21:51 → ICU 23:30 → 4TH 06-24 11:42 → EDPENDDISDT 06-30 13:00
PROVIDERS: ADMIT Family Medicine; ATTEND Family Medicine
PROC: 0BH17EZ Insertion of Endotracheal Airway into Trachea, Via Natural or Artificial Opening (ICD-10-PCS; principal; 2017-06-27)
DX: A41.9 Sepsis, unspecified organism (principal); R65.20 Severe sepsis without septic shock; J18.9 Pneumonia, unspecified organism; N17.9 Acute kidney failure, unspecified; E11.10 Type 2 diabetes mellitus with ketoacidosis without coma; E87.6 Hypokalemia; R40.4 Transient alteration of awareness; R79.1 Abnormal coagulation profile; R04.2 Hemoptysis; I10 Essential (primary) hypertension; J81.1 Chronic pulmonary edema; R31.9 Hematuria, unspecified; I87.2 Venous insufficiency (chronic) (peripheral); E11.51 Type 2 diabetes mellitus with diabetic peripheral angiopathy without gangrene; K21.9 Gastro-esophageal reflux disease without esophagitis; K59.09 Other constipation; T38.3X5A Adverse effect of insulin and oral hypoglycemic [antidiabetic] drugs, initial encounter; K64.9 Unspecified hemorrhoids; M19.91 Primary osteoarthritis, unspecified site; Z91.19 Patient's noncompliance with other medical treatment and regimen; Z87.891 Personal history of nicotine dependence; Z86.711 Personal history of pulmonary embolism; Z86.718 Personal history of other venous thrombosis and embolism
CPT/HCPCS: 36415; 51702; 71045; 71046; 76536; 80048; 80053; 80202; 80306; 80320; 81000; 82150; 82805; 82962; 83605; 83690; 83735; 83880; 84100; 84132; 84145; 84439; 84443; 84484; 85007; 85025; 85027; 85379; 85610; 85730; 87040; 87081; 93005; 93041; 94640; 94664; 94760; 96361; 96365; 96375

== ENCOUNTER 2017-06-30 09:43 | Inpatient (IN) | payer MEDICARE ==
[~2017-06-30] VITALS: Ht 162.6 cm; Wt 82.6 kg
[~2017-06-30 09:43] MED LIST changes: +CEFD300C3 PO
[2017-06-30] MEDS: inSUlin ASPART (NovoLOG) 1 UNIT/0.01 ML (CHARGE PER UNIT) SC SCH ×3 (11:00→20:50)
[2017-06-30] MEDS ORDERED: CATHETER FLUSH 10 ML SYR IV PRN ×2 (11:00→14:15)
[2017-06-30] MEDS ORDERED: CHLORASEPTIC SPRAY 177 ML LIQUID MC PRN (11:00)
[2017-06-30] MEDS ORDERED: ACETAMINOPHEN 500 MG TAB (TYLENOL) PO PRN (11:00)
[2017-06-30] MEDS ORDERED: KETOROLAC 30 MG/ML VIAL IVP PRN (11:00)
[2017-06-30] MEDS: BENZONATATE 100 MG (TESSALON) CAPSULE PO SCH ×2 (13:00→20:18)
[2017-06-30] MEDS ORDERED: NS 250 ML (IVPB) BAG IV ONE (14:15)
[2017-06-30] MEDS ORDERED: IOHEXOL 350 MG/ML 150 ML (OMNIPAQUE 350) VIAL IV ONE (14:15)
[2017-06-30] MEDS ORDERED: RECEIVED CONTRAST (Hold Metformin) IV SCH (14:15)
--- NOTE | 2017-06-30 15:41 | Diagnostic Imaging Report ---
PROCEDURE: CT angiography of the chest with contrast. TECHNIQUE: Multiple contiguous axial images were obtained through the chest after uneventful bolus administration of intravenous contrast. Reconstructed CTA MIP acquisitions were also performed. INDICATION: Shortness of breath, chest pain with elevated d-dimer. COMPARISON: Comparison is made with prior CT chest from 08/09/2016. FINDINGS: Evaluation of the pulmonary arterial system is without evidence of thromboembolism. No filling defects are identified within the central, lobar and segmental branches. Extensive thromboemboli noted on prior CT angio chest study from 08/09/2016 have resolved. The thoracic aorta is normal caliber. No dissection is identified. There is no pericardial fluid. There are large bilateral pleural effusions. Pleural fluid on the right layers dependently to a thickness of approximately 5.7 cm. There is a large effusion on the left which could be partially loculated along the left lateral chest wall measuring to a thickness of approximately 4 cm. There is a moderate amount of dependent fluid as well posteriorly. No axillary lymphadenopathy is seen. There are some mildly prominent mediastinal lymph nodes present. A prevascular node measures short axis 8 mm. There appears to be some soft tissue fullness in the subcarinal region as well. There is questionable circumferential wall thickening of the esophagus in the mid and distal portion. Pulmonary parenchymal evaluation does demonstrate patchy groundglass infiltrates in the right upper lobe to a lesser degree in the left upper lobe. There is also consolidation/atelectasis in the right lower lobe with air bronchograms present. This is noted to a lesser degree in the posterior right lower lobe. The central airways are patent. There are regions of low density within the consolidated lung in the left lower lobe, the largest is approximately 19 mm in size. Very early pulmonary abscess development cannot be excluded. There is an area of air density in the left lower chest at the margin of the consolidated lung and pleural fluid. This area measures approximately 2.7 cm. Possibility of developing bronchopleural fistula cannot be entirely excluded. The upper abdomen is unremarkable. IMPRESSION: 1. No evidence of pulmonary embolism. Previously noted extensive bilateral and saddle emboli noted on CT study from 08/09/2016 have resolved. 2. Development of large bilateral pleural effusions with areas of bilateral infiltrates and parenchymal consolidation. There may be a loculated component to the pleural fluid on the left side. Air density along the parenchymal pleural margin on the left is noted and the possibility of developing bronchopleural fistula cannot be entirely excluded. There is also areas of low density within the consolidated lung in the left lower lobe, suspicious for developing pulmonary abscesses. Prominent lymph nodes in the mediastinum may be reactive. Dictated by: Dictated on workstation # [id number]
--- NOTE | 2017-06-30 15:42 | Physical Therapy Evaluation ---
PT Evaluation-General Medical Diagnosis Admission Date Jun 30, 2017 at 10:59 Medical Diagnosis: DKA, PNA, hypokalemia Onset Date: Jun 26, 2017 Therapy Diagnosis Therapy Diagnosis: Impaired functional mobility, strength, and activity tolerance Height/Weight Height (Feet): 5 Height (Inches): 4.00 Weight (Pounds): 182 Weight (Ounces): 2.0 Precautions Precautions/Isolations: Fall Prevention, Standard Precautions, Pressure Ulcer Weight Bear Status Right Lower Extremity: Right Weight Bearing/Tolerated Left Lower Extremity: Left Weight Bearing/Tolerated Referral Physician: Kiera Smith MD Reason for Referral: Evaluation/Treatment Medical History Pertinent Medical History: Arthritis, DM, GERD, HTN Additional Medical History Pulmonary embolism, DVT, PVD, enlarged heart, chronic constipation, hemorrhoids , gall bladder disease, 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 Prior/Core FIM Prior Level of Function Functional [place] Measure 0=Not Assessed/NA 4=Minimal Assistance 1=Total Assistance 5=Supervision or Setup 2=Maximal Assistance 6=Modified [place] 3=Moderate Assistance 7=Complete [place] Bed Mobility: 6 Transfers (B,C,W/C) (FIM): 6 Gait: 6 Locomotion: 6 PT Evaluation-Current Subjective Pt is laying in bed pre tx with pain rated at 8/10 in the chest with no visual signs of distress. Pt coughs heavily and intermittently. Pt agrees to PT. Patient states that her pain is not chest pain due to cardiac reasons but from coughing. Pain Numeric Pain Scale: 8 Location Body Site: Chest Pt/Family Goals [place] at home Objective Patient Orientation: Normal For Age Attachments: Oxygen (2 L), IV ROM/Strength ROM Lower Extremities WFL chiqui Strenght Lower Extremities Grossly 4/5 chiqui Neuromuscular (Tone, Coordination, Reflexes) NT Sensory Vision: Functional Hearing: Functional Sensation Right Lower Extremit: Intact Sensation Left Lower Extremity: Intact Transfers Functional [place] Measure 0=Not Assessed/NA 4=Minimal Assistance 1=Total Assistance 5=Supervision or Setup 2=Maximal Assistance 6=Modified [place] 3=Moderate Assistance 7=Complete [place] Transfers (B, C, W/C) (FIM): 4 Scootin Rollin Supine to/from Sit: 5 Sit to/from Stand: 4 Sit to Lying (QC): 4 Lying to Sitting/Side of Bed(Q: 4 Sit to Stand (QC): 4 Chair/Lxs-sb-Jdpxn Xfer(QC): 4 SBA required for bed mobility and CGA needed for transfers. Gait Does the Patient Walk?: Yes Mode of Locomotion: Walk Anticipated Mode of Locomotion: Walk Gait (FIM): 2 Distance (FIM): 9=685-55 ft Distance: 100 feet Walk 50 ft with 2 Turns(QC): 4 Walk 150 ft (QC): 88 Gait Level of Assist: 4 Gait Persons Needed: 1 Gait Assistive Device: FWW Comments/Gait Description Pt relies heavily on the FWW during ambulation as she leans forward for support. Wheelchair Training Does the Pt Use a Wheelchair?: No Balance Sitting Static: Normal Sitting Dynamic: Normal Standing Static: Fair Standing Dynamic: Fair Treatment Supine exercises: Heel slides: 15 x1 BLE, Ankle pumps: 15 x1 BLE Assessment/Needs Pt demonstrates poor activity tolerance and strength in BLE. Pt has 1+ edema in the RLE with reports of pain when anterior lower leg was pressed. Pt will benefit from PT services to address mentioned impairments. Rehab Potential: Fair Equipment Needs Toilet riser, FWW PT Industrial Cafeteria Manager Goals Industrial Cafeteria Manager Goals PT Group Home Goals Time Frame: Jul 07, 2017 Transfers (B,C,W/C) (FIM): 6 Sit to Lying (QC): 6 Lying-Sitting on Side/Bed(QC): 6 Sit to Stand (QC): 6 Rollin Chair/Dpb-lc-Rswxb Xfer(QC): 6 Does the Patient Walk: Yes Gait (FIM): 6 Distance: 150 feet Walk 50ft with 2 Turns (QC): 6 Walk 150 ft (QC): 6 Gait Level of Assist: 6 Gait Assistive Device: FWW Does the Pt use WC or Scooter?: No PT Plan Problem List Problem List: Activity Tolerance, Functional Strength, Safety, Balance, Gait, Transfer, Bed Mobility, ROM Treatment/Plan Treatment Plan: Continue Plan of Care Treatment Plan: Bed Mobility, Education, Functional Activity Bimal, Functional Strength, Gait, Safety, Therapeutic Exercise, Transfers Treatment Duration: Jul 07, 2017 Frequency: 6 times per week Estimated Hrs Per Day: .25 hour per day (15-30 min) Patient and/or Family Agrees t: Yes Safety Risks/Education Patient Education: Gait Training, Transfer Techniques, Correct Positioning, Safety Issues Teaching Recipient: Patient Teaching Methods: Demonstration, Discussion Response to Teaching: Reinforcement Needed Discharge Recommendations Plan Pt will perform bed mobility and transfer training, gait and stair training, strength and activity tolerance training, balance and education training in order to promote independence at home. Therapy D/C Recommendations: Home w/ Family Support Equpiment Recommendations-D/C: Front Wheeled Walker, Toilet Riser Time/GCodes Time In: 1505 Time Out: 1535 Total Billed Treatment Time: 30 Total Billed Treatment 1 visit 30 min GRIFFIN MCFADDEN PT Jun 30, 2017 15:42
--- NOTE | 2017-06-30 15:49 | Occupational Therapy Eval ---
OT Evaluation-General/PLF Medical Diagnosis Admission Date Jun 30, 2017 at 10:59 Medical Diagnosis: DKA, AMS, PNA Onset Date: Jun 26, 2017 Therapy Diagnosis Therapy Diagnosis: Decreased self care skills Height/Weight Height (Feet): 5 Height (Inches): 4.00 Weight (Pounds): 182 Weight (Ounces): 2.0 Precautions Precautions/Isolations: Fall Prevention, Standard Precautions Safety Interventions: None Referral Physician: Luis Medical History Pertinent Medical History: Arthritis, DM, GERD, HTN Additional Medical History right knee surgery, PE, DVT, gallbladder disease Reviewed History: Yes Social History Home: Single Level Current Living Status: was living with sons, but will be staying with sister at d/c. Entry Into Home: Level Entry ADL-Prior Level of Function ADL PLOF Comments Pt reports being independent prior to admission. Was using FWW as needed. DME/Equipment: Bath Chair, Bedside Commode (sister has one if needed), Shower Drive Self: Yes OT Current Status Subjective Pt resting in bed, agrees to treatment. Pt reports 8/10 pain in chest, states "It's where they used the paddles on me" Mental Status/Objective Patient Orientation: Person, Place Attachments: Oxygen Current Glasses/Contacts: Yes Hearing Aids: No Dentures/Partials: Yes (uppers) Hand Dominance: Right Upper Extremity ROM Grossly WFL Upper Extremity Coordination Intact Upper Extremity Sensation Intact per pt report Upper Extremity Strength Grossly 4-/5 ADL-Treatment ADL-Current Pt supine to sit with minimal assistance. Pt sat EOB with good balance during UE assessment. Pt requires assist to don socks, unable to reach feet at this time. Sit to stand with minimal assistance for safety. Pt demonstrates ability to transfer with CGA using FWW, cues for safety. Pt reports fatigue, requests to return to bed. Sit to supine with minimal assistance for LE. Pt resting in bed with needs met after session. Functional [place] Measure 0=Not Assessed/NA 4=Minimal Assistance 1=Total Assistance 5=Supervision or Setup 2=Maximal Assistance 6=Modified [place] 3=Moderate Assistance 7=Complete IndependenceIRFPAI Quality Coding Scale 6 Independent with activity with or without an assistive device 5 Patient requires set up or clean up by helper. Patient completes activity by themselves 4 Supervision or touching assist (CGA). [place] provide cues , steadying assist 3 The helper provides less than half the effort to complete the activity 2 The helper provides more than half the effort to complete the activity 1 Dependent. The helper does all the effort to complete an activity 7 Patient refused to complete or attempt activity 9 The patient did not perform the activity before the current illness or injury 88 Not attempted due to Medical conditions or safety concerns Eating (FIM): 5 (Pt reports feeding self after assist to open packages/ containers) Eating (QC): 5 Lower Body Dressing (FIM): 1 (socks only) Toilet/Commode Transfer (FIM): 4 Education OT Patient Education: Rehab process Teaching Recipient: Patient Teaching Methods: Discussion Response to Teaching: Verbalize Understanding OT Short Term Goals Short Term Goals 1=Demonstrate adherence to instructed precautions during ADL tasks. 2=Patient will verbalize/demonstrate understanding of assistive devices/ modifications for ADL. 3=Patient will improve strength/tolerance for activity to enable patient to perform ADL's. OT Manager Interventional Goals Skilled Nursing Goals Time Frame: Jul 21, 2017 Eating (FIM): 6 Eating (QC): 6 Groomin Oral Hygiene (QC): 6 Bathing(FIM): 5 Upper Body Dressing(FIM): 6 Lower Body Dressing(FIM): 5 Toileting(FIM): 6 Toilet/Commode Transfer(FIM): 6 Toilet/Commode Transfer (QC): 6 Additional Goals: 2-Verbalize Understanding, 3-ImproveStrength/Bimal 1=Demonstrate adherence to instructed precautions during ADL tasks. 2=Patient will verbalize/demonstrate understanding of assistive devices/ modifications for ADL. 3=Patient will improve strength/tolerance for activity to enable patient to perform ADL's. OT Education/Plan Problem List/Assessment Pt admitted with DKA, AMS. Pt demonstrates decreased activity tolerance, strength, mobility, and ADL functioning. Pt to benefit from skilled OT intervention for ADL training, transfers, strengthening, and safety education to increase level of independence and allow safe discharge plan. Discharge Recommendations Plan/Recommendations: Continue POC Treatment Plan/Plan of Care Treatment,Training & Education: Yes Patient would benefit from OT for education, treatment and training to promote independence in ADL's, mobility, safety and/or upper extremity function for ADL' s. Plan of Care: ADL Retraining, Functional Mobility, UE Funct Exercise/Act Treatment Duration: Jul 21, 2017 Frequency: 5 times per week Estimated Hrs Per Day: .25 hour per day Agreement: Yes Rehab Potential: Fair Time/GCodes Start Time: 14:37 Stop Time: 15:03 Total Time Billed (hr/min): 26 Billed Treatment Time 1 visit, EVM(11minutes), ADL(15minutes) FATMATA ABURTO OT Jun 30, 2017 15:49
[2017-06-30] MEDS ORDERED: VANCOMYCIN INJECTION 0.1 MG in NS (IVPB) 250 ML IV SCH (17:15)
[2017-06-30 17:50] VITALS: BP 139/64
[2017-06-30] MEDS ORDERED: VANCOMYCIN 2000 MG/NS 500 ML IVPB IV NR ×2 (18:00)
[2017-06-30] MEDS: APIXABAN 5 MG (ELIQUIS) TABLET PO SCH (20:18)
[2017-06-30] MEDS: KCL 10 MEQ TAB (MICRO K) PO SCH (20:18)
[2017-06-30] MEDS: inSUlin DETERMIR 1 UNIT/0.01 ML (LEVEMIR) CHARGE PER UNIT SQ SCH (20:56)
[2017-06-30] MEDS: guaiFENesin/DM (ROBITUSSIN DM) 10 ML UDC PO PRN (23:04)
[2017-07-01] MEDS: RT-ALBUTEROL SULF 2.5 MG/3 ML PRE-MIX VIAL INH SCH ×3 (00:12→19:26)
[2017-07-01 05:03] LABS: HEMOGLOBIN 9.3 G/DL (11.5-16.0); MEAN PLATELET VOLUME 9.6 FL (7.4-10.4); RED BLOOD COUNT 3.25 10^6/uL (4.35-5.85); RED CELL DISTRIBUTION WIDTH 15.3 % (10.0-14.5); WHITE BLOOD COUNT 8.5 10^3/uL (4.3-11.0)
[2017-07-01 05:22] LABS: BUN/CREATININE RATIO 14; CALCIUM 8.4 MG/DL (8.5-10.1); CARBON DIOXIDE 24 MMOL/L (21-32); CHLORIDE 104 MMOL/L (98-107); CREATININE SERUM 0.71 MG/DL (0.60-1.30); GFR ESTIMATED > 60; GLUCOSE 190 MG/DL (70-105); POTASSIUM 3.9 MMOL/L (3.6-5.0); SODIUM 136 MMOL/L (135-145)
[2017-07-01 06:00] VITALS: BP 142/69
[2017-07-01] MEDS: inSUlin ASPART (NovoLOG) 1 UNIT/0.01 ML (CHARGE PER UNIT) SC SCH ×4 (06:35→21:11)
[2017-07-01 08:00] VITALS: BP 121/58
[2017-07-01] MEDS: KCL 10 MEQ TAB (MICRO K) PO SCH ×2 (08:42→20:18)
[2017-07-01] MEDS: APIXABAN 5 MG (ELIQUIS) TABLET PO SCH ×2 (08:42→20:18)
[2017-07-01] MEDS: BENZONATATE 100 MG (TESSALON) CAPSULE PO SCH ×3 (08:42→20:18)
--- NOTE | 2017-07-01 14:15 | Physical Therapy Progress Note ---
Therapy Progress Note Pt refused therapy treatment. She stated that she did not sleep well, and was trying to get some rest. KAROL LANGFORD PT Jul 01, 2017 14:15
[2017-07-01] MEDS: guaiFENesin/DM (ROBITUSSIN DM) 10 ML UDC PO PRN (17:16)
[2017-07-01] MEDS: VANCOMYCIN 1 GM/NS 250 ML IVPB IV SCH ×2 (17:17)
[2017-07-01 18:05] VITALS: BP 135/76
[2017-07-01] MEDS: HYDROcodone/APAP 5 MG/325 MG (LORTAB) TAB PO PRN (20:19)
[2017-07-01] MEDS: inSUlin DETERMIR 1 UNIT/0.01 ML (LEVEMIR) CHARGE PER UNIT SQ SCH (21:11)
[2017-07-02 05:46] VITALS: BP 150/79
[2017-07-02] MEDS: inSUlin ASPART (NovoLOG) 1 UNIT/0.01 ML (CHARGE PER UNIT) SC SCH ×4 (06:07→20:18)
[2017-07-02] MEDS: RT-ALBUTEROL SULF 2.5 MG/3 ML PRE-MIX VIAL INH SCH ×2 (07:55→19:32)
[2017-07-02] MEDS: KCL 10 MEQ TAB (MICRO K) PO SCH ×2 (07:56→20:17)
[2017-07-02] MEDS: BENZONATATE 100 MG (TESSALON) CAPSULE PO SCH ×3 (07:56→20:18)
[2017-07-02] MEDS: APIXABAN 5 MG (ELIQUIS) TABLET PO SCH ×2 (07:56→20:18)
[2017-07-02 17:08] VITALS: BP 167/72
[2017-07-02 17:09] VITALS: BP 167/72
[2017-07-02] MEDS: HYDROcodone/APAP 5 MG/325 MG (LORTAB) TAB PO PRN (17:14)
[2017-07-02] MEDS: VANCOMYCIN 1 GM/NS 250 ML IVPB IV SCH ×2 (17:14)
[2017-07-02] MEDS: inSUlin DETERMIR 1 UNIT/0.01 ML (LEVEMIR) CHARGE PER UNIT SQ SCH (20:18)
[2017-07-03] MEDS: inSUlin ASPART (NovoLOG) 1 UNIT/0.01 ML (CHARGE PER UNIT) SC SCH ×4 (05:40→20:12)
[2017-07-03] MEDS: HYDROcodone/APAP 5 MG/325 MG (LORTAB) TAB PO PRN ×2 (05:42→20:12)
[2017-07-03 06:10] VITALS: BP 169/78
[2017-07-03] MEDS: APIXABAN 5 MG (ELIQUIS) TABLET PO SCH ×2 (08:50→20:12)
[2017-07-03] MEDS: KCL 10 MEQ TAB (MICRO K) PO SCH ×2 (08:50→20:12)
[2017-07-03] MEDS: BENZONATATE 100 MG (TESSALON) CAPSULE PO SCH ×3 (08:50→20:12)
[2017-07-03] MEDS: RT-ALBUTEROL SULF 2.5 MG/3 ML PRE-MIX VIAL INH SCH ×2 (09:07→19:39)
--- NOTE | 2017-07-03 10:56 | Physical Therapy Daily Note ---
PT Daily Note-Current Subjective Patient agrees to PT. No c/o. Pain Numeric Pain Scale: 0-No Pain Location: No Pain Reported Mental Status Patient Orientation: Normal For Age Attachments: Oxygen (3.5L) Transfers Functional [place] Measure 0=Not Assessed/NA 4=Minimal Assistance 1=Total Assistance 5=Supervision or Setup 2=Maximal Assistance 6=Modified [place] 3=Moderate Assistance 7=Complete IndependenceIRFPAI Quality Coding Scale 6 Independent with activity with or without an assistive device 5 Patient requires set up or clean up by helper. Patient completes activity by themselves 4 Supervision or touching assist (CGA). [place] provide cues , steadying assist 3 The helper provides less than half the effort to complete the activity 2 The helper provides more than half the effort to complete the activity 1 Dependent. The helper does all the effort to complete an activity 7 Patient refused to complete or attempt activity 9 The patient did not perform the activity before the current illness or injury 88 Not attempted due to Medical conditions or safety concerns Transfers (B, C, W/C) (FIM): 5 Scootin Roll Left to Right (QC): 5 Supine to/from Sit: 5 Sit to/from Stand: 5 Sit to Lying (QC): 5 Sit to Stand (QC): 5 Chair/Vxi-eq-Phcnp Xfer(QC): 5 Bed to/from Chair: 5 Weight Bearing Right Lower Extremity: Right Weight Bearing/Tolerated Left Lower Extremity: Left Weight Bearing/Tolerated Gait Training Does the Patient Walk?: Yes Gait (FIM): 5 Distance (FIM): 3=150 ft Distance: 205' Walk 50 ft with 2 Turns(QC): 5 Walk 150 ft (QC): 5 Gait Level of Assist: 5 Gait Assistive Device: FWW assist for O2 tank only/safe and functional gait sequence Assessment Patient returned to room and will shower with NYLON WINDER present. Patient is progressing with treatment plan. PT Catheterization Laboratory Technician Goals Senior Care Goals PT Catheterization Laboratory Technician Goals Time Frame: Jul 07, 2017 Transfers (B,C,W/C) (FIM): 6 Sit to Lying (QC): 6 Lying-Sitting on Side/Bed(QC): 6 Sit to Stand (QC): 6 Rollin Chair/Jzz-vz-Zcuqp Xfer(QC): 6 Does the Patient Walk: Yes Gait (FIM): 6 Distance: 150 feet Walk 50ft with 2 Turns (QC): 6 Walk 150 ft (QC): 6 Gait Level of Assist: 6 Gait Assistive Device: FWW Does the Pt use WC or Scooter?: No PT Plan Treatment/Plan Treatment Plan: Continue Plan of Care Treatment Plan: Bed Mobility, Education, Functional Activity Bimal, Functional Strength, Gait, Safety, Therapeutic Exercise, Transfers Treatment Duration: Jul 07, 2017 Frequency: 6 times per week Estimated Hrs Per Day: .25 hour per day (15-30 min) Patient and/or Family Agrees t: Yes Time/GCodes Time In: 1033 Time Out: 1047 Total Billed Treatment Time: 14 Total Billed Treatment 1 visit FA 14 min STEPHY AYERS PT Jul 03, 2017 10:56
--- NOTE | 2017-07-03 12:33 | Progress Note (SOAP) ---
Subjective Subjective/Events-last exam Bushra states she has been in her chair since 6:30. She feels much better than Monday and is better when she is sitting up. Her plan is to go to her sister's house at discharge. Review of Systems Date Seen by Provider: Jul 03, 2017 Time Seen by Provider: 09:30 Pulmonary: No Dyspnea Cardiovascular: No: Chest Pain Objective Exam Last Set of Vital Signs Vital Signs Date Time Temp Pulse Resp B/P (MAP) Pulse Ox O2 Delivery O2 Flow Rate FiO2 07/03/17 08:00 Nasal Cannula 4.00 07/03/17 06:10 98.1 101 16 169/78 (108) 93 Capillary Refill : Less Than 3 Seconds I&O Intake and Output 07/03/17 00:00 Intake Total 2130 ml Balance 2130 ml Intake Oral 1880 ml IV Total 250 ml # Voids 5 # Bowel Movements 2 General: Alert, Oriented X3, Cooperative, No Acute Distress Lungs: Clear to Auscultation, Normal Air Movement Heart: Regular Rate, Normal S1, Normal S2, No Murmurs, Gallops, Rubs Abdomen: Normal Bowel Sounds, Soft, No Tenderness, No Hepatosplenomegaly, No Masses Extremities: No Clubbing, No Cyanosis, No Edema Neuro: Normal Speech Psych/Mental Status: Mental Status NL, Mood NL Results/Procedures Lab Laboratory Tests 07/02/17 15:59: Glucometer 233H 07/02/17 20:10: Glucometer 282H 07/03/17 05:18: Glucometer 198H 07/03/17 11:31: Glucometer 200H Assessment/Plan Assessment/Plan Reason for Inpatient Admission: Assessment & Plan 1. TYPE 1 DIABETES MELLITUS 07/03 - BS improved. continue 15 units levemir an dSSI. 2. Sepsis and HCAP LOCULATED PLEURAL EFFUSIONS 07/03 - labs today show improvement in WBC. no fever over the weekend. CTA showed loculated pleural effusions, concern would be for MRSA pneumonia. pt has now been on vanc since Monday, so 3 days. will get a CXR today as well to see if pleural effusions improved -- as pt has clinically improved as well. 4. History of DVT/PE 3 - On home Eliquis, no PE seen on recent CTA. 5. DEBILITY AND WEAKNESS 07/03 - much improved, will plan for discharge later this week. Clinical Quality Measures DVT/VTE Risk/Contraindication: Risk Factor Score Per Nursin HERMAN VANEGAS MD Jul 03, 2017 12:33 pm
--- NOTE | 2017-07-03 13:25 | Diagnostic Imaging Report ---
INDICATION: Loculated pleural effusion. TIME OF EXAM: 1:33 p.m. COMPARISON: Correlation is made with prior study from 06/29/2017. FINDINGS: A large left pleural effusion along the left chest wall appears to be increased in size. There may be a small right pleural effusion, stable. Parenchymal consolidation in the left base is unchanged. No pneumothorax is seen. There is a small rounded air density projected over the left base which may account for the pleural-based air density noted on CT from three days earlier. IMPRESSION: Increasing left-sided pleural effusion which may be loculated along the left chest wall when compared with examination four days earlier. Dictated by: Dictated on workstation # [id number]
[2017-07-03 14:19] LABS: BASOPHILS % (AUTO) 0 % (0-10); EOSINOPHILS # (AUTO) 0.1 10^3/uL (0.0-0.3); EOSINOPHILS % (AUTO) 1 % (0-10); HEMATOCRIT 28 % (35-52); HEMOGLOBIN 8.9 G/DL (11.5-16.0); LYMPHOCYTES # (AUTO) 1.4 X 10^3 (1.0-4.0); LYMPHOCYTES % (AUTO) 10 % (12-44); MEAN CORPUSCULAR HEMOGLOBIN 28 PG (25-34); MEAN CORPUSCULAR HGB CONC 31 G/DL (32-36); MEAN CORPUSCULAR VOLUME 90 FL (80-99); MEAN PLATELET VOLUME 9.1 FL (7.4-10.4); MONOCYTES % (AUTO) 7 % (0-12); NEUTROPHILS # (AUTO) 11.4 X 10^3 (1.8-7.8); NEUTROPHILS % (AUTO) 82 % (42-75); PLATELET COUNT 496 10^3/uL (130-400); RED BLOOD COUNT 3.13 10^6/uL (4.35-5.85)
[2017-07-03 14:35] LABS: BUN/CREATININE RATIO 18; CALCIUM 8.7 MG/DL (8.5-10.1); CARBON DIOXIDE 29 MMOL/L (21-32); CHLORIDE 100 MMOL/L (98-107); CREATININE SERUM 0.73 MG/DL (0.60-1.30); GFR ESTIMATED > 60; GLUCOSE 240 MG/DL (70-105); POTASSIUM 3.9 MMOL/L (3.6-5.0); SODIUM 134 MMOL/L (135-145)
[2017-07-03 14:39] LABS: BAND NEUTROPHILS 2 %; BASOPHILS % (MANUAL) 1 %; EOSINOPHILS % (MANUAL) 0 %; LYMPHOCYTES % (MANUAL) 10 %; MONOCYTES % (MANUAL) 4 %; NEUTROPHILS % (MANUAL) 83 %; RBC MORPH NORMAL
--- NOTE | 2017-07-03 14:50 | Consultation ---
History of Present Illness History of Present Illness Patient Consulted On(shira/time) 07/03/17 14:44 Time Seen by Provider: 14:30 History of Present Illness Surgery is asked to consult regarding suspected loculated pleural effusion. HPI: Pt was actually seen by me appx 2 weeks ago, for central line placement. She was admitted at that time for hypotension, AMS and possible pneumonia. She was in hospital for appx 10 more days and then sent home (per pt). She got readmitted for SOB and chest pain with coughing and deep breathing. A CT performed on 06/30 showed b/l pleural effusion with questionable loculation and/or abscess in left lung. Pt complains of productive cough, with thick yellow sputum; denies blood. She states coughing causes pain just under breast; rating it 8 out of 10 on a 1-10 scale. It is a sharp stabbing pain. She does not think she has had anything like this before. Allergies and Home Medications Allergies Coded Allergies: No Known Drug Allergies (Unverified , 05/16/14) Patient Home Medication List Home Medication List Reviewed: No Past Vmgajzn-Wjkfuo-Jkbizl Hx Patient Social History Alcohol Use: Past History Recreational Drug Use: No Smoking Status: Former Smoker Former Smoker, Quit: May 01, 1985 Recent Hopitalizations: Yes Immunizations Up To Date Tetanus Booster (TDap): Unknown PED Vaccines UTD: No Date of Influenza Vaccine: Jun 13, 2017 Seasonal Allergies Seasonal Allergies: No Surgeries History of Surgeries: Yes Surgeries: Gallbladder, Tubal Ligation Respiratory History of Respiratory Disorde: Yes Respiratory Disorders: Pulmonary Embolism Cardiovascular History of Cardiac Disorders: Yes (enlarged heart) Cardiac Disorders: Deep Vein Thrombosis, Hypertension, Peripheral Vascular Neurological History of Neurological Disord: No Reproductive System Hx Reproductive Disorders: No Sexually Transmitted Disease: No HIV/AIDS: No Genitourinary History of Genitourinary Disor: No Gastrointestinal History of Gastrointestinal Di: Yes Gastrointestinal Disorders: Gastroesophageal Reflux, Chronic Constipation, Hemorrhoids, Gall Bladder Disease Musculoskeletal History of Musculoskeletal Dis: Yes Musculoskeletal Disorders: Arthritis Endocrine History of Endocrine Disorders: Yes Endocrine Disorders: Diabetes, Non-Insulin dep HEENT History of HEENT Disorders: No Loss of Vision: Denies Hearing Impairment: Hard of Hearing Cancer History of Cancer: No Psychosocial History of Psychiatric Problem: No Integumentary History of Skin or Integumenta: No Blood Transfusions History of Blood Disorders: No Family Medical History Significant Family History: COPD, CVA, Diabetes, Vascular Disease Family Medial History: Cardiovascular disease 19 MOTHER Diabetes mellitus 19 MOTHER FH: COPD (chronic obstructive pulmonary disease) G8 BROTHER G8 SISTER Hypertension G8 BROTHER G8 SISTER Myocardial infarction 19 MOTHER Respiratory disorder 19 FATHER Stroke or transient ischemic attack in sister G8 SISTER Review of Systems-General Constitutional: chills, diaphoresis, weakness EENTM: hearing loss, No mouth swelling, No epistaxis, No throat swelling Respiratory: cough, dyspnea on exertion, phlegm, short of breath Cardiovascular: chest pain, No edema, No palpitations, No syncope Gastrointestinal: No diarrhea, No hematemesis, No vomiting Genitourinary: No dysuria, No hematuria, No hesitancy Musculoskeletal: back pain, joint pain, joint swelling Skin: dryness, No lesions, No pruritus Psychiatric/Neurological: Denies Anxiety, Denies Depressed Other pt denies any heat or cold intolerance Physical Exam-General Problems Physical Exam Vital Signs Vital Signs - First Documented 06/30/17 17:50 Temp 98.4 Pulse 98 Resp 18 B/P (MAP) 139/64 (89) Pulse Ox 95 O2 Delivery Nasal Cannula O2 Flow Rate 2.00 Capillary Refill : Less Than 3 Seconds General Appearance: WD/WN, mild distress Eyes: Bilateral Eye PERRL, Bilateral Eye EOMI HEENT: pharynx normal, No scleral icterus (R), No scleral icterus (L) Neck: non-tender, supple, No thyromegaly Respiratory: decreased breath sounds, accessory muscle use, crackles, rhonchi, other (dullness to percussion b/l left worse than right left, about [facility] up) Cardiovascular: regular rate, rhythm, no edema, no murmur Gastrointestinal: normal bowel sounds, soft, no organomegaly Back: no CVA tenderness, no vertebral tenderness Extremities: no pedal edema, no calf tenderness, normal capillary refill Neurologic/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, normal mood/affect Skin: normal color, warm/dry Lymphatic: no adenopathy (neck, axilla or groin) Data Review Labs Laboratory Tests 07/02/17 15:59: Glucometer 233H 07/02/17 20:10: Glucometer 282H 07/03/17 05:18: Glucometer 198H 07/03/17 11:31: Glucometer 200H 07/03/17 14:12: White Blood Count 14.0H, Red Blood Count 3.13L, Hemoglobin 8.9L, Hematocrit 28L , Mean Corpuscular Volume 90, Mean Corpuscular Hemoglobin 28, Mean Corpuscular Hemoglobin Concent 31L, Red Cell Distribution Width 15.0H, Platelet Count 496H, Mean Platelet Volume 9.1, Neutrophils (%) (Auto) 82H, Lymphocytes (%) (Auto) 10L , Monocytes (%) (Auto) 7, Eosinophils (%) (Auto) 1, Basophils (%) (Auto) 0, Neutrophils # (Auto) 11.4H, Lymphocytes # (Auto) 1.4, Monocytes # (Auto) 1.0, Eosinophils # (Auto) 0.1, Basophils # (Auto) 0.0, Neutrophils % (Manual) 83, Lymphocytes % (Manual) 10, Monocytes % (Manual) 4, Eosinophils % (Manual) 0, Basophils % (Manual) 1, Band Neutrophils 2, Blood Morphology Comment NORMAL, Sodium Level 134L, Potassium Level 3.9, Chloride Level 100, Carbon Dioxide Level 29, Anion Gap 5, Blood Urea Nitrogen 13, Creatinine 0.73, Estimat Glomerular Filtration Rate > 60, BUN/Creatinine Ratio 18, Glucose Level 240H, Calcium Level 8.7 Assessment/Plan Assessment/Plan Assessment/Plan Bilateral Pleural Effusions - possibly loculated with abscess on left SOB DM HTN Pt needs left sided thoracentesis, will send fluid for culture and sensitivity. May also need right side done down the road. Hopefully the thoracentesis will help with her breathing, pain and cough. Discussed risks and complications ; not limited to pain, bleeding, infection and pneumothorax. Will leave pig-tail catheter in for drainage. All questions answered to her satisfaction. She will need maximum medical management. Clinical Quality Measures DVT/VTE Risk/Contraindication: Risk Factor Score Per Nursin SARA STEIN DO Jul 03, 2017 14:50
[2017-07-03] MEDS ORDERED: LIDOCAINE 1% INJ 20 ML (XYLOCAINE) VIAL INJ ONE (15:15)
[2017-07-03] MEDS ORDERED: LIDOCAINE 1% INJ 50 ML (XYLOCAINE) VIAL ONE (15:22)
--- NOTE | 2017-07-03 15:31 | Occupational Ther Daily Note ---
OT Current Status-Daily Note Subjective Pt alert, sitting in recliner. Pt started shaking head no to doing anything. Pt very anxious about having a thoracentesis done soon. CAMARA encouraged pt to participate and explained that she would be okay through procedure. Mental Status/Objective Patient Orientation: Person, Place, Time, Situation Functional [place] Measure 0=Not Assessed/NA 4=Minimal Assistance 1=Total Assistance 5=Supervision or Setup 2=Maximal Assistance 6=Modified [place] 3=Moderate Assistance 7=Complete [place] Attachments: IV, Oxygen ADL-Treatment Functional [place] Measure 0=Not Assessed/NA 4=Minimal Assistance 1=Total Assistance 5=Supervision or Setup 2=Maximal Assistance 6=Modified [place] 3=Moderate Assistance 7=Complete IndependenceIRFPAI Quality Coding Scale 6 Independent with activity with or without an assistive device 5 Patient requires set up or clean up by helper. Patient completes activity by themselves 4 Supervision or touching assist (CGA). [place] provide cues , steadying assist 3 The helper provides less than half the effort to complete the activity 2 The helper provides more than half the effort to complete the activity 1 Dependent. The helper does all the effort to complete an activity 7 Patient refused to complete or attempt activity 9 The patient did not perform the activity before the current illness or injury 88 Not attempted due to Medical conditions or safety concerns Toileting (FIM): 5 (Pt able to manipulate clothing and cleanse self after toileting with supervision.) Toileting Hygiene (QC): 4 Toilet/Commode Transfer (FIM): 4 (Min A to go from sitting to standing off of toilet using grabbar and FWW. Pt able to transfer onto toilet using grabbar and FWW with supervision.) Other Treatment After therapy, pt sitting in recliner with call light/phone in reach. All needs met in room. OT Short Term Goals Short Term Goals 1=Demonstrate adherence to instructed precautions during ADL tasks. 2=Patient will verbalize/demonstrate understanding of assistive devices/ modifications for ADL. 3=Patient will improve strength/tolerance for activity to enable patient to perform ADL's. OT Financial Reporting Manager Goals Financial Reporting Manager Goals Time Frame: Jul 21, 2017 Eating (FIM): 6 Eating (QC): 6 Groomin Oral Hygiene (QC): 6 Bathing(FIM): 5 Upper Body Dressing(FIM): 6 Lower Body Dressing(FIM): 5 Toileting(FIM): 6 Toilet/Commode Transfer(FIM): 6 Toilet/Commode Transfer (QC): 6 Additional Goals: 2-Verbalize Understanding, 3-ImproveStrength/Bimal 1=Demonstrate adherence to instructed precautions during ADL tasks. 2=Patient will verbalize/demonstrate understanding of assistive devices/ modifications for ADL. 3=Patient will improve strength/tolerance for activity to enable patient to perform ADL's. OT Education/Plan Problem List/Assessment Pt admitted with DKA, AMS. Pt demonstrates decreased activity tolerance, strength, mobility, and ADL functioning. Pt to benefit from skilled OT intervention for ADL training, transfers, strengthening, and safety education to increase level of independence and allow safe discharge plan. Discharge Recommendations Plan/Recommendations: Continue POC Treatment Plan/Plan of Care Patient would benefit from OT for education, treatment and training to promote independence in ADL's, mobility, safety and/or upper extremity function for ADL' s. Plan of Care: ADL Retraining, Functional Mobility, UE Funct Exercise/Act Treatment Duration: Jul 21, 2017 Frequency: 5 times per week Estimated Hrs Per Day: .25 hour per day Agreement: Yes Rehab Potential: Fair Time/GCodes Start Time: 15:03 Stop Time: 15:23 Total Time Billed (hr/min): 20 Billed Treatment Time 1 visit-FA 1 (20 min) LOVELY HAAS Jul 03, 2017 15:31
[2017-07-03 16:49] LABS: GLUCOSE,BODY FLUID 32 MG/DL; TOTAL PROTEIN,BODY FLUID 3.2 G/DL
[2017-07-03 16:56] LABS: BODY FLUID APPEARENCE MKD BLDY; BODY FLUID COLOR RED; BODY FLUID SOURCE PLEURAL
[2017-07-03 16:57] LABS: BODY FLUID RBC COUNT 82500 /uL; BODY FLUID WBC TOTAL COUNT 56750 /uL
[2017-07-03] MEDS ORDERED: TROUGH ORDER-PHARMACY XX NR (17:00)
--- NOTE | 2017-07-03 17:14 | Progress Note-Post Operative ---
Post-Operative Progess Note Surgeon (s)/Special Effects Person (s) Surgeon SARA STEIN DO Special Effects Person: none Pre-Operative Diagnosis B/L pleural effusion, Left side with loculation possible abscess Post-Operative Diagnosis same pending pathology Procedure & Operative Findings Date of Procedure 07/03/17 Procedure Performed/Findings Left thoracentesis with US guidance Anesthesia Type Local lidocaine Estimated Blood Loss Estimated blood loss (mL): scant Specimens/Packing Specimens Removed pleural fluid SARA STEIN DO Jul 03, 2017 17:14
[2017-07-03 17:38] LABS: BF OTHER CELLS 9 %; LYMPHOCYTES,BODY FLUID 2 %
[2017-07-03 17:39] LABS: LDH,BODY FLUID 4566 U/L
[2017-07-03 18:00] VITALS: BP 142/71
[2017-07-03] MEDS: VANCOMYCIN 1 GM/NS 250 ML IVPB IV SCH ×2 (18:04)
--- NOTE | 2017-07-03 19:11 | Diagnostic Imaging Report ---
INDICATION: Pleural effusion IMPRESSION: Ultrasound guidance was used by Dr. Black who performed a left thoracentesis. Digital images from the procedure show the thoracentesis catheter projecting within the left pleural fluid. Dictated by: Dictated on workstation # [id number]
[2017-07-03] MEDS: inSUlin DETERMIR 1 UNIT/0.01 ML (LEVEMIR) CHARGE PER UNIT SQ SCH (20:13)
--- NOTE | 2017-07-04 04:01 | OPERATIVE REPORT ---
DATE OF SERVICE: PREOPERATIVE DIAGNOSES: Bilateral pleural effusion, worse on the left with possible loculations and abscess. POSTOPERATIVE DIAGNOSES: Bilateral pleural effusion, worse on the left with possible loculations and abscess. PROCEDURE PERFORMED: Left-sided thoracentesis with ultrasound guidance. SURGEON: SARA STEIN DO. RENEWALS MANAGER: None. ANESTHESIA: Local lidocaine. SPECIMEN: Pleural fluid sent for culture and sensitivity. BLOOD LOSS: Scant. FLUIDS: None. INDICATION FOR PROCEDURE: The patient is a 67-year-old female having trouble breathing and bilateral pleural effusion with left side going up further with possible loculations and abscess, needed to get this drained and sent for cultures. FINDINGS: The patient had a pigtail thoracentesis catheter placed under ultrasound guidance. PROCEDURE NOTE: After informed consent was obtained, the patient was in the procedure room in radiology, sitting up in bed, leaning over a table. Ultrasound marked the spot and I then carefully sterilely prepped and draped this area. Local lidocaine was used to infiltrate the skin and then down towards the rib. I then made a small stab incision with #11 blade and then advanced the pigtail catheter on a very small trocar under ultrasound guidance and watched going into the fluid collection and then carefully pulled back the trocar catheter. I pulled up the inner portion and I then realized it was as an outer portion and I had to then pull this one out. We started getting some immediate serosanguineous possibly, little bit of a pus in there and fluid, able to suction some of this out to be sent to pathology. Then, curled the pigtail catheter to hold this in position and then placed a catheter holding device and then hooked this up to gravity drainage. The patient tolerated this procedure and was then sterilely dressed by the nurse and the patient was subsequently sent up to her room. Chest x-ray ordered for the morning. She was not having any trouble. She tolerated this well. Job ID: [id number] DocumentID: [id number] Dictated Date: 07/03/2017 17:25:52 School Age Program Teacher Date: 07/04/2017 04:00:25 Dictated By: SARA STEIN DO
[2017-07-04] MEDS: inSUlin ASPART (NovoLOG) 1 UNIT/0.01 ML (CHARGE PER UNIT) SC SCH ×4 (05:44→20:54)
[2017-07-04 06:00] VITALS: BP 151/80
[2017-07-04] MEDS: RT-ALBUTEROL SULF 2.5 MG/3 ML PRE-MIX VIAL INH SCH ×2 (07:40→20:16)
[2017-07-04] MEDS: APIXABAN 5 MG (ELIQUIS) TABLET PO SCH ×2 (08:38→20:53)
[2017-07-04] MEDS: BENZONATATE 100 MG (TESSALON) CAPSULE PO SCH ×3 (08:38→20:53)
[2017-07-04] MEDS: KCL 10 MEQ TAB (MICRO K) PO SCH ×2 (08:38→20:53)
--- NOTE | 2017-07-04 11:06 | Physical Therapy Progress Note ---
Therapy Progress Note Patient refused PT due to back pain from drain site. notified. 1 ref ([id number]) STEPHY AYERS PT Jul 04, 2017 11:06
--- NOTE | 2017-07-04 14:17 | Occ Therapy Progress Note ---
Therapy Progress Note Attempted OT treatment at 1405. Pt resting in bed. Pt refused all treatment at this time secondary to reports of fatigue and stating she has already done therapy. Educated pt on difference and roles of OT and PT. Pt states understanding, but states she recently returned to bed and just wants to rest. Will attempt tomorrow. 1, visit-refused. FATMATA ABURTO OT Jul 04, 2017 14:17
--- NOTE | 2017-07-04 14:44 | Physical Therapy Daily Note ---
PT Daily Note-Current Subjective Patient agrees to PT. Pain Numeric Pain Scale: 5-Moderate Pain Location: Left Location Body Site: Side Pain Description: Pressure Mental Status Patient Orientation: Normal For Age Attachments: Oxygen, Drains Transfers Functional [place] Measure 0=Not Assessed/NA 4=Minimal Assistance 1=Total Assistance 5=Supervision or Setup 2=Maximal Assistance 6=Modified [place] 3=Moderate Assistance 7=Complete IndependenceIRFPAI Quality Coding Scale 6 Independent with activity with or without an assistive device 5 Patient requires set up or clean up by helper. Patient completes activity by themselves 4 Supervision or touching assist (CGA). [place] provide cues , steadying assist 3 The helper provides less than half the effort to complete the activity 2 The helper provides more than half the effort to complete the activity 1 Dependent. The helper does all the effort to complete an activity 7 Patient refused to complete or attempt activity 9 The patient did not perform the activity before the current illness or injury 88 Not attempted due to Medical conditions or safety concerns Transfers (B, C, W/C) (FIM): 5 Scootin Roll Left to Right (QC): 5 Supine to/from Sit: 5 Sit to/from Stand: 5 Sit to Lying (QC): 5 Sit to Stand (QC): 5 Chair/Gxy-fw-Ysyus Xfer(QC): 5 Bed to/from Chair: 5 Weight Bearing Right Lower Extremity: Right Weight Bearing/Tolerated Left Lower Extremity: Left Weight Bearing/Tolerated Gait Training Does the Patient Walk?: Yes Gait (FIM): 5 Distance (FIM): 3=150 ft Distance: 275' Walk 50 ft with 2 Turns(QC): 5 Walk 150 ft (QC): 5 Gait Level of Assist: 5 Gait Assistive Device: FWW slow, steady/3 standing recovery periods due to fatigue Exercises Seated Therapy Exercises: Ankle pumps, Long arc quads Seated Reps: 25 Assessment Patient tolerated treatment well and returned to bed with needs met. Patient is limited due to pain/pressure from drain. PT Retirement Goals Tester Electronic Scale Goals PT Tester Electronic Scale Goals Time Frame: Jul 07, 2017 Transfers (B,C,W/C) (FIM): 6 Sit to Lying (QC): 6 Lying-Sitting on Side/Bed(QC): 6 Sit to Stand (QC): 6 Rollin Chair/Gyj-um-Elxbb Xfer(QC): 6 Does the Patient Walk: Yes Gait (FIM): 6 Distance: 150 feet Walk 50ft with 2 Turns (QC): 6 Walk 150 ft (QC): 6 Gait Level of Assist: 6 Gait Assistive Device: FWW Does the Pt use WC or Scooter?: No PT Plan Treatment/Plan Treatment Plan: Continue Plan of Care Treatment Plan: Bed Mobility, Education, Functional Activity Bimal, Functional Strength, Gait, Safety, Therapeutic Exercise, Transfers Treatment Duration: Jul 07, 2017 Frequency: 6 times per week Estimated Hrs Per Day: .25 hour per day (15-30 min) Patient and/or Family Agrees t: Yes Time/GCodes Time In: 1255 Time Out: 1318 Total Billed Treatment Time: 23 Total Billed Treatment 1 visit FA x 2 23 min STEPHY AYERS PT Jul 04, 2017 14:44
--- NOTE | 2017-07-04 14:55 | Progress Note (SOAP) ---
Subjective Subjective/Events-last exam Daphne states that she is in pain today after getting the procedure done yesterday. She declined therapy for this reason. Review of Systems Date Seen by Provider: Jul 04, 2017 Time Seen by Provider: 10:00 Pulmonary: No Dyspnea Cardiovascular: No: Chest Pain Objective Exam Last Set of Vital Signs Vital Signs Date Time Temp Pulse Resp B/P (MAP) Pulse Ox O2 Delivery O2 Flow Rate FiO2 07/04/17 08:25 Nasal Cannula 4.00 07/04/17 07:40 95 07/04/17 06:00 98.0 97 17 151/80 (103) Capillary Refill : Less Than 3 Seconds I&O Intake and Output 07/04/17 00:00 Intake Total 1910 ml Balance 1910 ml Intake Oral 1660 ml IV Total 250 ml # Voids 6 General: Alert, Oriented X3, Cooperative, No Acute Distress Lungs: Clear to Auscultation, Normal Air Movement Heart: Regular Rate, Normal S1, Normal S2, No Murmurs, Gallops, Rubs Abdomen: Normal Bowel Sounds, Soft, No Tenderness, No Hepatosplenomegaly, No Masses Extremities: No Clubbing, No Cyanosis, No Edema Results/Procedures Lab Laboratory Tests Test 07/02/17 15:59 07/02/17 20:10 07/03/17 05:18 07/03/17 11:31 Range/Units Glucometer 233 H 282 H 198 H 200 H 70-110 MG/DL Test 07/03/17 14:12 07/03/17 15:25 07/03/17 16:00 07/03/17 17:23 Range/Units White Blood Count 14.0 H 4.3-11.0 10^3/uL Red Blood Count 3.13 L 4.35-5.85 10^6/uL Hemoglobin 8.9 L 11.5-16.0 G/DL Hematocrit 28 L 35-52 % Mean Corpuscular Volume 90 80-99 FL Mean Corpuscular Hemoglobin 28 25-34 PG Mean Corpuscular Hemoglobin Concent 31 L 32-36 G/DL Red Cell Distribution Width 15.0 H 10.0-14.5 % Platelet Count 496 H 130-400 10^3/uL Mean Platelet Volume 9.1 7.4-10.4 FL Neutrophils (%) (Auto) 82 H 42-75 % Lymphocytes (%) (Auto) 10 L 12-44 % Monocytes (%) (Auto) 7 0-12 % Eosinophils (%) (Auto) 1 0-10 % Basophils (%) (Auto) 0 0-10 % Neutrophils # (Auto) 11.4 H 1.8-7.8 X 10^3 Lymphocytes # (Auto) 1.4 1.0-4.0 X 10^3 Monocytes # (Auto) 1.0 0.0-1.0 X 10^3 Eosinophils # (Auto) 0.1 0.0-0.3 10^3/uL Basophils # (Auto) 0.0 0.0-0.1 10^3/uL Neutrophils % (Manual) 83 % Lymphocytes % (Manual) 10 % Monocytes % (Manual) 4 % Eosinophils % (Manual) 0 % Basophils % (Manual) 1 % Band Neutrophils 2 % Blood Morphology Comment NORMAL Sodium Level 134 L 135-145 MMOL/L Potassium Level 3.9 3.6-5.0 MMOL/L Chloride Level 100 98-107 MMOL/L Carbon Dioxide Level 29 21-32 MMOL/L Anion Gap 5 5-14 MMOL/L Blood Urea Nitrogen 13 7-18 MG/DL Creatinine 0.73 0.60-1.30 MG/DL Estimat Glomerular Filtration Rate > 60 BUN/Creatinine Ratio 18 Glucose Level 240 H 70-105 MG/DL Calcium Level 8.7 8.5-10.1 MG/DL Glucometer 236 H 70-110 MG/DL Body Fluid Source PLEURAL Body Fluid Color RED Body Fluid Appearance MKD BLDY Body Fluid WBC 60358 /uL Body Fluid RBC 41019 /uL Body Fluid Polynuclear WBCs 89 % Body Fluid Mononuclear WBCs 0 % Body Fluid Lymphocytes 2 % Body Fluid Other Cells 9 % Body Fluid Glucose 32 MG/DL Body Fluid Total Protein 3.2 G/DL Body Fluid Lactate Dehydrogenase 4566 U/L Body Fluid Creatinine 1 MG/DL Vancomycin Level Trough 11.7 10.0-20.0 UG/ML Test 07/03/17 20:06 07/04/17 05:27 07/04/17 11:09 Range/Units Glucometer 273 H 204 H 113 H 70-110 MG/DL Bad table Assessment/Plan Assessment/Plan Assessment & Plan 1. TYPE 1 DIABETES MELLITUS 07/03 - BS improved. continue 15 units levemir an dSSI. 07/04 - no change 2. Sepsis and HCAP LOCULATED PLEURAL EFFUSIONS YEAST SPECIES IN PLEURAL FLUID 07/03 - labs today show improvement in WBC. no fever over the weekend. CTA showed loculated pleural effusions, concern would be for MRSA pneumonia. pt has now been on vanc since Monday, so 3 days. will get a CXR today as well to see if pleural effusions improved -- as pt has clinically improved as well. 07/04 - patient received a thoracentesis yesterday as there was no improvement in the pleural effusions. bact were negative on gram stain. due to patient's uncontrolled diabetes, we will treat the yeast with diflucan 200mg x total of 10 days. 4. History of DVT/PE 3 - On home Eliquis, no PE seen on recent CTA. 5. DEBILITY AND WEAKNESS 07/03 - much improved, will plan for discharge later this week. 07/04 - plan for DC tomorrow as patient's infectious issues are stable, and she is no longer willing to participate in therapy. Clinical Quality Measures DVT/VTE Risk/Contraindication: Risk Factor Score Per Nursin HERMAN VANEGAS MD Jul 04, 2017 2:55 pm
[2017-07-04] MEDS: FLUCONAZOLE 200 MG/100 ML 100 ML IV SCH (16:13)
--- NOTE | 2017-07-04 16:32 | Diagnostic Imaging Report ---
INDICATION: Left-sided pleural effusion, status post drain placement one day earlier. TIME OF EXAM: 3:53 p.m. COMPARISON: Correlation is made with prior study one day earlier. FINDINGS: The small caliber percutaneous drain overlies the left lower chest. There continues to be a moderate amount of pleural fluid along the left chest wall and in the left base. The pleural fluid may be slightly smaller, status post drain placement when compared with yesterday. Gas density overlies the left base which may represent a small amount of gas within the pleural space. There is continued parenchymal consolidation in the left base obscuring the left hemidiaphragm. There is likely a small pleural effusion on the right with some associated infiltrate or atelectasis in the right base. IMPRESSION: There has been mild reduction in size of the left-sided pleural effusion, status post percutaneous drain placement. Dictated by: Dictated on workstation # [id number]
[2017-07-04 17:56] VITALS: BP 153/70
[2017-07-04] MEDS: inSUlin DETERMIR 1 UNIT/0.01 ML (LEVEMIR) CHARGE PER UNIT SQ SCH (20:54)
[2017-07-05 06:00] VITALS: BP 147/79
[2017-07-05] MEDS: inSUlin ASPART (NovoLOG) 1 UNIT/0.01 ML (CHARGE PER UNIT) SC SCH ×2 (06:19→11:31)
[2017-07-05] MEDS: RT-ALBUTEROL SULF 2.5 MG/3 ML PRE-MIX VIAL INH SCH (07:29)
[2017-07-05] MEDS: FLUCONAZOLE 200 MG/100 ML 100 ML IV SCH (08:43)
[2017-07-05] MEDS: BENZONATATE 100 MG (TESSALON) CAPSULE PO SCH (08:43)
[2017-07-05] MEDS: APIXABAN 5 MG (ELIQUIS) TABLET PO SCH (08:43)
[2017-07-05] MEDS: KCL 10 MEQ TAB (MICRO K) PO SCH (08:43)
[2017-07-05] MEDS ORDERED: INSU100V16 SC (08:58)
[2017-07-05] MEDS ORDERED: INSU100V5 SQ (08:58)
[2017-07-05] MEDS ORDERED: BENZ-36 PO (08:58)
[2017-07-05] MEDS ORDERED: APIX5TAB PO (08:58)
--- NOTE | 2017-07-05 08:58 | Physical Therapy Daily Note ---
PT Daily Note-Current Subjective Patient is up in recliner and agrees to PT. Pain Numeric Pain Scale: 5-Moderate Pain Location: Left Location Body Site: Side Pain Description: Pressure, Sharp Mental Status Patient Orientation: Normal For Age Attachments: Oxygen, Drains Transfers Functional [place] Measure 0=Not Assessed/NA 4=Minimal Assistance 1=Total Assistance 5=Supervision or Setup 2=Maximal Assistance 6=Modified [place] 3=Moderate Assistance 7=Complete IndependenceIRFPAI Quality Coding Scale 6 Independent with activity with or without an assistive device 5 Patient requires set up or clean up by helper. Patient completes activity by themselves 4 Supervision or touching assist (CGA). [place] provide cues , steadying assist 3 The helper provides less than half the effort to complete the activity 2 The helper provides more than half the effort to complete the activity 1 Dependent. The helper does all the effort to complete an activity 7 Patient refused to complete or attempt activity 9 The patient did not perform the activity before the current illness or injury 88 Not attempted due to Medical conditions or safety concerns Transfers (B, C, W/C) (FIM): 6 Scootin Roll Left to Right (QC): 6 Supine to/from Sit: 6 Sit to/from Stand: 6 Sit to Lying (QC): 6 Sit to Stand (QC): 6 Chair/Afp-zx-Mpbmg Xfer(QC): 6 Bed to/from Chair: 6 Weight Bearing Right Lower Extremity: Right Weight Bearing/Tolerated Left Lower Extremity: Left Weight Bearing/Tolerated Gait Training Does the Patient Walk?: Yes Gait (FIM): 6 Distance (FIM): 3=150 ft Distance: 225' Walk 50 ft with 2 Turns(QC): 6 Walk 150 ft (QC): 6 Gait Level of Assist: 6 Gait Assistive Device: FWW slow, trunk flexed posture Assessment Patient returned to bed modified independent with call light in hand. PT [facility] Goals Switchboard Inspector Goals PT Switchboard Inspector Goals Time Frame: Jul 07, 2017 Transfers (B,C,W/C) (FIM): 6 Sit to Lying (QC): 6 Lying-Sitting on Side/Bed(QC): 6 Sit to Stand (QC): 6 Rollin Chair/Ouk-ad-Rryks Xfer(QC): 6 Does the Patient Walk: Yes Gait (FIM): 6 Distance: 150 feet Walk 50ft with 2 Turns (QC): 6 Walk 150 ft (QC): 6 Gait Level of Assist: 6 Gait Assistive Device: FWW Does the Pt use WC or Scooter?: No PT Plan Treatment/Plan Treatment Plan: Continue Plan of Care Treatment Plan: Bed Mobility, Education, Functional Activity Bimal, Functional Strength, Gait, Safety, Therapeutic Exercise, Transfers Treatment Duration: Jul 07, 2017 Frequency: 6 times per week Estimated Hrs Per Day: .25 hour per day (15-30 min) Patient and/or Family Agrees t: Yes Time/GCodes Time In: 817 Time Out: 832 Total Billed Treatment Time: 15 Total Billed Treatment 1 visit FA 15 min STEPHY AYERS PT Jul 05, 2017 08:58
[2017-07-05] MEDS ORDERED: FLUC200T PO (08:59)
--- NOTE | 2017-07-05 09:03 | D/C HH Face to Face Order ---
D/C Face to Face Orders Instructions for Patient Patient Instructions/FollowUp: DR WATSON ON JULY 10 AT 11:40 Physician to follow Patient: WALTER Discharge Diet for Home: ADA Diet Patient Problems: PLEURAL EFFUSION YEAST PNEUMONIA UNCONTROLLED TYPE 1 DIABETES MELLITUS DEBILITY/WEAKNESS Goals for Patient: INCREASED ABILITY TO PERFORM ADL'S NO SOB WHEN WALKING CONTROLLED BLOOD SUGARS Patient Data-Allergies,Ht & Wt Patient Allergies: Coded Allergies: No Known Drug Allergies (Unverified , 05/16/14) Height (Feet): 5 Height (Inches): 4.00 Weight (Pounds): 182 Weight (Ounces): 2.0 Home Health Need/Face to Face Date of Face to Face: Jul 05, 2017 Clinical Findings: Shortness of breath, Unsteady gait I have seen Pt [id number]: Yes Discharged To: Home Diagnosis/Conditions: PLEURAL EFFUSION YEAST PNEUMONIA UNCONTROLLED TYPE 1 DIABETES MELLITUS DEBILITY/WEAKNESS Problems/Diagnosis/Condition: Patient is Homebound due to: Shortness of breath/distress Homebound Status Due to the above stated illness, injury or surgical procedure (medical condition or diagnosis) and associated clinical findings, the patient is homebound because of his/her inability to leave home except with aid of a supportive device and/or person AND leaving the home requires a considerable and taxing effort or is medically contraindicated. Pt req the following assistanc: Walker Home Health Nursing Orders Home Health Services Order: Nursing Services, Od Grinder Operator-Evaluate & Treat, Physical Therapy-Evaluate & Treat Home Health Infusion Therapy Line Type: Saline Lock Site Location: Hand Certify Stmt I certify that this patient is under my care and that I, a nurse practitioner or a physician; a minister assistant working with me, had a face to face encounter that - meets the physician face to face encounter requirements with this patient as dated. Copy Copies To 1: MATHEUS WATSON MD, JULIE A MD Jul 05, 2017 9:03 am
--- NOTE | 2017-07-05 09:54 | Occupational Ther Daily Note ---
OT Current Status-Daily Note Subjective Pt in bed, agrees to treatment with encouragement. Pt reports back pain, but does not rate. Mental Status/Objective Functional [place] Measure 0=Not Assessed/NA 4=Minimal Assistance 1=Total Assistance 5=Supervision or Setup 2=Maximal Assistance 6=Modified [place] 3=Moderate Assistance 7=Complete [place] ADL-Treatment Pt supine to sit with increased time, but does not require assistance. Sit to stand with modified independence. Gait to restroom with FWW, no LOB noted. Pt transferred to toilet with supervision. Able to pull underwear down/up, but requires assist for thorough hygiene after bowel movement. Pt stood at sink to wash hands with SBA. Transfer to chair using FWW. Pt sitting in chair with needs met after session, RN notified. Functional [place] Measure 0=Not Assessed/NA 4=Minimal Assistance 1=Total Assistance 5=Supervision or Setup 2=Maximal Assistance 6=Modified [place] 3=Moderate Assistance 7=Complete IndependenceIRFPAI Quality Coding Scale 6 Independent with activity with or without an assistive device 5 Patient requires set up or clean up by helper. Patient completes activity by themselves 4 Supervision or touching assist (CGA). [place] provide cues , steadying assist 3 The helper provides less than half the effort to complete the activity 2 The helper provides more than half the effort to complete the activity 1 Dependent. The helper does all the effort to complete an activity 7 Patient refused to complete or attempt activity 9 The patient did not perform the activity before the current illness or injury 88 Not attempted due to Medical conditions or safety concerns Toileting (FIM): 3 Toileting Hygiene (QC): 3 Toilet/Commode Transfer (FIM): 5 OT Short Term Goals Short Term Goals 1=Demonstrate adherence to instructed precautions during ADL tasks. 2=Patient will verbalize/demonstrate understanding of assistive devices/ modifications for ADL. 3=Patient will improve strength/tolerance for activity to enable patient to perform ADL's. OT Doubler Helper Goals Snf Goals Time Frame: Jul 21, 2017 Eating (FIM): 6 Eating (QC): 6 Groomin Oral Hygiene (QC): 6 Bathing(FIM): 5 Upper Body Dressing(FIM): 6 Lower Body Dressing(FIM): 5 Toileting(FIM): 6 Toilet/Commode Transfer(FIM): 6 Toilet/Commode Transfer (QC): 6 Additional Goals: 2-Verbalize Understanding, 3-ImproveStrength/Bimal 1=Demonstrate adherence to instructed precautions during ADL tasks. 2=Patient will verbalize/demonstrate understanding of assistive devices/ modifications for ADL. 3=Patient will improve strength/tolerance for activity to enable patient to perform ADL's. OT Education/Plan Problem List/Assessment Pt admitted with DKA, AMS. Pt demonstrates decreased activity tolerance, strength, mobility, and ADL functioning. Pt to benefit from skilled OT intervention for ADL training, transfers, strengthening, and safety education to increase level of independence and allow safe discharge plan. Discharge Recommendations Plan/Recommendations: Continue POC Treatment Plan/Plan of Care Patient would benefit from OT for education, treatment and training to promote independence in ADL's, mobility, safety and/or upper extremity function for ADL' s. Plan of Care: ADL Retraining, Functional Mobility, UE Funct Exercise/Act Treatment Duration: Jul 21, 2017 Frequency: 5 times per week Estimated Hrs Per Day: .25 hour per day Agreement: Yes Rehab Potential: Fair Time/GCodes Start Time: 09:25 Stop Time: 09:45 Total Time Billed (hr/min): 20 Billed Treatment Time 1 visit, ADL(20minutes) FATMATA ABURTO OT Jul 05, 2017 09:54
--- NOTE | 2017-07-05 11:21 | Therapy Team Discharge Summary ---
Therapy Discharge Summary Discharge Recommendations Date of Discharge Therapy D/C Recommendations: Home w/ Family Support Physical Therapy Patient has progressed with PT treatment plan and will dismiss to home on this date. Patient initially required minimal assist with all mobility and was limited due to SOA. Patient is currently at [facility] with all gross motor skills and has attained all functional goals. PT to dismiss from services at this time. PT Wood Products Manufacturer Goals Wood Products Manufacturer Goals PT Custodial Goals Time Frame: Jul 07, 2017 Transfers (B,C,W/C) (FIM): 6 (met 07/05/17) Sit to Lying (QC): 6 (met 07/05/17) Lying-Sitting on Side/Bed(QC): 6 (met 07/05/17) Sit to Stand (QC): 6 (met 07/05/17) Rollin (met 07/05/17) Chair/Dnv-tl-Bhkey Xfer(QC): 6 (met 07/05/17) Does the Patient Walk: Yes Gait (FIM): 6 (met 07/05/17) Distance: 150 feet Walk 50ft with 2 Turns (QC): 6 (met 07/05/17) Walk 150 ft (QC): 6 (met 07/05/17) Gait Level of Assist: 6 (met 07/05/17) Gait Assistive Device: FWW Does the Pt use WC or Scooter?: No OT Wood Products Manufacturer Goals Custodial Goals Time Frame: Jul 21, 2017 Eating (FIM): 6 Eating (QC): 6 Groomin Oral Hygiene (QC): 6 Bathing(FIM): 5 Upper Body Dressing(FIM): 6 Lower Body Dressing(FIM): 5 Toileting(FIM): 6 Toilet/Commode Transfer(FIM): 6 Toilet/Commode Transfer (QC): 6 Additional Goals: 2-Verbalize Understanding, 3-ImproveStrength/Bimal 1=Demonstrate adherence to instructed precautions during ADL tasks. 2=Patient will verbalize/demonstrate understanding of assistive devices/ modifications for ADL. 3=Patient will improve strength/tolerance for activity to enable patient to perform ADL's. STEPHY AYERS PT Jul 05, 2017 11:20
--- NOTE | 2017-07-05 12:09 | Discharge Summary ---
Diagnosis/Chief Complaint Date of Admission Jun 30, 2017 at 10:59 am Date of Discharge July 05, 2017 Admission Diagnosis Admission Diagnosis KINDLY SEE BELOW. Discharge Diagnosis 1. TYPE 1 DIABETES MELLITUS 07/03 - BS improved. continue 15 units levemir an dSSI. 07/04 - no change DISCHARGE: Patient was informed she really must be better about checking her BS. Her current complications are related to her poor control of the diabetes. WE did give her diabetes supplies including a glucometer to take home. 2. Sepsis and HCAP LOCULATED PLEURAL EFFUSIONS YEAST SPECIES IN PLEURAL FLUID 07/03 - labs today show improvement in WBC. no fever over the weekend. CTA showed loculated pleural effusions, concern would be for MRSA pneumonia. pt has now been on vanc since Monday, so 3 days. will get a CXR today as well to see if pleural effusions improved -- as pt has clinically improved as well. 07/04 - patient received a thoracentesis yesterday as there was no improvement in the pleural effusions. bact were negative on gram stain. due to patient's uncontrolled diabetes, we will treat the yeast with diflucan 200mg x total of 10 days. DISCHARGE: We will discharge the patient on Diflucan 200mg po x 10 days due to the Yeast Species on Gram Stain from [facility] pleural fluid. Cultures pending at present. AFB negative. A repeat CXR should be done to ensure resolution of the pleural effusion. 4. History of DVT/PE 07/03 - On home Eliquis, no PE seen on recent CTA. DISCHARGE: Eliquis prescription written. 5. DEBILITY AND WEAKNESS 07/03 - much improved, will plan for discharge later this week. 07/04 - plan for DC tomorrow as patient's infectious issues are stable, and she is no longer willing to participate in therapy. DISCHARGE: We will discharge the patient on Oxygen 3LPM and with Home Health Services. Chief Complaint/HPI Chief Complaint/HPI Patient presented to ED with altered mental status and found to be in DKA and with PNA and profound hypokalemia. Patient remains altered and is unable to provide any information at the time of exam, no family is present, and ED records also contain a similar story. It appears that patient was not taking any of her medication after being discharged from the hospital last week. Patient with long history of hospital admissions for DKA secondary to noncompliance. Patient was initially stable to go home and then developed a CODE BLUE, thought to be due to a vasovagal episode. She was admitted to swing bed for strenghtening and antibiotics. Discharge Summary-Simple/Stand Procedures Thoracentesis Consultations Dr Black, General Surgery Discharge Physical Examination Allergies: Coded Allergies: No Known Drug Allergies (Unverified , 05/16/14) Vitals & I&Os Vital Sign - Last 12Hours Date Time Temp Pulse Resp B/P (MAP) Pulse Ox O2 Delivery O2 Flow Rate FiO2 07/05/17 11:47 93 3.00 07/05/17 07:29 Nasal Cannula 07/05/17 06:00 99.5 118 18 147/79 (101) Intake and Output 07/05/17 00:00 Intake Total 960 ml Output Total 10 ml Balance 950 ml General Appearance: Alert, Oriented X3, Cooperative, No Acute Distress Respiratory: Clear to Auscultation, Normal Air Movement Cardiovascular: Regular Rate, Normal S1, Normal S2, No Murmurs, Gallops, Rubs Abdominal: Normal Bowel Sounds, Soft, No Tenderness, No Hepatosplenomegaly, No Masses Extremities: No Clubbing, No Cyanosis, No Edema Psych/Mental Status: Mental Status NL, Mood NL Hospital Course See final discharge diagnosis. Labs Laboratory Tests Test 07/02/17 15:59 07/02/17 20:10 07/03/17 05:18 07/03/17 11:31 Range/Units Glucometer 233 H 282 H 198 H 200 H 70-110 MG/DL Test 07/03/17 14:12 07/03/17 15:25 07/03/17 16:00 07/03/17 17:23 Range/Units White Blood Count 14.0 H 4.3-11.0 10^3/uL Red Blood Count 3.13 L 4.35-5.85 10^6/uL Hemoglobin 8.9 L 11.5-16.0 G/DL Hematocrit 28 L 35-52 % Mean Corpuscular Volume 90 80-99 FL Mean Corpuscular Hemoglobin 28 25-34 PG Mean Corpuscular Hemoglobin Concent 31 L 32-36 G/DL Red Cell Distribution Width 15.0 H 10.0-14.5 % Platelet Count 496 H 130-400 10^3/uL Mean Platelet Volume 9.1 7.4-10.4 FL Neutrophils (%) (Auto) 82 H 42-75 % Lymphocytes (%) (Auto) 10 L 12-44 % Monocytes (%) (Auto) 7 0-12 % Eosinophils (%) (Auto) 1 0-10 % Basophils (%) (Auto) 0 0-10 % Neutrophils # (Auto) 11.4 H 1.8-7.8 X 10^3 Lymphocytes # (Auto) 1.4 1.0-4.0 X 10^3 Monocytes # (Auto) 1.0 0.0-1.0 X 10^3 Eosinophils # (Auto) 0.1 0.0-0.3 10^3/uL Basophils # (Auto) 0.0 0.0-0.1 10^3/uL Neutrophils % (Manual) 83 % Lymphocytes % (Manual) 10 % Monocytes % (Manual) 4 % Eosinophils % (Manual) 0 % Basophils % (Manual) 1 % Band Neutrophils 2 % Blood Morphology Comment NORMAL Sodium Level 134 L 135-145 MMOL/L Potassium Level 3.9 3.6-5.0 MMOL/L Chloride Level 100 98-107 MMOL/L Carbon Dioxide Level 29 21-32 MMOL/L Anion Gap 5 5-14 MMOL/L Blood Urea Nitrogen 13 7-18 MG/DL Creatinine 0.73 0.60-1.30 MG/DL Estimat Glomerular Filtration Rate > 60 BUN/Creatinine Ratio 18 Glucose Level 240 H 70-105 MG/DL Calcium Level 8.7 8.5-10.1 MG/DL Glucometer 236 H 70-110 MG/DL Body Fluid Source PLEURAL Body Fluid Color RED Body Fluid Appearance MKD BLDY Body Fluid WBC 79193 /uL Body Fluid RBC 81658 /uL Body Fluid Polynuclear WBCs 89 % Body Fluid Mononuclear WBCs 0 % Body Fluid Lymphocytes 2 % Body Fluid Other Cells 9 % Body Fluid Glucose 32 MG/DL Body Fluid Total Protein 3.2 G/DL Body Fluid Lactate Dehydrogenase 4566 U/L Body Fluid Creatinine 1 MG/DL Vancomycin Level Trough 11.7 10.0-20.0 UG/ML Test 07/03/17 20:06 07/04/17 05:27 07/04/17 11:09 07/04/17 16:07 Range/Units Glucometer 273 H 204 H 113 H 219 H 70-110 MG/DL Test 07/04/17 20:42 07/05/17 06:11 07/05/17 10:58 Range/Units Glucometer 232 H 144 H 226 H 70-110 MG/DL Discharge Instructions to patient/family Please see electronic discharge instructions given to patient. Discharge Medications Reviewed and agree with Discharge Medication list on patient's Discharge Instruction sheet Clinical Quality Measures DVT/VTE Risk/Contraindication: Risk Factor Score Per Nursin Copy Copies To 1: MATHEUS WATSON MD, JULIE A MD Jul 05, 2017 12:09 pm
--- NOTE | 2017-07-05 12:13 | Progress Note ---
Subjective Time Seen by Provider: 11:49 Subjective/Events-last exam Pt seen and examined, states her breathing is better. Her cough and pain are also improved since draining fluid off lung. Pt is tolerating diet. Nurse states no more drainage from pleural catheter. Review of Systems General: No Chills, No Night Sweats Pulmonary: Dyspnea, Cough, Pleuritic Chest Pain Cardiovascular: Edema, No: Palpitations Gastrointestinal: No: Nausea, Vomiting, Abdominal Pain Objective Exam Vital Signs Date Time Temp Pulse Resp B/P (MAP) Pulse Ox O2 Delivery O2 Flow Rate FiO2 07/05/17 11:47 93 3.00 07/05/17 07:29 95 Nasal Cannula 3.00 07/05/17 06:00 99.5 118 18 147/79 (101) 91 Nasal Cannula 4.00 07/04/17 20:16 97 Nasal Cannula 4.00 07/04/17 20:00 Nasal Cannula 4.00 07/04/17 17:56 99.1 98 18 153/70 (97) 95 Nasal Cannula 4.00 I & O 07/05/17 07:00 Intake Total 1560 ml Output Total 10 ml Balance 1550 ml Capillary Refill : Less Than 3 Seconds General Appearance: No Apparent Distress, WD/WN HEENT: Pharynx Normal, No Scleral Icterus (L), No Scleral Icterus (R) Respiratory: Crackles, Decreased Breath Sounds, Rhonci Cardiovascular: Regular Rate, Rhythm, No Murmur Gastrointestinal: normal bowel sounds, soft, no organomegaly Neurologic/Psychiatric: Alert, Oriented x3 Results Lab Laboratory Tests 07/04/17 16:07: Glucometer 219H 07/04/17 20:42: Glucometer 232H 07/05/17 06:11: Glucometer 144H 07/05/17 10:58: Glucometer 226H Microbiology 07/03/17 Acid Fast Bacilli Culture (Ref Lab - Preliminary, Resulted Assessment/Plan Assessment/Plan Assessment/Plan Bilateral Pleural Effusions - possibly loculated with abscess on left SOB DM HTN S/P US guided thoracentesis; yeast was identified in fluid. Will d/c pleural catheter, pt was placed on anti-fungals. She was told to use IS 10 x every hour at home (while awake). CXR from yesterday showed no PTX and fluid in lung looked improved. Pt is being sent home today. Clinical Quality Measures DVT/VTE Risk/Contraindication: Risk Factor Score Per Nursin SARA STEIN DO Jul 05, 2017 12:13
[2017-07-05 13:42] VITALS: BP 147/79
--- NOTE | 2017-07-07 13:05 | Therapy Team Discharge Summary ---
Therapy Discharge Summary Discharge Recommendations Date of Discharge Jul 05, 2017 at 13:26 Therapy D/C Recommendations: Home w/ Family Support Occupational Therapy Pt admitted to [facility] status following acute hospitalization for DKA, AMS, PNA. On admission pt required min assist with transfers and SBA for eating. Skilled OT intervention focused on ADL training and transfer training. Pt made progress with therapy, but did not meet OT LTG. Pt was discharged from facility and will be discharged from [facility] OT. 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 Longterm Goals PT Longterm Goals Time Frame: Jul 07, 2017 Transfers (B,C,W/C) (FIM): 6 (met 07/05/17) Sit to Lying (QC): 6 (met 07/05/17) Lying-Sitting on Side/Bed(QC): 6 (met 07/05/17) Sit to Stand (QC): 6 (met 07/05/17) Rollin (met 07/05/17) Chair/Reg-hp-Pqgak Xfer(QC): 6 (met 07/05/17) Does the Patient Walk: Yes Gait (FIM): 6 (met 07/05/17) Distance: 150 feet Walk 50ft with 2 Turns (QC): 6 (met 07/05/17) Walk 150 ft (QC): 6 (met 07/05/17) Gait Level of Assist: 6 (met 07/05/17) Gait Assistive Device: FWW Does the Pt use WC or Scooter?: No OT Longterm Goals Longterm Goals Time Frame: Jul 21, 2017 Eating (FIM): 6 Eating (QC): 6 Groomin Oral Hygiene (QC): 6 Bathing(FIM): 5 Upper Body Dressing(FIM): 6 Lower Body Dressing(FIM): 5 Toileting(FIM): 6 Toilet/Commode Transfer(FIM): 6 Toilet/Commode Transfer (QC): 6 Additional Goals: 2-Verbalize Understanding, 3-ImproveStrength/Bimal 1=Demonstrate adherence to instructed precautions during ADL tasks. 2=Patient will verbalize/demonstrate understanding of assistive devices/ modifications for ADL. 3=Patient will improve strength/tolerance for activity to enable patient to perform ADL's. FATMATA ABURTO OT Jul 07, 2017 13:05
== END 2017-07-05 13:26 | disposition home health service (06) | DRG 178 ==
LOC: 4TH 10:59
PROVIDERS: ADMIT Family Medicine; ATTEND Family Medicine
PROC: 0W9B3ZZ Drainage of Left Pleural Cavity, Percutaneous Approach (ICD-10-PCS; principal; 2017-07-03)
DX: B37.1 Pulmonary candidiasis (principal); J90 Pleural effusion, not elsewhere classified; J81.1 Chronic pulmonary edema; I10 Essential (primary) hypertension; I87.2 Venous insufficiency (chronic) (peripheral); E10.51 Type 1 diabetes mellitus with diabetic peripheral angiopathy without gangrene; K21.9 Gastro-esophageal reflux disease without esophagitis; K59.09 Other constipation; K64.9 Unspecified hemorrhoids; M19.91 Primary osteoarthritis, unspecified site; R53.81 Other malaise; Z91.19 Patient's noncompliance with other medical treatment and regimen; Z87.891 Personal history of nicotine dependence; Z86.711 Personal history of pulmonary embolism; Z86.718 Personal history of other venous thrombosis and embolism
CPT/HCPCS: 32555; 36415; 71046; 71275; 76942; 80048; 80202; 82570; 82945; 82962; 83615; 84157; 85007; 85027; 87070; 87075; 87101; 87116; 87205; 89051; 94640; 94760; 94761

== ENCOUNTER 2017-07-31 16:20 | Emergency (ER) | payer SELFPAY ==
[~2017-07-31] VITALS: Ht 165.1 cm; Wt 63.5 kg
[~2017-07-31 16:20] MED LIST changes: +BENZ-36 PO; +FLUC200T PO; +INSU100V16 SC
--- NOTE | 2017-07-31 16:56 | ED EENT ---
History of Present Illness General Stated Complaint: NOSE BLEED/ON BLOOD THINNERS Source: patient, family Exam Limitations: no limitations History of Present Illness Date Seen by Provider: Jul 31, 2017 Time Seen by Provider: 16:54 Initial Comments To ER complaint by son with reports of a nosebleed since this morning. She picked her nose this morning and has been bleeding since. She is on Eliquis. She presented to [facility] who referred her here. Timing/Duration: abrupt Severity: moderate Location: nose Allergies and Home Medications Allergies Coded Allergies: No Known Drug Allergies (Unverified , 05/16/14) Home Medications Apixaban 5 Mg Tablet, 5 MG PO BID Prescribed by: HERMAN VANEGAS on 07/05/17857 Benzonatate 100 Mg Capsule, 200 MG PO TID Prescribed by: HERMAN VANEGAS on 07/05/17857 Fluconazole 200 Mg Tablet, 200 MG PO DAILY Prescribed by: HERMAN VANEGAS on 07/05/17858 Insulin Aspart 100 Unit/1 Ml Susp, 10 UNIT SC ACHS Prescribed by: HERMAN VANEGAS on 07/05/17857 Insulin Determir 1,000 Units/10 Ml Soln, 15 UNIT SQ HS Prescribed by: HERMAN VANEGAS on 07/05/17857 Patient Home Medication List Home Medication List Reviewed: Yes Review of Systems Constitutional: see HPI Eyes: No Symptoms Reported Ears: No Symptoms Reported Nose: see HPI, congestion Mouth: no symptoms reported Throat: no symptoms reported Respiratory: no symptoms reported Past Eyqrsce-Zvpgqs-Rsytcg Hx Patient Social History Former Smoker, Quit: May 01, 1985 Recent Foreign Travel: No Contact w/Someone Who Travel: No Recent Hopitalizations: Yes Immunizations Up To Date Tetanus Booster (TDap): Unknown PED Vaccines UTD: No Date of Influenza Vaccine: Jun 13, 2017 Seasonal Allergies Seasonal Allergies: No Surgeries History of Surgeries: Yes Surgeries: Gallbladder, Tubal Ligation Respiratory History of Respiratory Disorde: Yes Respiratory Disorders: Pulmonary Embolism Currently Using CPAP: No Currently Using BIPAP: No Cardiovascular History of Cardiac Disorders: Yes (enlarged heart) Cardiac Disorders: Deep Vein Thrombosis, Hypertension, Peripheral Vascular Neurological History of Neurological Disord: No Reproductive System Hx Reproductive Disorders: No Sexually Transmitted Disease: No HIV/AIDS: No Genitourinary History of Genitourinary Disor: No Gastrointestinal History of Gastrointestinal Di: Yes Gastrointestinal Disorders: Gastroesophageal Reflux, Chronic Constipation, Hemorrhoids, Gall Bladder Disease Musculoskeletal History of Musculoskeletal Dis: Yes Musculoskeletal Disorders: Arthritis Endocrine History of Endocrine Disorders: Yes Endocrine Disorders: Diabetes, Non-Insulin dep HEENT History of HEENT Disorders: No Loss of Vision: Denies Hearing Impairment: Hard of Hearing Cancer History of Cancer: No Psychosocial History of Psychiatric Problem: No Integumentary History of Skin or Integumenta: No Blood Transfusions History of Blood Disorders: No Family Medical History Significant Family History: COPD, CVA, Diabetes, Vascular Disease Family Medial History: Cardiovascular disease 19 MOTHER Diabetes mellitus 19 MOTHER FH: COPD (chronic obstructive pulmonary disease) G8 BROTHER G8 SISTER Hypertension G8 BROTHER G8 SISTER Myocardial infarction 19 MOTHER Respiratory disorder 19 FATHER Stroke or transient ischemic attack in sister G8 SISTER Physical Exam Vital Signs Vital Signs - First Documented 07/31/17 16:25 Temp 98.9 Pulse 115 Resp 20 B/P (MAP) 162/81 (108) Pulse Ox 96 O2 Delivery Room Air General Appearance: WD/WN, no apparent distress Eyes: bilateral eye normal inspection, bilateral eye PERRL, bilateral eye EOMI Ears: bilateral ear auricle normal, bilateral ear canal normal, bilateral ear TM normal Nose: other (there is a 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 There is a clot overlying the area of former bleeding to the left side of what remains of the nasal septum. There is no active bleeding at this time images of the nose or the oropharynx. We'll observe her for 30 minutes, if no bleeding discharged home.) Mouth/Throat: normal mouth inspection, pharynx normal Neck: non-tender, full range of motion Respiratory: no respiratory distress, no accessory muscle use Gastrointestinal: normal bowel sounds, non tender Neurologic/Psychiatric: alert, normal mood/affect, oriented x 3 Skin: normal color, warm/dry Progress/Results/Core Measures Results/Orders Lab Results Laboratory Tests Test 07/31/17 16:48 Range/Units White Blood Count 8.5 4.3-11.0 10^3/uL Red Blood Count 4.11 L 4.35-5.85 10^6/uL Hemoglobin 9.9 L 11.5-16.0 G/DL Hematocrit 32 L 35-52 % Mean Corpuscular Volume 77 L 80-99 FL Mean Corpuscular Hemoglobin 24 L 25-34 PG Mean Corpuscular Hemoglobin Concent 31 L 32-36 G/DL Red Cell Distribution Width 16.9 H 10.0-14.5 % Platelet Count 532 H 130-400 10^3/uL Mean Platelet Volume 9.3 7.4-10.4 FL Neutrophils (%) (Auto) 63 42-75 % Lymphocytes (%) (Auto) 28 12-44 % Monocytes (%) (Auto) 7 0-12 % Eosinophils (%) (Auto) 1 0-10 % Basophils (%) (Auto) 1 0-10 % Neutrophils # (Auto) 5.4 1.8-7.8 X 10^3 Lymphocytes # (Auto) 2.4 1.0-4.0 X 10^3 Monocytes # (Auto) 0.6 0.0-1.0 X 10^3 Eosinophils # (Auto) 0.1 0.0-0.3 10^3/uL Basophils # (Auto) 0.0 0.0-0.1 10^3/uL My Orders Orders - ZACHARY LARA APRN Cbc With Automated Diff (07/31/17 16:54) Saline Lock/Iv-Start (07/31/17 16:54) Vital Signs/I&O Vital Sign - Last 12Hours 07/31/17 16:25 Temp 98.9 Pulse 115 Resp 20 B/P (MAP) 162/81 (108) Pulse Ox 96 O2 Delivery Room Air Departure Communication (Admissions) Progress Notes 1806- still no bleeding from either side of the nose or blood in the oropharynx. We will discharge to home. Impression Impression: Primary Impression: Epistaxis Disposition: 01 HOME, SELF-CARE Condition: Stable Departure-Patient Inst. Decision time for Depature: 16:56 Referrals: MATHEUS WATSON MD (PCP/Family) Primary Care Physician Patient Instructions: Nosebleeds Add. Discharge Instructions: 1. Nose begins to bleed again reapply the nose clamp and lean forward. Keep this position for 20 minutes. If you feel blood continuing to go down her throat after this or leaking out of her nose come back to the emergency room. ZACHARY LARA APRN Jul 31, 2017 16:56
[2017-07-31 17:00] LABS: BASOPHILS % (AUTO) 1 % (0-10); EOSINOPHILS # (AUTO) 0.1 10^3/uL (0.0-0.3); EOSINOPHILS % (AUTO) 1 % (0-10); HEMATOCRIT 32 % (35-52); HEMOGLOBIN 9.9 G/DL (11.5-16.0); LYMPHOCYTES # (AUTO) 2.4 X 10^3 (1.0-4.0); LYMPHOCYTES % (AUTO) 28 % (12-44); MEAN CORPUSCULAR HEMOGLOBIN 24 PG (25-34); MEAN CORPUSCULAR HGB CONC 31 G/DL (32-36); MEAN CORPUSCULAR VOLUME 77 FL (80-99); MEAN PLATELET VOLUME 9.3 FL (7.4-10.4); MONOCYTES # (AUTO) 0.6 X 10^3 (0.0-1.0); MONOCYTES % (AUTO) 7 % (0-12); NEUTROPHILS # (AUTO) 5.4 X 10^3 (1.8-7.8); NEUTROPHILS % (AUTO) 63 % (42-75); PLATELET COUNT 532 10^3/uL (130-400); RED BLOOD COUNT 4.11 10^6/uL (4.35-5.85); RED CELL DISTRIBUTION WIDTH 16.9 % (10.0-14.5); WHITE BLOOD COUNT 8.5 10^3/uL (4.3-11.0)
[2017-07-31 18:17] VITALS: BP 175/100
== END 2017-07-31 18:08 | disposition home or self-care (01) ==
LOC: EDUNIT# 16:20 → ER 16:21
DX: R04.0 Epistaxis (principal); E11.9 Type 2 diabetes mellitus without complications; K21.9 Gastro-esophageal reflux disease without esophagitis; I10 Essential (primary) hypertension; Z87.891 Personal history of nicotine dependence; Z86.711 Personal history of pulmonary embolism; Z98.51 Tubal ligation status; Z87.59 Personal history of other complications of pregnancy, childbirth and the puerperium; Z87.19 Personal history of other diseases of the digestive system; Z86.718 Personal history of other venous thrombosis and embolism; Z79.01 Long term (current) use of anticoagulants; Z79.4 Long term (current) use of insulin
CPT/HCPCS: 36415; 85025